=== PATIENT | male | born 1935 | race Caucasian/White ===

== ENCOUNTER 2019-06-25 15:02 | Observation (INO) | payer MEDICARE ==
[~2019-06-25] VITALS: Ht 170.2 cm; Wt 89.5 kg
[2019-06-25 15:47] LABS: BASO % 1 % (0-3); EOS # 0.3 x10^3/uL (0.0-0.7); EOS % 4 % (0-3); HEMATOCRIT 34.3 % (39.0-53.0); HEMOGLOBIN 10.7 g/dL (13.0-17.5); LYMPH # 0.7 x10^3/uL (1.0-4.8); LYMPH % 12 % (24-48); MEAN CORPUSCULAR HEMOGLOBIN 27 pg (25-35); MEAN CORPUSCULAR HGB CONC 31 g/dL (31-37); MEAN CORPUSCULAR VOLUME 88 fL (79-100); MONO # 0.8 x10^3/uL (0.0-1.1); MONO % 13 % (0-9); NEUT # 4.4 x10^3uL (1.8-7.7); NEUT % 71 % (31-73); PLATELET COUNT 143 x10^3/uL (140-400); RED CELL DISTRIBUTION WIDTH 25.3 % (11.5-14.5); WHITE BLOOD COUNT 6.2 x10^3/uL (4.0-11.0)
[2019-06-25 15:55] LABS: CREATININE 1.2 mg/dL (0.7-1.3); GFR 57.7; POTASSIUM 3.8 mmol/L (3.5-5.1)
[2019-06-25 16:00] LABS: ALBUMIN 2.9 g/dL (3.4-5.0); ALBUMIN/GLOBULIN RATIO 0.7 (1.0-1.7); MAGNESIUM 2.3 mg/dL (1.8-2.4); TOTAL BILIRUBIN 1.1 mg/dL (0.2-1.0); TOTAL PROTEIN 7.1 g/dL (6.4-8.2)
[2019-06-25 16:14] LABS: BILIRUBIN,URINE NEG (NEG); CLARITY,URINE CLEAR; COLOR,URINE YELLOW; GLUCOSE,URINE NEG (NEG); NITRITE,URINE NEG (NEG); UROBILINOGEN,URINE 1 mg/dL (0.2 mg/dL); WBC,URINE OCC /HPF (0-4)
[2019-06-25 16:15] LABS: BACTERIA,URINE 0 /HPF (0-FEW); HYALINE CASTS, URINE OCC /HPF; SQUAMOUS EPITHELIAL CELL,UR OCC /LPF
--- NOTE | 2019-06-25 16:37 | EKG ---
[address] [address] Test Date: 2019-06-25 Test Time: 15:32:24 Pat Name: ISAAC HENNESSY Department: Room: Gender: M Tobacco Stemmer Machine: : 1935 Requested By: MELISSA CURIEL Order Number: [id number] Reading MD: Roshan Moore Measurements Intervals [place] Rate: 64 P: OR: QRS: 82 QRSD: 98 T: 47 QT: 462 QTc: 481 Interpretive Statements SINUS RHYTHM PROLONGED QT Electronically Signed On 07-30-2019 17:49:55 SALES REPRESENTATIVE METALS by Roshan Moore
[2019-06-25] MEDS ORDERED: ASPIRIN ENTERIC COATED 81 MG TABLET.DR. PO ONE (17:15)
--- NOTE | 2019-06-25 17:18 | EKG ---
[address] [address] Test Date: 2019-06-25 Test Time: 16:59:16 Pat Name: ISAAC HENNESSY Department: Room: Gender: M Soft Boarder: : 1935 Requested By: MELISSA CURIEL Order Number: [id number] Reading MD: Roshan Moore Measurements Intervals [place] Rate: 64 P: 36 OK: 296 QRS: 62 QRSD: 100 T: 14 QT: 448 QTc: 467 Interpretive Statements SINUS RHYTHM PROLONGED OK INTERVAL Electronically Signed On 07-30-2019 17:50:22 DISTRIBUTION DRIVER by Roshan Moore
--- NOTE | 2019-06-25 17:26 | PHYS DOC ---
Past History Past Medical History: Anemia, CHF, COPD, Hypertension Past Surgical History: No Surgical History Alcohol Use: None Drug Use: None Adult General Chief Complaint Chief Complaint: PSYCH EVALUATION HPI HPI Patient is a 83-year-old male has known patient with history of dementia and heart failure who presents for medical clearance for psychiatric admission. Patient reportedly agitated and combative with staff charge of his care. Staff ports patient is wondering at night and found in a female resident room with inappropriate behavior. No illnesses or injuries. Denies headache, chest pain shortness of breath, no pain, nausea vomiting, urinary frequency urgency and dysuria. No other acute symptoms or complaints. Review of Systems Review of Systems Review symptoms as per history of present illness. Limited due to patient's dementia. All other systems were reviewed and found to be within normal limits, except as documented in this note. Current Medications Current Medications Current Medications Medications (Trade) Dose Ordered Sig/Radha Start Time Stop Time Status Last Admin Dose Admin Aspirin (Aspirin Enteric Coated) 324 mg 1X ONCE 06/25/19 17:15 06/25/19 17:16 DC Allergies Allergies Allergies Coded Allergies Type Severity Reaction Last Updated Verified keratin Allergy Unknown 06/25/19 Yes niacin Allergy Unknown 06/25/19 Yes Physical Exam Physical Exam Constitutional: Well developed, well nourished, no acute distress, non-toxic appearance. [] HENT: Normocephalic, atraumatic, bilateral external ears normal, oropharynx moist, no oral exudates, nose normal. [] Eyes: PERRLA, EOMI, conjunctiva normal, no discharge. [] Neck: Normal range of motion, no tenderness, supple, no stridor. [] Cardiovascular:Heart rate regular rhythm, no murmur [] Lungs & Thorax: Bilateral breath sounds clear to auscultation [] Abdomen: Bowel sounds normal, soft, no tenderness. [] Skin: Warm, dry, no erythema, no rash. [] Back: No tenderness, no CVA tenderness. [] Extremities: No tenderness, no edema. [] Neurologic: Alert and oriented X 1, normal motor function, normal sensory function, no focal deficits noted. [] Psychologic: Affect normal, judgement normal, mood normal. [] Current Patient Data Vital Signs Vital Signs Date Time Temp Pulse Resp B/P (MAP) Pulse Ox O2 Delivery O2 Flow Rate FiO2 06/25/19 16:05 80 18 117/53 (74) 94 Room Air 06/25/19 15:16 98.4 Lab Results Laboratory Tests Test 06/25/19 15:25 White Blood Count 6.2 x10^3/uL (4.0-11.0) Red Blood Count 3.90 x10^6/uL (4.30-5.70) L Hemoglobin 10.7 g/dL (13.0-17.5) L Hematocrit 34.3 % (39.0-53.0) L Mean Corpuscular Volume 88 fL (79-100) Mean Corpuscular Hemoglobin 27 pg (25-35) Mean Corpuscular Hemoglobin Concent 31 g/dL (31-37) Red Cell Distribution Width 25.3 % (11.5-14.5) H Platelet Count 143 x10^3/uL (140-400) Neutrophils (%) (Auto) 71 % (31-73) Lymphocytes (%) (Auto) 12 % (24-48) L Monocytes (%) (Auto) 13 % (0-9) H Eosinophils (%) (Auto) 4 % (0-3) H Basophils (%) (Auto) 1 % (0-3) Neutrophils # (Auto) 4.4 x10^3uL (1.8-7.7) Lymphocytes # (Auto) 0.7 x10^3/uL (1.0-4.8) L Monocytes # (Auto) 0.8 x10^3/uL (0.0-1.1) Eosinophils # (Auto) 0.3 x10^3/uL (0.0-0.7) Basophils # (Auto) 0.0 x10^3/uL (0.0-0.2) Platelet Estimate Pending Urine Collection Type Unknown Urine Color Yellow Urine Clarity Clear Urine pH 7.0 Urine Specific [place] 1.015 Urine Protein Neg (NEG-TRACE) Urine Glucose (UA) Neg mg/dL (NEG) Urine Ketones (Stick) Neg mg/dL (NEG) Urine Blood Trace (NEG) Urine Nitrite Neg (NEG) Urine Bilirubin Neg (NEG) Urine Urobilinogen Dipstick 1 mg/dL (0.2 mg/dL) Urine Leukocyte Esterase Neg (NEG) Urine RBC 1-2 /HPF (0-2) Urine WBC Occ /HPF (0-4) Urine Squamous Epithelial Cells Occ /LPF Urine Bacteria 0 /HPF (0-FEW) Urine Hyaline Casts Occ /HPF Sodium Level 138 mmol/L (136-145) Potassium Level 3.8 mmol/L (3.5-5.1) Chloride Level 102 mmol/L (98-107) Carbon Dioxide Level 31 mmol/L (21-32) Anion Gap 5 (6-14) L Blood Urea Nitrogen 21 mg/dL (8-26) Creatinine 1.2 mg/dL (0.7-1.3) Estimated GFR (Cockcroft-Gault) 57.7 BUN/Creatinine Ratio 18 (6-20) Glucose Level 108 mg/dL (70-99) H Calcium Level 9.0 mg/dL (8.5-10.1) Magnesium Level 2.3 mg/dL (1.8-2.4) Total Bilirubin 1.1 mg/dL (0.2-1.0) H Aspartate Amino Transferase (AST) 30 U/L (15-37) Alanine Aminotransferase (ALT) 29 U/L (16-63) Alkaline Phosphatase 106 U/L (46-116) Troponin I Quantitative 0.065 ng/mL (0-0.055) H Total Protein 7.1 g/dL (6.4-8.2) Albumin 2.9 g/dL (3.4-5.0) L Albumin/Globulin Ratio 0.7 (1.0-1.7) L EKG EKG [EKG: Sinus rhythm with biphasic T waves] Radiology/Procedures Radiology/Procedures [] Course & Med Decision Making Course & Med Decision Making Pertinent Labs and Imaging studies reviewed. (See chart for details) [Patient with biphasic T waves on EKG, denies chest pain shortness of breath reports reproducible neck pain upon further questioning. Initial troponin elevated at 0.065. Unable to obtain comparison EKG. Dr. Bell to admit to medical floor for further evaluation and treatment.] Dragon Disclaimer Dragon Disclaimer This electronic medical record was generated, in whole or in part, using a voice recognition dictation system. Departure Departure: Impression: Primary Impression: General medical examination Additional Impressions: Elevated troponin Dementia Disposition: ADMITTED INPATIENT Condition: STABLE Referrals: PCP,NO (PCP) Problem Qualifiers MELISSA CURIEL DO Jun 25, 2019 17:26
[2019-06-25] MEDS ORDERED: ONDANSETRON PF 4 MG/2 ML VIAL. IV PRN (17:30)
[2019-06-25 17:50] VITALS: BP 107/67
[2019-06-25] MEDS ORDERED: MULT-121 PO (18:37)
[2019-06-25] MEDS ORDERED: POLY17PO5 PO (18:37)
[2019-06-25] MEDS ORDERED: MAGN24003 PO (18:37)
[2019-06-25] MEDS ORDERED: FURO40TA4 PO (18:37)
[2019-06-25] MEDS ORDERED: ASPI-630 PO (18:37)
[2019-06-25] MEDS ORDERED: TRIA0.2567 PO (18:37)
[2019-06-25] MEDS ORDERED: FERR325T14 PO (18:37)
[2019-06-25] MEDS ORDERED: FAMO40TA4 PO (18:37)
[2019-06-25] MEDS ORDERED: PRAV20TA2 PO (18:37)
[2019-06-25] MEDS ORDERED: DOCU-109 PO (18:37)
[2019-06-25] MEDS ORDERED: DOXA8TAB59 PO (18:37)
[2019-06-25] MEDS ORDERED: METO25TA4 PO (18:37)
[2019-06-25 19:35] LABS: ANISOCYTOSIS MOD; OVALOCYTES OCC; PLT ESTIMATE ADEQUATE (ADEQUATE); POLYCHROMASIA SLIGHT; TEAR DROP CELLS OCC
[2019-06-25] MEDS ORDERED: ATORVASTATIN CALCIUM 10 MG TABLET. PO ONE (20:00)
[2019-06-25] MEDS ORDERED: ENOXAPARIN ** NOTE DOSE ** SYRINGE SQ ONE (20:00)
[2019-06-25 23:11] VITALS: BP 100/49
--- NOTE | 2019-06-26 01:03 | RAD ---
Exam: VENOUS LOWER EXT BILATERAL Indication: Lower extremity swelling Technique: Color-flow and pulsed wave duplex ultrasound with compression of venous structures of the bilateral lower extremities. Comparison: None Available. Findings: Duplex ultrasound with compression of the deep venous structures of the bilateral lower extremities from the common femoral vein through the popliteal vein is negative for DVT. The posterior tibial and peroneal veins are segmentally visualized and patent where seen. Normal venous waveforms and augmentation are noted throughout. Incidental mildly prominent right groin lymph node measuring 2.7 cm with normal morphology. Impression: No evidence for DVT in the bilateral lower extremities. Electronically signed by: Abbe Allan MD (06/26/2019 12:59 AM) [facility]
[2019-06-26 07:29] LABS: BASO % 1 % (0-3); EOS # 0.2 x10^3/uL (0.0-0.7); EOS % 4 % (0-3); HEMATOCRIT 30.8 % (39.0-53.0); HEMOGLOBIN 9.6 g/dL (13.0-17.5); LYMPH # 0.8 x10^3/uL (1.0-4.8); LYMPH % 14 % (24-48); MEAN CORPUSCULAR HEMOGLOBIN 27 pg (25-35); MEAN CORPUSCULAR HGB CONC 31 g/dL (31-37); MEAN CORPUSCULAR VOLUME 88 fL (79-100); MONO # 0.8 x10^3/uL (0.0-1.1); MONO % 13 % (0-9); NEUT # 4.2 x10^3uL (1.8-7.7); NEUT % 69 % (31-73); PLATELET COUNT 129 x10^3/uL (140-400); RED CELL DISTRIBUTION WIDTH 25.5 % (11.5-14.5); WHITE BLOOD COUNT 6.1 x10^3/uL (4.0-11.0)
--- NOTE | 2019-06-26 07:46 | PDOC2 ---
CARDIAC CONSULT DATE OF CONSULT Date Of Consult DATE: 06/26/19 TIME: 07:43 REASON FOR CONSULT Reason for Consult Chest pain, elevated troponin REFERRING PHYSICIAN Referring Physician Dr. Bell SOURCE Source: Caregiver, Chart review, Patient HPI History of Present Illness This is an 83 yo male who presented from care facility for medical clearance prior to admission to the psychiatric unit. Has apparently been more agitated and combative and has been wandering more at night. Troponin checked for unknown reasons and was noted to be mildly elevated, which prompted this consult. Patient denies any chest pain, palpitations, dizziness, diaphoresis, SOA, or nausea/vomiting. Patient had complaints of chest pain to nursing staff upon arrival to the floor. Lovenox was administered and troponin was trended. No further pain overnight. Discussed with daughter, Tim. Patient has a history of CAD with PCI/stent in 2000 and PCI/stents x2 in 2002. Experienced an episode of chest pain back in February and was hospitalized at [facility] in [place]. Trop was reportedly mildly elevated and he underwent further ischemic evaluation with an echo and a stress test which were reportedly normal. Patient follows with Dr. Ramirez at [facility]. PAST MEDICAL HISTORY Cardiovascular: CAD, CHF, HTN, hyperipidemia, Other (carotid artery disease) Pulmonary: COPD CENTRAL NERVOUS SYSTEM: Dementia GI: Diverticulosis, GERD Musculoskeletal: Osteoarthritis Endocrine: Hypothyroidism PAST SURGICAL HISTORY Past Surgical History carotid endarterectomy, carpal tunnel surgery, shoulder surgery, PCI/stent FAMILY HISTORY Family History: Other (noncontributory ) SOCIAL HISTORY Smoke: Quit ALCOHOL: none Drugs: None Lives: Senior Living CURRENT MEDICATIONS Current Medications Current Medications Aspirin (Aspirin Enteric Coated) 324 mg 1X ONCE PO Last administered on 06/25/19at 17:15; Start 06/25/19 at 17:15; Stop 06/25/19 at 17:16; Status DC Ondansetron HCl (Zofran) 4 mg PRN Q4HRS PRN IV NAUSEA/VOMITING; Start 06/25/19 at 17:30; Stop 06/26/19 at 17:29 Enoxaparin Sodium (Lovenox 80mg Syringe) 80 mg 1X ONCE SQ Last administered on 06/25/19at 22:19; Start 06/25/19 at 20:00; Stop 06/25/19 at 20:01; Status DC Atorvastatin Calcium (Lipitor) 40 mg 1X ONCE PO Last administered on 06/25/19at 22:19; Start 06/25/19 at 20:00; Stop 06/25/19 at 20:01; Status DC Active Scripts Active Reported Triazolam 0.25 Mg Tablet 1 Tab PO PRN QHS PRN MDD 1 Tablet(s) 30 Days Multiple Vitamins (Multivitamin) 1 Each Tablet 1 Tab PO DAILY 30 Days Ferrous Sulfate 325 Mg Tablet 1 Tab PO DAILY Furosemide 40 Mg Tablet 40 Mg PO BID Milk Of Magnesia (Magnesium Hydroxide) 2,400 Mg/10 Ml Oral.susp 2,400 Mg PO PRN PRN Pravastatin Sodium 20 Mg Tablet 1 Tab PO DAILY Miralax (Polyethylene Glycol 3350) 17 Gm Powd.pack 1 Packet PO DAILY 2 Days dissolve in water Metoprolol Tartrate 25 Mg Tablet 1 Tab PO DAILY Famotidine 40 Mg Tablet 1 Tab PO DAILY Doxazosin Mesylate 8 Mg Tablet 1 Tab PO DAILY Colace (Docusate Sodium) 100 Mg Capsule 1 Cap PO DAILY08 30 Days Aspirin 81 Mg Tab.chew 81 Mg PO DAILY ALLERGIES Allergies: Coded Allergies: keratin (Verified Allergy, Unknown, 06/25/19) niacin (Verified Allergy, Unknown, 06/25/19) sucralfate (Verified Allergy, Unknown, 06/26/19) ROS Review of Systems 14 point ROS conducted with pertinent positives noted above in HPI although limited due to dementia. PHYSICAL EXAM General: Alert, Cooperative, No acute distress, Other (oriented to person) HEENT: Atraumatic, Mucous membr. moist/pink Lungs: Clear to auscultation, Normal air movement Heart: Regular rate (off tele ), Normal S1, Normal S2 Abdomen: Soft, No tenderness Extremities: No edema, Normal pulses Skin: No breakdown Neuro: Normal speech, Sensation intact Psych/Mental Status: Mood NL MUSCULOSKELETAL: Osteoarthritic changes both hands VITALS Vital Signs Vital Signs Date Time Temp Pulse Resp B/P (MAP) Pulse Ox O2 Delivery O2 Flow Rate FiO2 06/25/19 23:11 97.3 68 20 100/49 (66) 91 Room Air LABS LABS Laboratory Tests Test 06/25/19 15:25 06/25/19 18:40 06/25/19 23:14 06/26/19 07:15 White Blood Count 6.2 x10^3/uL (4.0-11.0) 6.1 x10^3/uL (4.0-11.0) Red Blood Count 3.90 x10^6/uL (4.30-5.70) 3.50 x10^6/uL (4.30-5.70) Hemoglobin 10.7 g/dL (13.0-17.5) 9.6 g/dL (13.0-17.5) Hematocrit 34.3 % (39.0-53.0) 30.8 % (39.0-53.0) Mean Corpuscular Volume 88 fL (79-100) 88 fL (79-100) Mean Corpuscular Hemoglobin 27 pg (25-35) 27 pg (25-35) Mean Corpuscular Hemoglobin Concent 31 g/dL (31-37) 31 g/dL (31-37) Red Cell Distribution Width 25.3 % (11.5-14.5) 25.5 % (11.5-14.5) Platelet Count 143 x10^3/uL (140-400) 129 x10^3/uL (140-400) Neutrophils (%) (Auto) 71 % (31-73) 69 % (31-73) Lymphocytes (%) (Auto) 12 % (24-48) 14 % (24-48) Monocytes (%) (Auto) 13 % (0-9) 13 % (0-9) Eosinophils (%) (Auto) 4 % (0-3) 4 % (0-3) Basophils (%) (Auto) 1 % (0-3) 1 % (0-3) Neutrophils # (Auto) 4.4 x10^3uL (1.8-7.7) 4.2 x10^3uL (1.8-7.7) Lymphocytes # (Auto) 0.7 x10^3/uL (1.0-4.8) 0.8 x10^3/uL (1.0-4.8) Monocytes # (Auto) 0.8 x10^3/uL (0.0-1.1) 0.8 x10^3/uL (0.0-1.1) Eosinophils # (Auto) 0.3 x10^3/uL (0.0-0.7) 0.2 x10^3/uL (0.0-0.7) Basophils # (Auto) 0.0 x10^3/uL (0.0-0.2) 0.0 x10^3/uL (0.0-0.2) Platelet Estimate Adequate (ADEQUATE) Polychromasia Slight Anisocytosis Mod Tear Drop Cells Occ Ovalocytes Occ Urine Collection Type Unknown Urine Color Yellow Urine Clarity Clear Urine pH 7.0 Urine Specific [place] 1.015 Urine Protein Neg (NEG-TRACE) Urine Glucose (UA) Neg mg/dL (NEG) Urine Ketones (Stick) Neg mg/dL (NEG) Urine Blood Trace (NEG) Urine Nitrite Neg (NEG) Urine Bilirubin Neg (NEG) Urine Urobilinogen Dipstick 1 mg/dL (0.2 mg/dL) Urine Leukocyte Esterase Neg (NEG) Urine RBC 1-2 /HPF (0-2) Urine WBC Occ /HPF (0-4) Urine Squamous Epithelial Cells Occ /LPF Urine Bacteria 0 /HPF (0-FEW) Urine Hyaline Casts Occ /HPF Sodium Level 138 mmol/L (136-145) Potassium Level 3.8 mmol/L (3.5-5.1) Chloride Level 102 mmol/L (98-107) Carbon Dioxide Level 31 mmol/L (21-32) Anion Gap 5 (6-14) Blood Urea Nitrogen 21 mg/dL (8-26) Creatinine 1.2 mg/dL (0.7-1.3) Estimated GFR (Cockcroft-Gault) 57.7 BUN/Creatinine Ratio 18 (6-20) Glucose Level 108 mg/dL (70-99) Calcium Level 9.0 mg/dL (8.5-10.1) Magnesium Level 2.3 mg/dL (1.8-2.4) Total Bilirubin 1.1 mg/dL (0.2-1.0) Aspartate Amino Transf (AST/SGOT) 30 U/L (15-37) Alanine Aminotransferase (ALT/SGPT) 29 U/L (16-63) Alkaline Phosphatase 106 U/L (46-116) Troponin I Quantitative 0.065 ng/mL (0-0.055) 0.061 ng/mL (0-0.055) 0.068 ng/mL (0-0.055) Total Protein 7.1 g/dL (6.4-8.2) Albumin 2.9 g/dL (3.4-5.0) Albumin/Globulin Ratio 0.7 (1.0-1.7) ASSESSMENT/PLAN Assessment/Plan 1. Dementia, increased agitation/combativeness 2. Mild troponin elevation; Most probably type II, demand ischemia. CP free. 3. CAD; s/p PCI/stent in 1999 and again in 2002. Follows with cardiology at [facility] in [place]. Echo and stress test 02/2019 were reportedly normal. 4. Chronic diastolic CHF; clinically compensated 5. Hypertension; low end. 6. Hyperlipidemia; statin 7. Hypothyroidism 8. COPD; stable Recommendations Resume ASA, BB, statin Consider Imdur if blood pressure will tolerate Lasix therapy Recommend conservative measures given significant dementia, comorbidities Okay to transfer to behavioral unit. Follow up with primary deputy administrator. ALTA WILLIAMSON APRN Jun 26, 2019 07:46
[2019-06-26 07:48] LABS: ALBUMIN 2.4 g/dL (3.4-5.0); ALBUMIN/GLOBULIN RATIO 0.7 (1.0-1.7); CALCIUM 8.2 mg/dL (8.5-10.1); CREATININE 1.2 mg/dL (0.7-1.3); GFR 57.7; POTASSIUM 3.5 mmol/L (3.5-5.1); TOTAL BILIRUBIN 1.1 mg/dL (0.2-1.0); TOTAL PROTEIN 5.9 g/dL (6.4-8.2)
[2019-06-26] MEDS ORDERED: METOPROLOL TART IMMED RELEASE 25 MG TABLET PO SCH (09:00)
[2019-06-26] MEDS ORDERED: FAMOTIDINE 20 MG TABLET PO SCH (09:00)
[2019-06-26] MEDS ORDERED: FUROSEMIDE 40 MG TABLET PO SCH (09:00)
[2019-06-26] MEDS ORDERED: DOXAZOSIN MESYLATE 4 MG TABLET PO SCH (09:00)
[2019-06-26] MEDS ORDERED: FERROUS SULFATE 325 MG TABLET. PO SCH (09:00)
[2019-06-26] MEDS ORDERED: POLYETHYLENE GLYCOL 3350 17 GM PACKET. PO SCH (09:00)
[2019-06-26] MEDS ORDERED: ZOLPIDEM 5 MG TABLET. PO PRN (09:00)
[2019-06-26] MEDS ORDERED: DOCUSATE SODIUM 100 MG CAPSULE PO SCH (09:00)
[2019-06-26] MEDS ORDERED: ASPIRIN 81 MG TAB.CHEW PO SCH (09:00)
[2019-06-26] MEDS ORDERED: ATORVASTATIN CALCIUM 10 MG TABLET. PO SCH (09:00)
[2019-06-26] MEDS ORDERED: MULTIVITAMIN with MINERAL TABLET. PO SCH (09:00)
[2019-06-26 09:09] VITALS: BP 108/62
[2019-06-26 10:58] VITALS: BP 101/46
--- NOTE | 2019-06-26 17:21 | SSS ---
ADMIT DATE: 06/26/2019 HISTORY OF PRESENT ILLNESS: The patient is an 83-year-old male who presented from Memory Care from [facility] in [place], [place]. He was seen in the Emergency Room for medical clearance prior to admission to the psych unit, has apparently been more agitated, combative and has been wandering more at night. While in the Emergency Room, his troponin was noted to be mildly elevated and therefore he was admitted to [address] [place] [address] to do 2 more sets of cardiac enzyme and to consult the Cardiology team. The patient himself denied any chest pain, palpitation, shortness of breath, dizziness, lightheadedness, diaphoresis or nausea or vomiting; however, he apparently did complain of chest pain to the nursing staff upon arrival to the floor. Lovenox administered and troponin was trended. Apparently, his daughter was contacted and the patient has a history of coronary artery disease with PCI and stent deployment in 2000 and again PCI and stents x 2 in 2002. He was also hospitalized in February 2019 at [facility] in [place]. Troponin was reportedly mildly elevated and he underwent further ischemic evaluation with an echo and stress test, which were reportedly normal. He normally follows with the Cardiology team at [facility]. He apparently has had 2 more sets of cardiac enzymes, showed troponin slightly elevated at 0.65, 0.61 and 0.68. His lipid panel was well within normal range and the Cardiology team did not recommend any further ischemic workup and recommended only conservative measures given significant dementia and other comorbidities. PAST MEDICAL HISTORY: Significant for coronary artery disease, congestive heart failure, hypertension, hyperlipidemia. He also is known to have carotid artery disease, chronic obstructive pulmonary disease, gastroesophageal reflux disease, hypothyroidism, osteoarthritis and dementia. PAST SURGICAL HISTORY: Significant for carotid endarterectomy, carpal tunnel surgery, shoulder surgery, PCI and stent deployment. FAMILY HISTORY: Noncontributory. SOCIAL HISTORY: He currently lives in memory unit. He quit smoking, does not drink alcohol or use any recreational drugs. ALLERGIES: He is allergic to CAROTENE, NIACIN and SUCRALFATE. MEDICATIONS: He is currently on following medications: He is on ferrous sulfate 325 mg daily, pravastatin sodium 20 mg once a day, doxazosin mesylate 8 mg once a day, metoprolol tartrate 25 mg daily, aspirin 81 mg once a day, triazolam 0.25 mg at bedtime, furosemide 40 mg twice a day, docusate sodium 100 mg daily, magnesium hydroxide for milk of magnesia 30 mL p.o. daily p.r.n. for constipation, polyethylene glycol 17 grams daily, famotidine 40 mg once a day, multivitamin 1 tablet once a day. PHYSICAL EXAMINATION: GENERAL: On arrival, he looked well and was clearly in no apparent respiratory distress. No pallor, jaundice, cyanosis or thyromegaly. No jugular venous distention. No lower limb edema. VITAL SIGNS: His heart rate was 68, blood pressure was 117/53, temperature was 98.4, respiratory rate was 18 and oxygen saturation was 94% on room air. HEAD, EYES, EARS, NOSE AND THROAT: Showed normocephalic, atraumatic. NECK: Supple. HEART: Showed normal first and second heart sounds with no gallop or murmur. CHEST: Clear to auscultation. No crepitation or rhonchi. ABDOMEN: Distended, soft, nontender. NEUROLOGIC: He was awake, alert, though demented. All his cranial nerves are intact. EXTREMITIES: He moves extremities without difficulty. LABORATORY DATA: On admission showed his serum sodium 138, potassium 3.8, chloride 102, bicarbonate 31, anion gap of 5, BUN 21, creatinine 1.2, estimated GFR was 57 mL per minute. His glucose 108, calcium was 9, magnesium 2.3. Total bilirubin, AST, ALT, alkaline phosphatase were normal. His initial troponin was 0.065. Total protein was 7.1, albumin 2.9. Urinalysis showed the urine was yellow, clear with pH of 7, specific gravity 1.015. The urine was negative for protein, glucose, trace of blood, negative for nitrite and bilirubin. There were occasional 1-2 rbc's, occasional wbc's and no bacteria. His white cell count was 6200, hemoglobin 11, hematocrit 34, MCV 88 and platelet count of 143,000. ASSESSMENT AND PLAN: The patient was admitted to [address] [place] [address], has had 2 more sets of cardiac enzymes and has had fasting lipid profile, which was within therapeutic range. The troponin was slightly elevated, but the Cardiology team did not recommend any further ischemic workup and felt that the slight elevation is probably demand ischemia. As they did not recommend any ischemic workup and recommended conservative measures given significant dementia and comorbidities, the patient was transferred to Behavioral Unit for inpatient psychiatric stabilization. FINAL DISCHARGE DIAGNOSES: Dementia with increased agitation and combativeness, coronary artery disease, chronic diastolic congestive heart failure, hypertension, hyperlipidemia, hypothyroidism, chronic obstructive pulmonary disease. KRISTYN WALLS MD DR: MELLISA/ashkan JOB#: [id number] / [id number]
[2019-07-17] MEDS ORDERED: ROPI1TAB4 PO (11:38)
== END 2019-06-26 11:04 ==
LOC: ER 15:02 → 1 SOUTH 17:00 → INTOOBSV 17:00
PROVIDERS: ADMIT Internal Medicine; ATTEND Internal Medicine
DX: F02.80 Dementia in other diseases classified elsewhere, unspecified severity, without behavioral disturbance, psychotic disturbance, mood disturbance, and anxiety (principal); R74.8 Abnormal levels of other serum enzymes; I11.0 Hypertensive heart disease with heart failure; I50.9 Heart failure, unspecified; J44.9 Chronic obstructive pulmonary disease, unspecified; D64.9 Anemia, unspecified; I25.10 Atherosclerotic heart disease of native coronary artery without angina pectoris; E78.5 Hyperlipidemia, unspecified; K21.9 Gastro-esophageal reflux disease without esophagitis; E03.9 Hypothyroidism, unspecified; M19.90 Unspecified osteoarthritis, unspecified site; Z87.891 Personal history of nicotine dependence
CPT/HCPCS: 36415; 80053; 80061; 85025; 93970; 96372; 99284; G0378; J1650; 81001; 83735; 84443; 84484; 93005; G0379

== ENCOUNTER 2019-06-26 11:45 | Inpatient (IN) | payer MEDICARE ==
[~2019-06-26] VITALS: Ht 170.2 cm; Wt 90.3 kg
[~2019-06-26 11:45] MED LIST: ASPI-630 PO; DOCU-109 PO; DOXA8TAB59 PO; FAMO40TA4 PO; FERR325T14 PO; FURO40TA4 PO; MAGN2400 PO; METO25TA4 PO; MULT-121 PO; POLY17PO5 PO; PRAV20TA2 PO; TRIA0.2567 PO
--- NOTE | 2019-06-26 11:59 | NUR ---
Admission Note with Justification for Admission to [facility] Patient admitted to [facility] for protective oversight for emergency stabilization of acute psychiatric crisis. Pt admitted from: [address] [place] [address] where he was for elevated troponin since 06/25. Patient resides at [facility] in [place], [place] Mode of arrival: wheelchair Accompanied By: [facility] Staff-SETH Poe Precipitating behaviors that initiated intake and admission: Patient has been delusional this morning on [facility] believing that it is his house and trying to kick people out of it. His facility reported that he has been combative with staff and peers, not sleeping, removing his clothes and wandering into female peers room and then sitting on her leg. He has been refusing to keep his PRN oxygen on. Description of failure of out patient attempts at stabilization in previous setting list behavior and medication trials: Patient has had medication changes, zyprexa injections and a "medication holiday" at his facility. Behaviors and assessment findings upon admission: Patient had originally been scheduled to come to [facility] 06/25 and in the ER screening he was found to have elevated troponin. He was inpatient on [address] [place] [address] one night and had been cleared by cardiology and Dr. Bell to come to [facility]. Vital signs obtained and belongings inventoried. Patient pleasant on arrival, oriented to self only, stating he is "64 years old" and his birthday is "in [birth year]". Brief head to toe assessment performed. Patient has many scabs on his arms in various states Deepika ANN, stated that he has been picking at his arms. Patient is calm and eating his lunch in the dining room. It was reported that patient was delusional immediately before leaving [address] [place] [address] to come to [facility] and stated "This is my house and I want you all to leave". Prior to that he had been calm and sitting in a recliner. Plan: Admit for protective oversight for adjustment and stabilization of medications, behaviors and mood. Intense treatment regimen including groups, medication adjustments, therapy, consistent regimen for ADL's, self care, and sleep hygiene. Daily monitoring by Inpatient staff, Psychiatry, and Medical Physician.
[2019-06-26 12:30] VITALS: BP 117/62
[2019-06-26] MEDS ORDERED: ACETAMINOPHEN 325 MG TABLET PO PRN (13:45)
[2019-06-26] MEDS ORDERED: MAG HYDROX/AL HYDROX/SIMETH 30 ML ORAL.SUSP PO PRN (13:45)
--- NOTE | 2019-06-26 14:00 | NUR ---
During afternoon group, therapist noticed Pt. asking the same questions roughly every five minutes. Therapist wrote out a reminder for pt., stating "Saad- You are at [facility] in [facility]. Your sister knows you are here.' Therapist asked pt. to read the note out loud and he was able to. Therapist taped the note on PtTana berger in hopes of helping him remember the current situation.
[2019-06-26] MEDS ORDERED: MAGNESIUM HYDROXIDE 2,400 MG/30 ML ORAL.SUSP. PO PRN (15:15)
[2019-06-26 16:22] VITALS: BP 121/55
[2019-06-26] MEDS: FUROSEMIDE 40 MG TABLET PO SCH (17:34)
--- NOTE | 2019-06-26 20:48 | PDOC ---
Exam Note: Dontrell Note: Please also refer to the separate dictated note~for this date of service dictated separately. Discussed the patient with Nursing staff reviewed the chart.~Reviewed interim history and current functioning. Reviewed vital signs,~Labs/ Radiology~and current medications noted below. Continue current treatment with the changes noted in the dictated addendum note Assessment: Vital Signs/I&O: Vital Signs Date Time Temp Pulse Resp B/P (MAP) Pulse Ox O2 Delivery O2 Flow Rate FiO2 06/26/19 16:22 97.1 88 16 121/55 (77) 93 06/26/19 12:30 Room Air Labs: Laboratory Tests Test 06/26/19 07:15 Magnesium Level 2.2 mg/dL (1.8-2.4) Thyroid Stimulating Hormone (TSH) 1.711 uIU/mL (0.358-3.740) Current Medications: I have reviewed the current psychotropics carefully including drug interactions. Risk benefit ratio favors no change other than as noted in my dictated progress note. 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
[2019-06-26] MEDS: ZOLPIDEM 5 MG TABLET. PO PRN (23:46)
[2019-06-27 00:06] LABS: HEMOGLOBIN A1C 5.6 % (4.8-5.6)
[2019-06-27 02:06] LABS: THYROXINE 4.6 ug/dL (4.5-12.0)
--- NOTE | 2019-06-27 05:39 | NUR ---
Nsg Note: Patient was in day room at time of medication administration and assessments. Patient was pleasantly confused at the time and very restless. Patient could not sit still. Patient kept walking the entire unit with walker the entire night. Patient did not sleep. PRN Ambien given, ineffective. Patient did have some periods of agitation towards staff. Tried to throw walker at buffing wheel former automatic at one point. No other notable behaviors at this time.
[2019-06-27 06:04] VITALS: BP 115/60
[2019-06-27] MEDS: MULTIVITAMIN with MINERAL TABLET. PO SCH (10:46)
[2019-06-27] MEDS: FERROUS SULFATE 325 MG TABLET. PO SCH (10:47)
[2019-06-27] MEDS: METOPROLOL TART IMMED RELEASE 25 MG TABLET PO SCH (10:47)
[2019-06-27] MEDS: DOCUSATE SODIUM 100 MG CAPSULE PO SCH (10:47)
[2019-06-27] MEDS: FAMOTIDINE 20 MG TABLET PO SCH (10:47)
[2019-06-27] MEDS: FUROSEMIDE 40 MG TABLET PO SCH ×2 (10:48→17:19)
[2019-06-27] MEDS: ATORVASTATIN CALCIUM 10 MG TABLET. PO SCH (10:48)
[2019-06-27] MEDS: ASPIRIN 81 MG TAB.CHEW PO SCH (10:48)
[2019-06-27] MEDS: POLYETHYLENE GLYCOL 3350 17 GM PACKET. PO SCH (10:52)
--- NOTE | 2019-06-27 15:12 | NUR ---
PSYCHOSOCIAL ASSESSMENT ADMISSION DATE: 06/26/19 CONTACT INFORMATION: DPOA/Guardian Contact Name: Tim Barajas-daughter Contact Phone #: [phone] ETHNIC ORIGIN: REASONS FOR ADMISSION: Aggressive Agitated Confusion/Disoriented Delusions Poor impulse control Sig. Change Sleep ADDITIONAL ADMISSION COMMENTS: Per intake record, Saad was combative with staff at times of care, having insomnia, wandering, disrobing, and wandering into peer's rooms naked, and was agitated. REASON FOR ADMISSION IN PATIENT/FAMILY'S OWN WORDS: Per Saad, "[place] and my liked the doctor better." Per Tim, POA/daughter, Saad's mood and behavior are unpredictable with periods of yelling, cursing, wandering, combativeness towards staff, not sleeping, and disrobing. PATIENT/FAMILY EXPECTATIONS FOR ADMISSION: Per Tim, she would like for Saad's mood to be more stable, more calm, and less agitated. LIVING SITUATION: Patient lives with: Memory Care Facility Other living arrangements: [facility] care Contact Name: Richie Contact Address: [address] [place] [id number] Contact Phone #: [phone] Contact Fax #: [phone] FAMILY RELATIONS: Marital Status: # of Marriages: 1 # of Children: 3 [facility] Family Support: Concerned Cooperative Additional Comments r/t Family: Saad is to Candis. They have been for 65 years. They have three children named Saad ( at 57 years of age from cancer), Colby (resides in the [facility] and has been estranged for the past five years after having a falling out with Saad), and Tim ([place], [place]). Saad recalls his marriage as good. Saad has a supportive relationship with his daughter. SIGNIFICANT PSYCHIATRIC/MEDICAL HISTORY: Psychiatric/Treatment History: None reported. Saad stated he saw a psychiatrist once in his life when he was drinking too much. Saad said the psychiatrist helped him and he has not drank alcohol for the past 35 years. Pertinent Family History: Saad denied any mental illness in his family of origin. He stated that his father would drink excessively at times but not regularly. Saad also stated that his son Colby had been an alcoholic but is sober now. HISTORICAL DATA: Childhood Environment: [place] Supportive Childhood Environment Additional Comments: Saad was born in [facility] to Parminder and Christine Varma. He was the youngest of ten children. Saad had four brothers and five sisters. He has only one sister, Yvette Sweeney, that remains alive in [facility]. Saad recalled his childhood fondly and reported they never had any problems. Psychological Abuse: None reported Additional Comments: Drug Abuse History last 12 months: No Comment: Saad quit drinking and smoking 35 years ago. He does not use drugs. 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 service: N Sabianist background: Saad is of the [employer] ede. He reports that his ede is of high importance to him. Sexual orientation: Heterosexual Educational Level: Saad graduated from high school. Past/Present Interests/Hobbies: Saad has enjoyed fishing, carpentry, swimming, yard work, gardening, boating, and raising rabbits as a child. Financial support/resources: Social Security Monthly income: Unknown Person handling finances: Candis Varma-spouse Do you have a history of legal problems: No Cultural considerations: None reported. SOCIAL RELATIONSHIPS-CURRENT/PAST: Psychiatrist: None currently PCP: Dr. Moncada [phone] Counselor/Therapist: None Veterans[employer] Administration: N/A Support Group: None Assembler Corncob Pipes/Dish Cloth Inspector: None Other relationships: Relationships with [place] staff STRENGTHS & WEAKNESSES: Patient's strengths: Good verbal skills Ambulatory Engaged Patient's weaknesses: Impulsive Physically Aggressive Verbally Aggressive PRELIMINARY PLAN OF TREATMENT: Preliminary plan: Promote Coping Skill Medication Stabilization Monitor Med Effects Control abnormal behavior Prevent Deterioration Dec. Aggression Other preliminary treatment comments: Saad will be encouraged to attend SW and recreational therapy groups while on the unit. DISCHARGE PLANNING: Discharge planning/disposition: Memory Care Additional discharge needs identified: Follow up with PCP and out patient psychiatry. ADDITIONAL INFORMATION: Other Pertinent Data: Met with Saad on 06/27/19 to socialize and support related to recent admit to [facility]. Saad was alert and oriented to himself. He was confused to place and time recalling the year as "1998" and believing he was at a "gas station in [facility]." Saad was able to recall many events from his remote past and this information was verified with his daughter. He was delusional about his Candis reporting that she had found a "young slicker" and is going to be him. Per Saad's family, this is not accurate. Saad was slightly agitated at the beginning of visit as he believed he was at a gas station and no one knew what they were doing. Saad was distracted and mood was easily altered with conversation. Tim, daughter/POA, will be involved via phone in team meeting on 06/28/19.
[2019-06-27 16:12] VITALS: BP 111/63
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
--- NOTE | 2019-06-27 18:30 | NUR ---
patient has been calm, compliant, pleasantly confused, and delusional throughout this shift. He was wandering most of the afternoon, stating that he needed to fill up so that he can get back to either [place] or [place]. At dinner he was repeatedly intrusive with another patient, but redirectable; after dinner he was less redirectable and was removed from the day room for being intrusive with other patients. Will continue to monitor and report to oncoming shift.
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
[2019-06-27] MEDS: ZOLPIDEM 5 MG TABLET. PO PRN (20:08)
--- NOTE | 2019-06-27 20:40 | PDOC ---
Exam Note: Dontrell Note: Please also refer to the separate dictated note~for this date of service dictated separately.~Patient seen individually. Discussed the patient with Nursing staff reviewed the chart.~Reviewed interim history and current functioning. Reviewed vital signs,~Labs/ Radiology~and current medications noted below. Continue current treatment with the changes noted in the dictated addendum note Assessment: Vital Signs/I&O: Vital Signs Date Time Temp Pulse Resp B/P (MAP) Pulse Ox O2 Delivery O2 Flow Rate FiO2 06/27/19 16:12 98.1 91 19 111/63 (79) 92 06/26/19 12:30 Room Air I & O 06/26/19 06/26/19 06/27/19 15:00 23:00 07:00 Intake Total 240 ml 240 ml 240 ml Balance 240 ml 240 ml 240 ml Current Medications: Meds: Current Medications Medications (Trade) Dose Ordered Sig/Radha Route PRN Reason Start Time Stop Time Status Last Admin Dose Admin Aspirin (Children'S Aspirin) 81 mg DAILY PO 06/27/19 09:00 06/27/19 10:48 Docusate Sodium (Colace) 100 mg DAILY08 PO 06/27/19 08:00 06/27/19 10:47 Ferrous Sulfate (Feosol) 325 mg DAILY PO 06/27/19 09:00 06/27/19 10:47 Metoprolol Tartrate (Lopressor) 25 mg DAILY PO 06/27/19 09:00 06/27/19 10:47 Polyethylene Glycol (miraLAX) 17 gm DAILY PO 06/27/19 09:00 06/27/19 10:52 Famotidine (Pepcid) 40 mg DAILY PO 06/27/19 09:00 06/27/19 10:47 Multivitamins/ Calcium (Thera-M Plus) 1 tab DAILY PO 06/27/19 09:00 06/27/19 10:46 Atorvastatin Calcium (Lipitor) 5 mg DAILY PO 06/27/19 09:00 06/27/19 10:48 Mirtazapine (Remeron) 7.5 mg QHS PO 06/27/19 21:00 06/27/19 20:08 I have reviewed the current psychotropics carefully including drug interactions. Risk benefit ratio favors no change other than as noted in my dictated progress note. Diagnosis: Problems: (1) Anxiety disorder (2) Dementia, vascular, with depression (3) Dementia, vascular, with delusions (4) Major neurocognitive disorder (5) Dementia in Alzheimer's disease with depression (6) Dementia in Alzheimer's disease with delusions (7) Impulse control disorder MAIRA SAAVEDRA MD Jun 27, 2019 20:40
[2019-06-27] MEDS ORDERED: MIRTAZAPINE 7.5 MG TABLET. PO SCH (21:00)
--- NOTE | 2019-06-27 22:29 | NUR ---
Nursing note: Assumed care of pt in the day room. He was calm and interactive, compliant and pleasant. Pt denies pain, no behaviors.
[2019-06-28 04:54] VITALS: BP 117/71
[2019-06-28] MEDS: FAMOTIDINE 20 MG TABLET PO SCH (07:48)
[2019-06-28] MEDS: ASPIRIN 81 MG TAB.CHEW PO SCH (07:48)
[2019-06-28] MEDS: METOPROLOL TART IMMED RELEASE 25 MG TABLET PO SCH (07:48)
[2019-06-28] MEDS: DOCUSATE SODIUM 100 MG CAPSULE PO SCH (07:48)
[2019-06-28] MEDS: FUROSEMIDE 40 MG TABLET PO SCH ×2 (07:49→16:45)
[2019-06-28] MEDS: SERTRALINE 25 MG TABLET. PO SCH (07:49)
[2019-06-28] MEDS: MULTIVITAMIN with MINERAL TABLET. PO SCH (07:49)
[2019-06-28] MEDS: ATORVASTATIN CALCIUM 10 MG TABLET. PO SCH (07:50)
[2019-06-28] MEDS: POLYETHYLENE GLYCOL 3350 17 GM PACKET. PO SCH (07:50)
[2019-06-28] MEDS: FERROUS SULFATE 325 MG TABLET. PO SCH (07:50)
--- NOTE | 2019-06-28 09:55 | NUR ---
Activity Therapy Assessment Completed based on observation and notes; Pt. unable to answer most assessment questions. Pt. is tall and thin, wears glasses and uses a red rolling walker to ambulate though he frequently forgets to use it. Pt. has been confused, restless, difficult to redirect, and irritable since admission. Pt. rarely sleeps, often wandering the unit all night. Pt. believes another patient is his , follows her around, and is continuously looking for his truck to leave. Therapist ESTELA has used written reminders taped to Pt. walker that seem to help at times. Pt. is to a woman named Candis who is still living. Pt. has three children- Saad, Colby, and Tim; Tim is DPOA. Pt. is also close to his sister, Yvette, who lives near him in [place]. 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 Pt. short term memory is very limited but his usp seems mostly in tact. Pt. wanders in and out of group and is difficult to engage and maintain attention. Initial goal aimed to increase relaxation and engagement: Pt. will participate in three Activity Therapy groups or individual sessions before discharge.
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
--- NOTE | 2019-06-28 14:54 | RAD ---
EXAM: Head CT without contrast. HISTORY: Mental status changes. TECHNIQUE: Computed tomographic images of the head were obtained without contrast. *One or more of the following individualized dose reduction techniques were utilized for this examination: 1. Automated exposure control. 2. Adjustment of the mA and/or kV according to patient size. 3. Use of iterative reconstruction technique. COMPARISON: None. FINDINGS: There is no acute or subacute extra-axial or intraparenchymal hemorrhage. There is no mass effect or midline shift. There is no hydrocephalus. There are areas of decreased attenuation within the cerebral white matter, nonspecific and likely related to chronic small vessel disease. There is cerebral volume loss. There is evidence of lens surgery. There is a right ryne bullosa. The mastoid air cells are clear. There is no suspicious calvarial lesion. IMPRESSION: 1. No acute intracranial finding. Note is made that MRI is more sensitive for acute infarction. 2. Decreased attenuation within the cerebral white matter, likely due to chronic small vessel disease. Electronically signed by: Lisy Landin MD (06/28/2019 2:50 PM) [id number]
[2019-06-28 16:04] VITALS: BP 121/69
[2019-06-28] MEDS: MELATONIN 3 MG TABLET PO SCH (19:42)
[2019-06-28] MEDS: MIRTAZAPINE 15 MG TABLET PO SCH (19:43)
--- NOTE | 2019-06-28 21:27 | PDOC ---
Exam Note: Dontrell Note: Please also refer to the separate dictated note~for this date of service dictated separately.~Patient seen individually. Discussed the patient with Nursing staff reviewed the chart.~Reviewed interim history and current functioning. Reviewed vital signs,~Labs/ Radiology~and current medications noted below. Continue current treatment with the changes noted in the dictated addendum note Assessment: Vital Signs/I&O: Vital Signs Date Time Temp Pulse Resp B/P (MAP) Pulse Ox O2 Delivery O2 Flow Rate FiO2 06/28/19 16:04 98.1 86 18 121/69 (86) 96 Room Air I & O 06/27/19 06/27/19 06/28/19 15:00 23:00 07:00 Intake Total 580 ml 240 ml Balance 580 ml 240 ml Current Medications: Meds: Current Medications Medications (Trade) Dose Ordered Sig/Radha Route PRN Reason Start Time Stop Time Status Last Admin Dose Admin Sertraline HCl (Zoloft) 25 mg DAILY PO 06/28/19 09:00 06/28/19 07:49 Mirtazapine (Remeron) 15 mg QHS PO 06/28/19 21:00 06/28/19 19:43 Melatonin (Melatonin) 3 mg HS PO 06/28/19 21:00 06/28/19 19:42 I have reviewed the current psychotropics carefully including drug interactions. Risk benefit ratio favors no change other than as noted in my dictated progress note. Diagnosis: Problems: (1) Anxiety disorder (2) Dementia, vascular, with depression (3) Dementia, vascular, with delusions (4) Major neurocognitive disorder (5) Dementia in Alzheimer's disease with depression (6) Dementia in Alzheimer's disease with delusions (7) Impulse control disorder MAIRA SAAVEDRA MD Jun 28, 2019 21:27
--- NOTE | 2019-06-28 22:33 | PN ---
DATE: 06/27/2019 PSYCHIATRIC PROGRESS NOTE This late entry 06/27/2019 covers elements not covered in my initial note. SUBJECTIVE: I met with the patient in the evening. Per SETH Isaac, the patient slept 0 hours previous night. He has been restless, agitated up and down all day, anxious. He remains confused. REVIEW OF SYSTEMS: No CV, , pulmonary, eye system symptoms on review. Reliability poor. MENTAL STATUS EXAMINATION: Oriented to himself. Insight, judgment, recent and remote memory, attention, concentration, fund of knowledge poor, consistent with his diagnosis mentioned in my initial note. IMPRESSION: Major neurocognitive disorder, Alzheimer, vascular with delusion, depression, behavioral disturbance; anxiety disorder, unspecified; impulse control disorder, unspecified. PLAN: Start Zyprexa 2.5 mg q. 2 hours p.r.n. psychosis, agitation, max 10 mg in 24 hours, start Remeron 7.5 mg at bedtime to help with the insomnia and anxiety. Start Zoloft 25 mg a day for his mood, anxiety symptoms, irritability and mood lability. Adjust further as clinically indicated. MAN Srikanth SAAVEDRA MD DR: LAUREN/ashkan JOB#: [id number] / [id number]
--- NOTE | 2019-06-28 23:06 | NUR ---
Nursing note: Assumed care of pt in the day room where he was eating a snack and was calm. He was compliant with meds and assessment. Pt became restless, confused, exit seeking, eventually calming himself in the quiet hallway. He in still not sleeping.
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
[2019-06-29] MEDS: POLYETHYLENE GLYCOL 3350 17 GM PACKET. PO SCH (09:00)
[2019-06-29] MEDS: SERTRALINE 25 MG TABLET. PO SCH (09:47)
[2019-06-29] MEDS: FAMOTIDINE 20 MG TABLET PO SCH (09:48)
[2019-06-29] MEDS: FUROSEMIDE 40 MG TABLET PO SCH ×2 (09:49→16:00)
[2019-06-29] MEDS: ATORVASTATIN CALCIUM 10 MG TABLET. PO SCH (09:49)
[2019-06-29] MEDS: METOPROLOL TART IMMED RELEASE 25 MG TABLET PO SCH (09:49)
[2019-06-29] MEDS: FERROUS SULFATE 325 MG TABLET. PO SCH (09:50)
[2019-06-29] MEDS: DOCUSATE SODIUM 100 MG CAPSULE PO SCH (09:50)
[2019-06-29] MEDS: MULTIVITAMIN with MINERAL TABLET. PO SCH (09:50)
[2019-06-29] MEDS: ASPIRIN 81 MG TAB.CHEW PO SCH (09:50)
--- NOTE | 2019-06-29 12:55 | NUR ---
Had been sleeping in dayroom in chair at morning assessment. Awoke to take meds and comply with assessment. Confused, and not oriented but cooperative. Shortly fell back to sleep afterward. While ambulating to and from lunch, was confused and agitated, disoriented. While eating lunch, calm and ambulating well alone, after lunch, became agitated and combative with aide when she attempted to change his wet brief. Took PO zyprexa without hesitation, thought I was a railcar mechanic. Immediately calmed when coworker left the room and fell to sleep within minutes. Brief was not changed at this time.
[2019-06-29 16:07] VITALS: BP 92/48
--- NOTE | 2019-06-29 17:41 | NUR ---
Slept in bed in afternoon, up for supper, very hungry, acts like he is famished. Attempted to retake his B/P due to low reading. Unable to obtain because of movement. Will recheck after supper for Lasix parameter. Cooperative and polite at supper. He had let the aide toilet him when he awoke from bed, with no behaviors.
[2019-06-29] MEDS: MIRTAZAPINE 15 MG TABLET PO SCH (19:42)
[2019-06-29] MEDS: MELATONIN 3 MG TABLET PO SCH (19:42)
--- NOTE | 2019-06-29 21:27 | PDOC ---
Exam Note: Dontrell Note: Please also refer to the separate dictated note~for this date of service dictated separately.~Patient seen individually. Discussed the patient with Nursing staff reviewed the chart.~Reviewed interim history and current functioning. Reviewed vital signs,~Labs/ Radiology~and current medications noted below. Continue current treatment with the changes noted in the dictated addendum note Assessment: Vital Signs/I&O: Vital Signs Date Time Temp Pulse Resp B/P (MAP) Pulse Ox O2 Delivery O2 Flow Rate FiO2 06/29/19 16:07 99.1 60 16 92/48 (63) 90 06/28/19 16:04 Room Air I & O 06/28/19 06/28/19 06/29/19 15:00 23:00 07:00 Intake Total 630 ml 320 ml Balance 630 ml 320 ml Current Medications: I have reviewed the current psychotropics carefully including drug interactions. Risk benefit ratio favors no change other than as noted in my dictated progress note. Diagnosis: Problems: (1) Anxiety disorder (2) Dementia, vascular, with depression (3) Dementia, vascular, with delusions (4) Major neurocognitive disorder (5) Dementia in Alzheimer's disease with depression (6) Dementia in Alzheimer's disease with delusions (7) Impulse control disorder MAIRA SAAVEDRA MD Jun 29, 2019 21:27
--- NOTE | 2019-06-29 21:29 | NUR ---
Nursing note: Assumed care of pt in the day room. He was calm but paranoid. He didn't remember I was his nurse for the past 2 nights and asked to see my credentials. He looked at my badge but said he wouldn't take his meds because I was not the right person to administer them. He was given the meds in a drink. Dr Crabtree ordered Depakote 125mg daily X3 days then labs. Pt denies pain. No negative behaviors at this time.
[2019-06-30 05:30] VITALS: BP 104/56
[2019-06-30] MEDS: DOCUSATE SODIUM 100 MG CAPSULE PO SCH (08:00)
[2019-06-30] MEDS: SERTRALINE 25 MG TABLET. PO SCH (08:28)
[2019-06-30] MEDS: METOPROLOL TART IMMED RELEASE 25 MG TABLET PO SCH (08:28)
[2019-06-30] MEDS: FAMOTIDINE 20 MG TABLET PO SCH (08:29)
[2019-06-30] MEDS: DIVALPROEX 125 MG CAP.SPRINK PO SCH ×2 (08:29→16:07)
[2019-06-30] MEDS: MULTIVITAMIN with MINERAL TABLET. PO SCH (08:30)
[2019-06-30] MEDS: ASPIRIN 81 MG TAB.CHEW PO SCH (08:30)
[2019-06-30] MEDS: ATORVASTATIN CALCIUM 10 MG TABLET. PO SCH (08:30)
[2019-06-30] MEDS: FUROSEMIDE 40 MG TABLET PO SCH ×2 (08:30→16:07)
[2019-06-30] MEDS: POLYETHYLENE GLYCOL 3350 17 GM PACKET. PO SCH (08:30)
[2019-06-30] MEDS: FERROUS SULFATE 325 MG TABLET. PO SCH (08:40)
--- NOTE | 2019-06-30 12:36 | NUR ---
Was up in hallway by dining room before breakfast, worried look, asking "why ami I up this early". Able to redirect and he was cooperative with assessment and a.m. meds at breakfast. [facility] been [facility], no adverse behaviors reported. Feeds self well and ambulates well with his walker independently. S/T memory loss and not oriented to anything other than self.
[2019-06-30 15:34] VITALS: BP 18/66
[2019-06-30] MEDS: MELATONIN 3 MG TABLET PO SCH (19:54)
[2019-06-30] MEDS: MIRTAZAPINE 15 MG TABLET PO SCH (19:54)
--- NOTE | 2019-06-30 21:03 | PDOC ---
Exam Note: Dontrell Note: Please also refer to the separate dictated note~for this date of service dictated separately.~Patient seen individually. Discussed the patient with Nursing staff reviewed the chart.~Reviewed interim history and current functioning. Reviewed vital signs,~Labs/ Radiology~and current medications noted below. Continue current treatment with the changes noted in the dictated addendum note Assessment: Vital Signs/I&O: Vital Signs Date Time Temp Pulse Resp B/P (MAP) Pulse Ox O2 Delivery O2 Flow Rate FiO2 06/30/19 15:34 96.9 72 16 18/66 (50) 98 06/28/19 16:04 Room Air I & O 06/29/19 06/29/19 06/30/19 14:59 22:59 06:59 Intake Total 840 ml 600 ml Balance 840 ml 600 ml Current Medications: Meds: Current Medications Medications (Trade) Dose Ordered Sig/Radha Route PRN Reason Start Time Stop Time Status Last Admin Dose Admin Divalproex Sodium (Depakote Sprinkles) 125 mg 0900,1700 PO 06/30/19 09:00 06/30/19 16:07 I have reviewed the current psychotropics carefully including drug interactions. Risk benefit ratio favors no change other than as noted in my dictated progress note. Diagnosis: Problems: (1) Anxiety disorder (2) Dementia, vascular, with depression (3) Dementia, vascular, with delusions (4) Major neurocognitive disorder (5) Dementia in Alzheimer's disease with depression (6) Dementia in Alzheimer's disease with delusions (7) Impulse control disorder MAIRA SAAVEDRA MD Jun 30, 2019 21:03
--- NOTE | 2019-07-01 01:26 | NUR ---
Last evening pt was in day room watching TV he was social pleasant and cooperative. Meds were taken whole without difficulty. He said we were in a bar he is not familiar with watching a football game and he is going home when it is over. Since going quietly to bed he has been up to the BR a few times otherwise has been sleeping well.
[2019-07-01 05:09] VITALS: BP 93/58
[2019-07-01] MEDS: POLYETHYLENE GLYCOL 3350 17 GM PACKET. PO SCH (08:07)
[2019-07-01] MEDS: FAMOTIDINE 20 MG TABLET PO SCH (08:07)
[2019-07-01] MEDS: DOCUSATE SODIUM 100 MG CAPSULE PO SCH (08:07)
[2019-07-01] MEDS: SERTRALINE 25 MG TABLET. PO SCH (08:07)
[2019-07-01] MEDS: ATORVASTATIN CALCIUM 10 MG TABLET. PO SCH (08:08)
[2019-07-01] MEDS: MULTIVITAMIN with MINERAL TABLET. PO SCH (08:09)
[2019-07-01] MEDS: DIVALPROEX 125 MG CAP.SPRINK PO SCH ×2 (08:09→17:17)
[2019-07-01] MEDS: FUROSEMIDE 40 MG TABLET PO SCH ×2 (08:09→17:18)
[2019-07-01] MEDS: FERROUS SULFATE 325 MG TABLET. PO SCH (08:09)
[2019-07-01] MEDS: ASPIRIN 81 MG TAB.CHEW PO SCH (08:10)
[2019-07-01] MEDS: METOPROLOL TART IMMED RELEASE 25 MG TABLET PO SCH (08:10)
[2019-07-01 08:15] VITALS: BP 115/59
--- NOTE | 2019-07-01 08:15 | PN ---
DATE: 06/28/2019 This late entry 06/28 covers elements not covered in my initial note. SUBJECTIVE: I met with the patient in the evening, staffed at treatment team meeting with the entire team earlier in the day and the patient's daughter, Tim, attended the conference. The patient remains confused. Appetite 75%, sleeping somewhat poorly. We will add melatonin 3 mg at bedtime. We will check a CT head noncontrast if one has not been done recently and also increase Remeron to 15 mg at bedtime. He has been somewhat intrusive, confused. REVIEW OF SYSTEMS: No CV, , pulmonary, eye, ENT system symptoms on review. Reliability poor. MENTAL STATUS EXAMINATION: Oriented to himself. Insight, judgment, recent and remote memory, attention, concentration, fund of knowledge poor consistent with his diagnosis. The daughter shared how he was living at home with his over the summer, got more confused, was cutting up the clothes belonging to his , having marked insomnia, unmanageable resulting in the nursing facility placement. LABORATORY DATA: Reviewed. IMPRESSION: Major neurocognitive disorder; Alzheimer, vascular with delusion; depression; behavioral disturbance; anxiety disorder, unspecified; impulse control disorder, unspecified. Rest unchanged. PLAN: As noted above. Rest unchanged for now. Increase Remeron to 15 mg at bedtime, melatonin will be added 3 mg at bedtime. Check CT head. Rest unchanged. MAN Srikanth SAAVEDRA MD DR: LAUREN/ashkan JOB#: [id number] / [id number]
--- NOTE | 2019-07-01 08:20 | PN ---
DATE: 06/29/2019 This late entry 06/29 covers elements not covered in my initial note. SUBJECTIVE: I met with the patient in the evening. The patient slept 4-1/2 hours previous night. He remains confused, takes his meds per persisting intervention by the nursing staff, somewhat paranoid, easily agitated. Nursing staff reported he can "fly off the handle easily." REVIEW OF SYSTEMS: No CV, , pulmonary, eye, ENT system symptoms on review. Reliability poor. MENTAL STATUS EXAMINATION: Oriented to himself. Insight, judgment, recent and remote memory, attention, concentration, fund of knowledge poor consistent with his diagnosis mentioned in my initial note. IMPRESSION: Major neurocognitive disorder; Alzheimer; vascular with delusion; depression; behavioral disturbance; anxiety disorder, unspecified; impulse control disorder, unspecified. PLAN: Continue Zoloft 25 mg a day, Remeron 15 mg at bedtime, melatonin 3 mg at bedtime. Start Depakote Sprinkles 125 mg 9 a.m., 5:00 p.m. Check CBC, CMP, valproic acid level in 3 days. Adjust further as clinically indicated but the Depakote should help with his impulse control. We may need to adjust it to a therapeutic level monitoring for side effects. MAIRA SAAVEDRA MD DR: LAUREN/ashkan JOB#: [id number] / [id number]
--- NOTE | 2019-07-01 08:29 | PN ---
DATE: 06/30/2019 PSYCHIATRIC PROGRESS NOTE This late entry 06/30/2019 covers elements not covered in my initial note. SUBJECTIVE: I met with the patient evening of 06/30/2019. The patient slept 7-3/4 hours previous night. He has done better, yelling at times, redirects, confused. REVIEW OF SYSTEMS: No CV, , pulmonary, eye system symptoms on review. Reliability poor. MENTAL STATUS EXAM: Oriented to himself. Insight, judgment, recent and remote memory, attention, concentration, fund of knowledge poor, consistent with his diagnosis mentioned in my initial note. PLAN: No change from initial note. Adjust Depakote to reach therapeutic level. Rest unchanged for now. MAN Srikanth SAAVEDRA MD DR: LAUREN/ashkan JOB#: [id number] / [id number]
--- NOTE | 2019-07-01 14:54 | NUR ---
Faxed current notes, labs, and medication list to BURTON Lloyd at [place], for review. Tentative d/c date around 07/09/19.
--- NOTE | 2019-07-01 15:16 | NUR ---
Nursing note: Pt was in dining room this morning for meds and assessment. He was compliant with his meds whole and was cooperative with his assessment. He had increased delusions this morning, PRN was given with morning meds and pt has been pleasant since. He has been in the day room for most of the day. Will continue to monitor.
[2019-07-01 15:50] VITALS: BP 114/56
--- NOTE | 2019-07-01 19:40 | NUR ---
Nursing note: Assumed care of ptsitting up in the day room watching TV. He was calm and interactive, compliant and pleasant. Pt denies pain, no behaviors.
[2019-07-01] MEDS: MIRTAZAPINE 15 MG TABLET PO SCH (19:43)
[2019-07-01] MEDS: MELATONIN 3 MG TABLET PO SCH (19:43)
--- NOTE | 2019-07-01 21:25 | PDOC ---
Exam Note: Dontrell Note: Please also refer to the separate dictated note~for this date of service dictated separately.~Patient seen individually. Discussed the patient with Nursing staff reviewed the chart.~Reviewed interim history and current functioning. Reviewed vital signs,~Labs/ Radiology~and current medications noted below. Continue current treatment with the changes noted in the dictated addendum note Assessment: Vital Signs/I&O: Vital Signs Date Time Temp Pulse Resp B/P (MAP) Pulse Ox O2 Delivery O2 Flow Rate FiO2 07/01/19 15:50 97.6 70 18 114/56 (75) 94 06/28/19 16:04 Room Air I & O 06/30/19 06/30/19 07/01/19 15:00 23:00 07:00 Intake Total 600 ml 360 ml Balance 600 ml 360 ml Current Medications: I have reviewed the current psychotropics carefully including drug interactions. Risk benefit ratio favors no change other than as noted in my dictated progress note. Diagnosis: Problems: (1) Anxiety disorder (2) Dementia, vascular, with depression (3) Dementia, vascular, with delusions (4) Major neurocognitive disorder (5) Dementia in Alzheimer's disease with depression (6) Dementia in Alzheimer's disease with delusions (7) Impulse control disorder MAIRA SAAVEDRA MD Jul 01, 2019 21:25
--- NOTE | 2019-07-01 21:53 | NUR ---
Nursing Note: Pt getting increasingly more restless. Pt is short with staff, when reminded to use his walker. Pt assisted to the day room, remains restless and agitated towards staff members. PRN Zyprexa given as ordered.
--- NOTE | 2019-07-02 01:29 | NUR ---
Nursing Note: Pt still restless/agitated. Pt was laid down in the quiet room, but continually scoots himself out of bed onto the floor. Pt then starts shouting that he is on the ground. Pt yells that our pay will be deducted because of this. Pt frequently yelling out that he needs a screw hog driver, attempted to explain to pt that we do not have those tools up here. PRN Zyprexa given as ordered.
[2019-07-02 05:22] VITALS: BP 121/65
[2019-07-02] MEDS: POLYETHYLENE GLYCOL 3350 17 GM PACKET. PO SCH (08:47)
[2019-07-02] MEDS: MULTIVITAMIN with MINERAL TABLET. PO SCH (08:47)
[2019-07-02] MEDS: ATORVASTATIN CALCIUM 10 MG TABLET. PO SCH (08:48)
[2019-07-02] MEDS: FUROSEMIDE 40 MG TABLET PO SCH ×2 (08:48→17:11)
[2019-07-02] MEDS: FERROUS SULFATE 325 MG TABLET. PO SCH (08:48)
[2019-07-02] MEDS: METOPROLOL TART IMMED RELEASE 25 MG TABLET PO SCH (08:48)
[2019-07-02] MEDS: SERTRALINE 25 MG TABLET. PO SCH (08:48)
[2019-07-02] MEDS: FAMOTIDINE 20 MG TABLET PO SCH (08:48)
[2019-07-02] MEDS: ASPIRIN 81 MG TAB.CHEW PO SCH (08:51)
[2019-07-02] MEDS: DOCUSATE SODIUM 100 MG CAPSULE PO SCH (08:51)
[2019-07-02] MEDS: DIVALPROEX 125 MG CAP.SPRINK PO SCH ×2 (08:51→17:11)
--- NOTE | 2019-07-02 15:10 | NUR ---
Nursing note: Pt was in dining room for morning meds and assessment. He was compliant with his meds whole and cooperative with his assessment. He has been pleasantly confused today and has spent most of the day in the day room socializing with his peers. He has needed a few reminders about using his walker, but has willingly complied this shift. He is currently in the day room. Will continue to monitor.
[2019-07-02 16:06] VITALS: BP 120/70
[2019-07-02] MEDS: MELATONIN 3 MG TABLET PO SCH (20:22)
[2019-07-02] MEDS: MIRTAZAPINE 15 MG TABLET PO SCH (20:22)
[2019-07-02] MEDS ORDERED: traZODone 50 MG TABLET. PO PRN (20:30)
[2019-07-02] MEDS ORDERED: traZODone 50 MG TABLET. PO SCH (21:00)
--- NOTE | 2019-07-02 21:24 | PDOC ---
Exam Note: Dontrell Note: Please also refer to the separate dictated note~for this date of service dictated separately.~Patient seen individually. Discussed the patient with Nursing staff reviewed the chart.~Reviewed interim history and current functioning. Reviewed vital signs,~Labs/ Radiology~and current medications noted below. Continue current treatment with the changes noted in the dictated addendum note Assessment: Vital Signs/I&O: Vital Signs Date Time Temp Pulse Resp B/P (MAP) Pulse Ox O2 Delivery O2 Flow Rate FiO2 07/02/19 16:06 98.6 85 18 120/70 (87) 95 07/02/19 05:22 Room Air I & O 07/01/19 07/01/19 07/02/19 15:00 23:00 07:00 Intake Total 480 ml 360 ml Balance 480 ml 360 ml Current Medications: Meds: Current Medications Medications (Trade) Dose Ordered Sig/Radha Route PRN Reason Start Time Stop Time Status Last Admin Dose Admin Trazodone HCl (Desyrel) 50 mg QHS PO 07/02/19 21:00 07/02/19 20:45 I have reviewed the current psychotropics carefully including drug interactions. Risk benefit ratio favors no change other than as noted in my dictated progress note. Diagnosis: Problems: (1) Anxiety disorder (2) Dementia, vascular, with depression (3) Dementia, vascular, with delusions (4) Major neurocognitive disorder (5) Dementia in Alzheimer's disease with depression (6) Dementia in Alzheimer's disease with delusions (7) Impulse control disorder MAIRA SAAVEDRA MD Jul 02, 2019 21:24
--- NOTE | 2019-07-02 22:51 | EKG ---
[address] [address] Test Date: 2019-07-02 Test Time: 23:43:11 Pat Name: ISAAC HENNESSY Department: Room: [facility] Gender: M [employer]: : 1935 Requested By: KRISTYN WALLS Order Number: [id number] Reading MD: Measurements Intervals Raymond Rate: 75 P: IN: QRS: 87 QRSD: 96 T: 97 QT: 446 QTc: 501 Interpretive Statements IRREGULAR RHYTHM, NO P-WAVE FOUND ST & T ABNORMALITY, CONSIDER HIGH LATERAL ISCHEMIA OR LEFT VENTRICULAR STRAIN ABNORMAL ECG RI6.02 No previous ECG available for comparison
[2019-07-02] MEDS ORDERED: NITROGLYCERIN SUBLINGUAL 0.4 MG BOTTLE OF 25. SL PRN (23:00)
[2019-07-02] MEDS ORDERED: ASPIRIN 81 MG TAB.CHEW PO ONE (23:00)
[2019-07-02 23:04] VITALS: BP 129/90
[2019-07-02 23:07] LABS: BASO % 1 % (0-3); EOS # 0.3 x10^3/uL (0.0-0.7); EOS % 3 % (0-3); HEMATOCRIT 33.4 % (39.0-53.0); HEMOGLOBIN 10.5 g/dL (13.0-17.5); LYMPH # 1.2 x10^3/uL (1.0-4.8); LYMPH % 14 % (24-48); MEAN CORPUSCULAR HEMOGLOBIN 28 pg (25-35); MEAN CORPUSCULAR HGB CONC 31 g/dL (31-37); MEAN CORPUSCULAR VOLUME 90 fL (79-100); MONO # 1.3 x10^3/uL (0.0-1.1); MONO % 16 % (0-9); NEUT # 5.7 x10^3uL (1.8-7.7); NEUT % 67 % (31-73); PLATELET COUNT 179 x10^3/uL (140-400); RED BLOOD COUNT 3.74 x10^6/uL (4.30-5.70); WHITE BLOOD COUNT 8.6 x10^3/uL (4.0-11.0)
[2019-07-02 23:19] LABS: PLT ESTIMATE ADEQUATE (ADEQUATE)
[2019-07-02 23:21] LABS: ANISOCYTOSIS MOD; HYPOCHROMIA SLIGHT; OVALOCYTES OCC; TARGET CELLS OCC
[2019-07-02 23:22] LABS: ALBUMIN 2.8 g/dL (3.4-5.0); ALBUMIN/GLOBULIN RATIO 0.8 (1.0-1.7); CALCIUM 8.4 mg/dL (8.5-10.1); CREATININE 1.3 mg/dL (0.7-1.3); GFR 52.6; POTASSIUM 4.1 mmol/L (3.5-5.1); TOTAL BILIRUBIN 0.9 mg/dL (0.2-1.0); TOTAL PROTEIN 6.5 g/dL (6.4-8.2)
[2019-07-02] MEDS ORDERED: ATOR10TA PO (23:42)
[2019-07-02] MEDS ORDERED: NITR0.4T24 SL (23:42)
[2019-07-02] MEDS ORDERED: ACET325T21 PO (23:44)
[2019-07-02] MEDS ORDERED: DIVA125C2 PO (23:45)
[2019-07-02] MEDS ORDERED: MIRT15TA3 PO (23:46)
[2019-07-02] MEDS ORDERED: SERT25TA PO (23:47)
[2019-07-02] MEDS ORDERED: TRAZ-120 PO ×2 (23:47→23:48)
[2019-07-02] MEDS ORDERED: OLAN5TAB9 PO (23:48)
[2019-07-02] MEDS ORDERED: MAG30ORA2 PO (23:50)
[2019-07-02] MEDS ORDERED: MELA1TAB9 PO (23:51)
--- NOTE | 2019-07-03 00:07 | NUR ---
Nursing Note The patient was calm and compliant with his medication and assessment. The patient took his medication crushed in chocolate pudding. The patient was pleasant during interactions with this nurse and peers. the patient was appropriate and cooperative during HS cares. the patient complained of chest pain @ 2220 and vital signs were taken BP 129/90, Pulse 91, 02 92 and Temp of 97.4. Dr. paniagua was called and orders for nitro 0.4 sl q5min max of 3tabs and aspirin 81mg chew x1now and Cardiac enzymes now and in 3 hours. Laboratory called @ 2331 with critical Troponin level of 0.106. Dr. paniagua was called and orders to transfer the patient to medical telemetry were given.
--- NOTE | 2019-07-03 18:17 | PN ---
DATE: 07/01/2019 PSYCHIATRIC PROGRESS NOTE This late entry 07/01/2019 covers elements not covered in my initial note. SUBJECTIVE: I met with the patient evening of 07/01/2019. Per SETH Motley, the patient slept 4-1/2 hours previous night. The patient has been confused, compliant with medications, delusional in the morning, anxious, restless, paranoid, received Zyprexa p.r.n. and was better after that. He forgets to use his walker. Labs are due on the . REVIEW OF SYSTEMS: Ambulation impaired with walker. No CV, , pulmonary, eye system symptoms on review. Reliability poor. MENTAL STATUS EXAM: Oriented to himself. Insight, judgment, recent and remote memory, attention, concentration, fund of knowledge poor, consistent with his diagnosis mentioned in my initial note. PLAN: No change from initial note. MAN Srikanth SAAVEDRA MD DR: LAUREN/ashkan JOB#: [id number] / [id number]
--- NOTE | 2019-07-03 18:19 | PN ---
DATE: 07/02/2019 PSYCHIATRIC PROGRESS NOTE This late entry 07/02/2019 covers elements not covered in my initial note. SUBJECTIVE: I met with the patient in the evening. The patient did not sleep very much at all previous night. He has been anxious, restless, confused. We will add trazodone 50 mg at bedtime, may repeat x 1 for insomnia. No CV, , pulmonary, eye system symptoms on review. Reliability poor. Ambulation impaired with walker. MENTAL STATUS EXAM: Oriented to himself. Insight, judgment, recent and remote memory, attention, concentration, fund of knowledge poor, consistent with his diagnosis mentioned in my initial note. PLAN: No change from initial note. MAN Srikanth SAAVEDRA MD DR: LAUREN/ashkan JOB#: [id number] / [id number]
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
== END 2019-07-03 | disposition short-term general hospital (02) | DRG 886 ==
LOC: GEROPSY 11:45
PROVIDERS: ADMIT Psychiatry & Neurology Psychiatry; ATTEND Psychiatry & Neurology Psychiatry
DX: F63.9 Impulse disorder, unspecified (principal); F01.51 Vascular dementia, unspecified severity, with behavioral disturbance; F02.81 Dementia in other diseases classified elsewhere, unspecified severity, with behavioral disturbance; F41.9 Anxiety disorder, unspecified; E03.9 Hypothyroidism, unspecified; E78.5 Hyperlipidemia, unspecified; F32.9 Major depressive disorder, single episode, unspecified; G30.9 Alzheimer's disease, unspecified; G89.29 Other chronic pain; I50.9 Heart failure, unspecified; I11.0 Hypertensive heart disease with heart failure; I25.10 Atherosclerotic heart disease of native coronary artery without angina pectoris; I73.9 Peripheral vascular disease, unspecified; J44.9 Chronic obstructive pulmonary disease, unspecified; K21.9 Gastro-esophageal reflux disease without esophagitis; M19.90 Unspecified osteoarthritis, unspecified site; R29.6 Repeated falls; M54.9 Dorsalgia, unspecified; Z66 Do not resuscitate; Z79.899 Other long term (current) drug therapy; Z85.46 Personal history of malignant neoplasm of prostate; Z87.891 Personal history of nicotine dependence; Z95.5 Presence of coronary angioplasty implant and graft; I25.2 Old myocardial infarction
CPT/HCPCS: 36415; 70450; 80053; 81001; 82306; 82550; 82607; 83036; 83540; 83550; 83735; 84436; 84443; 84480; 84484; 85025; 86592; 93005

== ENCOUNTER 2019-07-03 00:01 | Inpatient (IN) | payer MEDICARE ==
[~2019-07-03] VITALS: Ht 172.7 cm; Wt 88.9 kg
[~2019-07-03 00:01] MED LIST changes: +ACET325T21 PO; +ATOR10TA PO; +DIVA125C2 PO; +MAG30ORA2 PO; +MELA1TAB9 PO; +MIRT15TA3 PO; +NITR0.4T24 SL; +OLAN5TAB9 PO; +SERT25TA PO; +TRAZ-120 PO
[2019-07-03 01:25] VITALS: BP 122/71
--- NOTE | 2019-07-03 01:51 | NUR ---
The patient, ISAAC HENNESSY, 83 y/o, M admitted by KRISTYN WALLS MD, was given written information regarding hospital policies, unit procedures and contact persons. Valuables were checked and noted. PT with CP, elevated troponin. PT currently with no chest pain, current abdominal pain. PT restless.
[2019-07-03] MEDS ORDERED: MAG HYDROX/AL HYDROX/SIMETH 30 ML ORAL.SUSP PO PRN (06:00)
[2019-07-03] MEDS ORDERED: OLANZapine 5 MG TABLET PO PRN (06:00)
[2019-07-03] MEDS ORDERED: traZODone 50 MG TABLET. PO PRN (06:00)
[2019-07-03] MEDS ORDERED: NITROGLYCERIN SUBLINGUAL 0.4 MG BOTTLE OF 25. SL PRN (06:00)
[2019-07-03] MEDS ORDERED: MAGNESIUM HYDROXIDE 2,400 MG/30 ML ORAL.SUSP. PO PRN (06:00)
[2019-07-03] MEDS ORDERED: ACETAMINOPHEN 325 MG TABLET PO PRN (06:00)
--- NOTE | 2019-07-03 06:00 | EKG ---
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
[2019-07-03 06:03] VITALS: BP 96/58
--- NOTE | 2019-07-03 06:29 | NUR ---
PT has been sleeping intermittently. PT is impulsive, trying to get out of bed. Mostly redirectable. PT will forget to use walker. PT has been pleasantly confused.
[2019-07-03 07:49] VITALS: BP 96/58
[2019-07-03] MEDS ORDERED: DOCUSATE SODIUM 100 MG CAPSULE PO SCH (08:00)
[2019-07-03] MEDS ORDERED: ASPIRIN 81 MG TAB.CHEW PO SCH (08:00)
[2019-07-03] MEDS ORDERED: FERROUS SULFATE 325 MG TABLET. PO SCH (09:00)
[2019-07-03] MEDS ORDERED: DIVALPROEX 125 MG CAP.SPRINK PO SCH (09:00)
[2019-07-03] MEDS ORDERED: FUROSEMIDE 40 MG TABLET PO SCH (09:00)
[2019-07-03] MEDS ORDERED: METOPROLOL TART IMMED RELEASE 25 MG TABLET PO SCH (09:00)
[2019-07-03] MEDS ORDERED: POLYETHYLENE GLYCOL 3350 17 GM PACKET. PO SCH (09:00)
[2019-07-03] MEDS ORDERED: SERTRALINE 25 MG TABLET. PO SCH (09:00)
[2019-07-03] MEDS ORDERED: MULTIVITAMIN with MINERAL TABLET. PO SCH (09:00)
[2019-07-03] MEDS ORDERED: FAMOTIDINE 20 MG TABLET PO SCH (09:00)
--- NOTE | 2019-07-03 11:48 | SSS ---
ADMIT DATE: 07/03/2019 HISTORY OF PRESENT ILLNESS: The patient is an 83-year-old male patient who apparently has been complaining of chest pain at around 11:00 last night and his vital signs were stable. He was given 3 sublingual nitroglycerin and aspirin to chew and his cardiac enzyme was done. His troponin was slightly elevated at 0.106 and therefore, the patient was transferred to telemetry bed in [address] [place] [address] to rule out myocardial infarction. He had another troponin, which was 0.098 and we did consult the bench machine operator and it transpired that actually patient came with the same complaint on 06/25/2019 and at that time, it transpired that he is known to have coronary artery disease and has had stent deployment in 1999 and again in 2002 and he follows with a bench machine operator at [facility] in [place], has had an echo and stress test done in 02/2019 and was reportedly normal and therefore, a decision was made to transfer him back to [facility] to continue for inpatient psychiatric stabilization. PAST MEDICAL HISTORY: Significant for coronary artery disease, congestive heart failure, hypertension, hyperlipidemia. He is also known to have carotid artery disease, chronic obstructive pulmonary disease, gastroesophageal reflux disease, hypothyroidism, osteoarthritis and dementia. PAST SURGICAL HISTORY: Significant for carotid endarterectomy, carpal tunnel syndrome, shoulder surgery, PCI and stent deployment. FAMILY HISTORY: Noncontributory. SOCIAL HISTORY: He currently lives in memory unit. He quit smoking, does not drink alcohol or use any recreational drugs. ALLERGIES: He is allergic to CAROTENE, NIACIN and SUCRALFATE. MEDICATIONS: He is currently on following medications: He is on ferrous sulfate 325 mg once a day, atorvastatin calcium ____ mg at bedtime, nitroglycerin 0.4 mg sublingually every 5 minutes as needed, metoprolol tartrate 25 mg once a day, aspirin 81 mg once a day, acetaminophen 650 mg every 6 hours, divalproex sprinkle 125 mg daily, mirtazapine 50 mg at bedtime, sertraline 25 mg daily, trazodone 50 mg at bedtime, trazodone 50 mg at bedtime as needed, olanzapine 2.5 mg every 2 hours, furosemide 40 mg twice a day, Mylanta 15 mL after meals and as needed, Colace 100 mg daily, milk of magnesia 30 mL p.o. daily p.r.n. for constipation, polyethylene glycol 17 grams daily, famotidine 40 mg once a day, multivitamin 1 tablet once a day and melatonin 3 mg at bedtime. PHYSICAL EXAMINATION: GENERAL: On arrival to the [address] [place] [address], he looked well and was clearly in no apparent respiratory distress, pale, but no jaundice, cyanosis or thyromegaly. No jugular venous distention. No limb edema. VITAL SIGNS: His heart rate was 75, blood pressure was 122/71, temperature was 97.6, respiratory rate was 20, and oxygen saturation was 94%. HEAD, EYES, EARS, NOSE AND THROAT: Showed normocephalic, atraumatic. NECK: Supple. HEART: Showed normal first and second heart sounds. No gallop or murmur. CHEST: Clear to auscultation. No crepitation or rhonchi. ABDOMEN: Scaphoid, soft, nontender. NEUROLOGIC: He is demented without any obvious lateralizing sign. LABORATORY DATA: His lab work showed that his white cell count was 8600, hemoglobin 10.5, hematocrit 33, MCV 90, and platelet count of 179,000. His chemistry showed a serum sodium 143, potassium 4.1, chloride 103, bicarbonate 32, anion gap of 8, BUN 30, creatinine 1.3, estimated GFR was 52 mL per minute. His glucose was 98, calcium was 8.4. Total bilirubin, AST, ALT, alkaline phosphatase were normal. Total protein was 6.5, albumin 2.8. ASSESSMENT: Atypical chest pain, acute myocardial infarction is ruled out. Other medical problems include hypertension, hyperlipidemia, hypothyroidism, chronic obstructive pulmonary disease, congestive heart failure likely due to chronic diastolic dysfunction and coronary artery disease. KRISTNY WALLS MD DR: MELLISA/ashkan JOB#: [id number] / [id number]
--- NOTE | 2019-07-03 11:57 | NUR ---
NURSING NOTES: PATIENT DISCHARGED TO [facility]. ALL PATIENT BELONGINGS AND DISCHARGE INSTRUCTIONS GIVEN TO [facility]. PATIENT DAUGHTER, VIRIDIANA, NOTIFIED OF TRANSFER TO [facility] AND VOICED UNDERSTANDING. NO CONCERNS AT THIS TIME.
[2019-07-03] MEDS ORDERED: ATORVASTATIN CALCIUM 10 MG TABLET. PO SCH (21:00)
[2019-07-03] MEDS ORDERED: traZODone 50 MG TABLET. PO SCH (21:00)
[2019-07-03] MEDS ORDERED: MIRTAZAPINE 15 MG TABLET PO SCH (21:00)
[2019-07-03] MEDS ORDERED: MELATONIN 3 MG TABLET PO SCH (21:00)
== END 2019-07-03 13:03 | DRG 313 ==
LOC: 1 SOUTH 00:01
PROVIDERS: ADMIT Internal Medicine; ATTEND Internal Medicine
DX: R07.89 Other chest pain (principal); I24.8 Other forms of acute ischemic heart disease; I50.32 Chronic diastolic (congestive) heart failure; E03.9 Hypothyroidism, unspecified; E78.5 Hyperlipidemia, unspecified; F03.90 Unspecified dementia, unspecified severity, without behavioral disturbance, psychotic disturbance, mood disturbance, and anxiety; I11.0 Hypertensive heart disease with heart failure; I25.10 Atherosclerotic heart disease of native coronary artery without angina pectoris; J44.9 Chronic obstructive pulmonary disease, unspecified; Z87.891 Personal history of nicotine dependence; Z95.5 Presence of coronary angioplasty implant and graft; K21.9 Gastro-esophageal reflux disease without esophagitis; M19.90 Unspecified osteoarthritis, unspecified site; Z79.899 Other long term (current) drug therapy; Z88.8 Allergy status to other drugs, medicaments and biological substances
CPT/HCPCS: 36415; 84484; 93005

== ENCOUNTER 2019-07-03 12:16 | Inpatient (IN) | payer MEDICARE ==
[~2019-07-03] VITALS: Ht 172.7 cm; Wt 90.0 kg
[2019-07-03] MEDS ORDERED: METHYL SALICYLATE/MENTHOL TOPICAL OINTMENT 57GM TUBE. TP PRN (13:30)
[2019-07-03] MEDS ORDERED: ACETAMINOPHEN 325 MG TABLET PO PRN (13:30)
[2019-07-03] MEDS ORDERED: NON FORMULARY ITEM (Magnesium Hydroxide (Milk Of Magnesia) 2,400 MG) PO PRN (13:30)
[2019-07-03] MEDS ORDERED: NITROGLYCERIN SUBLINGUAL 0.4 MG BOTTLE OF 25. SL PRN (13:30)
[2019-07-03] MEDS ORDERED: MAGNESIUM HYDROXIDE 2,400 MG/30 ML ORAL.SUSP. PO PRN (13:30)
[2019-07-03] MEDS ORDERED: MAG HYDROX/AL HYDROX/SIMETH 30 ML ORAL.SUSP PO PRN (13:30)
[2019-07-03 13:38] VITALS: BP 119/66
[2019-07-03 15:45] VITALS: BP 117/56
[2019-07-03] MEDS: DIVALPROEX 125 MG CAP.SPRINK PO SCH (17:40)
[2019-07-03] MEDS: FUROSEMIDE 40 MG TABLET PO SCH (17:40)
[2019-07-03] MEDS: MELATONIN 3 MG TABLET PO SCH (21:04)
[2019-07-03] MEDS: MIRTAZAPINE 15 MG TABLET PO SCH (21:04)
[2019-07-03] MEDS: traZODone 50 MG TABLET. PO SCH (21:04)
--- NOTE | 2019-07-03 21:42 | PDOC ---
Exam Note: Dontrell Note: Please also refer to the separate dictated note~for this date of service dictated separately. Discussed the patient with Nursing staff reviewed the chart.~Reviewed interim history and current functioning. Reviewed vital signs,~Labs/ Radiology~and current medications noted below. Continue current treatment with the changes noted in the dictated addendum note Assessment: Vital Signs/I&O: Vital Signs Date Time Temp Pulse Resp B/P (MAP) Pulse Ox O2 Delivery O2 Flow Rate FiO2 07/03/19 15:45 97.9 65 16 117/56 (76) 96 07/03/19 13:38 Room Air Current Medications: Meds: Current Medications Medications (Trade) Dose Ordered Sig/Radha Route PRN Reason Start Time Stop Time Status Last Admin Dose Admin Divalproex Sodium (Depakote Sprinkles) 125 mg DAILY@0900,1700 PO 07/03/19 17:00 07/03/19 17:40 Furosemide (Lasix) 40 mg BID94 PO 07/03/19 16:00 07/03/19 17:40 Mirtazapine (Remeron) 15 mg QHS PO 07/03/19 21:00 07/03/19 21:04 Olanzapine (ZyPREXA ZYDIS) 2.5 mg PRN Q2HR PRN PO PSYCHOSIS 07/03/19 13:30 07/03/19 21:04 Trazodone HCl (Desyrel) 50 mg QHS PO 07/03/19 21:00 07/03/19 21:04 Melatonin (Melatonin) 3 mg HS PO 07/03/19 21:00 07/03/19 21:04 I have reviewed the current psychotropics carefully including drug interactions. Risk benefit ratio favors no change other than as noted in my dictated progress note. Diagnosis: Problems: (1) Anxiety disorder (2) Dementia, vascular, with depression (3) Dementia, vascular, with delusions (4) Major neurocognitive disorder (5) Dementia in Alzheimer's disease with depression (6) Dementia in Alzheimer's disease with delusions (7) Impulse control disorder MAIRA SAAVEDRA MD Jul 03, 2019 21:42
[2019-07-04 07:41] LABS: BASO % 1 % (0-3); EOS # 0.3 x10^3/uL (0.0-0.7); EOS % 5 % (0-3); HEMATOCRIT 32.1 % (39.0-53.0); LYMPH % 14 % (24-48); MEAN CORPUSCULAR HEMOGLOBIN 28 pg (25-35); MEAN CORPUSCULAR HGB CONC 31 g/dL (31-37); MEAN CORPUSCULAR VOLUME 90 fL (79-100); MONO # 0.9 x10^3/uL (0.0-1.1); MONO % 13 % (0-9); NEUT % 68 % (31-73); PLATELET COUNT 171 x10^3/uL (140-400); RED BLOOD COUNT 3.55 x10^6/uL (4.30-5.70); RED CELL DISTRIBUTION WIDTH 25.2 % (11.5-14.5); WHITE BLOOD COUNT 7.4 x10^3/uL (4.0-11.0)
[2019-07-04 07:47] LABS: ALBUMIN 2.3 g/dL (3.4-5.0); ALBUMIN/GLOBULIN RATIO 0.6 (1.0-1.7); ALK PHOS 94 U/L (46-116); ALT (SGPT) 27 U/L (16-63); ANION GAP 5 (6-14); AST (SGOT) 32 U/L (15-37); BLOOD UREA NITROGEN 27 mg/dL (8-26); BUN/CREATININE RATIO 23 (6-20); CALCIUM 8.2 mg/dL (8.5-10.1); CARBON DIOXIDE 32 mmol/L (21-32); CHLORIDE 107 mmol/L (98-107); CREATININE 1.2 mg/dL (0.7-1.3); GFR 57.7; GLUCOSE 99 mg/dL (70-99); POTASSIUM 3.9 mmol/L (3.5-5.1); SODIUM 144 mmol/L (136-145); TOTAL BILIRUBIN 0.8 mg/dL (0.2-1.0)
[2019-07-04 07:48] LABS: VAL ACID 15 mcg/mL (50-100)
[2019-07-04 08:04] LABS: ANISOCYTOSIS PRESENT; OVALOCYTES FEW; PLT ESTIMATE ADEQUATE (ADEQUATE)
[2019-07-04 08:05] LABS: MICROCYTOSIS SLIGHT
[2019-07-04 08:06] LABS: HYPOCHROMIA SLIGHT
[2019-07-04 08:07] LABS: POLYCHROMASIA PRESENT
[2019-07-04] MEDS: FUROSEMIDE 40 MG TABLET PO SCH ×2 (10:01→16:19)
[2019-07-04] MEDS: FAMOTIDINE 20 MG TABLET PO SCH (10:01)
[2019-07-04] MEDS: SERTRALINE 25 MG TABLET. PO SCH (10:01)
[2019-07-04] MEDS: FERROUS SULFATE 325 MG TABLET. PO SCH (10:02)
[2019-07-04] MEDS: MULTIVITAMIN with MINERAL TABLET. PO SCH (10:02)
[2019-07-04] MEDS: DOCUSATE SODIUM 100 MG CAPSULE PO SCH (10:02)
[2019-07-04] MEDS: POLYETHYLENE GLYCOL 3350 17 GM PACKET. PO SCH (10:02)
[2019-07-04] MEDS: METOPROLOL TART IMMED RELEASE 25 MG TABLET PO SCH (10:02)
[2019-07-04] MEDS: ASPIRIN 81 MG TAB.CHEW PO SCH (10:02)
[2019-07-04] MEDS: DIVALPROEX 125 MG CAP.SPRINK PO SCH ×2 (10:02→16:19)
[2019-07-04 15:40] VITALS: BP 108/61
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
[2019-07-04] MEDS: ATORVASTATIN CALCIUM 10 MG TABLET. PO SCH (20:50)
[2019-07-04] MEDS: MELATONIN 3 MG TABLET PO SCH (20:50)
[2019-07-04] MEDS: traZODone 50 MG TABLET. PO SCH (20:50)
[2019-07-04] MEDS: MIRTAZAPINE 15 MG TABLET PO SCH (20:50)
--- NOTE | 2019-07-04 20:56 | PDOC ---
Exam Note: Dontrell Note: Please also refer to the separate dictated note~for this date of service dictated separately.~Patient seen individually. Discussed the patient with Nursing staff reviewed the chart.~Reviewed interim history and current functioning. Reviewed vital signs,~Labs/ Radiology~and current medications noted below. Continue current treatment with the changes noted in the dictated addendum note Assessment: Vital Signs/I&O: Vital Signs Date Time Temp Pulse Resp B/P (MAP) Pulse Ox O2 Delivery O2 Flow Rate FiO2 07/04/19 15:40 98.5 69 18 108/61 (77) 91 07/03/19 13:38 Room Air Labs: Laboratory Tests Test 07/04/19 07:15 White Blood Count 7.4 x10^3/uL (4.0-11.0) Red Blood Count 3.55 x10^6/uL (4.30-5.70) L Hemoglobin 10.0 g/dL (13.0-17.5) L Hematocrit 32.1 % (39.0-53.0) L Mean Corpuscular Volume 90 fL (79-100) Mean Corpuscular Hemoglobin 28 pg (25-35) Mean Corpuscular Hemoglobin Concent 31 g/dL (31-37) Red Cell Distribution Width 25.2 % (11.5-14.5) H Platelet Count 171 x10^3/uL (140-400) Neutrophils (%) (Auto) 68 % (31-73) Lymphocytes (%) (Auto) 14 % (24-48) L Monocytes (%) (Auto) 13 % (0-9) H Eosinophils (%) (Auto) 5 % (0-3) H Basophils (%) (Auto) 1 % (0-3) Neutrophils # (Auto) 5.0 x10^3uL (1.8-7.7) Lymphocytes # (Auto) 1.0 x10^3/uL (1.0-4.8) Monocytes # (Auto) 0.9 x10^3/uL (0.0-1.1) Eosinophils # (Auto) 0.3 x10^3/uL (0.0-0.7) Basophils # (Auto) 0.0 x10^3/uL (0.0-0.2) Platelet Estimate Adequate (ADEQUATE) Polychromasia Present Hypochromasia Slight Anisocytosis Present Microcytosis Slight Ovalocytes Few Sodium Level 144 mmol/L (136-145) Potassium Level 3.9 mmol/L (3.5-5.1) Chloride Level 107 mmol/L (98-107) Carbon Dioxide Level 32 mmol/L (21-32) Anion Gap 5 (6-14) L Blood Urea Nitrogen 27 mg/dL (8-26) H Creatinine 1.2 mg/dL (0.7-1.3) Estimated GFR (Cockcroft-Gault) 57.7 BUN/Creatinine Ratio 23 (6-20) H Glucose Level 99 mg/dL (70-99) Calcium Level 8.2 mg/dL (8.5-10.1) L Total Bilirubin 0.8 mg/dL (0.2-1.0) Aspartate Amino Transferase (AST) 32 U/L (15-37) Alanine Aminotransferase (ALT) 27 U/L (16-63) Alkaline Phosphatase 94 U/L (46-116) Total Protein 6.0 g/dL (6.4-8.2) L Albumin 2.3 g/dL (3.4-5.0) L Albumin/Globulin Ratio 0.6 (1.0-1.7) L Valproic Acid Level 15 mcg/mL (50-100) L Valproic Acid Last Dose Date 07/03/19 Valproic Acid Last Dose Time 2100 Current Medications: Meds: Current Medications Medications (Trade) Dose Ordered Sig/Radha Route PRN Reason Start Time Stop Time Status Last Admin Dose Admin Aspirin (Children'S Aspirin) 81 mg DAILY PO 07/04/19 09:00 07/04/19 10:02 Docusate Sodium (Colace) 100 mg DAILY08 PO 07/04/19 08:00 07/04/19 10:02 Ferrous Sulfate (Feosol) 325 mg DAILY PO 07/04/19 09:00 07/04/19 10:02 Metoprolol Tartrate (Lopressor) 25 mg DAILY PO 07/04/19 09:00 07/04/19 10:02 Mirtazapine (Remeron) 15 mg QHS PO 07/03/19 21:00 07/04/19 20:50 Polyethylene Glycol (miraLAX) 17 gm DAILY PO 07/04/19 09:00 07/04/19 10:02 Sertraline HCl (Zoloft) 25 mg DAILY PO 07/04/19 09:00 07/04/19 10:01 Trazodone HCl (Desyrel) 50 mg QHS PO 07/03/19 21:00 07/04/19 20:50 Famotidine (Pepcid) 40 mg DAILY PO 07/04/19 09:00 07/04/19 10:01 Melatonin (Melatonin) 3 mg HS PO 07/03/19 21:00 07/04/19 20:50 Multivitamins/ Calcium (Thera-M Plus) 1 tab DAILY PO 07/04/19 09:00 07/04/19 10:02 Atorvastatin Calcium (Lipitor) 5 mg HS PO 07/04/19 21:00 07/04/19 20:50 I have reviewed the current psychotropics carefully including drug interactions. Risk benefit ratio favors no change other than as noted in my dictated progress note. Diagnosis: Problems: (1) Anxiety disorder (2) Dementia, vascular, with depression (3) Dementia, vascular, with delusions (4) Major neurocognitive disorder (5) Dementia in Alzheimer's disease with depression (6) Dementia in Alzheimer's disease with delusions (7) Impulse control disorder MAIRA SAAVEDRA MD Jul 04, 2019 20:56
[2019-07-05] MEDS: traZODone 50 MG TABLET. PO PRN ×2 (00:08→23:04)
--- NOTE | 2019-07-05 00:43 | PN ---
DATE: 07/04/2019 PSYCHIATRIC PROGRESS NOTE This note covers elements not covered in my initial note 07/04/2019. SUBJECTIVE: I met with the patient in the evening. Per nursing staff, the patient slept 8-1/4 hours. He has been confused, pacing, talking about wanting to get his car, so he can go home. REVIEW OF SYSTEMS: No CV, , pulmonary, eye, ENT system symptoms on review. Reliability poor. MENTAL STATUS EXAM: Oriented to himself. Insight, judgment, recent and remote memory, attention, concentration, fund of knowledge poor, consistent with his diagnosis mentioned in my initial note. PLAN: No change from initial note. MAN Srikanth SAAVEDRA MD DR: LAUREN/ashkan JOB#: [id number] / [id number]
[2019-07-05] MEDS: ACETAMINOPHEN 325 MG TABLET PO PRN (02:29)
--- NOTE | 2019-07-05 04:42 | CONS ---
DATE OF CONSULTATION: HISTORY OF PRESENT ILLNESS: The patient is an 83-year-old male patient who was transferred to [address] [place] [address] because he complained of chest pain and elevated troponin. Before coming to [facility], he was admitted to [address] [place] [address] and he was extensively investigated and it transpired that he has had an echocardiogram and stress test done in February 2019 and was reportedly normal; and therefore, we did speak with ____, the hoeing row boss on-call, who recommended that the patient can be transferred safely back to [facility] to continue his inpatient psychiatric stabilization. PAST MEDICAL HISTORY: Significant for coronary artery disease, congestive heart failure, hypertension and hyperlipidemia. He is also known to have carotid artery disease, chronic obstructive pulmonary disease, gastroesophageal reflux disease, hypothyroidism, osteoarthritis and dementia. PAST SURGICAL HISTORY: Significant for carotid endarterectomy, carpal tunnel syndrome, shoulder surgery, PCI and stent deployment. FAMILY HISTORY: Noncontributory. SOCIAL HISTORY: He currently lives in a memory unit. He quit smoking, does not drink alcohol and any recreational drugs. ALLERGIES: He is allergic to CAROTENE, NIACIN and SUCRALFATE. PHYSICAL EXAMINATION: GENERAL: On examining him, he looked well and was clearly in no apparent respiratory distress. VITAL SIGNS: His heart rate was 69, blood pressure was 108/61, temperature was 98.5, respiratory rate was 18 and oxygen saturation was 91% on room air. The rest of clinical exam is stable. LABORATORY DATA: His lab work showed a white cell count 7400, hemoglobin 10, hematocrit 32, MCV 90 and platelet count of 171,000. His chemistry showed a serum sodium 144, potassium 3.9, chloride 107, bicarbonate 32, anion gap of 5, BUN 27, creatinine 1.2, estimated GFR was 57 mL per minute. Glucose was 99, calcium was 8.2. Total bilirubin, AST, ALT, alkaline phosphatase were normal. Total protein 6, albumin 2.3. ASSESSMENT: Chest pain, acute myocardial infarction ruled out. The patient has had percutaneous coronary artery intervention with stent deployment in 1999 and 2002 and follows the hoeing row boss at [facility] in [place]. Has had an echo and stress test done in February 2019 and was reportedly normal; and therefore, the patient was admitted back to [facility] and should follow after discharge with her hoeing row boss in [place]. Thank you, Dr. Crabtree, for allowing me to participate in the care of this patient. KRISTYN WALLS MD DR: MELLISA/ashkan JOB#: [id number] / [id number]
[2019-07-05 05:02] VITALS: BP 150/73
[2019-07-05] MEDS: FERROUS SULFATE 325 MG TABLET. PO SCH (08:14)
[2019-07-05] MEDS: FUROSEMIDE 40 MG TABLET PO SCH ×2 (08:14→16:39)
[2019-07-05] MEDS: DOCUSATE SODIUM 100 MG CAPSULE PO SCH (08:14)
[2019-07-05] MEDS: ASPIRIN 81 MG TAB.CHEW PO SCH (08:14)
[2019-07-05] MEDS: FAMOTIDINE 20 MG TABLET PO SCH (08:14)
[2019-07-05] MEDS: MULTIVITAMIN with MINERAL TABLET. PO SCH (08:14)
[2019-07-05] MEDS: DIVALPROEX 125 MG CAP.SPRINK PO SCH ×2 (08:15→16:39)
[2019-07-05] MEDS: POLYETHYLENE GLYCOL 3350 17 GM PACKET. PO SCH (08:15)
[2019-07-05] MEDS: SERTRALINE 25 MG TABLET. PO SCH (08:15)
[2019-07-05] MEDS: METOPROLOL TART IMMED RELEASE 25 MG TABLET PO SCH (08:15)
--- NOTE | 2019-07-05 09:00 | TX PLAN ---
Interdisciplinary Tx Plan Admission Information Jul 03, 2019 at 13:03 Legal Status (on Admission): Voluntary DPOA/Guardian Name: Tim Morrison Contact Other Contact Name: Richie Other Contact Verified Code Status: DNR Allergies: Coded Allergies: keratin (Verified Allergy, Unknown, 06/25/19) niacin (Verified Allergy, Unknown, 06/25/19) sucralfate (Verified Allergy, Unknown, 06/26/19) Diagnoses Primary Diagnosis: Major neurocognitive d/o vascular alzheimer's with delusion, depression, BD; anxiety d/o unspecified; impulse control d/o Reasons for Admission: Aggressive, Agitated, Sig. Change Sleep, Angry, Combative, Confusion/Disoriented, Poor impulse control Problem in Patient's Words: "[place] and my liked the Dr. granados", per patient. Problems Active Problems: Periods of agitation, cursing, needs encouragement to take meds, wandering and looking for his truck to leave Inactive Problems: Meal intakes are adequate Recent chest pain and transfer to medical floor Pt Strengths/Limitations Ability for Wilkes: Poor Cognitive Functioning/Ability: Poor Communication Skills/Ability: Fair Financial Resources: Fair Insight/Judgement: Poor Intellectual Ability: Fair Physical Health: Fair Social Skills: Fair Stability in Family: Good Verbal Skills: Fair Discharge Criteria Discharge Criteria: Adequate arrangements @DC, Improved behavior, Improved mood/thought Preliminary Discharge Plan Preliminary DC Plan: Memory Care Other Arrangements: [facility] Care Special Precautions Fall Risk: High Initial D/C Plan To return to [facility] Identified Discharge Needs: Follow up with PCP and out patient psychiatry. Currently Utilized Resources Currently Utilized Resources/P: Dr. Moncada follows as PCP at [facility] Staff at [facility] provide 24 hour supervision, medication administration, and support with adl's. Referrals Community Resources: Out patient psychaitry for medication management Identified Problems/Hx/Goals Objectives/Short-Term Goals Short Term Goals: Control abnormal behavior, Dec. Aggression, Medication Stabilization, Monitor Med Effects Short Term Goals in Patient's: Per family/POA, to stabilize mood, decrease agitation, and calm him. Interventions/Frequency Staff Interventions/Frequency&: Psychiatrist to follow three times week. SW to see twice weekly. Nursing to provde checks, medications, supervision, and support with adl's. SW and recreational therapy groups as Saad will allow. 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 Education: Saad graduated from high school. Community Follow-up F/U with PCP and out patient psychiatry. Treatment Plan Explained Patient/Grant Officer had this treatment plan explained to him/her as indicated by the signature below and has been given the opportunity to ask questions and make suggestions: Date: Patient/Grant Officer Signature: JERICA HARDY Jul 05, 2019 09:00
--- NOTE | 2019-07-05 12:23 | PN ---
DATE: 07/03/2019 PSYCHIATRIC PROGRESS NOTE This late entry 07/03/2019 covers elements not covered in my initial note. SUBJECTIVE: I met with the patient in the evening DICTATION ENDS HERE MAN Srikanth SAAVEDRA MD DR: Kimberly JOB#: [id number] / [id number]
[2019-07-05 15:40] VITALS: BP 116/63
[2019-07-05] MEDS: ATORVASTATIN CALCIUM 10 MG TABLET. PO SCH (20:14)
[2019-07-05] MEDS: MELATONIN 3 MG TABLET PO SCH (20:14)
[2019-07-05] MEDS: traZODone 50 MG TABLET. PO SCH (20:14)
[2019-07-05] MEDS: AMITRIPTYLINE HCL 25 MG TABLET PO SCH (20:17)
--- NOTE | 2019-07-05 21:16 | PDOC ---
Exam Note: Dontrell Note: Please also refer to the separate dictated note~for this date of service dictated separately.~Patient seen individually. Discussed the patient with Nursing staff reviewed the chart.~Reviewed interim history and current functioning. Reviewed vital signs,~Labs/ Radiology~and current medications noted below. Continue current treatment with the changes noted in the dictated addendum note Assessment: Vital Signs/I&O: Vital Signs Date Time Temp Pulse Resp B/P (MAP) Pulse Ox O2 Delivery O2 Flow Rate FiO2 07/05/19 15:40 98.7 90 18 116/63 (80) 92 07/05/19 05:02 Room Air I & O 07/04/19 07/04/19 07/05/19 15:00 23:00 07:00 Intake Total 240 ml 600 ml Balance 240 ml 600 ml Current Medications: Meds: Current Medications Medications (Trade) Dose Ordered Sig/Radha Route PRN Reason Start Time Stop Time Status Last Admin Dose Admin Melatonin (Melatonin) 6 mg HS PO 07/05/19 21:00 07/05/19 20:14 Amitriptyline HCl (Elavil) 25 mg QHS PO 07/05/19 21:00 07/05/19 20:17 I have reviewed the current psychotropics carefully including drug interactions. Risk benefit ratio favors no change other than as noted in my dictated progress note. Diagnosis: Problems: (1) Anxiety disorder (2) Dementia, vascular, with depression (3) Dementia, vascular, with delusions (4) Major neurocognitive disorder (5) Dementia in Alzheimer's disease with depression (6) Dementia in Alzheimer's disease with delusions (7) Impulse control disorder MAIRA SAAVEDRA MD Jul 05, 2019 21:16
[2019-07-06 05:44] VITALS: BP 140/57
[2019-07-06] MEDS: FERROUS SULFATE 325 MG TABLET. PO SCH (11:09)
[2019-07-06] MEDS: DOCUSATE SODIUM 100 MG CAPSULE PO SCH (11:09)
[2019-07-06] MEDS: ASPIRIN 81 MG TAB.CHEW PO SCH (11:09)
[2019-07-06] MEDS: DIVALPROEX 125 MG CAP.SPRINK PO SCH ×2 (11:09→20:39)
[2019-07-06] MEDS: MULTIVITAMIN with MINERAL TABLET. PO SCH (11:09)
[2019-07-06] MEDS: FUROSEMIDE 40 MG TABLET PO SCH ×2 (11:09→16:00)
[2019-07-06] MEDS: POLYETHYLENE GLYCOL 3350 17 GM PACKET. PO SCH (11:10)
[2019-07-06] MEDS: SERTRALINE 25 MG TABLET. PO SCH (11:10)
[2019-07-06] MEDS: METOPROLOL TART IMMED RELEASE 25 MG TABLET PO SCH (11:10)
[2019-07-06] MEDS: FAMOTIDINE 20 MG TABLET PO SCH (11:11)
--- NOTE | 2019-07-06 12:28 | PN ---
DATE: 07/06/2019 SUBJECTIVE: The patient was seen today, met with the staff, chart reviewed, and also covering for Dr. Crabtree. Staff reports no behavior problems except feeling restless, not getting enough sleep. OBSERVATION: VITAL SIGNS: Temperature 97.3, blood pressure 140/57, pulse 93, respirations 20, O2 sat 93%. Slept less than an hour last night. The patient admits to feeling tired and weak, admits to having racing thoughts. Staff denies any other problems, has been mostly cooperative, apparently tend to wander a lot because of increased psychomotor agitation. LABORATORY DATA: The patient's lab reviewed. Hemoglobin 10. The patient's BUN was 27. CURRENT MEDICATIONS: Include Zyprexa Zydis 2.5 mg q. 2 hours p.r.n., Zoloft 25 mg daily, amitriptyline 25 mg at night, melatonin 6 mg at night, Depakote 125 mg b.i.d. p.o., trazodone 50 mg at night and trazodone 50 mg at bedtime p.o. p.r.n. Staff is concerned because of the patient's inability to sleep and also is not sleeping during the daytime. ASSESSMENT: Dementia, vascular with depression and delusions and generalized anxiety disorder. SHAWANDA BLACKWELL MD DR: SARA/ashkan JOB#: [id number] / [id number]
[2019-07-06 15:30] VITALS: BP 132/78
[2019-07-06] MEDS: AMITRIPTYLINE HCL 25 MG TABLET PO SCH (20:39)
[2019-07-06] MEDS: ATORVASTATIN CALCIUM 10 MG TABLET. PO SCH (20:39)
[2019-07-06] MEDS: MELATONIN 3 MG TABLET PO SCH (20:39)
[2019-07-06] MEDS ORDERED: MIRTAZAPINE 15 MG TABLET PO SCH (21:00)
[2019-07-07 06:12] VITALS: BP 118/57
[2019-07-07] MEDS: POLYETHYLENE GLYCOL 3350 17 GM PACKET. PO SCH (10:15)
[2019-07-07] MEDS: FAMOTIDINE 20 MG TABLET PO SCH (10:15)
[2019-07-07] MEDS: SERTRALINE 25 MG TABLET. PO SCH (10:16)
[2019-07-07] MEDS: ASPIRIN 81 MG TAB.CHEW PO SCH (10:16)
[2019-07-07] MEDS: DOCUSATE SODIUM 100 MG CAPSULE PO SCH (10:16)
[2019-07-07] MEDS: METOPROLOL TART IMMED RELEASE 25 MG TABLET PO SCH (10:16)
[2019-07-07] MEDS: MULTIVITAMIN with MINERAL TABLET. PO SCH (10:16)
[2019-07-07] MEDS: FUROSEMIDE 40 MG TABLET PO SCH ×2 (10:17→17:35)
[2019-07-07] MEDS: FERROUS SULFATE 325 MG TABLET. PO SCH (10:17)
[2019-07-07 16:06] VITALS: BP 137/86
[2019-07-07] MEDS: AMITRIPTYLINE HCL 25 MG TABLET PO SCH (20:15)
[2019-07-07] MEDS: MIRTAZAPINE 30 MG TABLET PO SCH (20:15)
[2019-07-07] MEDS: ATORVASTATIN CALCIUM 10 MG TABLET. PO SCH (20:16)
[2019-07-07] MEDS: DIVALPROEX 125 MG CAP.SPRINK PO SCH (20:16)
[2019-07-07] MEDS: MELATONIN 3 MG TABLET PO SCH (20:16)
--- NOTE | 2019-07-08 04:37 | PN ---
DATE: 07/07/2019 SUBJECTIVE: The patient was seen today, met with the staff, chart was reviewed. The staff reports the patient fell once. The patient continues to be agitated, involuntary movements, increased confusion, and also not sleeping well at night. OBSERVATION: VITAL SIGNS: Temperature 97.1, blood pressure 118/57, pulse is 75, and respiration 18. The patient apparently did not get any sleep at all last night. The patient's appetite is fair. LABORATORY DATA: Reviewed. CURRENT MEDICATIONS: Include Zyprexa Zydis 2.5 mg q. 2 hours p.r.n., Zoloft 25 mg daily, amitriptyline 25 mg at night, melatonin 6 mg daily, and Depakote 250 mg at night. The patient is also on Remeron 15 mg at night. The patient is not having any major side effects. ASSESSMENT: 1. Dementia, most likely vascular with the depression, delusions, and behavior problems. 2. Generalized anxiety disorder. 3. Insomnia. PLAN: To continue with the current treatment plan, except to increase the Remeron to 30 mg at night. LENGTH OF STAY: 7-10 days. SHAWANDA BLACKWELL MD DR: SARA/ashkan JOB#: [id number] / [id number]
[2019-07-08 06:19] VITALS: BP 137/71
[2019-07-08] MEDS: POLYETHYLENE GLYCOL 3350 17 GM PACKET. PO SCH (09:40)
[2019-07-08] MEDS: DOCUSATE SODIUM 100 MG CAPSULE PO SCH (09:41)
[2019-07-08] MEDS: MULTIVITAMIN with MINERAL TABLET. PO SCH (09:41)
[2019-07-08] MEDS: FUROSEMIDE 40 MG TABLET PO SCH ×2 (09:41→16:00)
[2019-07-08] MEDS: METOPROLOL TART IMMED RELEASE 25 MG TABLET PO SCH (09:41)
[2019-07-08] MEDS: FAMOTIDINE 20 MG TABLET PO SCH (09:42)
[2019-07-08] MEDS: SERTRALINE 25 MG TABLET. PO SCH (09:42)
[2019-07-08] MEDS: FERROUS SULFATE 325 MG TABLET. PO SCH (09:42)
[2019-07-08] MEDS: ASPIRIN 81 MG TAB.CHEW PO SCH (09:42)
[2019-07-08 15:49] VITALS: BP 99/54
[2019-07-08] MEDS: AMITRIPTYLINE HCL 25 MG TABLET PO SCH (20:03)
[2019-07-08] MEDS: MIRTAZAPINE 30 MG TABLET PO SCH (20:03)
[2019-07-08] MEDS: ATORVASTATIN CALCIUM 10 MG TABLET. PO SCH (20:04)
[2019-07-08] MEDS: MELATONIN 3 MG TABLET PO SCH (20:04)
[2019-07-08] MEDS: DIVALPROEX 125 MG CAP.SPRINK PO SCH (20:04)
--- NOTE | 2019-07-08 20:53 | PN ---
DATE: 07/05/2019 PSYCHIATRIC PROGRESS NOTE This late entry 07/05/2019 covers elements not covered in my initial note. SUBJECTIVE: I met with the patient evening of 07/05/2019 and was staffed at a treatment team meeting earlier in the day on 07/05/2019 and the patient's daughter, Tim, attended the treatment team meeting. Sleeping average 3-1/2 hours. Appetite 70%, did not sleep at all the previous night, wandering, exit seeking, confused, door checking, quite restless in the morning. He has failed Remeron, melatonin and trazodone for the insomnia. REVIEW OF SYSTEMS: No CV, , pulmonary, eye, ENT system symptoms on review. Reliability poor. MENTAL STATUS EXAM: Oriented to himself. Insight, judgment, recent and remote memory, attention, concentration, fund of knowledge poor, consistent with his diagnosis. IMPRESSION: Major neurocognitive disorder, Alzheimer, vascular with delusion, depression, behavioral disturbance; anxiety disorder, unspecified; impulse control disorder, unspecified. Rest unchanged. PLAN: Change the Remeron to amitriptyline 25 mg p.o. at bedtime. Continue rest of the psychotropics unchanged. I had a lengthy review of his psychotropics, drug interactions and agreed this was prudent to be forward for now. His insomnia has been markedly recalcitrant to all interventions so far. MAIRA SAAVEDRA MD DR: LAUREN/ashkan JOB#: [id number] / [id number]
--- NOTE | 2019-07-08 21:06 | PDOC ---
Exam Note: Dontrell Note: Please also refer to the separate dictated note~for this date of service dictated separately.~Patient seen individually. Discussed the patient with Nursing staff reviewed the chart.~Reviewed interim history and current functioning. Reviewed vital signs,~Labs/ Radiology~and current medications noted below. Continue current treatment with the changes noted in the dictated addendum note Assessment: Vital Signs/I&O: Vital Signs Date Time Temp Pulse Resp B/P (MAP) Pulse Ox O2 Delivery O2 Flow Rate FiO2 07/08/19 15:49 97.3 59 20 99/54 (69) 96 07/07/19 06:12 Room Air I & O 07/07/19 07/07/19 07/08/19 15:00 23:00 07:00 Intake Total 600 ml 240 ml 120 ml Balance 600 ml 240 ml 120 ml Current Medications: Meds: Current Medications Medications (Trade) Dose Ordered Sig/Radha Route PRN Reason Start Time Stop Time Status Last Admin Dose Admin Olanzapine (ZyPREXA ZYDIS) 7.5 mg 1X ONCE PO 07/07/19 23:45 07/07/19 23:46 DC 07/07/19 23:43 Amitriptyline HCl (Elavil) 37.5 mg QHS PO 07/08/19 21:00 07/08/19 20:03 I have reviewed the current psychotropics carefully including drug interactions. Risk benefit ratio favors no change other than as noted in my dictated progress note. Diagnosis: Problems: (1) Anxiety disorder (2) Dementia, vascular, with depression (3) Dementia, vascular, with delusions (4) Major neurocognitive disorder (5) Dementia in Alzheimer's disease with depression (6) Dementia in Alzheimer's disease with delusions (7) Impulse control disorder MAIRA SAAVEDRA MD Jul 08, 2019 21:06
[2019-07-09] MEDS: traZODone 50 MG TABLET. PO PRN ×4 (00:06→23:43)
[2019-07-09 05:49] VITALS: BP 151/76
[2019-07-09] MEDS: FAMOTIDINE 20 MG TABLET PO SCH (08:39)
[2019-07-09] MEDS: ASPIRIN 81 MG TAB.CHEW PO SCH (08:39)
[2019-07-09] MEDS: MULTIVITAMIN with MINERAL TABLET. PO SCH (08:39)
[2019-07-09] MEDS: SERTRALINE 25 MG TABLET. PO SCH (08:39)
[2019-07-09] MEDS: FERROUS SULFATE 325 MG TABLET. PO SCH (08:39)
[2019-07-09] MEDS: METOPROLOL TART IMMED RELEASE 25 MG TABLET PO SCH (08:40)
[2019-07-09] MEDS: FUROSEMIDE 40 MG TABLET PO SCH ×2 (08:40→16:19)
[2019-07-09] MEDS: DOCUSATE SODIUM 100 MG CAPSULE PO SCH (08:40)
[2019-07-09] MEDS: POLYETHYLENE GLYCOL 3350 17 GM PACKET. PO SCH (08:40)
[2019-07-09] MEDS: MAG HYDROX/AL HYDROX/SIMETH 30 ML ORAL.SUSP PO PRN ×2 (12:08→22:33)
[2019-07-09 15:11] LABS: BASO % 1 % (0-3); EOS # 0.2 x10^3/uL (0.0-0.7); EOS % 3 % (0-3); HEMATOCRIT 36.4 % (39.0-53.0); HEMOGLOBIN 11.5 g/dL (13.0-17.5); LYMPH % 14 % (24-48); MEAN CORPUSCULAR HEMOGLOBIN 28 pg (25-35); MEAN CORPUSCULAR HGB CONC 32 g/dL (31-37); MEAN CORPUSCULAR VOLUME 89 fL (79-100); MONO # 1.1 x10^3/uL (0.0-1.1); MONO % 15 % (0-9); NEUT # 4.9 x10^3uL (1.8-7.7); NEUT % 68 % (31-73); PLATELET COUNT 220 x10^3/uL (140-400); RED BLOOD COUNT 4.07 x10^6/uL (4.30-5.70); WHITE BLOOD COUNT 7.2 x10^3/uL (4.0-11.0)
[2019-07-09 15:47] LABS: ALBUMIN 2.7 g/dL (3.4-5.0); ALBUMIN/GLOBULIN RATIO 0.6 (1.0-1.7); CALCIUM 8.8 mg/dL (8.5-10.1); CREATININE 1.3 mg/dL (0.7-1.3); GFR 52.6; TOTAL BILIRUBIN 1.1 mg/dL (0.2-1.0)
[2019-07-09 16:09] VITALS: BP 130/69
[2019-07-09 16:51] LABS: OVALOCYTES OCC; PLT ESTIMATE ADEQUATE (ADEQUATE); POLYCHROMASIA SLIGHT
[2019-07-09 16:52] LABS: ANISOCYTOSIS SLIGHT
[2019-07-09] MEDS: DIVALPROEX 125 MG CAP.SPRINK PO SCH (19:47)
[2019-07-09] MEDS: MELATONIN 3 MG TABLET PO SCH (19:47)
[2019-07-09] MEDS: ATORVASTATIN CALCIUM 10 MG TABLET. PO SCH (19:47)
[2019-07-09] MEDS: MIRTAZAPINE 30 MG TABLET PO SCH (19:48)
[2019-07-09] MEDS: AMITRIPTYLINE HCL 25 MG TABLET PO SCH (19:48)
--- NOTE | 2019-07-09 21:24 | PDOC ---
Exam Note: Dontrell Note: Please also refer to the separate dictated note~for this date of service dictated separately.~Patient seen individually. Discussed the patient with Nursing staff reviewed the chart.~Reviewed interim history and current functioning. Reviewed vital signs,~Labs/ Radiology~and current medications noted below. Continue current treatment with the changes noted in the dictated addendum note Assessment: Vital Signs/I&O: Vital Signs Date Time Temp Pulse Resp B/P (MAP) Pulse Ox O2 Delivery O2 Flow Rate FiO2 07/09/19 16:09 97.4 68 20 130/69 (89) 96 07/07/19 06:12 Room Air I & O 07/08/19 07/08/19 07/09/19 15:00 23:00 07:00 Intake Total 840 ml 360 ml Balance 840 ml 360 ml Labs: Laboratory Tests Test 07/09/19 14:40 White Blood Count 7.2 x10^3/uL (4.0-11.0) Red Blood Count 4.07 x10^6/uL (4.30-5.70) L Hemoglobin 11.5 g/dL (13.0-17.5) L Hematocrit 36.4 % (39.0-53.0) L Mean Corpuscular Volume 89 fL (79-100) Mean Corpuscular Hemoglobin 28 pg (25-35) Mean Corpuscular Hemoglobin Concent 32 g/dL (31-37) Red Cell Distribution Width 25.0 % (11.5-14.5) H Platelet Count 220 x10^3/uL (140-400) Neutrophils (%) (Auto) 68 % (31-73) Lymphocytes (%) (Auto) 14 % (24-48) L Monocytes (%) (Auto) 15 % (0-9) H Eosinophils (%) (Auto) 3 % (0-3) Basophils (%) (Auto) 1 % (0-3) Neutrophils # (Auto) 4.9 x10^3uL (1.8-7.7) Lymphocytes # (Auto) 1.0 x10^3/uL (1.0-4.8) Monocytes # (Auto) 1.1 x10^3/uL (0.0-1.1) Eosinophils # (Auto) 0.2 x10^3/uL (0.0-0.7) Basophils # (Auto) 0.0 x10^3/uL (0.0-0.2) Platelet Estimate Adequate (ADEQUATE) Polychromasia Slight Anisocytosis Slight Ovalocytes Occ Sodium Level 147 mmol/L (136-145) H Potassium Level 4.0 mmol/L (3.5-5.1) Chloride Level 107 mmol/L (98-107) Carbon Dioxide Level 31 mmol/L (21-32) Anion Gap 9 (6-14) Blood Urea Nitrogen 30 mg/dL (8-26) H Creatinine 1.3 mg/dL (0.7-1.3) Estimated GFR (Cockcroft-Gault) 52.6 BUN/Creatinine Ratio 23 (6-20) H Glucose Level 101 mg/dL (70-99) H Calcium Level 8.8 mg/dL (8.5-10.1) Total Bilirubin 1.1 mg/dL (0.2-1.0) H Aspartate Amino Transferase (AST) 40 U/L (15-37) H Alanine Aminotransferase (ALT) 33 U/L (16-63) Alkaline Phosphatase 125 U/L (46-116) H Total Protein 7.0 g/dL (6.4-8.2) Albumin 2.7 g/dL (3.4-5.0) L Albumin/Globulin Ratio 0.6 (1.0-1.7) L Current Medications: Meds: Current Medications Medications (Trade) Dose Ordered Sig/Radha Route PRN Reason Start Time Stop Time Status Last Admin Dose Admin Trazodone HCl (Desyrel) 50 mg PRN QHS PRN PO INSOMNIA, NOVEMBER REPEAT X1 07/08/19 23:45 07/09/19 01:46 I have reviewed the current psychotropics carefully including drug interactions. Risk benefit ratio favors no change other than as noted in my dictated progress note. Diagnosis: Problems: (1) Anxiety disorder (2) Dementia, vascular, with depression (3) Dementia, vascular, with delusions (4) Major neurocognitive disorder (5) Dementia in Alzheimer's disease with depression (6) Dementia in Alzheimer's disease with delusions (7) Impulse control disorder MAIRA SAAVEDRA MD Jul 09, 2019 21:24
[2019-07-10 05:04] VITALS: BP 128/69
[2019-07-10] MEDS: SERTRALINE 25 MG TABLET. PO SCH (08:50)
[2019-07-10] MEDS: DOCUSATE SODIUM 100 MG CAPSULE PO SCH (08:50)
[2019-07-10] MEDS: FAMOTIDINE 20 MG TABLET PO SCH (08:51)
[2019-07-10] MEDS: ASPIRIN 81 MG TAB.CHEW PO SCH (08:51)
[2019-07-10] MEDS: MULTIVITAMIN with MINERAL TABLET. PO SCH (08:51)
[2019-07-10] MEDS: FERROUS SULFATE 325 MG TABLET. PO SCH (08:51)
[2019-07-10] MEDS: FUROSEMIDE 40 MG TABLET PO SCH ×2 (08:51→16:30)
[2019-07-10] MEDS: METOPROLOL TART IMMED RELEASE 25 MG TABLET PO SCH (08:51)
[2019-07-10] MEDS: POLYETHYLENE GLYCOL 3350 17 GM PACKET. PO SCH (08:52)
[2019-07-10 15:37] VITALS: BP 121/66
[2019-07-10] MEDS: MELATONIN 3 MG TABLET PO SCH (19:46)
[2019-07-10] MEDS: traZODone 50 MG TABLET. PO PRN ×3 (19:46→22:50)
[2019-07-10] MEDS: MIRTAZAPINE 30 MG TABLET PO SCH (19:46)
[2019-07-10] MEDS: ATORVASTATIN CALCIUM 10 MG TABLET. PO SCH (19:46)
[2019-07-10] MEDS: AMITRIPTYLINE HCL 25 MG TABLET PO SCH (19:47)
[2019-07-10] MEDS: DIVALPROEX 125 MG CAP.SPRINK PO SCH (19:47)
--- NOTE | 2019-07-10 20:47 | PDOC ---
Exam Note: Dontrell Note: Please also refer to the separate dictated note~for this date of service dictated separately.~Patient seen individually. Discussed the patient with Nursing staff reviewed the chart.~Reviewed interim history and current functioning. Reviewed vital signs,~Labs/ Radiology~and current medications noted below. Continue current treatment with the changes noted in the dictated addendum note Assessment: Vital Signs/I&O: Vital Signs Date Time Temp Pulse Resp B/P (MAP) Pulse Ox O2 Delivery O2 Flow Rate FiO2 07/10/19 15:37 98.7 60 16 121/66 (84) 94 07/10/19 05:04 Room Air I & O 07/09/19 07/09/19 07/10/19 15:00 23:00 07:00 Intake Total 720 ml 480 ml Balance 720 ml 480 ml Current Medications: I have reviewed the current psychotropics carefully including drug interactions. Risk benefit ratio favors no change other than as noted in my dictated progress note. Diagnosis: Problems: (1) Anxiety disorder (2) Dementia, vascular, with depression (3) Dementia, vascular, with delusions (4) Major neurocognitive disorder (5) Dementia in Alzheimer's disease with depression (6) Dementia in Alzheimer's disease with delusions (7) Impulse control disorder MAIRA SAAVEDRA MD Jul 10, 2019 20:47
[2019-07-10] MEDS ORDERED: QUEtiapine 25 MG TABLET. PO SCH (21:00)
[2019-07-10] MEDS: rOPINIRole 0.5 MG TABLET. PO SCH (21:25)
[2019-07-11 05:32] VITALS: BP 129/67
[2019-07-11] MEDS: POLYETHYLENE GLYCOL 3350 17 GM PACKET. PO SCH (08:57)
[2019-07-11] MEDS: ASPIRIN 81 MG TAB.CHEW PO SCH (08:57)
[2019-07-11] MEDS: FUROSEMIDE 40 MG TABLET PO SCH ×2 (08:57→16:40)
[2019-07-11] MEDS: MULTIVITAMIN with MINERAL TABLET. PO SCH (08:57)
[2019-07-11] MEDS: SERTRALINE 25 MG TABLET. PO SCH (08:57)
[2019-07-11] MEDS: FAMOTIDINE 20 MG TABLET PO SCH (08:57)
[2019-07-11] MEDS: DOCUSATE SODIUM 100 MG CAPSULE PO SCH (08:58)
[2019-07-11] MEDS: FERROUS SULFATE 325 MG TABLET. PO SCH (08:58)
[2019-07-11] MEDS: METOPROLOL TART IMMED RELEASE 25 MG TABLET PO SCH (08:58)
[2019-07-11] MEDS: ACETAMINOPHEN 325 MG TABLET PO PRN (12:43)
[2019-07-11 16:10] VITALS: BP 117/69
[2019-07-11] MEDS: traZODone 100 MG TABLET. PO SCH (20:00)
[2019-07-11] MEDS: DIVALPROEX 125 MG CAP.SPRINK PO SCH (20:00)
[2019-07-11] MEDS: rOPINIRole 0.5 MG TABLET. PO SCH (20:00)
[2019-07-11] MEDS: MELATONIN 3 MG TABLET PO SCH (20:00)
[2019-07-11] MEDS: QUEtiapine 50 MG TABLET. PO SCH (20:00)
[2019-07-11] MEDS: ATORVASTATIN CALCIUM 10 MG TABLET. PO SCH (20:00)
[2019-07-11] MEDS: MIRTAZAPINE 30 MG TABLET PO SCH (20:01)
--- NOTE | 2019-07-11 21:07 | PDOC ---
Exam Note: Dontrell Note: Please also refer to the separate dictated note~for this date of service dictated separately.~Patient seen individually. Discussed the patient with Nursing staff reviewed the chart.~Reviewed interim history and current functioning. Reviewed vital signs,~Labs/ Radiology~and current medications noted below. Continue current treatment with the changes noted in the dictated addendum note Assessment: Vital Signs/I&O: Vital Signs Date Time Temp Pulse Resp B/P (MAP) Pulse Ox O2 Delivery O2 Flow Rate FiO2 07/11/19 16:10 97.8 65 18 117/69 (85) 94 Room Air I & O 07/10/19 07/10/19 07/11/19 15:00 23:00 07:00 Intake Total 480 ml 240 ml 360 ml Balance 480 ml 240 ml 360 ml Current Medications: Meds: Current Medications Medications (Trade) Dose Ordered Sig/Radha Route PRN Reason Start Time Stop Time Status Last Admin Dose Admin Quetiapine Fumarate (SEROquel) 50 mg QHS PO 07/11/19 21:00 07/11/19 20:00 Trazodone HCl (Desyrel) 100 mg QHS PO 07/11/19 21:00 07/11/19 20:00 I have reviewed the current psychotropics carefully including drug interactions. Risk benefit ratio favors no change other than as noted in my dictated progress note. Diagnosis: Problems: (1) Anxiety disorder (2) Dementia, vascular, with depression (3) Dementia, vascular, with delusions (4) Major neurocognitive disorder (5) Dementia in Alzheimer's disease with depression (6) Dementia in Alzheimer's disease with delusions MAIRA SAAVEDRA MD Jul 11, 2019 21:07
[2019-07-11] MEDS: traZODone 50 MG TABLET. PO PRN (23:07)
[2019-07-12] MEDS: traZODone 50 MG TABLET. PO PRN ×2 (00:21→21:59)
--- NOTE | 2019-07-12 00:56 | PN ---
DATE: 07/08/2019 PSYCHIATRIC PROGRESS NOTE This late entry 07/08/2019 covers elements not covered in my initial note. SUBJECTIVE: I met with the patient evening of 07/08/2019. Per SETH Buck, the patient slept 2-1/2 hours previous night, was up all night. REVIEW OF SYSTEMS: No CV, , pulmonary, eye system symptoms on review. Ambulation impaired with walker. MENTAL STATUS EXAM: Oriented to himself. Insight, judgment, recent and remote memory, attention, concentration, fund of knowledge poor, consistent with his diagnosis mentioned in my initial note. PLAN: Increase amitriptyline from 25 mg at bedtime to 37.5 mg at bedtime. Continue Zoloft, trazodone, Depakote, melatonin, unchanged for now. MAN Srikanth SAAVEDRA MD DR: LAUREN/ashkan JOB#: [id number] / [id number]
--- NOTE | 2019-07-12 01:09 | PN ---
DATE: 07/09/2019 PSYCHIATRIC PROGRESS NOTE This late entry, 07/09/2019, covers elements not covered in my initial note. Per SETH Ferreira, the patient slept 2 hours previous night. SUBJECTIVE: He has recalcitrant insomnia, but he did take a nap during the day for 2 hours, compliant with medications, spending time in the day room. REVIEW OF SYSTEMS: No CV, , pulmonary, eye, ENT system symptoms on review. Reliability poor. MENTAL STATUS EXAM: Oriented to himself. Insight, judgment, recent and remote memory, attention, concentration, fund of knowledge poor, consistent with his diagnosis mentioned in my initial note. PLAN: No change from initial note, but increase amitriptyline from 25 at bedtime to 37.5 mg at bedtime. Rest unchanged. MAN Srikanth SAAVEDRA MD DR: LAUREN/ashkan JOB#: [id number] / [id number]
[2019-07-12 04:46] VITALS: BP 136/66
[2019-07-12] MEDS: MULTIVITAMIN with MINERAL TABLET. PO SCH (07:55)
[2019-07-12] MEDS: FAMOTIDINE 20 MG TABLET PO SCH (07:55)
[2019-07-12] MEDS: POLYETHYLENE GLYCOL 3350 17 GM PACKET. PO SCH (07:55)
[2019-07-12] MEDS: DOCUSATE SODIUM 100 MG CAPSULE PO SCH (07:55)
[2019-07-12] MEDS: SERTRALINE 25 MG TABLET. PO SCH (07:56)
[2019-07-12] MEDS: FUROSEMIDE 40 MG TABLET PO SCH ×2 (07:56→16:18)
[2019-07-12] MEDS: FERROUS SULFATE 325 MG TABLET. PO SCH (07:56)
[2019-07-12] MEDS: METOPROLOL TART IMMED RELEASE 25 MG TABLET PO SCH (07:56)
[2019-07-12] MEDS: ASPIRIN 81 MG TAB.CHEW PO SCH (07:56)
--- NOTE | 2019-07-12 09:06 | PN ---
DATE: 07/10/2019 PSYCHIATRIC PROGRESS NOTE This late entry 07/10/2019 covers elements not covered in my initial note. SUBJECTIVE: I met with the patient evening of 07/10/2019. According to SETH Shabazz, the patient slept just one hour previous night despite repeat trazodone that he received. There is some indication that he might have restless leg syndrome and we will defer to Dr. Bell for possibly Requip or Mirapex. During the day, he walks with his eyes closed because he is tired, does take some naps off and on. We had increased the amitriptyline to 37.5 mg at bedtime to help with insomnia, but apparently ineffective. REVIEW OF SYSTEMS: No CV, , pulmonary, eye, ENT system symptoms on review. Reliability poor. MENTAL STATUS EXAM: Oriented to himself. Insight, judgment, recent and remote memory, attention, concentration, fund of knowledge poor, consistent with his diagnosis. IMPRESSION: Major neurocognitive disorder, Alzheimer, vascular with delusion, depression, behavioral disturbance; anxiety disorder, unspecified; impulse control disorder, unspecified; recalcitrant insomnia. PLAN: Stop the amitriptyline, start Seroquel 50 mg at bedtime. Defer to Dr. Bell for treatment of restless legs. Consider trazodone, Remeron, Depakote, melatonin for now together with Zoloft and Zyprexa p.r.n. Adjust further as clinically indicated. MAN Srikanth SAAVEDRA MD DR: LAUREN/ashkan JOB#: [id number] / [id number]
--- NOTE | 2019-07-12 09:10 | PN ---
DATE: 07/11/2019 PSYCHIATRIC PROGRESS NOTE This late entry 07/11/2019 covers elements not covered in my initial note. SUBJECTIVE: I met with the patient evening of 07/11/2019. The patient slept 2-3/4 hours previous night, even though this is less than normal, better than the one hour he slept the night before. According to SETH Isaac, the patient slept later in the morning until about 8:00 a.m. that is an extra 3 hours sleep, which is an improvement. He has been compliant with medications, looking for his and then feeling one of the other demented patients on the unit is his , but does redirect. REVIEW OF SYSTEMS: No CV, , pulmonary, eye, ENT system symptoms on review. Reliability poor. MENTAL STATUS EXAM: Oriented to himself. Insight, judgment, recent and remote memory, attention, concentration, fund of knowledge poor, consistent with his diagnosis mentioned in my initial note. PLAN: No change from initial note, but we will increase trazodone 200 mg at bedtime scheduled, may repeat x one at 50 mg. Continue Requip, Seroquel. Rest psychotropics unchanged including Remeron 30 mg at bedtime, Zoloft 25 mg at bedtime, melatonin 6 mg at bedtime. MAN Srikanth SAAVEDRA MD DR: LAUREN/ashkan JOB#: [id number] / [id number]
--- NOTE | 2019-07-12 09:11 | TX PLAN ---
Interdisciplinary Tx Plan Admission Information Jul 03, 2019 at 13:03 Legal Status (on Admission): Voluntary DPOA/Guardian Name: Tim Morrison Contact Other Contact Name: Richie Other Contact Verified Code Status: DNR Allergies: Coded Allergies: keratin (Verified Allergy, Unknown, 06/25/19) niacin (Verified Allergy, Unknown, 06/25/19) sucralfate (Verified Allergy, Unknown, 06/26/19) Diagnoses Primary Diagnosis: Major neurocognitive d/o vascular alzheimer's with delusion, depression, BD; anxiety d/o unspecified; impulse control d/o Reasons for Admission: Aggressive, Agitated, Sig. Change Sleep, Angry, Combative, Confusion/Disoriented, Poor impulse control Problem in Patient's Words: "[place] and my liked the Dr. granados", per patient. Problems Active Problems: Periods of agitation, cursing, needs encouragement to take meds, wandering and looking for his truck to leave Inactive Problems: Meal intakes are adequate Recent chest pain and transfer to medical floor Pt Strengths/Limitations Ability for [place]: Poor Cognitive Functioning/Ability: Poor Communication Skills/Ability: Fair Financial Resources: Fair Insight/Judgement: Poor Intellectual Ability: Fair Physical Health: Fair Social Skills: Fair Stability in Family: Good Verbal Skills: Fair Discharge Criteria Discharge Criteria: Adequate arrangements @DC, Improved behavior, Improved mood/thought Preliminary Discharge Plan Preliminary DC Plan: Memory Care Other Arrangements: [facility] Special Precautions Fall Risk: High Initial D/C Plan To return to [facility] Identified Discharge Needs: Follow up with PCP and out patient psychiatry. Currently Utilized Resources Currently Utilized Resources/P: Dr. Moncada follows as PCP at [facility] Staff at [facility] provide 24 hour supervision, medication administration, and support with adl's. Referrals Community Resources: Out patient psychaitry for medication management Identified Problems/Hx/Goals Objectives/Short-Term Goals Short Term Goals: Control abnormal behavior, Dec. Aggression, Medication Stabilization, Monitor Med Effects Short Term Goals in Patient's: Per family/POA, to stabilize mood, decrease agitation, and calm him. Interventions/Frequency Staff Interventions/Frequency&: Psychiatrist to follow three times week. SW to see twice weekly. Nursing to provde checks, medications, supervision, and support with adl's. SW and recreational therapy groups as Saad will allow. 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 Education: Saad graduated from high school. Community Follow-up F/U with PCP and out patient psychiatry. Treatment Plan Explained Patient/Senior Environmental Practice Leader had this treatment plan explained to him/her as indicated by the signature below and has been given the opportunity to ask questions and make suggestions: Date: Patient/Senior Environmental Practice Leader Signature: Status Update Update WEEKLY NOTE/UPDATE: Saad is averaging 80% of meal intake. Sleep has continued to be an issue and amitriptyline has been increased. Saad has periods of restlessness and will wander about the unit at times believing he needs to find his truck in order to leave. He is alert and oriented to himself and family. Saad did have a period of agitation that resulted in him needing to go to the [facility] for de-escalation this week. Plan is for Saad to return to [facility] once stable. D/C has been delayed due to ongoing insomnia and periods of agitation. ariel Dumont/VIVI, will be involved in team meeting via phone on 07/12/19. JERICA HARDY Jul 12, 2019 09:11
[2019-07-12 15:40] VITALS: BP 107/72
[2019-07-12] MEDS: rOPINIRole 0.5 MG TABLET. PO SCH (19:55)
[2019-07-12] MEDS: QUEtiapine 50 MG TABLET. PO SCH (19:55)
[2019-07-12] MEDS: GABAPENTIN 300 MG CAPSULE. PO SCH (19:55)
[2019-07-12] MEDS: MIRTAZAPINE 30 MG TABLET PO SCH (19:55)
[2019-07-12] MEDS: ATORVASTATIN CALCIUM 10 MG TABLET. PO SCH (19:56)
[2019-07-12] MEDS: MELATONIN 3 MG TABLET PO SCH (19:56)
[2019-07-12] MEDS: DIVALPROEX 125 MG CAP.SPRINK PO SCH (19:56)
[2019-07-12] MEDS: traZODone 100 MG TABLET. PO SCH (19:56)
--- NOTE | 2019-07-12 20:55 | PDOC ---
Exam Note: Dontrell Note: Please also refer to the separate dictated note~for this date of service dictated separately.~Patient seen individually. Discussed the patient with Nursing staff reviewed the chart.~Reviewed interim history and current functioning. Reviewed vital signs,~Labs/ Radiology~and current medications noted below. Continue current treatment with the changes noted in the dictated addendum note Assessment: Vital Signs/I&O: Vital Signs Date Time Temp Pulse Resp B/P (MAP) Pulse Ox O2 Delivery O2 Flow Rate FiO2 07/12/19 15:40 97.7 65 18 107/72 (84) 97 07/12/19 04:46 Room Air I & O 07/11/19 07/11/19 07/12/19 15:00 23:00 07:00 Intake Total 960 ml 480 ml Balance 960 ml 480 ml Current Medications: Meds: Current Medications Medications (Trade) Dose Ordered Sig/Radha Route PRN Reason Start Time Stop Time Status Last Admin Dose Admin Quetiapine Fumarate (SEROquel) 50 mg QHS PO 07/11/19 21:00 07/12/19 19:55 Trazodone HCl (Desyrel) 100 mg QHS PO 07/11/19 21:00 07/12/19 19:56 Gabapentin (Neurontin) 300 mg QHS PO 07/12/19 21:00 07/12/19 19:55 I have reviewed the current psychotropics carefully including drug interactions. Risk benefit ratio favors no change other than as noted in my dictated progress note. Diagnosis: Problems: (1) Anxiety disorder (2) Dementia, vascular, with depression (3) Dementia, vascular, with delusions (4) Major neurocognitive disorder (5) Dementia in Alzheimer's disease with depression (6) Dementia in Alzheimer's disease with delusions (7) Impulse control disorder MAIRA SAAVEDRA MD Jul 12, 2019 20:55
[2019-07-13 04:51] VITALS: BP 116/74
[2019-07-13 08:42] LABS: ALBUMIN 2.4 g/dL (3.4-5.0); ALBUMIN/GLOBULIN RATIO 0.6 (1.0-1.7); CALCIUM 8.6 mg/dL (8.5-10.1); CREATININE 1.3 mg/dL (0.7-1.3); GFR 52.6; POTASSIUM 4.5 mmol/L (3.5-5.1); TOTAL BILIRUBIN 0.7 mg/dL (0.2-1.0); TOTAL PROTEIN 6.3 g/dL (6.4-8.2)
[2019-07-13 09:30] LABS: BASO % 1 % (0-3); EOS # 0.3 x10^3/uL (0.0-0.7); EOS % 4 % (0-3); HEMATOCRIT 33.2 % (39.0-53.0); HEMOGLOBIN 10.5 g/dL (13.0-17.5); LYMPH # 1.4 x10^3/uL (1.0-4.8); LYMPH % 20 % (24-48); MEAN CORPUSCULAR HEMOGLOBIN 29 pg (25-35); MEAN CORPUSCULAR HGB CONC 32 g/dL (31-37); MEAN CORPUSCULAR VOLUME 91 fL (79-100); MONO % 15 % (0-9); NEUT # 4.3 x10^3uL (1.8-7.7); NEUT % 61 % (31-73); PLATELET COUNT 195 x10^3/uL (140-400); RED BLOOD COUNT 3.65 x10^6/uL (4.30-5.70); RED CELL DISTRIBUTION WIDTH 24.9 % (11.5-14.5)
[2019-07-13] MEDS: FERROUS SULFATE 325 MG TABLET. PO SCH (12:32)
[2019-07-13] MEDS: FUROSEMIDE 40 MG TABLET PO SCH ×2 (12:32→16:00)
[2019-07-13] MEDS: ASPIRIN 81 MG TAB.CHEW PO SCH (12:32)
[2019-07-13] MEDS: DOCUSATE SODIUM 100 MG CAPSULE PO SCH (12:32)
[2019-07-13] MEDS: METOPROLOL TART IMMED RELEASE 25 MG TABLET PO SCH (12:33)
[2019-07-13] MEDS: FAMOTIDINE 20 MG TABLET PO SCH (12:33)
[2019-07-13] MEDS: SERTRALINE 50 MG TABLET. PO SCH (12:35)
[2019-07-13] MEDS: POLYETHYLENE GLYCOL 3350 17 GM PACKET. PO SCH (12:35)
[2019-07-13] MEDS: MULTIVITAMIN with MINERAL TABLET. PO SCH (12:35)
[2019-07-13 14:13] LABS: PLT ESTIMATE ADEQUATE (ADEQUATE)
[2019-07-13 14:15] LABS: OVALOCYTES FEW; TARGET CELLS FEW
[2019-07-13 14:18] LABS: ANISOCYTOSIS PRESENT
[2019-07-13 14:21] LABS: ACANTHOCYTES PRESENT; BURR CELLS PRESENT
[2019-07-13 16:32] VITALS: BP 131/73
[2019-07-13] MEDS: QUEtiapine 50 MG TABLET. PO SCH (21:00)
[2019-07-13] MEDS: DIVALPROEX 125 MG CAP.SPRINK PO SCH (21:00)
[2019-07-13] MEDS: MIRTAZAPINE 30 MG TABLET PO SCH (21:00)
[2019-07-13] MEDS: ATORVASTATIN CALCIUM 10 MG TABLET. PO SCH (21:00)
[2019-07-13] MEDS: rOPINIRole 0.5 MG TABLET. PO SCH (21:00)
[2019-07-13] MEDS: traZODone 100 MG TABLET. PO SCH (21:00)
[2019-07-13] MEDS: MELATONIN 3 MG TABLET PO SCH (21:00)
[2019-07-13] MEDS: GABAPENTIN 300 MG CAPSULE. PO SCH (21:00)
--- NOTE | 2019-07-13 21:18 | PDOC ---
Exam Note: Dontrell Note: Please also refer to the separate dictated note~for this date of service dictated separately.~Patient seen individually. Discussed the patient with Nursing staff reviewed the chart.~Reviewed interim history and current functioning. Reviewed vital signs,~Labs/ Radiology~and current medications noted below. Continue current treatment with the changes noted in the dictated addendum note Assessment: Vital Signs/I&O: Vital Signs Date Time Temp Pulse Resp B/P (MAP) Pulse Ox O2 Delivery O2 Flow Rate FiO2 07/13/19 16:32 98.0 59 20 131/73 (92) 96 07/12/19 04:46 Room Air I & O 07/12/19 07/12/19 07/13/19 15:00 23:00 07:00 Intake Total 720 ml 600 ml Balance 720 ml 600 ml Labs: Laboratory Tests Test 07/13/19 07:42 White Blood Count 7.0 x10^3/uL (4.0-11.0) Red Blood Count 3.65 x10^6/uL (4.30-5.70) L Hemoglobin 10.5 g/dL (13.0-17.5) L Hematocrit 33.2 % (39.0-53.0) L Mean Corpuscular Volume 91 fL (79-100) Mean Corpuscular Hemoglobin 29 pg (25-35) Mean Corpuscular Hemoglobin Concent 32 g/dL (31-37) Red Cell Distribution Width 24.9 % (11.5-14.5) H Platelet Count 195 x10^3/uL (140-400) Neutrophils (%) (Auto) 61 % (31-73) Lymphocytes (%) (Auto) 20 % (24-48) L Monocytes (%) (Auto) 15 % (0-9) H Eosinophils (%) (Auto) 4 % (0-3) H Basophils (%) (Auto) 1 % (0-3) Neutrophils # (Auto) 4.3 x10^3uL (1.8-7.7) Lymphocytes # (Auto) 1.4 x10^3/uL (1.0-4.8) Monocytes # (Auto) 1.0 x10^3/uL (0.0-1.1) Eosinophils # (Auto) 0.3 x10^3/uL (0.0-0.7) Basophils # (Auto) 0.0 x10^3/uL (0.0-0.2) Platelet Estimate Adequate (ADEQUATE) Anisocytosis Present Target Cells Few Ovalocytes Few Matt Cells Present Acanthocytes (Spur Cells) Present Sodium Level 143 mmol/L (136-145) Potassium Level 4.5 mmol/L (3.5-5.1) Chloride Level 105 mmol/L (98-107) Carbon Dioxide Level 31 mmol/L (21-32) Anion Gap 7 (6-14) Blood Urea Nitrogen 25 mg/dL (8-26) Creatinine 1.3 mg/dL (0.7-1.3) Estimated GFR (Cockcroft-Gault) 52.6 BUN/Creatinine Ratio 19 (6-20) Glucose Level 87 mg/dL (70-99) Calcium Level 8.6 mg/dL (8.5-10.1) Total Bilirubin 0.7 mg/dL (0.2-1.0) Aspartate Amino Transferase (AST) 32 U/L (15-37) Alanine Aminotransferase (ALT) 29 U/L (16-63) Alkaline Phosphatase 117 U/L (46-116) H Total Protein 6.3 g/dL (6.4-8.2) L Albumin 2.4 g/dL (3.4-5.0) L Albumin/Globulin Ratio 0.6 (1.0-1.7) L Current Medications: Meds: Current Medications Medications (Trade) Dose Ordered Sig/Radha Route PRN Reason Start Time Stop Time Status Last Admin Dose Admin Sertraline HCl (Zoloft) 50 mg DAILY PO 07/13/19 09:00 07/13/19 12:35 I have reviewed the current psychotropics carefully including drug interactions. Risk benefit ratio favors no change other than as noted in my dictated progress note. Diagnosis: Problems: (1) Anxiety disorder (2) Dementia, vascular, with depression (3) Dementia, vascular, with delusions (4) Major neurocognitive disorder (5) Dementia in Alzheimer's disease with depression (6) Dementia in Alzheimer's disease with delusions (7) Impulse control disorder MAIRA SAAVEDRA MD Jul 13, 2019 21:18
[2019-07-13] MEDS: traZODone 50 MG TABLET. PO PRN ×2 (22:06→23:08)
[2019-07-14] MEDS: ACETAMINOPHEN 325 MG TABLET PO PRN (00:15)
[2019-07-14 04:54] VITALS: BP 92/55
[2019-07-14] MEDS: FERROUS SULFATE 325 MG TABLET. PO SCH (08:18)
[2019-07-14] MEDS: DOCUSATE SODIUM 100 MG CAPSULE PO SCH (08:18)
[2019-07-14] MEDS: FUROSEMIDE 40 MG TABLET PO SCH ×2 (08:18→17:06)
[2019-07-14] MEDS: ASPIRIN 81 MG TAB.CHEW PO SCH (08:18)
[2019-07-14] MEDS: SERTRALINE 50 MG TABLET. PO SCH (08:19)
[2019-07-14] MEDS: MULTIVITAMIN with MINERAL TABLET. PO SCH (08:19)
[2019-07-14] MEDS: POLYETHYLENE GLYCOL 3350 17 GM PACKET. PO SCH (08:19)
[2019-07-14] MEDS: FAMOTIDINE 20 MG TABLET PO SCH (08:19)
[2019-07-14] MEDS: METOPROLOL TART IMMED RELEASE 25 MG TABLET PO SCH (08:20)
[2019-07-14 15:45] VITALS: BP 120/76
--- NOTE | 2019-07-14 20:39 | PDOC ---
Exam Note: Dontrell Note: Please also refer to the separate dictated note~for this date of service dictated separately.~Patient seen individually. Discussed the patient with Nursing staff reviewed the chart.~Reviewed interim history and current functioning. Reviewed vital signs,~Labs/ Radiology~and current medications noted below. Continue current treatment with the changes noted in the dictated addendum note Assessment: Vital Signs/I&O: Vital Signs Date Time Temp Pulse Resp B/P (MAP) Pulse Ox O2 Delivery O2 Flow Rate FiO2 07/14/19 15:45 97.8 68 16 120/76 (91) 94 07/12/19 04:46 Room Air I & O 07/13/19 07/13/19 07/14/19 15:00 23:00 07:00 Intake Total 240 ml 480 ml Balance 240 ml 480 ml Current Medications: I have reviewed the current psychotropics carefully including drug interactions. Risk benefit ratio favors no change other than as noted in my dictated progress note. Diagnosis: Problems: (1) Anxiety disorder (2) Dementia, vascular, with depression (3) Dementia, vascular, with delusions (4) Major neurocognitive disorder (5) Dementia in Alzheimer's disease with depression (6) Dementia in Alzheimer's disease with delusions (7) Impulse control disorder MAIRA SAAVEDRA MD Jul 14, 2019 20:39
[2019-07-14] MEDS: rOPINIRole 0.5 MG TABLET. PO SCH (20:49)
[2019-07-14] MEDS: MELATONIN 3 MG TABLET PO SCH (20:49)
[2019-07-14] MEDS: traZODone 100 MG TABLET. PO SCH (20:49)
[2019-07-14] MEDS: QUEtiapine 50 MG TABLET. PO SCH (20:50)
[2019-07-14] MEDS: DIVALPROEX 125 MG CAP.SPRINK PO SCH (20:50)
[2019-07-14] MEDS: MIRTAZAPINE 30 MG TABLET PO SCH (20:50)
[2019-07-14] MEDS: GABAPENTIN 300 MG CAPSULE. PO SCH (20:50)
[2019-07-14] MEDS: ATORVASTATIN CALCIUM 10 MG TABLET. PO SCH (20:50)
[2019-07-14] MEDS: traZODone 50 MG TABLET. PO PRN ×2 (20:50→22:08)
--- NOTE | 2019-07-14 23:45 | PN ---
DATE: 07/12/2019 PSYCHIATRIC PROGRESS NOTE This late entry 07/12/2019 covers elements not covered in my initial note. SUBJECTIVE: I met with the patient evening of 07/12/2019 and staffed at a treatment team meeting with the entire team earlier in the day. The patient's daughter, Tim, attended the treatment team meeting. The patient is sleeping average 4 hours, slept 2-1/2 hours previous night. Appetite 80%. Previously, the average sleep was one hour. He remains somewhat anxious, restless. Daughter indicated he did well on Neurontin 300 mg at bedtime for his restless leg syndrome and we will add to his regimen. REVIEW OF SYSTEMS: No CV, , pulmonary, eye, ENT system symptoms on review. Reliability poor. MENTAL STATUS EXAM: Oriented to himself. Insight, judgment, recent and remote memory, attention, concentration, fund of knowledge poor, consistent with his diagnosis mentioned in my initial note. PLAN: Increase Zoloft from 25 mg a day to 50 mg a day. Add the Neurontin. Continue Depakote, melatonin, Zyprexa p.r.n., Remeron, Seroquel, and Requip. MAIRA SAAVEDRA MD DR: LAUREN/ashkan JOB#: [id number] / [id number]
--- NOTE | 2019-07-14 23:45 | PN ---
DATE: 07/13/2019 PSYCHIATRIC PROGRESS NOTE This late entry 07/13/2019 covers elements not covered in my initial note. SUBJECTIVE: I met with the patient evening of 07/13/2019. The patient slept for 3/4 hours previous night, sleeping a little better with the Requip. Takes medications whole remains confused. REVIEW OF SYSTEMS: No CV, , pulmonary, eye, ENT system symptoms on review. Reliability poor. MENTAL STATUS EXAM: Oriented to himself. Insight, judgment, recent and remote memory, attention, concentration, fund of knowledge poor, consistent with his diagnosis mentioned in my initial note. PLAN: No change from initial note. MAN Srikanth SAAVEDRA MD DR: LAUREN/ashkan JOB#: [id number] / [id number]
[2019-07-15 05:51] VITALS: BP 115/71
--- NOTE | 2019-07-15 09:04 | PN ---
DATE: 07/14/2019 PSYCHIATRIC PROGRESS NOTE This late entry 07/14/2019 covers the elements not covered in my initial note. SUBJECTIVE: I met with the patient in the evening of 07/14/2019. The patient slept better previous night 5-1/2 hours, has had a better day. Ambulates with a walker. Takes medications whole. REVIEW OF SYSTEMS: No CV, , pulmonary, eye, ENT system symptoms on review. Reliability poor. MENTAL STATUS EXAM: Oriented to himself. Insight, judgment, recent, and remote memory, attention, concentration, fund of knowledge poor, consistent with his diagnosis. PLAN: Continue current psychotropics. He may use trazodone up to a maximum of 200 mg at bedtime. Maintain melatonin 6 mg at bedtime, Zoloft 50 mg a day, Remeron 30 mg at bedtime, Depakote 250 mg at bedtime, Seroquel 50 mg at bedtime. He is also on Requip 0.5 mg at bedtime and gabapentin 300 mg at bedtime for restless leg syndrome. Valproic acid level subtherapeutic at 15, but clinically adequate for now. MAN Srikanth SAAVEDRA MD DR: LAUREN/ashkan JOB#: [id number] / [id number]
[2019-07-15] MEDS: DOCUSATE SODIUM 100 MG CAPSULE PO SCH (11:37)
[2019-07-15] MEDS: FERROUS SULFATE 325 MG TABLET. PO SCH (11:37)
[2019-07-15] MEDS: ASPIRIN 81 MG TAB.CHEW PO SCH (11:37)
[2019-07-15] MEDS: METOPROLOL TART IMMED RELEASE 25 MG TABLET PO SCH (11:38)
[2019-07-15] MEDS: FUROSEMIDE 40 MG TABLET PO SCH ×2 (11:38→16:24)
[2019-07-15] MEDS: POLYETHYLENE GLYCOL 3350 17 GM PACKET. PO SCH (11:38)
[2019-07-15] MEDS: FAMOTIDINE 20 MG TABLET PO SCH (11:38)
[2019-07-15] MEDS: MULTIVITAMIN with MINERAL TABLET. PO SCH (11:39)
[2019-07-15] MEDS: SERTRALINE 50 MG TABLET. PO SCH (11:39)
[2019-07-15 15:48] VITALS: BP 124/72
[2019-07-15] MEDS: GABAPENTIN 300 MG CAPSULE. PO SCH (19:20)
[2019-07-15] MEDS: ATORVASTATIN CALCIUM 10 MG TABLET. PO SCH (19:20)
[2019-07-15] MEDS: MELATONIN 3 MG TABLET PO SCH (19:20)
[2019-07-15] MEDS: DIVALPROEX 125 MG CAP.SPRINK PO SCH (19:20)
[2019-07-15] MEDS: MIRTAZAPINE 30 MG TABLET PO SCH (19:20)
[2019-07-15] MEDS: traZODone 50 MG TABLET. PO PRN ×2 (19:21→22:52)
[2019-07-15] MEDS: rOPINIRole 0.5 MG TABLET. PO SCH (19:21)
[2019-07-15] MEDS: traZODone 100 MG TABLET. PO SCH (19:21)
[2019-07-15] MEDS: QUEtiapine 50 MG TABLET. PO SCH (19:21)
--- NOTE | 2019-07-15 20:43 | PDOC ---
Exam Note: Dontrell Note: Please also refer to the separate dictated note~for this date of service dictated separately.~Patient seen individually. Discussed the patient with Nursing staff reviewed the chart.~Reviewed interim history and current functioning. Reviewed vital signs,~Labs/ Radiology~and current medications noted below. Continue current treatment with the changes noted in the dictated addendum note Assessment: Vital Signs/I&O: Vital Signs Date Time Temp Pulse Resp B/P (MAP) Pulse Ox O2 Delivery O2 Flow Rate FiO2 07/15/19 15:48 97.1 61 16 124/72 (89) 96 07/12/19 04:46 Room Air I & O 07/14/19 07/14/19 07/15/19 15:00 23:00 07:00 Intake Total 720 ml 840 ml Balance 720 ml 840 ml Current Medications: I have reviewed the current psychotropics carefully including drug interactions. Risk benefit ratio favors no change other than as noted in my dictated progress note. Diagnosis: Problems: (1) Anxiety disorder (2) Dementia, vascular, with depression (3) Dementia, vascular, with delusions (4) Major neurocognitive disorder (5) Dementia in Alzheimer's disease with depression (6) Dementia in Alzheimer's disease with delusions (7) Impulse control disorder MAIRA SAAVEDRA MD Jul 15, 2019 20:43
[2019-07-16 05:41] VITALS: BP 119/51
[2019-07-16] MEDS: POLYETHYLENE GLYCOL 3350 17 GM PACKET. PO SCH (08:46)
[2019-07-16] MEDS: FUROSEMIDE 40 MG TABLET PO SCH ×2 (08:48→17:49)
[2019-07-16] MEDS: FAMOTIDINE 20 MG TABLET PO SCH (08:48)
[2019-07-16] MEDS: FERROUS SULFATE 325 MG TABLET. PO SCH (08:48)
[2019-07-16] MEDS: ASPIRIN 81 MG TAB.CHEW PO SCH (08:48)
[2019-07-16] MEDS: MULTIVITAMIN with MINERAL TABLET. PO SCH (08:48)
[2019-07-16] MEDS: DOCUSATE SODIUM 100 MG CAPSULE PO SCH (08:48)
[2019-07-16] MEDS: METOPROLOL TART IMMED RELEASE 25 MG TABLET PO SCH (08:48)
[2019-07-16] MEDS: SERTRALINE 50 MG TABLET. PO SCH (08:48)
[2019-07-16 15:33] VITALS: BP 15/73
[2019-07-16] MEDS: QUEtiapine 50 MG TABLET. PO SCH (19:51)
[2019-07-16] MEDS: DIVALPROEX 125 MG CAP.SPRINK PO SCH (19:51)
[2019-07-16] MEDS: MIRTAZAPINE 30 MG TABLET PO SCH (19:51)
[2019-07-16] MEDS: traZODone 100 MG TABLET. PO SCH (19:52)
[2019-07-16] MEDS: GABAPENTIN 300 MG CAPSULE. PO SCH (19:52)
[2019-07-16] MEDS: ATORVASTATIN CALCIUM 10 MG TABLET. PO SCH (19:52)
[2019-07-16] MEDS: MELATONIN 3 MG TABLET PO SCH (19:52)
[2019-07-16] MEDS: rOPINIRole 1 MG TABLET. PO SCH (19:57)
--- NOTE | 2019-07-16 20:59 | PDOC ---
Exam Note: Dontrell Note: Please also refer to the separate dictated note~for this date of service dictated separately.~Patient seen individually. Discussed the patient with Nursing staff reviewed the chart.~Reviewed interim history and current functioning. Reviewed vital signs,~Labs/ Radiology~and current medications noted below. Continue current treatment with the changes noted in the dictated addendum note Assessment: Vital Signs/I&O: Vital Signs Date Time Temp Pulse Resp B/P (MAP) Pulse Ox O2 Delivery O2 Flow Rate FiO2 07/16/19 15:33 97.5 71 16 15/73 (54) 98 07/12/19 04:46 Room Air I & O 07/15/19 07/15/19 07/16/19 15:00 23:00 07:00 Intake Total 240 ml 480 ml Balance 240 ml 480 ml Current Medications: Meds: Current Medications Medications (Trade) Dose Ordered Sig/Radha Route PRN Reason Start Time Stop Time Status Last Admin Dose Admin Ropinirole HCl (Requip) 1 mg QHS PO 07/16/19 21:00 07/16/19 19:57 I have reviewed the current psychotropics carefully including drug interactions. Risk benefit ratio favors no change other than as noted in my dictated progress note. Diagnosis: Problems: (1) Anxiety disorder (2) Dementia, vascular, with depression (3) Dementia, vascular, with delusions (4) Major neurocognitive disorder (5) Dementia in Alzheimer's disease with depression (6) Dementia in Alzheimer's disease with delusions (7) Impulse control disorder MAIRA SAAVEDRA MD Jul 16, 2019 20:59
[2019-07-16] MEDS: traZODone 50 MG TABLET. PO PRN (21:33)
--- NOTE | 2019-07-16 23:07 | PN ---
DATE: 07/15/2019 PSYCHIATRIC PROGRESS NOTE This late entry 07/15/2019 covers elements not covered in my initial note. SUBJECTIVE: I met with the patient evening of 07/15/2019. The patient slept 5 hours previous night. Per SETH Motley, the patient slept some more after breakfast and he is catching up on his sleep, which is quite an improvement. He is compliant with his medications. REVIEW OF SYSTEMS: No CV, , PULMONARY, EYE, ENT system symptoms on review. Reliability poor. MENTAL STATUS EXAM: Oriented to himself. Insight, judgment, recent and remote memory, attention, concentration, fund of knowledge poor, consistent with his diagnosis mentioned in my initial note. PLAN: No change from initial note. MAN Srikanth SAAVEDRA MD DR: LAUREN/ashkan JOB#: [id number] / [id number]
[2019-07-17 05:58] VITALS: BP 116/60
[2019-07-17] MEDS: FUROSEMIDE 40 MG TABLET PO SCH ×2 (08:35→16:45)
[2019-07-17] MEDS: MULTIVITAMIN with MINERAL TABLET. PO SCH (08:35)
[2019-07-17] MEDS: POLYETHYLENE GLYCOL 3350 17 GM PACKET. PO SCH (08:35)
[2019-07-17] MEDS: SERTRALINE 50 MG TABLET. PO SCH (08:36)
[2019-07-17] MEDS: FERROUS SULFATE 325 MG TABLET. PO SCH (08:36)
[2019-07-17] MEDS: FAMOTIDINE 20 MG TABLET PO SCH (08:36)
[2019-07-17] MEDS: METOPROLOL TART IMMED RELEASE 25 MG TABLET PO SCH (08:36)
[2019-07-17] MEDS: QUEtiapine 25 MG TABLET. PO SCH ×2 (08:36→12:24)
[2019-07-17] MEDS: DOCUSATE SODIUM 100 MG CAPSULE PO SCH (08:37)
[2019-07-17] MEDS: ASPIRIN 81 MG TAB.CHEW PO SCH (08:37)
[2019-07-17 09:22] LABS: VAL ACID 17 mcg/mL (50-100)
[2019-07-17] MEDS ORDERED: GABA-586 PO (11:34)
[2019-07-17] MEDS ORDERED: METH28OI2 TP (11:35)
[2019-07-17] MEDS ORDERED: MULT-503 PO (11:36)
[2019-07-17] MEDS ORDERED: QUET50TA5 PO (11:37)
[2019-07-17] MEDS ORDERED: QUET25TA PO (11:38)
[2019-07-17] MEDS ORDERED: ROPI1TAB2 PO (11:38)
--- NOTE | 2019-07-17 14:24 | TX PLAN ---
Interdisciplinary Tx Plan Admission Information Jul 03, 2019 at 13:03 Legal Status (on Admission): Voluntary DPOA/Guardian Name: Tim Morrison Contact Other Contact Name: Richie Other Contact Verified Code Status: DNR Allergies: Coded Allergies: keratin (Verified Allergy, Unknown, 06/25/19) niacin (Verified Allergy, Unknown, 06/25/19) sucralfate (Verified Allergy, Unknown, 06/26/19) Diagnoses Primary Diagnosis: Major neurocognitive d/o vascular alzheimer's with delusion, depression, BD; anxiety d/o unspecified; impulse control d/o Reasons for Admission: Aggressive, Agitated, Sig. Change Sleep, Angry, Combative, Confusion/Disoriented, Poor impulse control Problem in Patient's Words: "[place] and my liked the Dr. granados", per patient. Problems Active Problems: Periods of agitation, cursing, needs encouragement to take meds, wandering and looking for his truck to leave Inactive Problems: Meal intakes are adequate Recent chest pain and transfer to medical floor Pt Strengths/Limitations Ability for [place]: Poor Cognitive Functioning/Ability: Poor Communication Skills/Ability: Fair Financial Resources: Fair Insight/Judgement: Poor Intellectual Ability: Fair Physical Health: Fair Social Skills: Fair Stability in Family: Good Verbal Skills: Fair Discharge Criteria Discharge Criteria: Adequate arrangements @DC, Improved behavior, Improved mood/thought Preliminary Discharge Plan Preliminary DC Plan: Memory Care Other Arrangements: [facility] Care Special Precautions Fall Risk: High Initial D/C Plan To return to [facility] Identified Discharge Needs: Follow up with PCP and out patient psychiatry. Currently Utilized Resources Currently Utilized Resources/P: Dr. Moncada follows as PCP at [facility] Staff at [facility] provide 24 hour supervision, medication administration, and support with adl's. Referrals Community Resources: Out patient psychaitry for medication management Identified Problems/Hx/Goals Objectives/Short-Term Goals Short Term Goals: Control abnormal behavior, Dec. Aggression, Medication Stabilization, Monitor Med Effects Short Term Goals in Patient's: Per family/POA, to stabilize mood, decrease agitation, and calm him. Interventions/Frequency Staff Interventions/Frequency&: Psychiatrist to follow three times week. SW to see twice weekly. Nursing to provde checks, medications, supervision, and support with adl's. SW and recreational therapy groups as Saad will allow. 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 Education: Saad graduated from high school. Community Follow-up F/U with PCP and out patient psychiatry. Treatment Plan Explained Patient/Vendor Analyst had this treatment plan explained to him/her as indicated by the signature below and has been given the opportunity to ask questions and make suggestions: Date: Patient/Vendor Analyst Signature: Status Update Update WEEKLY NOTE/UPDATE: Saad is sleeping an average of five hours a night and consuming an average of 80% of meals. He is alert with confusion and short term memory deficits. Saad has been medication complaint. He needs cues and reminders for safety. Saad spends time in the day room but has periods of wandering about the unit as well. He is scheduled to discharge to [facility] on 07/19/[address] Moncada will follow. Tim, daughter/POA, will be involved in team meeting on 07/18/2019 via phone. JERIAC HARDY Jul 17, 2019 14:24
[2019-07-17 15:42] VITALS: BP 112/66
[2019-07-17] MEDS: MIRTAZAPINE 30 MG TABLET PO SCH (19:53)
[2019-07-17] MEDS: DIVALPROEX 125 MG CAP.SPRINK PO SCH (19:53)
[2019-07-17] MEDS: MELATONIN 3 MG TABLET PO SCH (19:53)
[2019-07-17] MEDS: traZODone 100 MG TABLET. PO SCH (19:53)
[2019-07-17] MEDS: rOPINIRole 1 MG TABLET. PO SCH (19:53)
[2019-07-17] MEDS: QUEtiapine 50 MG TABLET. PO SCH (19:53)
[2019-07-17] MEDS: GABAPENTIN 300 MG CAPSULE. PO SCH (19:53)
[2019-07-17] MEDS: ATORVASTATIN CALCIUM 10 MG TABLET. PO SCH (19:53)
--- NOTE | 2019-07-17 20:52 | PDOC ---
Exam Note: Dontrell Note: Please also refer to the separate dictated note~for this date of service dictated separately.~Patient seen individually. Discussed the patient with Nursing staff reviewed the chart.~Reviewed interim history and current functioning. Reviewed vital signs,~Labs/ Radiology~and current medications noted below. Continue current treatment with the changes noted in the dictated addendum note Assessment: Vital Signs/I&O: Vital Signs Date Time Temp Pulse Resp B/P (MAP) Pulse Ox O2 Delivery O2 Flow Rate FiO2 07/17/19 15:42 97.8 62 16 112/66 (81) 94 Room Air I & O 07/16/19 07/16/19 07/17/19 15:00 23:00 07:00 Intake Total 1080 ml 480 ml Balance 1080 ml 480 ml Labs: Laboratory Tests Test 07/17/19 09:00 Valproic Acid Level 17 mcg/mL (50-100) L Valproic Acid Last Dose Date 07/16/2019 Valproic Acid Last Dose Time 2100 Current Medications: Meds: Current Medications Medications (Trade) Dose Ordered Sig/Radha Route PRN Reason Start Time Stop Time Status Last Admin Dose Admin Quetiapine Fumarate (SEROquel) 12.5 mg 0900,1300 PO 07/17/19 09:00 07/17/19 12:24 Ropinirole HCl (Requip) 1 mg QHS PO 07/16/19 21:00 07/17/19 19:53 I have reviewed the current psychotropics carefully including drug interactions. Risk benefit ratio favors no change other than as noted in my dictated progress note. Diagnosis: Problems: (1) Anxiety disorder (2) Dementia, vascular, with depression (3) Dementia, vascular, with delusions (4) Major neurocognitive disorder (5) Dementia in Alzheimer's disease with depression (6) Dementia in Alzheimer's disease with delusions (7) Impulse control disorder MAIRA SAAVEDRA MD Jul 17, 2019 20:52
[2019-07-17] MEDS: traZODone 50 MG TABLET. PO PRN (22:46)
--- NOTE | 2019-07-18 03:00 | PN ---
DATE: 07/16/2019 PSYCHIATRIC PROGRESS NOTE This late entry 07/16/2019 covers elements not covered in my initial note. SUBJECTIVE: I met with the patient evening of 07/16/2019. Asim Lechuga RN, the patient slept 2-1/2 hours previous night. He remains confused, seems to have some symptoms of restless legs and we will see if Dr. Bell wants to increase the Requip. He has been agitated in the evening, received Zyprexa p.r.n. 4:15 p.m. Threatened staff and threatened to throw things on staff members. Somewhat paranoid, confused. REVIEW OF SYSTEMS: No CV, , pulmonary, eye, ENT system symptoms on review. Reliability poor. MENTAL STATUS EXAM: Oriented to himself. Insight, judgment, recent and remote memory, attention, concentration, fund of knowledge poor, consistent with his diagnosis. IMPRESSION: Major neurocognitive disorder, Alzheimer, vascular with delusion, depression, behavioral disturbance; anxiety disorder unspecified, impulse control disorder unspecified. PLAN: Start Seroquel 12.5 mg 9 a.m., 1:00 p.m. Maintain Seroquel 50 mg at bedtime, Requip 0.5 mg at bedtime, may need to be increased. Continue gabapentin 300 mg at bedtime, trazodone 100 mg at bedtime, Remeron 30 mg at bedtime, melatonin 6 mg at bedtime, Depakote 250 mg at bedtime, Zyprexa p.r.n., Zoloft 50 mg a day. Adjust further as clinically indicated. MAIRA SAAVEDRA MD DR: LAUREN/ashkan JOB#: [id number] / [id number]
[2019-07-18 05:44] VITALS: BP 103/65
[2019-07-18] MEDS: METOPROLOL TART IMMED RELEASE 25 MG TABLET PO SCH (10:30)
[2019-07-18] MEDS: FAMOTIDINE 20 MG TABLET PO SCH (10:30)
[2019-07-18] MEDS: DOCUSATE SODIUM 100 MG CAPSULE PO SCH (10:31)
[2019-07-18] MEDS: QUEtiapine 25 MG TABLET. PO SCH ×2 (10:31→13:27)
[2019-07-18] MEDS: FUROSEMIDE 40 MG TABLET PO SCH ×2 (10:31→16:56)
[2019-07-18] MEDS: SERTRALINE 50 MG TABLET. PO SCH (10:31)
[2019-07-18] MEDS: ASPIRIN 81 MG TAB.CHEW PO SCH (10:31)
[2019-07-18] MEDS: FERROUS SULFATE 325 MG TABLET. PO SCH (10:31)
[2019-07-18] MEDS: MULTIVITAMIN with MINERAL TABLET. PO SCH (10:31)
[2019-07-18] MEDS: POLYETHYLENE GLYCOL 3350 17 GM PACKET. PO SCH (10:32)
[2019-07-18 15:21] VITALS: BP 103/56
[2019-07-18] MEDS: GABAPENTIN 300 MG CAPSULE. PO SCH (19:58)
[2019-07-18] MEDS: traZODone 100 MG TABLET. PO SCH (19:58)
[2019-07-18] MEDS: DIVALPROEX 125 MG CAP.SPRINK PO SCH (19:58)
[2019-07-18] MEDS: rOPINIRole 1 MG TABLET. PO SCH (19:58)
[2019-07-18] MEDS: MELATONIN 3 MG TABLET PO SCH (19:59)
[2019-07-18] MEDS: MIRTAZAPINE 30 MG TABLET PO SCH (19:59)
[2019-07-18] MEDS: QUEtiapine 50 MG TABLET. PO SCH (19:59)
[2019-07-18] MEDS: ATORVASTATIN CALCIUM 10 MG TABLET. PO SCH (20:00)
--- NOTE | 2019-07-18 20:59 | PDOC ---
Exam Note: Dontrell Note: Please also refer to the separate dictated note~for this date of service dictated separately.~Patient seen individually. Discussed the patient with Nursing staff reviewed the chart.~Reviewed interim history and current functioning. Reviewed vital signs,~Labs/ Radiology~and current medications noted below. Continue current treatment with the changes noted in the dictated addendum note Assessment: Vital Signs/I&O: Vital Signs Date Time Temp Pulse Resp B/P (MAP) Pulse Ox O2 Delivery O2 Flow Rate FiO2 07/18/19 15:21 97.6 61 16 103/56 (72) 97 Room Air I & O 07/17/19 07/17/19 07/18/19 15:00 23:00 07:00 Intake Total 600 ml 480 ml Balance 600 ml 480 ml Current Medications: I have reviewed the current psychotropics carefully including drug interactions. Risk benefit ratio favors no change other than as noted in my dictated progress note. Diagnosis: Problems: (1) Anxiety disorder (2) Dementia, vascular, with depression (3) Dementia, vascular, with delusions (4) Major neurocognitive disorder (5) Dementia in Alzheimer's disease with depression (6) Dementia in Alzheimer's disease with delusions (7) Impulse control disorder MAIRA SAAVEDRA MD Jul 18, 2019 20:59
[2019-07-18] MEDS: traZODone 50 MG TABLET. PO PRN (22:55)
[2019-07-18] MEDS: ACETAMINOPHEN 325 MG TABLET PO PRN (22:56)
[2019-07-19 05:42] VITALS: BP 111/64
[2019-07-19] MEDS: MULTIVITAMIN with MINERAL TABLET. PO SCH (08:39)
[2019-07-19] MEDS: FAMOTIDINE 20 MG TABLET PO SCH (08:39)
[2019-07-19] MEDS: DOCUSATE SODIUM 100 MG CAPSULE PO SCH (08:39)
[2019-07-19] MEDS: POLYETHYLENE GLYCOL 3350 17 GM PACKET. PO SCH (08:39)
[2019-07-19] MEDS: ASPIRIN 81 MG TAB.CHEW PO SCH (08:40)
[2019-07-19] MEDS: FERROUS SULFATE 325 MG TABLET. PO SCH (08:40)
[2019-07-19] MEDS: QUEtiapine 25 MG TABLET. PO SCH ×2 (08:40→14:48)
[2019-07-19] MEDS: METOPROLOL TART IMMED RELEASE 25 MG TABLET PO SCH (08:40)
[2019-07-19] MEDS: SERTRALINE 50 MG TABLET. PO SCH (08:40)
[2019-07-19] MEDS: FUROSEMIDE 40 MG TABLET PO SCH ×2 (08:40→17:20)
[2019-07-19 15:41] VITALS: BP 130/70
[2019-07-19] MEDS: QUEtiapine 50 MG TABLET. PO SCH (20:04)
[2019-07-19] MEDS: DIVALPROEX 125 MG CAP.SPRINK PO SCH (20:04)
[2019-07-19] MEDS: rOPINIRole 1 MG TABLET. PO SCH (20:04)
[2019-07-19] MEDS: traZODone 100 MG TABLET. PO SCH (20:04)
[2019-07-19] MEDS: MELATONIN 3 MG TABLET PO SCH (20:05)
[2019-07-19] MEDS: ATORVASTATIN CALCIUM 10 MG TABLET. PO SCH (20:05)
[2019-07-19] MEDS: GABAPENTIN 300 MG CAPSULE. PO SCH (20:05)
[2019-07-19] MEDS: MIRTAZAPINE 30 MG TABLET PO SCH (20:05)
--- NOTE | 2019-07-19 20:38 | PN ---
DATE: 07/17/2019 PSYCHIATRIC PROGRESS NOTE This late entry 07/17/2019 covers the elements not covered in my initial note. SUBJECTIVE: I met with the patient in the evening of 07/17/2019. Per SETH Motley, the patient slept 3-1/2 hours previous night. He dozes off and on during the day. Valproic acid level is 17. He has not been aggressive at times, a little exit seeking. REVIEW OF SYSTEMS: No CV, , pulmonary, eye, ENT system symptoms on review. Reliability is poor. MENTAL STATUS EXAM: Oriented to himself. Insight, judgment, recent and remote memory, attention, concentration, fund of knowledge poor, consistent with his diagnosis mentioned in my initial note. PLAN: No change from initial note. We will leave valproic acid dosage unchanged for now. MAN Srikanth SAAVEDRA MD DR: LAUREN/ashkan JOB#: [id number] / [id number]
--- NOTE | 2019-07-19 21:01 | PDOC ---
Exam Note: Dontrell Note: Please also refer to the separate dictated note~for this date of service dictated separately.~Patient seen individually. Discussed the patient with Nursing staff reviewed the chart.~Reviewed interim history and current functioning. Reviewed vital signs,~Labs/ Radiology~and current medications noted below. Continue current treatment with the changes noted in the dictated addendum note Assessment: Vital Signs/I&O: Vital Signs Date Time Temp Pulse Resp B/P (MAP) Pulse Ox O2 Delivery O2 Flow Rate FiO2 07/19/19 15:41 97.8 69 16 130/70 (90) 97 07/18/19 15:21 Room Air I & O 07/18/19 07/18/19 07/19/19 15:00 23:00 07:00 Intake Total 720 ml 360 ml Balance 720 ml 360 ml Current Medications: I have reviewed the current psychotropics carefully including drug interactions. Risk benefit ratio favors no change other than as noted in my dictated progress note. Diagnosis: Problems: (1) Anxiety disorder (2) Dementia, vascular, with depression (3) Dementia, vascular, with delusions (4) Major neurocognitive disorder (5) Dementia in Alzheimer's disease with depression (6) Dementia in Alzheimer's disease with delusions (7) Impulse control disorder MAIRA SAAVEDRA MD Jul 19, 2019 21:01
--- NOTE | 2019-07-19 22:51 | PN ---
DATE: 07/18/2019 PSYCHIATRIC PROGRESS NOTE This late entry 07/18/2019 covers the elements not covered in my initial note. SUBJECTIVE: I met with the patient in the evening of 07/28/2019 and staffed at a treatment team meeting with the entire team in the morning and the patient's daughter, Magaly, attended the conference. Sleeping about 4 hours average. Appetite is 100%, compliant with medications, somewhat delusional regarding the nurse being his . REVIEW OF SYSTEMS: No CV, , pulmonary, eye system symptoms on review. Reliability is poor. MENTAL STATUS EXAM: Oriented to himself. Insight, judgment, recent and remote memory, attention, concentration, fund of knowledge poor, consistent with his diagnosis mentioned in my initial note. PLAN: No change from initial note. MAN Srikanth SAAVERDA MD DR: LAUREN/ashkan JOB#: [id number] / [id number]
[2019-07-20 06:29] VITALS: BP 110/58
[2019-07-20] MEDS: SERTRALINE 50 MG TABLET. PO SCH (09:49)
[2019-07-20] MEDS: DOCUSATE SODIUM 100 MG CAPSULE PO SCH (09:49)
[2019-07-20] MEDS: MULTIVITAMIN with MINERAL TABLET. PO SCH (09:50)
[2019-07-20] MEDS: ASPIRIN 81 MG TAB.CHEW PO SCH (09:50)
[2019-07-20] MEDS: FAMOTIDINE 20 MG TABLET PO SCH (09:50)
[2019-07-20] MEDS: FERROUS SULFATE 325 MG TABLET. PO SCH (09:50)
[2019-07-20] MEDS: FUROSEMIDE 40 MG TABLET PO SCH ×2 (09:50→17:36)
[2019-07-20 09:51] LABS: BASO % 1 % (0-3); EOS # 0.3 x10^3/uL (0.0-0.7); EOS % 4 % (0-3); HEMATOCRIT 32.9 % (39.0-53.0); HEMOGLOBIN 10.6 g/dL (13.0-17.5); LYMPH # 0.9 x10^3/uL (1.0-4.8); LYMPH % 13 % (24-48); MEAN CORPUSCULAR HEMOGLOBIN 29 pg (25-35); MEAN CORPUSCULAR HGB CONC 32 g/dL (31-37); MEAN CORPUSCULAR VOLUME 91 fL (79-100); MONO # 1.3 x10^3/uL (0.0-1.1); MONO % 18 % (0-9); NEUT # 4.7 x10^3uL (1.8-7.7); NEUT % 65 % (31-73); PLATELET COUNT 186 x10^3/uL (140-400); RED BLOOD COUNT 3.63 x10^6/uL (4.30-5.70); RED CELL DISTRIBUTION WIDTH 23.7 % (11.5-14.5); WHITE BLOOD COUNT 7.3 x10^3/uL (4.0-11.0)
[2019-07-20] MEDS: QUEtiapine 25 MG TABLET. PO SCH ×2 (09:51→14:09)
[2019-07-20] MEDS: METOPROLOL TART IMMED RELEASE 25 MG TABLET PO SCH (09:51)
[2019-07-20] MEDS: POLYETHYLENE GLYCOL 3350 17 GM PACKET. PO SCH (09:51)
[2019-07-20 10:12] LABS: ALBUMIN 2.4 g/dL (3.4-5.0); ALBUMIN/GLOBULIN RATIO 0.6 (1.0-1.7); CALCIUM 8.7 mg/dL (8.5-10.1); CREATININE 1.2 mg/dL (0.7-1.3); GFR 57.7; TOTAL BILIRUBIN 0.9 mg/dL (0.2-1.0); TOTAL PROTEIN 6.5 g/dL (6.4-8.2)
[2019-07-20 16:00] VITALS: BP 120/62
[2019-07-20] MEDS: rOPINIRole 1 MG TABLET. PO SCH (19:54)
[2019-07-20] MEDS: QUEtiapine 50 MG TABLET. PO SCH (19:55)
[2019-07-20] MEDS: MELATONIN 3 MG TABLET PO SCH (19:55)
[2019-07-20] MEDS: MIRTAZAPINE 30 MG TABLET PO SCH (19:55)
[2019-07-20] MEDS: traZODone 100 MG TABLET. PO SCH (19:55)
[2019-07-20] MEDS: DIVALPROEX 125 MG CAP.SPRINK PO SCH (19:55)
[2019-07-20] MEDS: ATORVASTATIN CALCIUM 10 MG TABLET. PO SCH (19:55)
[2019-07-20] MEDS: GABAPENTIN 300 MG CAPSULE. PO SCH (19:55)
--- NOTE | 2019-07-20 21:37 | PDOC ---
Exam Note: Dontrell Note: Please also refer to the separate dictated note~for this date of service dictated separately.~Patient seen individually. Discussed the patient with Nursing staff reviewed the chart.~Reviewed interim history and current functioning. Reviewed vital signs,~Labs/ Radiology~and current medications noted below. Continue current treatment with the changes noted in the dictated addendum note Assessment: Vital Signs/I&O: Vital Signs Date Time Temp Pulse Resp B/P (MAP) Pulse Ox O2 Delivery O2 Flow Rate FiO2 07/20/19 16:00 97.8 65 16 120/62 (81) 96 07/18/19 15:21 Room Air I & O 07/19/19 07/19/19 07/20/19 15:00 23:00 07:00 Intake Total 480 ml 600 ml Balance 480 ml 600 ml Labs: Laboratory Tests Test 07/20/19 09:35 White Blood Count 7.3 x10^3/uL (4.0-11.0) Red Blood Count 3.63 x10^6/uL (4.30-5.70) L Hemoglobin 10.6 g/dL (13.0-17.5) L Hematocrit 32.9 % (39.0-53.0) L Mean Corpuscular Volume 91 fL (79-100) Mean Corpuscular Hemoglobin 29 pg (25-35) Mean Corpuscular Hemoglobin Concent 32 g/dL (31-37) Red Cell Distribution Width 23.7 % (11.5-14.5) H Platelet Count 186 x10^3/uL (140-400) Neutrophils (%) (Auto) 65 % (31-73) Lymphocytes (%) (Auto) 13 % (24-48) L Monocytes (%) (Auto) 18 % (0-9) H Eosinophils (%) (Auto) 4 % (0-3) H Basophils (%) (Auto) 1 % (0-3) Neutrophils # (Auto) 4.7 x10^3uL (1.8-7.7) Lymphocytes # (Auto) 0.9 x10^3/uL (1.0-4.8) L Monocytes # (Auto) 1.3 x10^3/uL (0.0-1.1) H Eosinophils # (Auto) 0.3 x10^3/uL (0.0-0.7) Basophils # (Auto) 0.0 x10^3/uL (0.0-0.2) Sodium Level 143 mmol/L (136-145) Potassium Level 4.0 mmol/L (3.5-5.1) Chloride Level 104 mmol/L (98-107) Carbon Dioxide Level 32 mmol/L (21-32) Anion Gap 7 (6-14) Blood Urea Nitrogen 25 mg/dL (8-26) Creatinine 1.2 mg/dL (0.7-1.3) Estimated GFR (Cockcroft-Gault) 57.7 BUN/Creatinine Ratio 21 (6-20) H Glucose Level 94 mg/dL (70-99) Calcium Level 8.7 mg/dL (8.5-10.1) Total Bilirubin 0.9 mg/dL (0.2-1.0) Aspartate Amino Transferase (AST) 33 U/L (15-37) Alanine Aminotransferase (ALT) 27 U/L (16-63) Alkaline Phosphatase 123 U/L (46-116) H Total Protein 6.5 g/dL (6.4-8.2) Albumin 2.4 g/dL (3.4-5.0) L Albumin/Globulin Ratio 0.6 (1.0-1.7) L Current Medications: I have reviewed the current psychotropics carefully including drug interactions. Risk benefit ratio favors no change other than as noted in my dictated progress note. Diagnosis: Problems: (1) Anxiety disorder (2) Dementia, vascular, with depression (3) Dementia, vascular, with delusions (4) Major neurocognitive disorder (5) Dementia in Alzheimer's disease with depression (6) Dementia in Alzheimer's disease with delusions (7) Impulse control disorder MAIRA SAAVEDRA MD Jul 20, 2019 21:37
[2019-07-21] MEDS: traZODone 50 MG TABLET. PO PRN (00:59)
[2019-07-21] MEDS: ACETAMINOPHEN 325 MG TABLET PO PRN (00:59)
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
[2019-07-21 06:41] VITALS: BP 121/69
[2019-07-21] MEDS: FUROSEMIDE 40 MG TABLET PO SCH ×2 (09:30→16:22)
[2019-07-21] MEDS: POLYETHYLENE GLYCOL 3350 17 GM PACKET. PO SCH (09:30)
[2019-07-21] MEDS: QUEtiapine 25 MG TABLET. PO SCH ×2 (09:30→14:16)
[2019-07-21] MEDS: DOCUSATE SODIUM 100 MG CAPSULE PO SCH (09:30)
[2019-07-21] MEDS: FAMOTIDINE 20 MG TABLET PO SCH (09:30)
[2019-07-21] MEDS: FERROUS SULFATE 325 MG TABLET. PO SCH (09:30)
[2019-07-21] MEDS: METOPROLOL TART IMMED RELEASE 25 MG TABLET PO SCH (09:31)
[2019-07-21] MEDS: SERTRALINE 50 MG TABLET. PO SCH (09:31)
[2019-07-21] MEDS: MULTIVITAMIN with MINERAL TABLET. PO SCH (09:31)
[2019-07-21] MEDS: ASPIRIN 81 MG TAB.CHEW PO SCH (09:31)
[2019-07-21 15:44] VITALS: BP 115/60
--- NOTE | 2019-07-21 16:42 | PN ---
DATE: 07/20/2019 This late entry 07/20/2019 covers elements not covered in my initial note. SUBJECTIVE: I met with the patient in the evening of 07/20/2019. Per SETH Phillips, the patient slept 5-1/2 hours previous night. He remains confused, compliant with medications. REVIEW OF SYSTEMS: Ambulation impaired with walker. No CV, , pulmonary, eye system symptoms on review. Reliability poor. He is pleasant, smiling, verbal. As I met with him, often verbal, responses monosyllabic. MENTAL STATUS EXAM: Oriented to himself. Insight, judgment, recent and remote memory, attention, concentration, fund of knowledge poor, consistent with his diagnosis mentioned in my initial note. PLAN: No change from initial note. MAN Srikanth SAAVEDRA MD DR: LAUREN/ashkan JOB#: [id number] / [id number]
[2019-07-21] MEDS: QUEtiapine 50 MG TABLET. PO SCH (20:09)
[2019-07-21] MEDS: MIRTAZAPINE 30 MG TABLET PO SCH (20:09)
[2019-07-21] MEDS: traZODone 100 MG TABLET. PO SCH (20:09)
[2019-07-21] MEDS: DIVALPROEX 125 MG CAP.SPRINK PO SCH (20:09)
[2019-07-21] MEDS: ATORVASTATIN CALCIUM 10 MG TABLET. PO SCH (20:09)
[2019-07-21] MEDS: rOPINIRole 1 MG TABLET. PO SCH (20:09)
[2019-07-21] MEDS: MELATONIN 3 MG TABLET PO SCH (20:09)
[2019-07-21] MEDS: GABAPENTIN 300 MG CAPSULE. PO SCH (20:09)
--- NOTE | 2019-07-21 20:46 | PDOC ---
Exam Note: Dontrell Note: Please also refer to the separate dictated note~for this date of service dictated separately.~Patient seen individually. Discussed the patient with Nursing staff reviewed the chart.~Reviewed interim history and current functioning. Reviewed vital signs,~Labs/ Radiology~and current medications noted below. Continue current treatment with the changes noted in the dictated addendum note Assessment: Vital Signs/I&O: Vital Signs Date Time Temp Pulse Resp B/P (MAP) Pulse Ox O2 Delivery O2 Flow Rate FiO2 07/21/19 15:44 98.0 62 18 115/60 (78) 97 07/18/19 15:21 Room Air I & O 07/20/19 07/20/19 07/21/19 15:00 23:00 07:00 Intake Total 480 ml 480 ml 240 ml Balance 480 ml 480 ml 240 ml Current Medications: I have reviewed the current psychotropics carefully including drug interactions. Risk benefit ratio favors no change other than as noted in my dictated progress note. Diagnosis: Problems: (1) Anxiety disorder (2) Dementia, vascular, with depression (3) Dementia, vascular, with delusions (4) Major neurocognitive disorder (5) Dementia in Alzheimer's disease with depression (6) Dementia in Alzheimer's disease with delusions (7) Impulse control disorder MAIRA SAAVEDRA MD Jul 21, 2019 20:46
[2019-07-22 03:18] VITALS: BP 126/65
[2019-07-22] MEDS: MULTIVITAMIN with MINERAL TABLET. PO SCH (08:53)
[2019-07-22] MEDS: ASPIRIN 81 MG TAB.CHEW PO SCH (08:53)
[2019-07-22] MEDS: POLYETHYLENE GLYCOL 3350 17 GM PACKET. PO SCH (08:53)
[2019-07-22] MEDS: FUROSEMIDE 40 MG TABLET PO SCH (08:54)
[2019-07-22] MEDS: FAMOTIDINE 20 MG TABLET PO SCH (08:54)
[2019-07-22] MEDS: DOCUSATE SODIUM 100 MG CAPSULE PO SCH (08:54)
[2019-07-22] MEDS: QUEtiapine 25 MG TABLET. PO SCH ×2 (08:54→13:00)
[2019-07-22] MEDS: FERROUS SULFATE 325 MG TABLET. PO SCH (08:54)
[2019-07-22] MEDS: SERTRALINE 50 MG TABLET. PO SCH (08:54)
[2019-07-22 08:55] VITALS: BP 126/65
[2019-07-22] MEDS: METOPROLOL TART IMMED RELEASE 25 MG TABLET PO SCH (08:55)
--- NOTE | 2019-07-22 21:05 | PDOC ---
Exam Note: Dontrell Note: Please also refer to the separate dictated note~for this date of service dictated separately.~Patient seen individually. Discussed the patient with Nursing staff reviewed the chart.~Reviewed interim history and current functioning. Reviewed vital signs,~Labs/ Radiology~and current medications noted below. Continue current treatment with the changes noted in the dictated addendum note Assessment: Vital Signs/I&O: Vital Signs Date Time Temp Pulse Resp B/P (MAP) Pulse Ox O2 Delivery O2 Flow Rate FiO2 07/22/19 08:55 79 126/65 07/22/19 03:18 97.2 20 95 Room Air I & O 07/21/19 07/21/19 07/22/19 15:00 23:00 07:00 Intake Total 0 ml 200 ml Balance 0 ml 200 ml Current Medications: I have reviewed the current psychotropics carefully including drug interactions. Risk benefit ratio favors no change other than as noted in my dictated progress note. Diagnosis: Problems: (1) Anxiety disorder (2) Dementia, vascular, with depression (3) Dementia, vascular, with delusions (4) Major neurocognitive disorder (5) Dementia in Alzheimer's disease with depression (6) Dementia in Alzheimer's disease with delusions (7) Impulse control disorder MAIRA SAAVEDRA MD Jul 22, 2019 21:05
--- NOTE | 2019-07-22 22:38 | PN ---
DATE: 07/21/2019 PSYCHIATRIC PROGRESS NOTE This late entry 07/21/2019 covers elements not covered in my initial note. SUBJECTIVE: I met with the patient evening of 07/21/2019. Per SETH Rodriguez, patient slept 5-1/2 hours previous night. He has been pleasant, takes short naps during the day. Ambulation impaired with walker, not aggressive. REVIEW OF SYSTEMS: No CV, , pulmonary, eye, ENT system symptoms on review. Reliability poor. He is pleasant, smiling, holding my hand as I met with him. MENTAL STATUS EXAM: Oriented to himself. Insight, judgment, recent and remote memory, attention, concentration, fund of knowledge poor, consistent with his diagnosis mentioned in my initial note. PLAN: No change from initial note. Transition to residential 07/22/2019. MAN Srikanth SAAVEDRA MD DR: LAUREN/ashkan JOB#: [id number] / [id number]
--- NOTE | 2019-07-23 14:33 | DS ---
DATE OF DISCHARGE: 07/22/2019 PSYCHIATRIC PROGRESS NOTE This late entry 07/22/2019 covers elements not covered in my initial note. I met with the patient evening of 07/22/2019. REASON FOR ADMISSION: Please refer to the admission history for details. Briefly, the patient is an 83-year-old male, referred to us back from [address] [place] [address] Medical/Surgical floor after he was medically stabilized. [facility] on account of increasing agitation, being combative and confused. He was transferred to [address] [place] [address] Bell for medical stabilization. Behaviors persisted and he returns back to us. The reader is referred to my admission history for further information. SIGNIFICANT FINDINGS AND CLINICAL COURSE: Following admission, the patient was seen daily individually by myself from a psychiatric standpoint, medical followup per Dr. Bell. The patient was extremely confused, anxious, agitated, depressed with marked insomnia despite multiple changes in his psychotropics. Finally, he appeared to respond positively to a combination of Zoloft 50 mg a day, melatonin 6 mg at bedtime. Depakote 250 mg at bedtime, level subtherapeutic at 17, but clinically adequate despite a low level. Remeron 30 mg at bedtime; trazodone 100 mg at bedtime, may repeat 50 mg at bedtime x 2 for insomnia. Seroquel 12.5 mg 0900, 1300 and 50 mg at bedtime. Gabapentin 300 mg at bedtime for his restless leg symptoms along with Requip 1 mg at bedtime. REVIEW OF SYSTEMS: Prior to discharge on 07/22/2019, ambulation impaired with walker. No CV, , pulmonary, eye, ENT system symptoms on review. Reliability poor. MENTAL STATUS EXAM: Oriented to himself. Insight, judgment, recent and remote memory, attention, concentration, fund of knowledge poor, consistent with his diagnosis. FINAL DIAGNOSES: Major neurocognitive disorder, Alzheimer, vascular with delusion, depression, behavioral disturbance; anxiety disorder, unspecified; impulse control disorder, unspecified; recalcitrant insomnia, responding to treatment. Rest unchanged from admission. DISCHARGE MEDICATIONS: Please refer to the [facility]. DISCHARGE INSTRUCTIONS: [facility]. MAIRA SAAVEDRA MD DR: LAUREN/ashkan JOB#: [id number] / [id number]
== END 2019-07-22 14:00 | DRG 56 ==
LOC: GEROPSY 13:03
PROVIDERS: ADMIT Internal Medicine; ATTEND Psychiatry & Neurology Psychiatry
DX: G30.9 Alzheimer's disease, unspecified (principal); E43 Unspecified severe protein-calorie malnutrition; F01.51 Vascular dementia, unspecified severity, with behavioral disturbance; F02.81 Dementia in other diseases classified elsewhere, unspecified severity, with behavioral disturbance; Z66 Do not resuscitate; J44.9 Chronic obstructive pulmonary disease, unspecified; I11.0 Hypertensive heart disease with heart failure; I50.9 Heart failure, unspecified; K21.9 Gastro-esophageal reflux disease without esophagitis; M19.90 Unspecified osteoarthritis, unspecified site; G89.29 Other chronic pain; I25.2 Old myocardial infarction; I25.10 Atherosclerotic heart disease of native coronary artery without angina pectoris; E78.5 Hyperlipidemia, unspecified; F32.9 Major depressive disorder, single episode, unspecified; F63.9 Impulse disorder, unspecified; G47.00 Insomnia, unspecified; F41.1 Generalized anxiety disorder; E03.9 Hypothyroidism, unspecified; I73.9 Peripheral vascular disease, unspecified; G25.81 Restless legs syndrome; Z68.30 Body mass index [BMI] 30.0-30.9, adult; Z79.899 Other long term (current) drug therapy; Z87.891 Personal history of nicotine dependence; Z95.5 Presence of coronary angioplasty implant and graft; Z85.46 Personal history of malignant neoplasm of prostate
CPT/HCPCS: 36415; 80053; 80164; 85025; 97116

== ENCOUNTER 2020-02-19 14:32 | Inpatient (IN) | payer MEDICARE, OTHER ==
[~2020-02-19] VITALS: Ht 172.7 cm; Wt 76.8 kg
[~2020-02-19 14:32] MED LIST changes: +GABA-586 PO; -MAGN2400 PO; +MAGN24003 PO; +METH28OI2 TP; +MULT-503 PO; +QUET25TA PO; +QUET50TA5 PO; +ROPI1TAB4 PO
[2020-02-19 15:19] VITALS: BP 129/67
[2020-02-19] MEDS ORDERED: METHYL SALICYLATE/MENTHOL TOPICAL OINTMENT 57GM TUBE. TP PRN (16:00)
[2020-02-19] MEDS ORDERED: ACETAMINOPHEN 325 MG TABLET PO PRN ×2 (16:00→19:15)
[2020-02-19] MEDS ORDERED: MAG HYDROX/AL HYDROX/SIMETH 30 ML ORAL.SUSP PO PRN (16:00)
[2020-02-19] MEDS ORDERED: MAGNESIUM HYDROXIDE 2,400 MG/30 ML ORAL.SUSP. PO PRN (16:00)
[2020-02-19] MEDS ORDERED: OMEP20TA63 PO (16:19)
[2020-02-19] MEDS ORDERED: RIVA1PAT5 TD (16:19)
[2020-02-19] MEDS ORDERED: IPRA3AMP29 NEB (16:19)
[2020-02-19] MEDS ORDERED: PROP10TA PO (16:19)
[2020-02-19] MEDS ORDERED: DIVA500T4 PO (16:19)
[2020-02-19] MEDS ORDERED: MENT118G TP (16:19)
[2020-02-19] MEDS ORDERED: MEMA10TA PO (16:19)
[2020-02-19] MEDS: hydrOXYzine HCL 25 MG TABLET PO PRN (18:07)
[2020-02-19] MEDS ORDERED: NON FORMULARY ITEM (Menthol (Biofreeze) 1 APP) TP PRN (19:15)
[2020-02-19] MEDS: rOPINIRole 1 MG TABLET. PO SCH (19:45)
[2020-02-19] MEDS: MEMANTINE 5 MG TABLET. PO SCH (19:45)
[2020-02-19] MEDS: ATORVASTATIN CALCIUM 10 MG TABLET. PO SCH (19:45)
[2020-02-19] MEDS: DIVALPROEX ER 500 MG TAB.ER.24H PO SCH (19:45)
[2020-02-19] MEDS: OLANZapine 10 MG TABLET PO SCH (19:45)
[2020-02-19] MEDS: METOPROLOL TART IMMED RELEASE 25 MG TABLET PO SCH (19:47)
[2020-02-19] MEDS: PROPRANOLOL 10 MG TABLET. PO SCH (19:47)
[2020-02-19] MEDS ORDERED: IPRATRPIUM/ALBUTEROL 0.5/2.5MG 3 ML NEBU. NEB SCH (21:00)
--- NOTE | 2020-02-19 22:08 | PDOC ---
Exam Note: Dontrell Note: Please also refer to the separate dictated note~for this date of service dictated separately.~Patient seen individually. Discussed the patient with Nursing staff reviewed the chart.~Reviewed interim history and current functioning. Reviewed vital signs,~Labs/ Radiology~and current medications noted below. Continue current treatment with the changes noted in the dictated addendum note Assessment: Vital Signs/I&O: Vital Signs Date Time Temp Pulse Resp B/P (MAP) Pulse Ox O2 Delivery O2 Flow Rate FiO2 02/19/20 19:47 50 129/67 02/19/20 15:19 97.9 18 98 Current Medications: Meds: Current Medications Medications (Trade) Dose Ordered Sig/Radha Route PRN Reason Start Time Stop Time Status Last Admin Dose Admin Atorvastatin Calcium (Lipitor) 5 mg HS PO 02/19/20 21:00 02/19/20 19:45 Hydroxyzine HCl (Atarax) 25 mg PRN Q4HRS PRN PO Agitation 02/19/20 17:30 02/19/20 18:07 Divalproex Sodium (Depakote Er) 500 mg BID PO 02/19/20 21:00 02/19/20 19:45 Memantine (Namenda) 5 mg BID PO 02/19/20 21:00 02/19/20 19:45 Olanzapine (ZyPREXA) 10 mg BID PO 02/19/20 21:00 02/19/20 19:45 Ropinirole HCl (Requip) 1 mg QHS PO 02/19/20 21:00 02/19/20 19:45 I have reviewed the current psychotropics carefully including drug interactions. Risk benefit ratio favors no change other than as noted in my dictated progress note. Diagnosis: Problems: (1) Anxiety disorder (2) Dementia, vascular, with depression (3) Dementia, vascular, with delusions (4) Major neurocognitive disorder (5) Dementia in Alzheimer's disease with depression (6) Dementia in Alzheimer's disease with delusions (7) Impulse control disorder (8) Chest pain (9) Elevated troponin MAIRA SAAVEDRA MD Feb 19, 2020 22:08
[2020-02-20] MEDS: hydrOXYzine HCL 25 MG TABLET PO PRN (00:58)
[2020-02-20 05:50] VITALS: BP 129/61
[2020-02-20 07:06] LABS: BASO # 0.1 x10^3/uL (0.0-0.2); BASO % 1 % (0-3); EOS # 0.4 x10^3/uL (0.0-0.7); EOS % 7 % (0-3); HEMATOCRIT 37.6 % (39.0-53.0); HEMOGLOBIN 12.6 g/dL (13.0-17.5); LYMPH # 1.8 x10^3/uL (1.0-4.8); LYMPH % 31 % (24-48); MEAN CORPUSCULAR HEMOGLOBIN 32 pg (25-35); MEAN CORPUSCULAR HGB CONC 33 g/dL (31-37); MEAN CORPUSCULAR VOLUME 97 fL (79-100); MONO # 0.8 x10^3/uL (0.0-1.1); MONO % 15 % (0-9); NEUT # 2.6 x10^3uL (1.8-7.7); NEUT % 46 % (31-73); PLATELET COUNT 120 x10^3/uL (140-400); WHITE BLOOD COUNT 5.7 x10^3/uL (4.0-11.0)
[2020-02-20 07:12] LABS: ALBUMIN 2.5 g/dL (3.4-5.0); ALBUMIN/GLOBULIN RATIO 0.6 (1.0-1.7); ALK PHOS 85 U/L (46-116); ALT (SGPT) 22 U/L (16-63); ANION GAP 6 (6-14); AST (SGOT) 33 U/L (15-37); BLOOD UREA NITROGEN 23 mg/dL (8-26); BUN/CREATININE RATIO 19 (6-20); CALCIUM 8.7 mg/dL (8.5-10.1); CARBON DIOXIDE 30 mmol/L (21-32); CHLORIDE 104 mmol/L (98-107); CREATININE 1.2 mg/dL (0.7-1.3); GFR 57.5; GLUCOSE 89 mg/dL (70-99); MAGNESIUM 1.9 mg/dL (1.8-2.4); SODIUM 140 mmol/L (136-145); TOTAL BILIRUBIN 0.4 mg/dL (0.2-1.0); TOTAL PROTEIN 6.4 g/dL (6.4-8.2)
[2020-02-20 07:14] LABS: VAL ACID 43 mcg/mL (50-100)
[2020-02-20] MEDS: POLYETHYLENE GLYCOL 3350 17 GM PACKET. PO SCH (08:18)
[2020-02-20] MEDS: DOCUSATE SODIUM 100 MG CAPSULE PO SCH (08:18)
[2020-02-20] MEDS: SERTRALINE 50 MG TABLET. PO SCH (08:18)
[2020-02-20] MEDS: RIVASTIGMINE 13.3MG PATCH. TD SCH (08:18)
[2020-02-20] MEDS: FUROSEMIDE 40 MG TABLET PO SCH (08:18)
[2020-02-20] MEDS: OLANZapine 10 MG TABLET PO SCH (08:19)
[2020-02-20] MEDS: DIVALPROEX ER 500 MG TAB.ER.24H PO SCH ×2 (08:19→18:15)
[2020-02-20] MEDS: ASPIRIN CHEWABLE 81 MG TABLET. PO SCH (08:19)
[2020-02-20] MEDS: METOPROLOL TART IMMED RELEASE 25 MG TABLET PO SCH (08:19)
[2020-02-20] MEDS: MULTIVITAMIN with MINERAL TABLET. PO SCH (08:20)
[2020-02-20] MEDS: PANTOPRAZOLE 40 MG TABLET. PO SCH (08:20)
[2020-02-20] MEDS: PROPRANOLOL 10 MG TABLET. PO SCH ×2 (08:20→21:00)
[2020-02-20] MEDS: MEMANTINE 5 MG TABLET. PO SCH ×2 (08:20→21:00)
[2020-02-20] MEDS ORDERED: IPRATROPIUM/ALBUTEROL 20/100mcg/INH INHALER. INH PRN (09:00)
[2020-02-20] MEDS ORDERED: IPRATROPIUM/ALBUTEROL 20/100mcg/INH INHALER. INH SCH (12:00)
[2020-02-20 14:26] LABS: THYROID STIM HORMONE (TSH) 2.421 uIU/mL (0.358-3.740)
[2020-02-20 14:45] VITALS: BP 115/60
[2020-02-20 19:13] VITALS: BP 135/72
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
[2020-02-20] MEDS: ATORVASTATIN CALCIUM 10 MG TABLET. PO SCH (21:00)
[2020-02-20] MEDS: rOPINIRole 1 MG TABLET. PO SCH (21:00)
--- NOTE | 2020-02-20 22:03 | PDOC ---
Exam Note: Dontrell Note: Please also refer to the separate dictated note~for this date of service dictated separately.~Patient seen individually. Discussed the patient with Nursing staff reviewed the chart.~Reviewed interim history and current functioning. Reviewed vital signs,~Labs/ Radiology~and current medications noted below. Continue current treatment with the changes noted in the dictated addendum note Assessment: Vital Signs/I&O: Vital Signs Date Time Temp Pulse Resp B/P (MAP) Pulse Ox O2 Delivery O2 Flow Rate FiO2 02/20/20 21:00 50 135/72 02/20/20 20:04 97.9 97 02/20/20 14:45 14 I & O 02/19/20 02/19/20 02/20/20 15:00 23:00 07:00 Intake Total 360 ml Balance 360 ml Labs: Laboratory Tests Test 02/20/20 06:48 White Blood Count 5.7 x10^3/uL (4.0-11.0) Red Blood Count 3.90 x10^6/uL (4.30-5.70) L Hemoglobin 12.6 g/dL (13.0-17.5) L Hematocrit 37.6 % (39.0-53.0) L Mean Corpuscular Volume 97 fL (79-100) Mean Corpuscular Hemoglobin 32 pg (25-35) Mean Corpuscular Hemoglobin Concent 33 g/dL (31-37) Red Cell Distribution Width 14.0 % (11.5-14.5) Platelet Count 120 x10^3/uL (140-400) L Neutrophils (%) (Auto) 46 % (31-73) Lymphocytes (%) (Auto) 31 % (24-48) Monocytes (%) (Auto) 15 % (0-9) H Eosinophils (%) (Auto) 7 % (0-3) H Basophils (%) (Auto) 1 % (0-3) Neutrophils # (Auto) 2.6 x10^3uL (1.8-7.7) Lymphocytes # (Auto) 1.8 x10^3/uL (1.0-4.8) Monocytes # (Auto) 0.8 x10^3/uL (0.0-1.1) Eosinophils # (Auto) 0.4 x10^3/uL (0.0-0.7) Basophils # (Auto) 0.1 x10^3/uL (0.0-0.2) Sodium Level 140 mmol/L (136-145) Potassium Level 4.0 mmol/L (3.5-5.1) Chloride Level 104 mmol/L (98-107) Carbon Dioxide Level 30 mmol/L (21-32) Anion Gap 6 (6-14) Blood Urea Nitrogen 23 mg/dL (8-26) Creatinine 1.2 mg/dL (0.7-1.3) Estimated GFR (Cockcroft-Gault) 57.5 BUN/Creatinine Ratio 19 (6-20) Glucose Level 89 mg/dL (70-99) Calcium Level 8.7 mg/dL (8.5-10.1) Magnesium Level 1.9 mg/dL (1.8-2.4) Iron Level 85 ug/dL (65-175) Total Iron Binding Capacity 224 ug/dL (250-450) L Iron Saturation 38 % (15-34) H Total Bilirubin 0.4 mg/dL (0.2-1.0) Aspartate Amino Transferase (AST) 33 U/L (15-37) Alanine Aminotransferase (ALT) 22 U/L (16-63) Alkaline Phosphatase 85 U/L (46-116) Total Protein 6.4 g/dL (6.4-8.2) Albumin 2.5 g/dL (3.4-5.0) L Albumin/Globulin Ratio 0.6 (1.0-1.7) L Triglycerides Level 61 mg/dL (0-150) Cholesterol Level 129 mg/dL (0-200) LDL Cholesterol, Calculated 72 mg/dL (0-100) VLDL Cholesterol, Calculated 12 mg/dL (0-40) Non-HDL Cholesterol Calculated 84 mg/dL (0-129) HDL Cholesterol 45 mg/dL (40-60) Cholesterol/HDL Ratio 2.0 Vitamin B12 Level 565 pg/mL (247-911) 25-Hydroxy Vitamin D Total 37.0 ng/mL (30-100) Thyroid Stimulating Hormone (TSH) 2.421 uIU/mL (0.358-3.740) Valproic Acid Level 43 mcg/mL (50-100) L Valproic Acid Last Dose Date 02/19/20 Valproic Acid Last Dose Time 2100 Treponema pallidum Antibody Nonreactive (Nonreactive) Current Medications: Meds: Current Medications Medications (Trade) Dose Ordered Sig/Radha Route PRN Reason Start Time Stop Time Status Last Admin Dose Admin Aspirin (Aspirin Chewable) 81 mg DAILY PO 02/20/20 09:00 02/20/20 08:19 Polyethylene Glycol (miraLAX) 17 gm DAILY PO 02/20/20 09:00 02/20/20 08:18 Sertraline HCl (Zoloft) 50 mg DAILY PO 02/20/20 09:00 02/20/20 08:18 Multivitamins/ Calcium (Thera-M Plus) 1 tab DAILY PO 02/20/20 09:00 02/20/20 08:20 Docusate Sodium (Colace) 100 mg DAILY PO 02/20/20 09:00 02/20/20 08:18 Furosemide (Lasix) 20 mg DAILY PO 02/20/20 09:00 02/20/20 08:18 Rivastigmine (Exelon 13.3mg) 1 patch DAILY TD 02/20/20 09:00 02/20/20 08:18 Pantoprazole Sodium (Protonix) 40 mg DAILYAC PO 02/20/20 07:30 02/20/20 08:20 I have reviewed the current psychotropics carefully including drug interactions. Risk benefit ratio favors no change other than as noted in my dictated progress note. Diagnosis: Problems: (1) Anxiety disorder (2) Dementia, vascular, with depression (3) Dementia, vascular, with delusions (4) Major neurocognitive disorder (5) Dementia in Alzheimer's disease with depression (6) Dementia in Alzheimer's disease with delusions (7) Impulse control disorder (8) Elevated troponin MAIRA SAAVEDRA MD Feb 20, 2020 22:03
--- NOTE | 2020-02-20 22:10 | PN ---
DATE: 02/20/2020 PSYCHIATRIC PROGRESS NOTE This note covers elements not covered in my initial note 02/20/2020. SUBJECTIVE: The patient was staffed at a treatment team meeting with the entire team in the morning with SETH Isaac and Peg, social service staff. The patient remains somewhat obsessive, frequently returning to the bathroom, refusing to wear his socks. 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 due to marked agitation, slept 4-1/4 hours previous night. He is more oriented during the day, much more confused late in the evening. REVIEW OF SYSTEMS: No CV, , pulmonary, eye, ENT system symptoms on review. Reliability poor. MENTAL STATUS EXAM: Oriented to himself. Insight, judgment, recent and remote memory, attention, concentration, fund of knowledge poor, consistent with his diagnosis. IMPRESSION: Major neurocognitive disorder, Alzheimer, vascular with delusion, depression, behavioral disturbance; anxiety disorder, unspecified; impulse control disorder, unspecified. PLAN: The patient's valproic acid level is 43, subtherapeutic, but for now, we will continue this unchanged. On telehealth rounds in the evening, the patient was extremely sedated, unable to wake him up. We will go ahead and stop the Zyprexa 10 mg b.i.d. Continue rest of psychotropics for now and then consider reducing the Depakote if sedation persists. We discussed non-psychopharmacological interventions to help his agitation if this resurfaces once the Zyprexa stopped. MAIRA SAAVEDRA MD DR: LAUREN/ashkan JOB#: [id number] / [id number]
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
[2020-02-21 00:07] LABS: HEMOGLOBIN A1C 5.9 % (4.8-5.6); THYROXINE 4.2 ug/dL (4.5-12.0)
[2020-02-21 06:14] VITALS: BP 124/63
[2020-02-21] MEDS: DOCUSATE SODIUM 100 MG CAPSULE PO SCH (07:24)
[2020-02-21] MEDS: POLYETHYLENE GLYCOL 3350 17 GM PACKET. PO SCH (07:24)
[2020-02-21] MEDS: SERTRALINE 50 MG TABLET. PO SCH (07:24)
[2020-02-21] MEDS: RIVASTIGMINE 13.3MG PATCH. TD SCH (07:24)
[2020-02-21] MEDS: PANTOPRAZOLE 40 MG TABLET. PO SCH (07:24)
[2020-02-21] MEDS: MEMANTINE 5 MG TABLET. PO SCH ×2 (07:24→20:08)
[2020-02-21] MEDS: MULTIVITAMIN with MINERAL TABLET. PO SCH (07:24)
[2020-02-21] MEDS: ASPIRIN CHEWABLE 81 MG TABLET. PO SCH (07:24)
[2020-02-21] MEDS: DIVALPROEX ER 500 MG TAB.ER.24H PO SCH ×2 (07:25→20:08)
[2020-02-21] MEDS: PROPRANOLOL 10 MG TABLET. PO SCH ×2 (07:25→20:07)
[2020-02-21] MEDS: FUROSEMIDE 40 MG TABLET PO SCH (07:25)
[2020-02-21 14:52] VITALS: BP 110/60
[2020-02-21] MEDS: ATORVASTATIN CALCIUM 10 MG TABLET. PO SCH (20:07)
[2020-02-21] MEDS: rOPINIRole 1 MG TABLET. PO SCH (20:08)
--- NOTE | 2020-02-21 22:12 | PDOC ---
Exam Note: Dontrell Note: Please also refer to the separate dictated note~for this date of service dictated separately.~Patient seen individually. Discussed the patient with Nursing staff reviewed the chart.~Reviewed interim history and current functioning. Reviewed vital signs,~Labs/ Radiology~and current medications noted below. Continue current treatment with the changes noted in the dictated addendum note Assessment: Vital Signs/I&O: Vital Signs Date Time Temp Pulse Resp B/P (MAP) Pulse Ox O2 Delivery O2 Flow Rate FiO2 02/21/20 20:07 64 110/60 02/21/20 20:06 97.6 94 02/21/20 14:52 16 02/21/20 06:14 Room Air I & O 02/20/20 02/20/20 02/21/20 14:59 22:59 06:59 Intake Total 480 ml 0 ml Balance 480 ml 0 ml Current Medications: I have reviewed the current psychotropics carefully including drug interactions. Risk benefit ratio favors no change other than as noted in my dictated progress note. Diagnosis: Problems: (1) Dementia of the Alzheimer's type with early onset with behavioral disturbance (2) Anxiety disorder (3) Dementia, vascular, with depression (4) Dementia, vascular, with delusions (5) Major neurocognitive disorder (6) Dementia in Alzheimer's disease with depression (7) Dementia in Alzheimer's disease with delusions (8) Impulse control disorder MAIRA SAAVEDRA MD Feb 21, 2020 22:12
[2020-02-22 05:51] VITALS: BP 125/55
[2020-02-22] MEDS: SERTRALINE 50 MG TABLET. PO SCH (08:01)
[2020-02-22] MEDS: DOCUSATE SODIUM 100 MG CAPSULE PO SCH (08:01)
[2020-02-22] MEDS: POLYETHYLENE GLYCOL 3350 17 GM PACKET. PO SCH (08:01)
[2020-02-22] MEDS: MULTIVITAMIN with MINERAL TABLET. PO SCH (08:01)
[2020-02-22] MEDS: ASPIRIN CHEWABLE 81 MG TABLET. PO SCH (08:01)
[2020-02-22] MEDS: PROPRANOLOL 10 MG TABLET. PO SCH ×3 (08:02→20:18)
[2020-02-22] MEDS: MEMANTINE 5 MG TABLET. PO SCH ×2 (08:02→20:18)
[2020-02-22] MEDS: PANTOPRAZOLE 40 MG TABLET. PO SCH (08:02)
[2020-02-22] MEDS: FUROSEMIDE 40 MG TABLET PO SCH (08:03)
[2020-02-22] MEDS: RIVASTIGMINE 13.3MG PATCH. TD SCH (08:03)
[2020-02-22] MEDS: DIVALPROEX ER 500 MG TAB.ER.24H PO SCH (08:03)
[2020-02-22] MEDS: FLUTICASONE 50MCG/NASAL SPRAY 16GM BOTTLE. NS SCH (08:05)
[2020-02-22 15:39] VITALS: BP 138/65
[2020-02-22] MEDS ORDERED: DIVALPROEX ER 500 MG TAB.ER.24H PO ONE (18:00)
--- NOTE | 2020-02-22 19:05 | PN ---
DATE: 02/21/2020 PSYCHIATRIC PROGRESS NOTE This late entry of 02/21/2020 covers elements not covered in my initial note. SUBJECTIVE: I met with the patient in the evening of 02/21/2020 and discussed with SETH Lyons. The patient remains confused, restless, paranoid at times, but not aggressive. REVIEW OF SYSTEMS: No CV, , pulmonary, eye, ENT system symptoms on review. Reliability poor. MENTAL STATUS EXAM: Oriented to himself. Insight, judgment, recent and remote memory, attention, concentration, fund of knowledge poor, consistent with his diagnosis mentioned in my initial note. PLAN: No change from initial note. Maintain Zoloft, Exelon patch, Depakote, Namenda, and hydroxyzine. He was quite sedated and I did not adjust his Depakote, even though the level is subtherapeutic. We did stop the Zyprexa. We will monitor another day and then decide on adjusting Depakote. MAN Srikanth SAAVEDRA MD DR: LAUREN/ashkan JOB#: [id number] / [id number]
--- NOTE | 2020-02-22 19:07 | PN ---
DATE: 02/22/2020 PSYCHIATRIC PROGRESS NOTE This late entry 02/22/2020 covers the elements not covered in my initial note. SUBJECTIVE: I met with the patient in the evening of 02/22/2020 on telehealth rounds with SETH Lyons. The patient slept 4-1/2 hours previous night. He is up at 3:00 a.m. yelling for Tamanna his and Tim his daughter, quite confused, restless, and anxious. REVIEW OF SYSTEMS: No CV, , pulmonary, eye, ENT system symptoms on review. Reliability poor. MENTAL STATUS EXAM: Oriented to himself. Insight, judgment, recent and remote memory, attention, concentration, fund of knowledge poor, consistent with his diagnosis mentioned in my initial note. IMPRESSION: Major neurocognitive disorder, Alzheimer, vascular with delusion, depression, behavioral disturbance; anxiety disorder, unspecified; impulse control disorder, unspecified; bipolar disorder, unspecified. PLAN: Change Depakote ER 500 b.i.d. to Depakote ER 1250 mg at bedtime. Check CBC, CMP, valproic acid level in 3 days. Adjust to reach therapeutic level. Maintain Zoloft, Exelon patch and Namenda at current dosage along with hydroxyzine p.r.n. MAIRA SAAVEDRA MD DR: LAUREN/ashkan JOB#: [id number] / [id number]
[2020-02-22] MEDS: ATORVASTATIN CALCIUM 10 MG TABLET. PO SCH (20:18)
[2020-02-22] MEDS: rOPINIRole 1 MG TABLET. PO SCH (20:19)
--- NOTE | 2020-02-22 22:24 | PDOC ---
Exam Note: Dontrell Note: Please also refer to the separate dictated note~for this date of service dictated separately.~Patient seen individually. Discussed the patient with Nursing staff reviewed the chart.~Reviewed interim history and current functioning. Reviewed vital signs,~Labs/ Radiology~and current medications noted below. Continue current treatment with the changes noted in the dictated addendum note Assessment: Vital Signs/I&O: Vital Signs Date Time Temp Pulse Resp B/P (MAP) Pulse Ox O2 Delivery O2 Flow Rate FiO2 02/22/20 20:18 68 138/65 02/22/20 19:58 97.4 100 02/22/20 15:39 18 Room Air I & O 02/21/20 02/21/20 02/22/20 15:00 23:00 07:00 Intake Total 480 ml 840 ml Balance 480 ml 840 ml Current Medications: Meds: Current Medications Medications (Trade) Dose Ordered Sig/Radha Route PRN Reason Start Time Stop Time Status Last Admin Dose Admin Fluticasone Propionate (Flonase) 2 spray DAILY NS 02/22/20 09:00 02/22/20 08:05 Divalproex Sodium (Depakote Er) 750 mg 1X ONCE PO 02/22/20 18:00 02/22/20 18:14 DC 02/22/20 20:17 I have reviewed the current psychotropics carefully including drug interactions. Risk benefit ratio favors no change other than as noted in my dictated progress note. Diagnosis: Problems: (1) Dementia of the Alzheimer's type with early onset with behavioral disturbance (2) Anxiety disorder (3) Dementia, vascular, with depression (4) Dementia, vascular, with delusions (5) Major neurocognitive disorder (6) Dementia in Alzheimer's disease with depression (7) Dementia in Alzheimer's disease with delusions (8) Impulse control disorder MAIRA SAAVEDRA MD Feb 22, 2020 22:24
[2020-02-22] MEDS: hydrOXYzine HCL 25 MG TABLET PO PRN (23:15)
[2020-02-23 05:28] VITALS: BP 106/57
[2020-02-23] MEDS: RIVASTIGMINE 13.3MG PATCH. TD SCH (07:35)
[2020-02-23] MEDS: MEMANTINE 5 MG TABLET. PO SCH ×2 (07:35→20:29)
[2020-02-23] MEDS: POLYETHYLENE GLYCOL 3350 17 GM PACKET. PO SCH (07:35)
[2020-02-23] MEDS: FUROSEMIDE 40 MG TABLET PO SCH (07:36)
[2020-02-23] MEDS: MULTIVITAMIN with MINERAL TABLET. PO SCH (07:36)
[2020-02-23] MEDS: PANTOPRAZOLE 40 MG TABLET. PO SCH (07:36)
[2020-02-23] MEDS: SERTRALINE 50 MG TABLET. PO SCH (07:36)
[2020-02-23] MEDS: PROPRANOLOL 10 MG TABLET. PO SCH ×2 (07:36→20:30)
[2020-02-23] MEDS: FLUTICASONE 50MCG/NASAL SPRAY 16GM BOTTLE. NS SCH (07:37)
[2020-02-23] MEDS: DOCUSATE SODIUM 100 MG CAPSULE PO SCH (07:37)
[2020-02-23] MEDS: ASPIRIN CHEWABLE 81 MG TABLET. PO SCH (07:37)
[2020-02-23] MEDS: hydrOXYzine HCL 25 MG TABLET PO PRN (08:20)
[2020-02-23 15:47] VITALS: BP 122/56
[2020-02-23] MEDS: ATORVASTATIN CALCIUM 10 MG TABLET. PO SCH (20:29)
[2020-02-23] MEDS: rOPINIRole 1 MG TABLET. PO SCH (20:31)
[2020-02-23] MEDS: DIVALPROEX ER 250 MG TAB.ER.24H. PO SCH (20:33)
[2020-02-23] MEDS: MIRTAZAPINE 7.5 MG TABLET. PO SCH (20:33)
[2020-02-23] MEDS: DIVALPROEX ER 500 MG TAB.ER.24H PO SCH (20:33)
--- NOTE | 2020-02-23 21:56 | PDOC ---
Exam Note: Dontrell Note: Please also refer to the separate dictated note~for this date of service dictated separately.~Patient seen individually. Discussed the patient with Nursing staff reviewed the chart.~Reviewed interim history and current functioning. Reviewed vital signs,~Labs/ Radiology~and current medications noted below. Continue current treatment with the changes noted in the dictated addendum note Assessment: Vital Signs/I&O: Vital Signs Date Time Temp Pulse Resp B/P (MAP) Pulse Ox O2 Delivery O2 Flow Rate FiO2 02/23/20 20:30 58 122/56 02/23/20 15:47 97.5 18 97 Room Air I & O 02/22/20 02/22/20 02/23/20 15:00 23:00 07:00 Intake Total 780 ml 360 ml Balance 780 ml 360 ml Current Medications: Meds: Current Medications Medications (Trade) Dose Ordered Sig/Radha Route PRN Reason Start Time Stop Time Status Last Admin Dose Admin Divalproex Sodium (Depakote Er) 1,000 mg HS PO 02/23/20 21:00 02/23/20 20:33 Divalproex Sodium (Depakote Er) 250 mg QHS PO 02/23/20 21:00 02/23/20 20:33 Mirtazapine (Remeron) 7.5 mg QHS PO 02/23/20 21:00 02/23/20 20:33 I have reviewed the current psychotropics carefully including drug interactions. Risk benefit ratio favors no change other than as noted in my dictated progress note. Diagnosis: Problems: (1) Dementia of the Alzheimer's type with early onset with behavioral disturbance (2) Anxiety disorder (3) Dementia, vascular, with depression (4) Dementia, vascular, with delusions (5) Major neurocognitive disorder (6) Dementia in Alzheimer's disease with depression (7) Dementia in Alzheimer's disease with delusions (8) Impulse control disorder MAIRA SAAVEDRA MD Feb 23, 2020 21:56
[2020-02-24 06:37] VITALS: BP 116/66
[2020-02-24] MEDS: POLYETHYLENE GLYCOL 3350 17 GM PACKET. PO SCH (08:36)
[2020-02-24] MEDS: FLUTICASONE 50MCG/NASAL SPRAY 16GM BOTTLE. NS SCH (08:36)
[2020-02-24] MEDS: PANTOPRAZOLE 40 MG TABLET. PO SCH (08:38)
[2020-02-24] MEDS: ASPIRIN CHEWABLE 81 MG TABLET. PO SCH (08:39)
[2020-02-24] MEDS: MULTIVITAMIN with MINERAL TABLET. PO SCH (08:40)
[2020-02-24] MEDS: MEMANTINE 5 MG TABLET. PO SCH (08:40)
[2020-02-24] MEDS: FUROSEMIDE 40 MG TABLET PO SCH (08:40)
[2020-02-24] MEDS: RIVASTIGMINE 13.3MG PATCH. TD SCH (08:41)
[2020-02-24] MEDS: SERTRALINE 50 MG TABLET. PO SCH (08:41)
[2020-02-24] MEDS: PROPRANOLOL 10 MG TABLET. PO SCH ×2 (09:00→20:56)
[2020-02-24] MEDS: DOCUSATE SODIUM 100 MG CAPSULE PO SCH (09:00)
[2020-02-24 15:42] VITALS: BP 144/70
--- NOTE | 2020-02-24 19:13 | PN ---
DATE: 02/23/2020 This late entry 02/23/2020 covers elements not covered in my initial note. SUBJECTIVE: The patient was seen on telehealth rounds in the evening with SETH Lyons. He slept 1-3/4 hours previous night, comes out of the room to remove his mask, oblivious even if he is reminded. He does redirect back to his room. He does have a hematoma, defer to Dr. Bell. REVIEW OF SYSTEMS: No CV, , pulmonary, eye, ENT system symptoms on review. Reliability poor. MENTAL STATUS EXAM: Oriented to himself. Insight, judgment, recent and remote memory, attention, concentration, fund of knowledge poor, consistent with his diagnosis. IMPRESSION: Major neurocognitive disorder, Alzheimer, vascular with delusion, depression, behavioral disturbance; anxiety disorder, unspecified; impulse control disorder, unspecified; bipolar disorder, unspecified. 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 Memory is quite impaired. We will go ahead and add Remeron 7.5 mg at bedtime to help with the insomnia. Maintain Zoloft, Exelon patch, Depakote, hydroxyzine p.r.n. Consider increasing Namenda in due course to 10 mg b.i.d. Depakote ER was increased to 1250 at bedtime. Repeat labs and valproic acid level on the . MAN Srikanth SAAVEDRA MD DR: LAUREN/ashkan JOB#: [id number] / [id number]
[2020-02-24] MEDS: MIRTAZAPINE 7.5 MG TABLET. PO SCH (20:55)
[2020-02-24] MEDS: rOPINIRole 1 MG TABLET. PO SCH (20:55)
[2020-02-24] MEDS: DIVALPROEX ER 250 MG TAB.ER.24H. PO SCH (20:55)
[2020-02-24] MEDS: DIVALPROEX ER 500 MG TAB.ER.24H PO SCH (20:56)
[2020-02-24] MEDS: ATORVASTATIN CALCIUM 10 MG TABLET. PO SCH (20:56)
[2020-02-24] MEDS: MEMANTINE 10 MG TABLET. PO SCH (20:59)
--- NOTE | 2020-02-24 22:07 | PDOC ---
Exam Note: Dontrell Note: Please also refer to the separate dictated note~for this date of service dictated separately.~Patient seen individually. Discussed the patient with Nursing staff reviewed the chart.~Reviewed interim history and current functioning. Reviewed vital signs,~Labs/ Radiology~and current medications noted below. Continue current treatment with the changes noted in the dictated addendum note Assessment: Vital Signs/I&O: Vital Signs Date Time Temp Pulse Resp B/P (MAP) Pulse Ox O2 Delivery O2 Flow Rate FiO2 02/24/20 20:56 61 144/70 02/24/20 20:07 97.4 96 02/24/20 15:42 18 02/23/20 15:47 Room Air I & O 02/23/20 02/23/20 02/24/20 15:00 23:00 07:00 Intake Total 360 ml 360 ml Balance 360 ml 360 ml Current Medications: Meds: Current Medications Medications (Trade) Dose Ordered Sig/Radha Route PRN Reason Start Time Stop Time Status Last Admin Dose Admin Memantine (Namenda) 10 mg BID PO 02/24/20 21:00 02/24/20 20:59 I have reviewed the current psychotropics carefully including drug interactions. Risk benefit ratio favors no change other than as noted in my dictated progress note. Diagnosis: Problems: (1) Bipolar disorder, unspecified (2) Dementia of the Alzheimer's type with early onset with behavioral disturbance (3) Anxiety disorder (4) Dementia, vascular, with depression (5) Dementia, vascular, with delusions (6) Major neurocognitive disorder (7) Dementia in Alzheimer's disease with depression (8) Dementia in Alzheimer's disease with delusions (9) Impulse control disorder MAIRA SAAVEDRA MD Feb 24, 2020 22:07
[2020-02-25 05:55] LABS: BASO % 0 % (0-3); EOS # 0.5 x10^3/uL (0.0-0.7); EOS % 7 % (0-3); HEMATOCRIT 36.7 % (39.0-53.0); HEMOGLOBIN 12.1 g/dL (13.0-17.5); LYMPH # 1.4 x10^3/uL (1.0-4.8); LYMPH % 21 % (24-48); MEAN CORPUSCULAR HEMOGLOBIN 32 pg (25-35); MEAN CORPUSCULAR HGB CONC 33 g/dL (31-37); MEAN CORPUSCULAR VOLUME 97 fL (79-100); MONO # 0.9 x10^3/uL (0.0-1.1); MONO % 14 % (0-9); NEUT % 58 % (31-73); PLATELET COUNT 109 x10^3/uL (140-400); RED BLOOD COUNT 3.78 x10^6/uL (4.30-5.70); WHITE BLOOD COUNT 6.8 x10^3/uL (4.0-11.0)
[2020-02-25 06:06] LABS: ALBUMIN 2.4 g/dL (3.4-5.0); ALBUMIN/GLOBULIN RATIO 0.6 (1.0-1.7); CALCIUM 8.4 mg/dL (8.5-10.1); CREATININE 1.2 mg/dL (0.7-1.3); GFR 57.5; POTASSIUM 4.4 mmol/L (3.5-5.1); TOTAL BILIRUBIN 0.3 mg/dL (0.2-1.0); TOTAL PROTEIN 6.2 g/dL (6.4-8.2)
[2020-02-25 06:07] LABS: VAL ACID 58 mcg/mL (50-100)
[2020-02-25 06:21] VITALS: BP 126/58
[2020-02-25] MEDS: POLYETHYLENE GLYCOL 3350 17 GM PACKET. PO SCH (08:22)
[2020-02-25] MEDS: MEMANTINE 10 MG TABLET. PO SCH ×2 (08:23→19:57)
[2020-02-25] MEDS: PANTOPRAZOLE 40 MG TABLET. PO SCH (08:23)
[2020-02-25] MEDS: DOCUSATE SODIUM 100 MG CAPSULE PO SCH (08:23)
[2020-02-25] MEDS: ASPIRIN CHEWABLE 81 MG TABLET. PO SCH (08:23)
[2020-02-25] MEDS: FUROSEMIDE 40 MG TABLET PO SCH (08:23)
[2020-02-25] MEDS: FLUTICASONE 50MCG/NASAL SPRAY 16GM BOTTLE. NS SCH (08:23)
[2020-02-25] MEDS: MULTIVITAMIN with MINERAL TABLET. PO SCH (08:24)
[2020-02-25] MEDS: SERTRALINE 50 MG TABLET. PO SCH (08:24)
[2020-02-25] MEDS: PROPRANOLOL 10 MG TABLET. PO SCH ×2 (08:25→19:57)
[2020-02-25] MEDS: RIVASTIGMINE 13.3MG PATCH. TD SCH (08:26)
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
[2020-02-25 15:12] VITALS: BP 136/65
[2020-02-25] MEDS: DIVALPROEX ER 250 MG TAB.ER.24H. PO SCH (19:55)
[2020-02-25] MEDS: DIVALPROEX ER 500 MG TAB.ER.24H PO SCH (19:56)
[2020-02-25] MEDS: rOPINIRole 1 MG TABLET. PO SCH (19:57)
[2020-02-25] MEDS: MIRTAZAPINE 7.5 MG TABLET. PO SCH (19:57)
[2020-02-25] MEDS: ATORVASTATIN CALCIUM 10 MG TABLET. PO SCH (19:57)
--- NOTE | 2020-02-25 21:52 | PDOC ---
Exam Note: Dontrell Note: Please also refer to the separate dictated note~for this date of service dictated separately.~Patient seen individually. Discussed the patient with Nursing staff reviewed the chart.~Reviewed interim history and current functioning. Reviewed vital signs,~Labs/ Radiology~and current medications noted below. Continue current treatment with the changes noted in the dictated addendum note Assessment: Vital Signs/I&O: Vital Signs Date Time Temp Pulse Resp B/P (MAP) Pulse Ox O2 Delivery O2 Flow Rate FiO2 02/25/20 19:57 65 136/65 02/25/20 15:12 97.4 16 93 02/23/20 15:47 Room Air I & O 02/24/20 02/24/20 02/25/20 15:00 23:00 07:00 Intake Total 240 ml 480 ml Balance 240 ml 480 ml Labs: Laboratory Tests Test 02/25/20 05:33 White Blood Count 6.8 x10^3/uL (4.0-11.0) Red Blood Count 3.78 x10^6/uL (4.30-5.70) L Hemoglobin 12.1 g/dL (13.0-17.5) L Hematocrit 36.7 % (39.0-53.0) L Mean Corpuscular Volume 97 fL (79-100) Mean Corpuscular Hemoglobin 32 pg (25-35) Mean Corpuscular Hemoglobin Concent 33 g/dL (31-37) Red Cell Distribution Width 14.0 % (11.5-14.5) Platelet Count 109 x10^3/uL (140-400) L Neutrophils (%) (Auto) 58 % (31-73) Lymphocytes (%) (Auto) 21 % (24-48) L Monocytes (%) (Auto) 14 % (0-9) H Eosinophils (%) (Auto) 7 % (0-3) H Basophils (%) (Auto) 0 % (0-3) Neutrophils # (Auto) 4.0 x10^3uL (1.8-7.7) Lymphocytes # (Auto) 1.4 x10^3/uL (1.0-4.8) Monocytes # (Auto) 0.9 x10^3/uL (0.0-1.1) Eosinophils # (Auto) 0.5 x10^3/uL (0.0-0.7) Basophils # (Auto) 0.0 x10^3/uL (0.0-0.2) Sodium Level 141 mmol/L (136-145) Potassium Level 4.4 mmol/L (3.5-5.1) Chloride Level 104 mmol/L (98-107) Carbon Dioxide Level 35 mmol/L (21-32) H Anion Gap 2 (6-14) L Blood Urea Nitrogen 27 mg/dL (8-26) H Creatinine 1.2 mg/dL (0.7-1.3) Estimated GFR (Cockcroft-Gault) 57.5 BUN/Creatinine Ratio 23 (6-20) H Glucose Level 100 mg/dL (70-99) H Calcium Level 8.4 mg/dL (8.5-10.1) L Total Bilirubin 0.3 mg/dL (0.2-1.0) Aspartate Amino Transferase (AST) 31 U/L (15-37) Alanine Aminotransferase (ALT) 23 U/L (16-63) Alkaline Phosphatase 79 U/L (46-116) Total Protein 6.2 g/dL (6.4-8.2) L Albumin 2.4 g/dL (3.4-5.0) L Albumin/Globulin Ratio 0.6 (1.0-1.7) L Valproic Acid Level 58 mcg/mL (50-100) Valproic Acid Last Dose Date 02/24/2020 Valproic Acid Last Dose Time 2100 Current Medications: I have reviewed the current psychotropics carefully including drug interactions. Risk benefit ratio favors no change other than as noted in my dictated progress note. Diagnosis: Problems: (1) Dementia of the Alzheimer's type with early onset with behavioral disturbance (2) Bipolar disorder, unspecified (3) Anxiety disorder (4) Dementia, vascular, with depression (5) Dementia, vascular, with delusions (6) Major neurocognitive disorder (7) Dementia in Alzheimer's disease with depression (8) Dementia in Alzheimer's disease with delusions (9) Impulse control disorder MAIRA SAAVEDRA MD Feb 25, 2020 21:52
[2020-02-26 06:27] VITALS: BP 139/57
[2020-02-26] MEDS: FLUTICASONE 50MCG/NASAL SPRAY 16GM BOTTLE. NS SCH (08:13)
[2020-02-26] MEDS: POLYETHYLENE GLYCOL 3350 17 GM PACKET. PO SCH (08:13)
[2020-02-26] MEDS: FUROSEMIDE 40 MG TABLET PO SCH (08:14)
[2020-02-26] MEDS: RIVASTIGMINE 13.3MG PATCH. TD SCH (08:14)
[2020-02-26] MEDS: SERTRALINE 50 MG TABLET. PO SCH (08:14)
[2020-02-26] MEDS: MULTIVITAMIN with MINERAL TABLET. PO SCH (08:14)
[2020-02-26] MEDS: PANTOPRAZOLE 40 MG TABLET. PO SCH (08:14)
[2020-02-26] MEDS: MEMANTINE 10 MG TABLET. PO SCH ×2 (08:14→19:46)
[2020-02-26] MEDS: DOCUSATE SODIUM 100 MG CAPSULE PO SCH (08:15)
[2020-02-26] MEDS: ASPIRIN CHEWABLE 81 MG TABLET. PO SCH (08:15)
[2020-02-26] MEDS: PROPRANOLOL 10 MG TABLET. PO SCH ×2 (08:16→19:49)
--- NOTE | 2020-02-26 12:50 | PN ---
DATE: 02/25/2020 PSYCHIATRIC PROGRESS NOTE This late entry 02/24 covers elements not covered in my initial note. SUBJECTIVE: The patient was seen on telehealth rounds evening of 02/24. Discussed with SETH Calabrese. The patient slept 7-1/4 hours previous night. He is confused, but has had a good day, compliant, calm. He forgets to use his walker. Valproic acid level therapeutic at 58. As I met with him in the evening, he was having dinner, but unable to recognize the items he was eating as I questioned him. REVIEW OF SYSTEMS: No CV, , pulmonary, eye, ENT system symptoms on review. Gait unsteady with walker. Reliability poor. MENTAL STATUS EXAM: Oriented to himself. Insight, judgment, recent and remote memory, attention, concentration, fund of knowledge poor, consistent with his diagnosis. IMPRESSION: Major neurocognitive disorder, Alzheimer, vascular with delusion, depression, behavioral disturbance. Rest unchanged. PLAN: Continue psychotropics from initial note. Adjust further as clinically indicated. MAN Srikanth SAAVEDRA MD DR: LAUREN/ashkan JOB#: [id number] / [id number]
--- NOTE | 2020-02-26 12:53 | PN ---
DATE: 02/24/2020 PSYCHIATRIC PROGRESS NOTE This late entry 02/24/2020 covers elements not covered in my initial note. SUBJECTIVE: We met with the patient evening of 02/24/2020 on rounds and earlier in the day. The patient was discussed at treatment team meeting with the entire team including SETH Prakash and Steffi Yusuf, aids social worker. The patient's appetite is 100%. He has been withdrawn, less agitated; at times, still resistive with cares, but less so than before. REVIEW OF SYSTEMS: No CV, , pulmonary, eye, ENT system symptoms on review. Reliability poor. MENTAL STATUS EXAM: Oriented to himself. Insight, judgment, recent and remote memory, attention, concentration, fund of knowledge poor, consistent with his diagnosis mentioned in my initial note. PLAN: No change from initial note. We will go ahead and increase the Namenda from 5 mg b.i.d. to 10 mg b.i.d. Maintain Depakote, Exelon patch, Zoloft along with hydroxyzine p.r.n. MAIRA SAAVEDRA MD DR: LAUREN/ashkan JOB#: [id number] / [id number]
[2020-02-26 15:19] VITALS: BP 129/72
[2020-02-26] MEDS: ATORVASTATIN CALCIUM 10 MG TABLET. PO SCH (19:47)
[2020-02-26] MEDS: DIVALPROEX ER 250 MG TAB.ER.24H. PO SCH (19:47)
[2020-02-26] MEDS: MIRTAZAPINE 7.5 MG TABLET. PO SCH (19:47)
[2020-02-26] MEDS: DIVALPROEX ER 500 MG TAB.ER.24H PO SCH (19:47)
[2020-02-26] MEDS: rOPINIRole 1 MG TABLET. PO SCH (19:48)
[2020-02-26 20:54] VITALS: BP 153/67
--- NOTE | 2020-02-26 21:57 | PDOC ---
Exam Note: Dontrell Note: Please also refer to the separate dictated note~for this date of service dictated separately.~Patient seen individually. Discussed the patient with Nursing staff reviewed the chart.~Reviewed interim history and current functioning. Reviewed vital signs,~Labs/ Radiology~and current medications noted below. Continue current treatment with the changes noted in the dictated addendum note Assessment: Vital Signs/I&O: Vital Signs Date Time Temp Pulse Resp B/P (MAP) Pulse Ox O2 Delivery O2 Flow Rate FiO2 02/26/20 20:54 97.6 67 153/67 (95) 96 02/26/20 15:19 18 02/23/20 15:47 Room Air I & O 02/25/20 02/25/20 02/26/20 15:00 23:00 07:00 Intake Total 820 ml 600 ml Balance 820 ml 600 ml Current Medications: I have reviewed the current psychotropics carefully including drug interactions. Risk benefit ratio favors no change other than as noted in my dictated progress note. Diagnosis: Problems: (1) Dementia of the Alzheimer's type with early onset with behavioral disturbance (2) Bipolar disorder, unspecified (3) Anxiety disorder (4) Dementia, vascular, with depression (5) Dementia, vascular, with delusions (6) Major neurocognitive disorder (7) Dementia in Alzheimer's disease with depression (8) Dementia in Alzheimer's disease with delusions (9) Impulse control disorder MAIRA SAAVEDRA MD Feb 26, 2020 21:57
[2020-02-27] MEDS: hydrOXYzine HCL 25 MG TABLET PO PRN (00:53)
[2020-02-27 05:39] VITALS: BP 138/59
[2020-02-27] MEDS: POLYETHYLENE GLYCOL 3350 17 GM PACKET. PO SCH (08:19)
[2020-02-27] MEDS: MEMANTINE 10 MG TABLET. PO SCH ×2 (08:20→21:00)
[2020-02-27] MEDS: PANTOPRAZOLE 40 MG TABLET. PO SCH (08:20)
[2020-02-27] MEDS: RIVASTIGMINE 13.3MG PATCH. TD SCH (08:20)
[2020-02-27] MEDS: DOCUSATE SODIUM 100 MG CAPSULE PO SCH (08:20)
[2020-02-27] MEDS: SERTRALINE 50 MG TABLET. PO SCH (08:20)
[2020-02-27] MEDS: MULTIVITAMIN with MINERAL TABLET. PO SCH (08:20)
[2020-02-27] MEDS: FUROSEMIDE 40 MG TABLET PO SCH (08:21)
[2020-02-27] MEDS: ASPIRIN CHEWABLE 81 MG TABLET. PO SCH (08:21)
[2020-02-27] MEDS: FLUTICASONE 50MCG/NASAL SPRAY 16GM BOTTLE. NS SCH (08:22)
[2020-02-27] MEDS: PROPRANOLOL 10 MG TABLET. PO SCH ×2 (08:22→21:00)
[2020-02-27 15:32] VITALS: BP 142/76
[2020-02-27 20:33] VITALS: BP 127/74
[2020-02-27] MEDS: rOPINIRole 1 MG TABLET. PO SCH (21:00)
[2020-02-27] MEDS: MIRTAZAPINE 7.5 MG TABLET. PO SCH (21:00)
[2020-02-27] MEDS: ATORVASTATIN CALCIUM 10 MG TABLET. PO SCH (21:00)
[2020-02-27] MEDS: DIVALPROEX ER 250 MG TAB.ER.24H. PO SCH (21:00)
[2020-02-27] MEDS: DIVALPROEX ER 500 MG TAB.ER.24H PO SCH (21:00)
--- NOTE | 2020-02-27 22:01 | PDOC ---
Exam Note: Dontrell Note: Please also refer to the separate dictated note~for this date of service dictated separately.~Patient seen individually. Discussed the patient with Nursing staff reviewed the chart.~Reviewed interim history and current functioning. Reviewed vital signs,~Labs/ Radiology~and current medications noted below. Continue current treatment with the changes noted in the dictated addendum note Assessment: Vital Signs/I&O: Vital Signs Date Time Temp Pulse Resp B/P (MAP) Pulse Ox O2 Delivery O2 Flow Rate FiO2 02/27/20 20:33 97.5 50 16 127/74 (91) 94 Room Air I & O 02/26/20 02/26/20 02/27/20 15:00 23:00 07:00 Intake Total 480 ml 480 ml Balance 480 ml 480 ml Current Medications: I have reviewed the current psychotropics carefully including drug interactions. Risk benefit ratio favors no change other than as noted in my dictated progress note. 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
[2020-02-28 07:00] VITALS: BP 149/70
[2020-02-28] MEDS: RIVASTIGMINE 13.3MG PATCH. TD SCH (10:20)
[2020-02-28] MEDS: SERTRALINE 50 MG TABLET. PO SCH (10:20)
[2020-02-28] MEDS: PANTOPRAZOLE 40 MG TABLET. PO SCH (10:20)
[2020-02-28] MEDS: FLUTICASONE 50MCG/NASAL SPRAY 16GM BOTTLE. NS SCH (10:20)
[2020-02-28] MEDS: MULTIVITAMIN with MINERAL TABLET. PO SCH (10:20)
[2020-02-28] MEDS: POLYETHYLENE GLYCOL 3350 17 GM PACKET. PO SCH (10:20)
[2020-02-28] MEDS: PROPRANOLOL 10 MG TABLET. PO SCH ×2 (10:21→20:48)
[2020-02-28] MEDS: DOCUSATE SODIUM 100 MG CAPSULE PO SCH (10:21)
[2020-02-28] MEDS: FUROSEMIDE 40 MG TABLET PO SCH (10:21)
[2020-02-28] MEDS: MEMANTINE 10 MG TABLET. PO SCH ×2 (10:21→20:47)
[2020-02-28] MEDS: ASPIRIN CHEWABLE 81 MG TABLET. PO SCH (10:21)
[2020-02-28 16:13] VITALS: BP 108/66
[2020-02-28 20:37] VITALS: BP 143/65
[2020-02-28] MEDS: ATORVASTATIN CALCIUM 10 MG TABLET. PO SCH (20:47)
[2020-02-28] MEDS: rOPINIRole 1 MG TABLET. PO SCH (20:47)
[2020-02-28] MEDS: MIRTAZAPINE 7.5 MG TABLET. PO SCH (20:47)
[2020-02-28] MEDS: DIVALPROEX ER 500 MG TAB.ER.24H PO SCH (20:48)
[2020-02-28] MEDS: DIVALPROEX ER 250 MG TAB.ER.24H. PO SCH (20:48)
--- NOTE | 2020-02-28 22:02 | PN ---
DATE: 02/26/2020 PSYCHIATRIC PROGRESS NOTE This late entry 02/26/2020 covers elements not covered in my initial note. SUBJECTIVE: I met with the patient in the evening individually. Overall, the patient remains confused, but has been in the common areas quite appropriate, not aggressive, disruptive. REVIEW OF SYSTEMS: Ambulation impaired with walker. No CV, , pulmonary, eye, ENT system symptoms on review. Reliability poor. MENTAL STATUS EXAM: Oriented to himself. Insight, judgment, recent and remote memory, attention, concentration, fund of knowledge poor, consistent with his diagnosis mentioned in my initial note. PLAN: No change from initial note. MAN Srikanth SAAVEDRA MD DR: LAUREN/ashkan JOB#: [id number] / [id number]
--- NOTE | 2020-02-28 22:09 | PN ---
DATE: 02/27/2020 This late entry 02/27/2020 covers elements not covered in my initial note. SUBJECTIVE: I met with the patient evening of 02/26 on telehealth rounds. Per SETH Calabrese, the patient slept 4-1/4 hours previous night. He is tired at times and remains confused, but behaviorally he appears stable. REVIEW OF SYSTEMS: No CV, , pulmonary, eye, ENT system symptoms on review. Reliability poor. Gait unsteady with walker. MENTAL STATUS EXAM: Oriented to himself. Insight, judgment, recent and remote memory, attention, concentration, fund of knowledge poor, consistent with his diagnosis mentioned in my initial note. PLAN: No change from initial note. MAN Srikanth SAAVEDRA MD DR: LAUREN/ashkan JOB#: [id number] / [id number]
--- NOTE | 2020-02-28 22:13 | PDOC ---
Exam Note: Dontrell Note: Please also refer to the separate dictated note~for this date of service dictated separately.~Patient seen individually. Discussed the patient with Nursing staff reviewed the chart.~Reviewed interim history and current functioning. Reviewed vital signs,~Labs/ Radiology~and current medications noted below. Continue current treatment with the changes noted in the dictated addendum note Assessment: Vital Signs/I&O: Vital Signs Date Time Temp Pulse Resp B/P (MAP) Pulse Ox O2 Delivery O2 Flow Rate FiO2 02/28/20 20:48 60 143/65 02/28/20 20:37 97.6 97 02/28/20 16:13 20 02/27/20 20:33 Room Air I & O 02/27/20 02/27/20 02/28/20 15:00 23:00 07:00 Intake Total 720 ml 240 ml Balance 720 ml 240 ml Current Medications: I have reviewed the current psychotropics carefully including drug interactions. Risk benefit ratio favors no change other than as noted in my dictated progress note. Diagnosis: Problems: (1) Anxiety disorder (2) Dementia, vascular, with depression (3) Dementia, vascular, with delusions (4) Major neurocognitive disorder (5) Dementia in Alzheimer's disease with depression (6) Dementia in Alzheimer's disease with delusions (7) Impulse control disorder (8) Dementia of the Alzheimer's type with early onset with behavioral disturbance MAIRA SAAVEDRA MD Feb 28, 2020 22:13
--- NOTE | 2020-02-28 22:53 | PN ---
DATE: 02/28/2020 PSYCHIATRIC PROGRESS NOTE This note covers elements not covered in my initial note of 02/28/2020. The patient slept 9-3/4 hours previous night, was drowsy around noon time yesterday, slept in until 9:30 a.m. this morning, but has been awake and alert during the day, confused. REVIEW OF SYSTEMS: No CV, , pulmonary, eye, ENT system symptoms on review. Reliability poor. MENTAL STATUS EXAM: Oriented to himself. Insight, judgment, recent and remote memory, attention, concentration, fund of knowledge poor, consistent with his diagnosis. IMPRESSION: Major neurocognitive disorder, Alzheimer, vascular with delusion, depression, behavioral disturbance; anxiety disorder, unspecified; impulse control disorder, unspecified. Rest unchanged. PLAN: No change from initial note. MAN Srikanth SAAVEDRA MD DR: LAUREN/ashkan JOB#: [id number] / [id number]
[2020-02-29] MEDS: hydrOXYzine HCL 25 MG TABLET PO PRN ×2 (04:43→20:25)
[2020-02-29 05:53] VITALS: BP 136/65
[2020-02-29] MEDS: FUROSEMIDE 40 MG TABLET PO SCH (09:36)
[2020-02-29] MEDS: ASPIRIN CHEWABLE 81 MG TABLET. PO SCH (09:36)
[2020-02-29] MEDS: PROPRANOLOL 10 MG TABLET. PO SCH ×2 (09:36→20:25)
[2020-02-29] MEDS: DOCUSATE SODIUM 100 MG CAPSULE PO SCH (09:37)
[2020-02-29] MEDS: MEMANTINE 10 MG TABLET. PO SCH ×2 (09:37→20:24)
[2020-02-29] MEDS: PANTOPRAZOLE 40 MG TABLET. PO SCH (09:37)
[2020-02-29] MEDS: POLYETHYLENE GLYCOL 3350 17 GM PACKET. PO SCH (09:37)
[2020-02-29] MEDS: SERTRALINE 50 MG TABLET. PO SCH (09:37)
[2020-02-29] MEDS: MULTIVITAMIN with MINERAL TABLET. PO SCH (09:37)
[2020-02-29] MEDS: FLUTICASONE 50MCG/NASAL SPRAY 16GM BOTTLE. NS SCH (09:37)
[2020-02-29] MEDS: RIVASTIGMINE 13.3MG PATCH. TD SCH (09:37)
[2020-02-29 16:14] VITALS: BP_SYST 104; BP_SYST 109; BP_DIAS 62; BP_DIAS 64
[2020-02-29] MEDS: ATORVASTATIN CALCIUM 10 MG TABLET. PO SCH (20:24)
[2020-02-29] MEDS: rOPINIRole 1 MG TABLET. PO SCH (20:24)
[2020-02-29] MEDS: DIVALPROEX ER 250 MG TAB.ER.24H. PO SCH (20:24)
[2020-02-29] MEDS: DIVALPROEX ER 500 MG TAB.ER.24H PO SCH (20:25)
[2020-02-29] MEDS: MIRTAZAPINE 15 MG TABLET PO SCH (20:27)
--- NOTE | 2020-02-29 21:59 | PDOC ---
Exam Note: Donterll Note: Please also refer to the separate dictated note~for this date of service dictated separately.~Patient seen individually. Discussed the patient with Nursing staff reviewed the chart.~Reviewed interim history and current functioning. Reviewed vital signs,~Labs/ Radiology~and current medications noted below. Continue current treatment with the changes noted in the dictated addendum note Assessment: Vital Signs/I&O: Vital Signs Date Time Temp Pulse Resp B/P (MAP) Pulse Ox O2 Delivery O2 Flow Rate FiO2 02/29/20 20:25 57 104/64 02/29/20 16:14 97.3 18 95 Room Air I & O 02/28/20 02/28/20 02/29/20 15:00 23:00 07:00 Intake Total 360 ml 720 ml Balance 360 ml 720 ml Current Medications: Meds: Current Medications Medications (Trade) Dose Ordered Sig/Radha Route PRN Reason Start Time Stop Time Status Last Admin Dose Admin Mirtazapine (Remeron) 15 mg QHS PO 02/29/20 21:00 02/29/20 20:27 I have reviewed the current psychotropics carefully including drug interactions. Risk benefit ratio favors no change other than as noted in my dictated progress note. 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
[2020-03-01 05:08] VITALS: BP 121/54
[2020-03-01 06:59] LABS: BASO % 1 % (0-3); EOS # 0.4 x10^3/uL (0.0-0.7); EOS % 5 % (0-3); HEMATOCRIT 36.7 % (39.0-53.0); HEMOGLOBIN 12.3 g/dL (13.0-17.5); LYMPH # 1.7 x10^3/uL (1.0-4.8); LYMPH % 25 % (24-48); MEAN CORPUSCULAR HEMOGLOBIN 32 pg (25-35); MEAN CORPUSCULAR HGB CONC 33 g/dL (31-37); MEAN CORPUSCULAR VOLUME 96 fL (79-100); MONO # 0.9 x10^3/uL (0.0-1.1); MONO % 13 % (0-9); NEUT # 3.9 x10^3uL (1.8-7.7); NEUT % 56 % (31-73); PLATELET COUNT 128 x10^3/uL (140-400); RED BLOOD COUNT 3.83 x10^6/uL (4.30-5.70); RED CELL DISTRIBUTION WIDTH 14.5 % (11.5-14.5)
[2020-03-01 07:01] LABS: ALBUMIN 2.6 g/dL (3.4-5.0); ALBUMIN/GLOBULIN RATIO 0.7 (1.0-1.7); CALCIUM 8.9 mg/dL (8.5-10.1); CREATININE 1.1 mg/dL (0.7-1.3); GFR 63.6; POTASSIUM 4.3 mmol/L (3.5-5.1); TOTAL BILIRUBIN 0.4 mg/dL (0.2-1.0); TOTAL PROTEIN 6.5 g/dL (6.4-8.2)
[2020-03-01] MEDS: PANTOPRAZOLE 40 MG TABLET. PO SCH (08:54)
[2020-03-01] MEDS: ASPIRIN CHEWABLE 81 MG TABLET. PO SCH (08:54)
[2020-03-01] MEDS: PROPRANOLOL 10 MG TABLET. PO SCH ×2 (08:54→20:44)
[2020-03-01] MEDS: FUROSEMIDE 40 MG TABLET PO SCH (08:54)
[2020-03-01] MEDS: SERTRALINE 50 MG TABLET. PO SCH (08:54)
[2020-03-01] MEDS: MULTIVITAMIN with MINERAL TABLET. PO SCH (08:55)
[2020-03-01] MEDS: POLYETHYLENE GLYCOL 3350 17 GM PACKET. PO SCH (08:55)
[2020-03-01] MEDS: FLUTICASONE 50MCG/NASAL SPRAY 16GM BOTTLE. NS SCH (08:55)
[2020-03-01] MEDS: MEMANTINE 10 MG TABLET. PO SCH ×2 (08:55→20:44)
[2020-03-01] MEDS: DOCUSATE SODIUM 100 MG CAPSULE PO SCH (08:55)
[2020-03-01] MEDS: RIVASTIGMINE 13.3MG PATCH. TD SCH (08:55)
[2020-03-01 16:11] VITALS: BP 123/61
[2020-03-01] MEDS: MIRTAZAPINE 15 MG TABLET PO SCH (20:44)
[2020-03-01] MEDS: rOPINIRole 1 MG TABLET. PO SCH (20:44)
[2020-03-01] MEDS: hydrOXYzine HCL 25 MG TABLET PO PRN (20:44)
[2020-03-01] MEDS: DIVALPROEX ER 500 MG TAB.ER.24H PO SCH (20:44)
[2020-03-01] MEDS: ATORVASTATIN CALCIUM 10 MG TABLET. PO SCH (20:44)
[2020-03-01] MEDS: DIVALPROEX ER 250 MG TAB.ER.24H. PO SCH (20:44)
--- NOTE | 2020-03-01 22:00 | PDOC ---
Exam Note: Dontrell Note: Please also refer to the separate dictated note~for this date of service dictated separately.~Patient seen individually. Discussed the patient with Nursing staff reviewed the chart.~Reviewed interim history and current functioning. Reviewed vital signs,~Labs/ Radiology~and current medications noted below. Continue current treatment with the changes noted in the dictated addendum note Assessment: Vital Signs/I&O: Vital Signs Date Time Temp Pulse Resp B/P (MAP) Pulse Ox O2 Delivery O2 Flow Rate FiO2 03/01/20 20:44 53 123/61 03/01/20 19:48 97.4 98 03/01/20 16:11 16 02/29/20 16:14 Room Air I & O 02/29/20 02/29/20 03/01/20 15:00 23:00 07:00 Intake Total 600 ml 600 ml Balance 600 ml 600 ml Labs: Laboratory Tests Test 03/01/20 06:28 White Blood Count 7.0 x10^3/uL (4.0-11.0) Red Blood Count 3.83 x10^6/uL (4.30-5.70) L Hemoglobin 12.3 g/dL (13.0-17.5) L Hematocrit 36.7 % (39.0-53.0) L Mean Corpuscular Volume 96 fL (79-100) Mean Corpuscular Hemoglobin 32 pg (25-35) Mean Corpuscular Hemoglobin Concent 33 g/dL (31-37) Red Cell Distribution Width 14.5 % (11.5-14.5) Platelet Count 128 x10^3/uL (140-400) L Neutrophils (%) (Auto) 56 % (31-73) Lymphocytes (%) (Auto) 25 % (24-48) Monocytes (%) (Auto) 13 % (0-9) H Eosinophils (%) (Auto) 5 % (0-3) H Basophils (%) (Auto) 1 % (0-3) Neutrophils # (Auto) 3.9 x10^3uL (1.8-7.7) Lymphocytes # (Auto) 1.7 x10^3/uL (1.0-4.8) Monocytes # (Auto) 0.9 x10^3/uL (0.0-1.1) Eosinophils # (Auto) 0.4 x10^3/uL (0.0-0.7) Basophils # (Auto) 0.0 x10^3/uL (0.0-0.2) Sodium Level 138 mmol/L (136-145) Potassium Level 4.3 mmol/L (3.5-5.1) Chloride Level 101 mmol/L (98-107) Carbon Dioxide Level 34 mmol/L (21-32) H Anion Gap 3 (6-14) L Blood Urea Nitrogen 21 mg/dL (8-26) Creatinine 1.1 mg/dL (0.7-1.3) Estimated GFR (Cockcroft-Gault) 63.6 BUN/Creatinine Ratio 19 (6-20) Glucose Level 85 mg/dL (70-99) Calcium Level 8.9 mg/dL (8.5-10.1) Total Bilirubin 0.4 mg/dL (0.2-1.0) Aspartate Amino Transferase (AST) 34 U/L (15-37) Alanine Aminotransferase (ALT) 25 U/L (16-63) Alkaline Phosphatase 84 U/L (46-116) Total Protein 6.5 g/dL (6.4-8.2) Albumin 2.6 g/dL (3.4-5.0) L Albumin/Globulin Ratio 0.7 (1.0-1.7) L Current Medications: I have reviewed the current psychotropics carefully including drug interactions. Risk benefit ratio favors no change other than as noted in my dictated progress note. Diagnosis: Problems: (1) Anxiety disorder (2) Dementia, vascular, with depression (3) Dementia, vascular, with delusions (4) Major neurocognitive disorder (5) Dementia in Alzheimer's disease with depression (6) Dementia in Alzheimer's disease with delusions (7) Impulse control disorder (8) Dementia of the Alzheimer's type with early onset with behavioral disturbance MAIRA SAAVEDRA MD Mar 01, 2020 22:00
[2020-03-02 05:47] VITALS: BP 138/65
[2020-03-02] MEDS: MEMANTINE 10 MG TABLET. PO SCH ×2 (07:57→20:52)
[2020-03-02] MEDS: RIVASTIGMINE 13.3MG PATCH. TD SCH (07:57)
[2020-03-02] MEDS: FLUTICASONE 50MCG/NASAL SPRAY 16GM BOTTLE. NS SCH (07:57)
[2020-03-02] MEDS: ASPIRIN CHEWABLE 81 MG TABLET. PO SCH (07:57)
[2020-03-02] MEDS: POLYETHYLENE GLYCOL 3350 17 GM PACKET. PO SCH (07:57)
[2020-03-02] MEDS: PROPRANOLOL 10 MG TABLET. PO SCH ×2 (07:58→20:52)
[2020-03-02] MEDS: PANTOPRAZOLE 40 MG TABLET. PO SCH (07:58)
[2020-03-02] MEDS: MULTIVITAMIN with MINERAL TABLET. PO SCH (07:58)
[2020-03-02] MEDS: DOCUSATE SODIUM 100 MG CAPSULE PO SCH (07:58)
[2020-03-02] MEDS: FUROSEMIDE 40 MG TABLET PO SCH (07:58)
[2020-03-02] MEDS: SERTRALINE 50 MG TABLET. PO SCH (07:58)
[2020-03-02 16:16] VITALS: BP 117/62
--- NOTE | 2020-03-02 17:34 | TX PLAN ---
Interdisciplinary Tx Plan Admission Information Feb 19, 2020 at 14:32 Legal Status (on Admission): Voluntary DPOA/Guardian Name: Tim Olvera Contact Other Contact Name: Lynn Rosas Other Contact Verified Code Status: DNR Allergies: Coded Allergies: keratin (Verified Allergy, Unknown, 06/25/19) niacin (Verified Allergy, Unknown, 06/25/19) sucralfate (Verified Allergy, Unknown, 06/26/19) Diagnoses Primary Diagnosis: Major neurocognitive D/O; Alzheimer's Vascular with delusion, depression and behavioral disturbance; Anxiety D/O unspecified; Impulsive Control D/O Reasons for Admission: Aggressive, Agitated, Angry, Poor impulse control Problem in Patient's Words: Believes he is having a decrease in cognition and needs evaluated. However, pt tends to have periods of unpredictable behaviors. Additional Admission Comments: According to the intake, pt is physically and verbally aggressive, having angry outburst, explosive, non- compliant behvior, agitated, threatening to strike the nurse. Problems Active Problems: Verbally non-compliant Agitated Resistive at times Withdrawn to room Inactive Problems: N/A Pt Strengths/Limitations Ability for [place]: Poor Cognitive Functioning/Ability: Poor Communication Skills/Ability: Poor Financial Resources: Poor Insight/Judgement: Poor Intellectual Ability: Poor Physical Health: Poor Social Skills: Poor Stability in Family: Good Stability in School/Work: Poor Verbal Skills: Fair Discharge Criteria Discharge Criteria: No need for close observ., Adequate arrangements @DC, Improved behavior, Improved mood/thought Preliminary Discharge Plan Preliminary DC Plan: Current Living Arrange. Special Precautions Fall Risk: Low Initial D/C Plan Pt to return to [facility] once stable. Identified Discharge Needs: Follow up with PCP and out patient psychiatry. Currently Utilized Resources Currently Utilized Resources/P: Primary Care Physician Psychiatrist Referrals Community Resources: None Identified Problems/Hx/Goals Objectives/Short-Term Goals Short Term Goals: Dec. Aggression, Dec. 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 Education: Pt graduated from high school (12th grade) Treatment Plan Explained Patient/Manager Of Compliance had this treatment plan explained to him/her as indicated by the signature below and has been given the opportunity to ask questions and make suggestions: Date: Patient/Manager Of Compliance Signature: Status Update Update Pt is eating 75% of meals and sleeping on average 5 hours a night. Pt is withdrawn to his room, however able to state his name the year and knows he's in the hospital. Pt is calm and cooperative; mostly pleasantly confused. Pt does have skin tears which are noted to be from the "fall" he reports having last week but no one saw or heard him. Pt is taking Zoloft 50mg daily, Depakote ER 1250mg q HS, Remeron 15mg q HS, Exelon 13/3 mg daily and Namenda 10mg BID. Pt will plan to return to placement later this week; ROBINSON for . SOCORRO MARIE Mar 02, 2020 17:34
[2020-03-02] MEDS: ATORVASTATIN CALCIUM 10 MG TABLET. PO SCH (20:51)
[2020-03-02] MEDS: MIRTAZAPINE 15 MG TABLET PO SCH (20:51)
[2020-03-02] MEDS: rOPINIRole 1 MG TABLET. PO SCH (20:52)
[2020-03-02] MEDS: DIVALPROEX ER 500 MG TAB.ER.24H PO SCH (20:52)
[2020-03-02] MEDS: hydrOXYzine HCL 25 MG TABLET PO PRN (20:52)
[2020-03-02] MEDS: DIVALPROEX ER 250 MG TAB.ER.24H. PO SCH (20:52)
--- NOTE | 2020-03-02 21:57 | PDOC ---
Exam Note: Dontrell Note: Please also refer to the separate dictated note~for this date of service dictated separately.~Patient seen individually. Discussed the patient with Nursing staff reviewed the chart.~Reviewed interim history and current functioning. Reviewed vital signs,~Labs/ Radiology~and current medications noted below. Continue current treatment with the changes noted in the dictated addendum note Assessment: Vital Signs/I&O: Vital Signs Date Time Temp Pulse Resp B/P (MAP) Pulse Ox O2 Delivery O2 Flow Rate FiO2 03/02/20 20:52 55 117/62 03/02/20 16:16 97.9 16 98 02/29/20 16:14 Room Air I & O 03/01/20 03/01/20 03/02/20 15:00 23:00 07:00 Intake Total 600 ml 440 ml Balance 600 ml 440 ml Current Medications: I have reviewed the current psychotropics carefully including drug interactions. Risk benefit ratio favors no change other than as noted in my dictated progress note. 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
[2020-03-03 05:54] VITALS: BP 126/50
--- NOTE | 2020-03-03 07:05 | PDOC ---
Exam Note: Dontrell Note: This note is a late entry for 02/29/2020 covers elements not covered in my initial note. Subjective: The patient was evaluated face to face in the evening of 02/29/2020 with Bobby ANN. The patient slept 2-3/4 hours previous night. He was calm, cooperative. He was agitated in the morning. Later did okay. He has sustained skin tear left forearm. He was flailing his arms when nursing aids were assisting him with ADLs and they held onto him and had the skin tears. Review of Systems: No CV, , pulmonary, eye, ENT system symptoms on review. Mental Status Exam: Oriented to himself. Speech is coherent, has some latency. Abstraction is fair. Computation is impaired. Language function is intact. Attention span is short. No suicidal or homicidal ideation. Laboratory Data: Reviewed. Impression: Major neurocognitive disorder Alzheimer vascular with delusion, depression, behavioral disturbance. Anxiety disorder unspecified. Impulse control disorder unspecified. Plan: Continue current psychotropics. Increase Remeron from 7.5 mg h.s. to 15 mg h.s. Rest unchanged for now. Assessment: Vital Signs/I&O: Vital Signs Date Time Temp Pulse Resp B/P (MAP) Pulse Ox O2 Delivery O2 Flow Rate FiO2 03/03/20 05:54 97.9 55 18 126/50 (75) 92 02/29/20 16:14 Room Air I & O 03/02/20 03/02/20 03/03/20 15:00 23:00 07:00 Intake Total 360 ml 360 ml 240 ml Balance 360 ml 360 ml 240 ml Current Medications: I have reviewed the current psychotropics carefully including drug interactions. Risk benefit ratio favors no change other than as noted in my dictated progress note. Diagnosis: Problems: (1) Dementia of the Alzheimer's type with early onset with behavioral disturbance (2) Anxiety disorder (3) Dementia, vascular, with depression (4) Dementia, vascular, with delusions (5) Major neurocognitive disorder (6) Dementia in Alzheimer's disease with depression (7) Dementia in Alzheimer's disease with delusions (8) Impulse control disorder MAIRA SAAVEDRA MD Mar 03, 2020 07:05
--- NOTE | 2020-03-03 07:44 | PDOC ---
Exam Note: Dontrell Note: This note is a late entry for 03/01/2020 covers elements not covered in my initial note. Subjective: The patient was evaluated on telehealth rounds in the evening of 03/01/2020 with Remi Wall RN. Nursing report was with Bobby ANN. Overall the patient remains confused, has had a good day, had skin tears that are being addressed by nursing staff. He has not been aggressive with staff for a couple of days, which is an improvement. Review of Systems: No CV, , pulmonary, eye, ENT system symptoms on review. Reliability poor. Gait unsteady. Mental Status Exam: Oriented to himself. Speech is coherent, has some latency. Abstraction is fair. Computation is impaired. Language function is intact. Attention span is short. No suicidal or homicidal ideation. Laboratory Data: Reviewed. Impression: Major neurocognitive disorder Alzheimer vascular with delusion, depression, behavioral disturbance. Anxiety disorder unspecified. Impulse c ontrol disorder unspecified. Plan: No change from initial note. Assessment: Vital Signs/I&O: Vital Signs Date Time Temp Pulse Resp B/P (MAP) Pulse Ox O2 Delivery O2 Flow Rate FiO2 03/03/20 05:54 97.9 55 18 126/50 (75) 92 02/29/20 16:14 Room Air I & O 03/02/20 03/02/20 03/03/20 15:00 23:00 07:00 Intake Total 360 ml 360 ml 240 ml Balance 360 ml 360 ml 240 ml Current Medications: I have reviewed the current psychotropics carefully including drug interactions. Risk benefit ratio favors no change other than as noted in my dictated progress note. Diagnosis: Problems: (1) Dementia of the Alzheimer's type with early onset with behavioral disturbance (2) Anxiety disorder (3) Dementia, vascular, with depression (4) Dementia, vascular, with delusions (5) Major neurocognitive disorder (6) Dementia in Alzheimer's disease with depression (7) Dementia in Alzheimer's disease with delusions (8) Impulse control disorder MAIRA SAAVEDRA MD Mar 03, 2020 07:44
[2020-03-03] MEDS: ASPIRIN CHEWABLE 81 MG TABLET. PO SCH (10:21)
[2020-03-03] MEDS: RIVASTIGMINE 13.3MG PATCH. TD SCH (10:21)
[2020-03-03] MEDS: POLYETHYLENE GLYCOL 3350 17 GM PACKET. PO SCH (10:21)
[2020-03-03] MEDS: SERTRALINE 50 MG TABLET. PO SCH (10:21)
[2020-03-03] MEDS: FLUTICASONE 50MCG/NASAL SPRAY 16GM BOTTLE. NS SCH (10:21)
[2020-03-03] MEDS: MEMANTINE 10 MG TABLET. PO SCH ×2 (10:22→20:45)
[2020-03-03] MEDS: DOCUSATE SODIUM 100 MG CAPSULE PO SCH (10:22)
[2020-03-03] MEDS: MULTIVITAMIN with MINERAL TABLET. PO SCH (10:22)
[2020-03-03] MEDS: PANTOPRAZOLE 40 MG TABLET. PO SCH (10:22)
[2020-03-03] MEDS: PROPRANOLOL 10 MG TABLET. PO SCH ×2 (10:48→20:45)
[2020-03-03 10:50] VITALS: BP 92/52
[2020-03-03] MEDS: FUROSEMIDE 40 MG TABLET PO SCH (10:50)
[2020-03-03 16:15] VITALS: BP 119/54
[2020-03-03 20:07] VITALS: BP 133/56
[2020-03-03] MEDS: DIVALPROEX ER 250 MG TAB.ER.24H. PO SCH (20:44)
[2020-03-03] MEDS: DIVALPROEX ER 500 MG TAB.ER.24H PO SCH (20:44)
[2020-03-03] MEDS: MIRTAZAPINE 15 MG TABLET PO SCH (20:45)
[2020-03-03] MEDS: rOPINIRole 1 MG TABLET. PO SCH (20:45)
[2020-03-03] MEDS: ATORVASTATIN CALCIUM 10 MG TABLET. PO SCH (20:45)
[2020-03-03] MEDS: hydrOXYzine HCL 25 MG TABLET PO PRN (20:45)
--- NOTE | 2020-03-03 22:06 | PDOC ---
Exam Note: Dontrell Note: Please also refer to the separate dictated note~for this date of service dictated separately.~Patient seen individually. Discussed the patient with Nursing staff reviewed the chart.~Reviewed interim history and current functioning. Reviewed vital signs,~Labs/ Radiology~and current medications noted below. Continue current treatment with the changes noted in the dictated addendum note Assessment: Vital Signs/I&O: Vital Signs Date Time Temp Pulse Resp B/P (MAP) Pulse Ox O2 Delivery O2 Flow Rate FiO2 03/03/20 20:45 78 133/56 03/03/20 20:07 97.5 20 92 Room Air I & O 03/02/20 03/02/20 03/03/20 15:00 23:00 07:00 Intake Total 360 ml 360 ml 240 ml Balance 360 ml 360 ml 240 ml Current Medications: I have reviewed the current psychotropics carefully including drug interactions. Risk benefit ratio favors no change other than as noted in my dictated progress note. Diagnosis: Problems: (1) Dementia of the Alzheimer's type with early onset with behavioral disturbance (2) Anxiety disorder (3) Dementia, vascular, with depression (4) Dementia, vascular, with delusions (5) Major neurocognitive disorder (6) Dementia in Alzheimer's disease with depression (7) Dementia in Alzheimer's disease with delusions (8) Impulse control disorder MAIRA SAAVEDRA MD Mar 03, 2020 22:06
[2020-03-04 06:39] VITALS: BP 124/54
--- NOTE | 2020-03-04 07:17 | PDOC ---
Exam Note: Dontrell Note: This note is a late entry for 03/02/2020 covers elements not covered in my initial note. Subjective: The patient was reviewed face to face in the morning of 03/02/2020 with treatment team meeting with Abdi (social service staff), Carla, activity therapy, and Roland ANN. She slept 7 hours previous night. I met with him individually in the evening. He remains confused, pleasant. He got agitated previous night, needed a p.r.n. but during the day on 03/02 he was compliant spending time in his room, knew the year was 2019 and knew he was in the hospital which is an improvement for him. Review of Systems: Ambulation impaired with walker. No CV, , pulmonary, eye, ENT system symptoms on review. Reliability poor. Mental Status Exam: Oriented to himself. Speech has some latency, coherent. Abstraction is fair. Computation is impaired. Language function is intact. Attention span is short. No suicidal or homicidal ideation. Laboratory Data: Reviewed. Impression: Major neurocognitive disorder Alzheimer vascular with delusion, depression, behavioral disturbance. Anxiety disorder unspecified. Impulse control disorder unspecified. Plan: Continue the patient on his current psychotropics. Adjust further as clinically indicated. Assessment: Vital Signs/I&O: Vital Signs Date Time Temp Pulse Resp B/P (MAP) Pulse Ox O2 Delivery O2 Flow Rate FiO2 03/04/20 06:39 97.3 55 16 124/54 (77) 92 03/03/20 20:07 Room Air I & O 03/03/20 03/03/20 03/04/20 15:00 23:00 07:00 Intake Total 600 ml 360 ml Balance 600 ml 360 ml Current Medications: I have reviewed the current psychotropics carefully including drug interactions. Risk benefit ratio favors no change other than as noted in my dictated progress note. Diagnosis: Problems: (1) Dementia of the Alzheimer's type with early onset with behavioral disturbance (2) Anxiety disorder (3) Dementia, vascular, with depression (4) Dementia, vascular, with delusions (5) Major neurocognitive disorder (6) Dementia in Alzheimer's disease with depression (7) Dementia in Alzheimer's disease with delusions (8) Impulse control disorder MAIRA SAAVEDRA MD Mar 04, 2020 07:17
--- NOTE | 2020-03-04 07:30 | PDOC ---
Exam Note: Dontrell Note: This note is a late entry for 03/03/2020 covers elements not covered in my initial note. Subjective: The patient was evaluated on telehealth rounds in the evening of 03/03/2020 because of the COVID-19 pandemic restrictions with [facility] nursing aid. Nursing report was with Claudia ANN. He slept 4-3/4 hours previous night. Received Atarax at night. At times he forgets to wear his mask but he has been doing much better, redirectable for the past 3 days. Blood pressure was low. Inderal has been held per Dr. Aguilar. COVID screen has been redone. Review of Systems: No CV, , pulmonary, eye, ENT system symptoms on review. Ambulation impaired with walker. Mental Status Exam: Oriented to himself. Speech is coherent, has some latency. Abstraction is fair. Computation is impaired. Language function is intact. Attention span is short. No suicidal or homicidal ideation. Laboratory Data: Reviewed. Impression: Major neurocognitive disorder Alzheimer vascular with delusion, depression, behavioral disturbance. Anxiety disorder unspecified. Impulse control disorder unspecified. Plan: No change from initial note. Assessment: Vital Signs/I&O: Vital Signs Date Time Temp Pulse Resp B/P (MAP) Pulse Ox O2 Delivery O2 Flow Rate FiO2 03/04/20 06:39 97.3 55 16 124/54 (77) 92 03/03/20 20:07 Room Air I & O 03/03/20 03/03/20 03/04/20 15:00 23:00 07:00 Intake Total 600 ml 360 ml Balance 600 ml 360 ml Current Medications: I have reviewed the current psychotropics carefully including drug interactions. Risk benefit ratio favors no change other than as noted in my dictated progress note. Diagnosis: Problems: (1) Dementia of the Alzheimer's type with early onset with behavioral disturbance (2) Anxiety disorder (3) Dementia, vascular, with depression (4) Dementia, vascular, with delusions (5) Major neurocognitive disorder (6) Dementia in Alzheimer's disease with depression (7) Dementia in Alzheimer's disease with delusions (8) Impulse control disorder MAIRA SAAVEDRA MD Mar 04, 2020 07:30
[2020-03-04 09:45] VITALS: BP 100/49
[2020-03-04] MEDS: FLUTICASONE 50MCG/NASAL SPRAY 16GM BOTTLE. NS SCH (09:46)
[2020-03-04] MEDS: RIVASTIGMINE 13.3MG PATCH. TD SCH (09:47)
[2020-03-04] MEDS: POLYETHYLENE GLYCOL 3350 17 GM PACKET. PO SCH (09:47)
[2020-03-04] MEDS: MULTIVITAMIN with MINERAL TABLET. PO SCH (09:48)
[2020-03-04] MEDS: SERTRALINE 50 MG TABLET. PO SCH (09:48)
[2020-03-04] MEDS: FUROSEMIDE 40 MG TABLET PO SCH (09:48)
[2020-03-04] MEDS: DOCUSATE SODIUM 100 MG CAPSULE PO SCH (09:49)
[2020-03-04] MEDS: PROPRANOLOL 10 MG TABLET. PO SCH ×2 (09:49→21:05)
[2020-03-04] MEDS: PANTOPRAZOLE 40 MG TABLET. PO SCH (09:49)
[2020-03-04] MEDS: MEMANTINE 10 MG TABLET. PO SCH ×2 (09:49→21:05)
[2020-03-04] MEDS: ASPIRIN CHEWABLE 81 MG TABLET. PO SCH (09:49)
[2020-03-04 16:24] VITALS: BP 129/59
[2020-03-04 19:36] VITALS: BP 124/62
[2020-03-04] MEDS: MIRTAZAPINE 15 MG TABLET PO SCH (21:04)
[2020-03-04] MEDS: DIVALPROEX ER 250 MG TAB.ER.24H. PO SCH (21:04)
[2020-03-04] MEDS: DIVALPROEX ER 500 MG TAB.ER.24H PO SCH (21:05)
[2020-03-04] MEDS: hydrOXYzine HCL 25 MG TABLET PO SCH (21:05)
[2020-03-04] MEDS: rOPINIRole 1 MG TABLET. PO SCH (21:05)
[2020-03-04] MEDS: ATORVASTATIN CALCIUM 10 MG TABLET. PO SCH (21:06)
--- NOTE | 2020-03-04 22:04 | PDOC ---
Exam Note: Dontrell Note: Please also refer to the separate dictated note~for this date of service dictated separately.~Patient seen individually. Discussed the patient with Nursing staff reviewed the chart.~Reviewed interim history and current functioning. Reviewed vital signs,~Labs/ Radiology~and current medications noted below. Continue current treatment with the changes noted in the dictated addendum note Assessment: Vital Signs/I&O: Vital Signs Date Time Temp Pulse Resp B/P (MAP) Pulse Ox O2 Delivery O2 Flow Rate FiO2 03/04/20 21:53 97.9 94 03/04/20 21:05 60 124/62 03/04/20 16:24 16 03/03/20 20:07 Room Air I & O 03/03/20 03/03/20 03/04/20 15:00 23:00 07:00 Intake Total 600 ml 360 ml Balance 600 ml 360 ml Current Medications: Meds: Current Medications Medications (Trade) Dose Ordered Sig/Radha Route PRN Reason Start Time Stop Time Status Last Admin Dose Admin Hydroxyzine HCl (Atarax) 25 mg HS PO 03/04/20 21:00 03/04/20 21:05 I have reviewed the current psychotropics carefully including drug interactions. Risk benefit ratio favors no change other than as noted in my dictated progress note. Diagnosis: Problems: (1) Dementia of the Alzheimer's type with early onset with behavioral disturbance (2) Anxiety disorder (3) Dementia, vascular, with depression (4) Dementia, vascular, with delusions (5) Major neurocognitive disorder (6) Dementia in Alzheimer's disease with depression (7) Dementia in Alzheimer's disease with delusions (8) Impulse control disorder MAIRA SAAVEDRA MD Mar 04, 2020 22:03
[2020-03-05 07:14] VITALS: BP 124/67
[2020-03-05] MEDS: SERTRALINE 50 MG TABLET. PO SCH (08:41)
[2020-03-05] MEDS: FLUTICASONE 50MCG/NASAL SPRAY 16GM BOTTLE. NS SCH (08:41)
[2020-03-05] MEDS: RIVASTIGMINE 13.3MG PATCH. TD SCH (08:41)
[2020-03-05] MEDS: POLYETHYLENE GLYCOL 3350 17 GM PACKET. PO SCH (08:41)
[2020-03-05] MEDS: DOCUSATE SODIUM 100 MG CAPSULE PO SCH (08:42)
[2020-03-05] MEDS: FUROSEMIDE 40 MG TABLET PO SCH (08:42)
[2020-03-05] MEDS: PANTOPRAZOLE 40 MG TABLET. PO SCH (08:42)
[2020-03-05] MEDS: ASPIRIN CHEWABLE 81 MG TABLET. PO SCH (08:42)
[2020-03-05] MEDS: PROPRANOLOL 10 MG TABLET. PO SCH ×2 (08:42→22:09)
[2020-03-05] MEDS: MULTIVITAMIN with MINERAL TABLET. PO SCH (08:43)
[2020-03-05] MEDS: MEMANTINE 10 MG TABLET. PO SCH ×2 (08:43→22:08)
[2020-03-05 16:38] VITALS: BP 124/65
--- NOTE | 2020-03-05 22:04 | PDOC ---
Exam Note: Dontrell Note: Please also refer to the separate dictated note~for this date of service dictated separately.~Patient seen individually. Discussed the patient with Nursing staff reviewed the chart.~Reviewed interim history and current functioning. Reviewed vital signs,~Labs/ Radiology~and current medications noted below. Continue current treatment with the changes noted in the dictated addendum note Assessment: Vital Signs/I&O: Vital Signs Date Time Temp Pulse Resp B/P (MAP) Pulse Ox O2 Delivery O2 Flow Rate FiO2 03/05/20 16:38 97.2 58 16 124/65 (84) 96 03/03/20 20:07 Room Air I & O 03/04/20 03/04/20 03/05/20 15:00 23:00 07:00 Intake Total 360 ml 320 ml Balance 360 ml 320 ml Current Medications: I have reviewed the current psychotropics carefully including drug interactions. Risk benefit ratio favors no change other than as noted in my dictated progress note. Diagnosis: Problems: (1) Dementia of the Alzheimer's type with early onset with behavioral disturbance (2) Anxiety disorder (3) Dementia, vascular, with depression (4) Dementia, vascular, with delusions (5) Major neurocognitive disorder (6) Dementia in Alzheimer's disease with depression (7) Dementia in Alzheimer's disease with delusions (8) Impulse control disorder MAIRA SAAVEDRA MD Mar 05, 2020 22:04
[2020-03-05] MEDS: rOPINIRole 1 MG TABLET. PO SCH (22:08)
[2020-03-05] MEDS: MIRTAZAPINE 15 MG TABLET PO SCH (22:08)
[2020-03-05] MEDS: DIVALPROEX ER 250 MG TAB.ER.24H. PO SCH (22:09)
[2020-03-05] MEDS: ATORVASTATIN CALCIUM 10 MG TABLET. PO SCH (22:09)
[2020-03-05] MEDS: DIVALPROEX ER 500 MG TAB.ER.24H PO SCH (22:09)
[2020-03-05] MEDS: hydrOXYzine HCL 25 MG TABLET PO SCH (22:10)
[2020-03-06 06:30] VITALS: BP 130/66
--- NOTE | 2020-03-06 07:05 | PDOC ---
Exam Note: Dontrell Note: This note is a late entry for 03/04/2020 covers elements not covered in my initial note. Subjective: The patient was evaluated face to face in the evening of 03/04/2020 with Claudia ANN. He slept 6-1/2 hours previous night. He takes medications whole. He remains confused. States he is still working. Review of Systems: No CV, , pulmonary, eye, ENT system symptoms on review. Gait unsteady with walker. Mental Status Exam: Oriented to himself. Insight and judgment, recent and remote memory, attention and concentration, fund of knowledge is poor consistent with his diagnoses. Laboratory Data: Reviewed. Impression: Major neurocognitive disorder Alzheimer vascular with delusion, depression, behavioral disturbance. Anxiety disorder unspecified. Impulse control disorder unspecified. Plan: No change from initial note. Assessment: Vital Signs/I&O: Vital Signs Date Time Temp Pulse Resp B/P (MAP) Pulse Ox O2 Delivery O2 Flow Rate FiO2 03/06/20 06:30 97.9 60 20 130/66 (87) 94 03/03/20 20:07 Room Air I & O 03/05/20 03/05/20 03/06/20 14:59 22:59 06:59 Intake Total 600 ml 360 ml Balance 600 ml 360 ml Current Medications: I have reviewed the current psychotropics carefully including drug interactions. Risk benefit ratio favors no change other than as noted in my dictated progress note. Diagnosis: Problems: (1) Dementia of the Alzheimer's type with early onset with behavioral disturbance (2) Anxiety disorder (3) Dementia, vascular, with depression (4) Dementia, vascular, with delusions (5) Major neurocognitive disorder (6) Dementia in Alzheimer's disease with depression (7) Dementia in Alzheimer's disease with delusions (8) Impulse control disorder MAIRA SAAVEDRA MD Mar 06, 2020 07:05
--- NOTE | 2020-03-06 07:35 | PDOC ---
Exam Note: Dontrell Note: This note is a late entry for 03/05/2020 covers elements not covered in my initial note. Subjective: The patient was evaluated face to face in the evening of 03/05/2020 with Claudia ANN. He slept reasonably previous night. He remains confused but redirectable. I received a call from [facility] social service staff that nursing staff are concerned that the patients behaviors might resurface once he returns and they were wondering if we could make further psychotropic changes to help with this. Review of Systems: No CV, , pulmonary, eye system symptoms on review. Ambulation impaired with walker. Mental Status Exam: Oriented to himself. Insight and judgment, recent and remote memory, attention and concentration, fund of knowledge is poor consistent with his diagnoses. Laboratory Data: Reviewed. Impression: Major neurocognitive disorder Alzheimer vascular with delusion, depression, behavioral disturbance. Anxiety disorder unspecified. Impulse control disorder unspecified. Plan: We will go ahead and add Seroquel 12.5 mg 9 a.m. and 5 p.m. Continue rest psychotropics unchanged. Assessment: Vital Signs/I&O: Vital Signs Date Time Temp Pulse Resp B/P (MAP) Pulse Ox O2 Delivery O2 Flow Rate FiO2 03/06/20 06:30 97.9 60 20 130/66 (87) 94 03/03/20 20:07 Room Air I & O 03/05/20 03/05/20 03/06/20 15:00 23:00 07:00 Intake Total 600 ml 360 ml Balance 600 ml 360 ml Current Medications: I have reviewed the current psychotropics carefully including drug interactions. Risk benefit ratio favors no change other than as noted in my dictated progress note. Diagnosis: Problems: (1) Dementia of the Alzheimer's type with early onset with behavioral dis turbance (2) Anxiety disorder (3) Dementia, vascular, with depression (4) Dementia, vascular, with delusions (5) Major neurocognitive disorder (6) Dementia in Alzheimer's disease with depression (7) Dementia in Alzheimer's disease with delusions (8) Impulse control disorder AMIRA SAAVEDRA MD Mar 06, 2020 07:35
[2020-03-06] MEDS: PANTOPRAZOLE 40 MG TABLET. PO SCH (08:00)
[2020-03-06] MEDS: SERTRALINE 50 MG TABLET. PO SCH (08:00)
[2020-03-06] MEDS: FUROSEMIDE 40 MG TABLET PO SCH (08:01)
[2020-03-06] MEDS: RIVASTIGMINE 13.3MG PATCH. TD SCH (08:01)
[2020-03-06] MEDS: ASPIRIN CHEWABLE 81 MG TABLET. PO SCH (08:01)
[2020-03-06] MEDS: MULTIVITAMIN with MINERAL TABLET. PO SCH (08:01)
[2020-03-06] MEDS: MEMANTINE 10 MG TABLET. PO SCH ×2 (08:01→21:57)
[2020-03-06] MEDS: DOCUSATE SODIUM 100 MG CAPSULE PO SCH (08:01)
[2020-03-06] MEDS: POLYETHYLENE GLYCOL 3350 17 GM PACKET. PO SCH (08:01)
[2020-03-06] MEDS: PROPRANOLOL 10 MG TABLET. PO SCH ×2 (08:02→21:58)
[2020-03-06] MEDS: QUEtiapine 25 MG TABLET. PO SCH ×2 (08:03→16:30)
[2020-03-06] MEDS: FLUTICASONE 50MCG/NASAL SPRAY 16GM BOTTLE. NS SCH (08:04)
[2020-03-06 17:02] VITALS: BP 116/68
[2020-03-06] MEDS: DIVALPROEX ER 500 MG TAB.ER.24H PO SCH (21:57)
[2020-03-06] MEDS: MIRTAZAPINE 15 MG TABLET PO SCH (21:57)
[2020-03-06] MEDS: ATORVASTATIN CALCIUM 10 MG TABLET. PO SCH (21:57)
[2020-03-06] MEDS: hydrOXYzine HCL 25 MG TABLET PO SCH (21:57)
[2020-03-06] MEDS: DIVALPROEX ER 250 MG TAB.ER.24H. PO SCH (21:57)
[2020-03-06] MEDS: rOPINIRole 1 MG TABLET. PO SCH (21:58)
--- NOTE | 2020-03-06 21:59 | PDOC ---
Exam Note: Dontrell Note: Please also refer to the separate dictated note~for this date of service dictated separately.~Patient seen individually. Discussed the patient with Nursing staff reviewed the chart.~Reviewed interim history and current functioning. Reviewed vital signs,~Labs/ Radiology~and current medications noted below. Continue current treatment with the changes noted in the dictated addendum note Assessment: Vital Signs/I&O: Vital Signs Date Time Temp Pulse Resp B/P (MAP) Pulse Ox O2 Delivery O2 Flow Rate FiO2 03/06/20 17:02 98.1 57 18 116/68 (84) 97 03/03/20 20:07 Room Air I & O 03/05/20 03/05/20 03/06/20 15:00 23:00 07:00 Intake Total 600 ml 360 ml Balance 600 ml 360 ml Current Medications: Meds: Current Medications Medications (Trade) Dose Ordered Sig/Radha Route PRN Reason Start Time Stop Time Status Last Admin Dose Admin Quetiapine Fumarate (SEROquel) 12.5 mg BID@0900,1700 PO 03/06/20 09:00 03/06/20 16:30 I have reviewed the current psychotropics carefully including drug interactions. Risk benefit ratio favors no change other than as noted in my dictated progress note. Diagnosis: Problems: (1) Dementia of the Alzheimer's type with early onset with behavioral disturbance (2) Anxiety disorder (3) Dementia, vascular, with depression (4) Dementia, vascular, with delusions (5) Major neurocognitive disorder (6) Dementia in Alzheimer's disease with depression (7) Dementia in Alzheimer's disease with delusions (8) Impulse control disorder MAIRA SAAVEDRA MD Mar 06, 2020 21:59
[2020-03-07 05:55] VITALS: BP 133/62
[2020-03-07 08:47] LABS: BASO % 0 % (0-3); EOS # 0.4 x10^3/uL (0.0-0.7); EOS % 6 % (0-3); HEMATOCRIT 38.7 % (39.0-53.0); HEMOGLOBIN 12.9 g/dL (13.0-17.5); LYMPH # 1.6 x10^3/uL (1.0-4.8); LYMPH % 22 % (24-48); MEAN CORPUSCULAR HEMOGLOBIN 33 pg (25-35); MEAN CORPUSCULAR HGB CONC 33 g/dL (31-37); MEAN CORPUSCULAR VOLUME 97 fL (79-100); MONO # 0.9 x10^3/uL (0.0-1.1); MONO % 13 % (0-9); NEUT # 4.2 x10^3uL (1.8-7.7); NEUT % 59 % (31-73); PLATELET COUNT 141 x10^3/uL (140-400); RED BLOOD COUNT 3.98 x10^6/uL (4.30-5.70); RED CELL DISTRIBUTION WIDTH 14.6 % (11.5-14.5); WHITE BLOOD COUNT 7.2 x10^3/uL (4.0-11.0)
[2020-03-07] MEDS: FLUTICASONE 50MCG/NASAL SPRAY 16GM BOTTLE. NS SCH (09:03)
[2020-03-07] MEDS: POLYETHYLENE GLYCOL 3350 17 GM PACKET. PO SCH (09:03)
[2020-03-07] MEDS: RIVASTIGMINE 13.3MG PATCH. TD SCH (09:03)
[2020-03-07] MEDS: MULTIVITAMIN with MINERAL TABLET. PO SCH (09:04)
[2020-03-07] MEDS: PANTOPRAZOLE 40 MG TABLET. PO SCH (09:04)
[2020-03-07] MEDS: PROPRANOLOL 10 MG TABLET. PO SCH ×2 (09:04→22:11)
[2020-03-07] MEDS: FUROSEMIDE 40 MG TABLET PO SCH (09:04)
[2020-03-07] MEDS: DOCUSATE SODIUM 100 MG CAPSULE PO SCH (09:04)
[2020-03-07] MEDS: QUEtiapine 25 MG TABLET. PO SCH ×2 (09:04→17:13)
[2020-03-07] MEDS: ASPIRIN CHEWABLE 81 MG TABLET. PO SCH (09:04)
[2020-03-07] MEDS: MEMANTINE 10 MG TABLET. PO SCH ×2 (09:04→22:00)
[2020-03-07] MEDS: SERTRALINE 50 MG TABLET. PO SCH (09:04)
[2020-03-07 09:43] LABS: ALBUMIN 2.8 g/dL (3.4-5.0); ALBUMIN/GLOBULIN RATIO 0.7 (1.0-1.7); CREATININE 1.1 mg/dL (0.7-1.3); GFR 63.6; POTASSIUM 4.7 mmol/L (3.5-5.1); TOTAL BILIRUBIN 0.4 mg/dL (0.2-1.0); TOTAL PROTEIN 7.1 g/dL (6.4-8.2)
[2020-03-07 15:50] VITALS: BP 134/70
--- NOTE | 2020-03-07 21:57 | PDOC ---
Exam Note: Dontrell Note: Please also refer to the separate dictated note~for this date of service dictated separately.~Patient seen individually. Discussed the patient with Nursing staff reviewed the chart.~Reviewed interim history and current functioning. Reviewed vital signs,~Labs/ Radiology~and current medications noted below. Continue current treatment with the changes noted in the dictated addendum note Assessment: Vital Signs/I&O: Vital Signs Date Time Temp Pulse Resp B/P (MAP) Pulse Ox O2 Delivery O2 Flow Rate FiO2 03/07/20 15:50 97.6 63 16 134/70 (91) 95 Room Air I & O 03/06/20 03/06/20 03/07/20 15:00 23:00 07:00 Intake Total 600 ml 360 ml Balance 600 ml 360 ml Labs: Laboratory Tests Test 03/07/20 08:00 White Blood Count 7.2 x10^3/uL (4.0-11.0) Red Blood Count 3.98 x10^6/uL (4.30-5.70) L Hemoglobin 12.9 g/dL (13.0-17.5) L Hematocrit 38.7 % (39.0-53.0) L Mean Corpuscular Volume 97 fL (79-100) Mean Corpuscular Hemoglobin 33 pg (25-35) Mean Corpuscular Hemoglobin Concent 33 g/dL (31-37) Red Cell Distribution Width 14.6 % (11.5-14.5) H Platelet Count 141 x10^3/uL (140-400) Neutrophils (%) (Auto) 59 % (31-73) Lymphocytes (%) (Auto) 22 % (24-48) L Monocytes (%) (Auto) 13 % (0-9) H Eosinophils (%) (Auto) 6 % (0-3) H Basophils (%) (Auto) 0 % (0-3) Neutrophils # (Auto) 4.2 x10^3uL (1.8-7.7) Lymphocytes # (Auto) 1.6 x10^3/uL (1.0-4.8) Monocytes # (Auto) 0.9 x10^3/uL (0.0-1.1) Eosinophils # (Auto) 0.4 x10^3/uL (0.0-0.7) Basophils # (Auto) 0.0 x10^3/uL (0.0-0.2) Sodium Level 138 mmol/L (136-145) Potassium Level 4.7 mmol/L (3.5-5.1) Chloride Level 102 mmol/L (98-107) Carbon Dioxide Level 32 mmol/L (21-32) Anion Gap 4 (6-14) L Blood Urea Nitrogen 28 mg/dL (8-26) H Creatinine 1.1 mg/dL (0.7-1.3) Estimated GFR (Cockcroft-Gault) 63.6 BUN/Creatinine Ratio 25 (6-20) H Glucose Level 88 mg/dL (70-99) Calcium Level 9.0 mg/dL (8.5-10.1) Total Bilirubin 0.4 mg/dL (0.2-1.0) Aspartate Amino Transferase (AST) 35 U/L (15-37) Alanine Aminotransferase (ALT) 24 U/L (16-63) Alkaline Phosphatase 95 U/L (46-116) Total Protein 7.1 g/dL (6.4-8.2) Albumin 2.8 g/dL (3.4-5.0) L Albumin/Globulin Ratio 0.7 (1.0-1.7) L Current Medications: I have reviewed the current psychotropics carefully including drug interactions. Risk benefit ratio favors no change other than as noted in my dictated progress note. Diagnosis: Problems: (1) Dementia of the Alzheimer's type with early onset with behavioral disturbance (2) Anxiety disorder (3) Dementia, vascular, with depression (4) Dementia, vascular, with delusions (5) Major neurocognitive disorder (6) Dementia in Alzheimer's disease with depression (7) Dementia in Alzheimer's disease with delusions (8) Impulse control disorder MAIRA SAAVEDRA MD Mar 07, 2020 21:57
[2020-03-07] MEDS: DIVALPROEX ER 500 MG TAB.ER.24H PO SCH (21:59)
[2020-03-07] MEDS: MIRTAZAPINE 15 MG TABLET PO SCH (21:59)
[2020-03-07] MEDS: DIVALPROEX ER 250 MG TAB.ER.24H. PO SCH (21:59)
[2020-03-07] MEDS: hydrOXYzine HCL 25 MG TABLET PO SCH (22:00)
[2020-03-07] MEDS: ATORVASTATIN CALCIUM 10 MG TABLET. PO SCH (22:00)
[2020-03-07] MEDS: rOPINIRole 1 MG TABLET. PO SCH (22:00)
[2020-03-08 05:48] VITALS: BP 132/63
[2020-03-08] MEDS: FLUTICASONE 50MCG/NASAL SPRAY 16GM BOTTLE. NS SCH (08:38)
[2020-03-08] MEDS: POLYETHYLENE GLYCOL 3350 17 GM PACKET. PO SCH (08:38)
[2020-03-08] MEDS: FUROSEMIDE 40 MG TABLET PO SCH (08:39)
[2020-03-08] MEDS: ASPIRIN CHEWABLE 81 MG TABLET. PO SCH (08:39)
[2020-03-08] MEDS: DOCUSATE SODIUM 100 MG CAPSULE PO SCH (08:39)
[2020-03-08] MEDS: SERTRALINE 50 MG TABLET. PO SCH (08:39)
[2020-03-08] MEDS: RIVASTIGMINE 13.3MG PATCH. TD SCH (08:39)
[2020-03-08] MEDS: PANTOPRAZOLE 40 MG TABLET. PO SCH (08:39)
[2020-03-08] MEDS: MEMANTINE 10 MG TABLET. PO SCH ×2 (08:39→21:28)
[2020-03-08] MEDS: QUEtiapine 25 MG TABLET. PO SCH ×2 (08:40→16:52)
[2020-03-08] MEDS: MULTIVITAMIN with MINERAL TABLET. PO SCH (08:40)
[2020-03-08] MEDS: PROPRANOLOL 10 MG TABLET. PO SCH ×2 (08:40→21:27)
[2020-03-08 15:47] VITALS: BP 132/62
[2020-03-08] MEDS: DIVALPROEX ER 500 MG TAB.ER.24H PO SCH (21:26)
[2020-03-08] MEDS: DIVALPROEX ER 250 MG TAB.ER.24H. PO SCH (21:26)
[2020-03-08] MEDS: hydrOXYzine HCL 25 MG TABLET PO SCH (21:27)
[2020-03-08] MEDS: MIRTAZAPINE 15 MG TABLET PO SCH (21:27)
[2020-03-08] MEDS: rOPINIRole 1 MG TABLET. PO SCH (21:27)
[2020-03-08] MEDS: ATORVASTATIN CALCIUM 10 MG TABLET. PO SCH (21:28)
--- NOTE | 2020-03-08 22:02 | PDOC ---
Exam Note: Dontrell Note: Please also refer to the separate dictated note~for this date of service dictated separately.~Patient seen individually. Discussed the patient with Nursing staff reviewed the chart.~Reviewed interim history and current functioning. Reviewed vital signs,~Labs/ Radiology~and current medications noted below. Continue current treatment with the changes noted in the dictated addendum note Assessment: Vital Signs/I&O: Vital Signs Date Time Temp Pulse Resp B/P (MAP) Pulse Ox O2 Delivery O2 Flow Rate FiO2 03/08/20 21:27 77 134/63 03/08/20 21:00 98.4 92 Room Air 03/08/20 15:47 17 I & O 03/07/20 03/07/20 03/08/20 15:00 23:00 07:00 Intake Total 600 ml 0 ml 120 ml Balance 600 ml 0 ml 120 ml Current Medications: I have reviewed the current psychotropics carefully including drug interactions. Risk benefit ratio favors no change other than as noted in my dictated progress note. Diagnosis: Problems: (1) Dementia of the Alzheimer's type with early onset with behavioral disturbance (2) Anxiety disorder (3) Dementia, vascular, with depression (4) Dementia, vascular, with delusions (5) Major neurocognitive disorder (6) Dementia in Alzheimer's disease with depression (7) Dementia in Alzheimer's disease with delusions (8) Impulse control disorder MAIRA SAAVEDRA MD Mar 08, 2020 22:02
[2020-03-09 05:56] VITALS: BP 118/81
--- NOTE | 2020-03-09 07:01 | PDOC ---
Exam Note: Dontrell Note: This note is a late entry for 03/06/2020 covers elements not covered in my initial note. Subjective: The patient was evaluated on telehealth rounds in the evening of 03/06/2020 with [facility] nursing aid as one of the patients on the unit has tested positive for COVID-19 and unit is on a lockdown with no admission and discharges. That is the reason I am doing telehealth rounds to minimize any further spread of the infection. Nursing report with Serena ANN. The patient has done reasonably well. He remains confused. He slept 5 hours previous night. Review of Systems: No CV, , pulmonary, eye system symptoms on review. Reliability poor. Mental Status Exam: Oriented to himself. Insight and judgment, recent and remote memory, attention and concentration, fund of knowledge is poor consistent with his diagnoses. Laboratory Data: Reviewed. Impression: Major neurocognitive disorder Alzheimer vascular with delusion, depression, behavioral disturbance. Anxiety disorder unspecified. Impulse control disorder unspecified. Plan: Continue rest psychotropics unchanged. Assessment: Vital Signs/I&O: Vital Signs Date Time Temp Pulse Resp B/P (MAP) Pulse Ox O2 Delivery O2 Flow Rate FiO2 03/09/20 05:56 97.5 60 16 118/81 (93) 92 Room Air I & O 03/08/20 03/08/20 03/09/20 15:00 23:00 07:00 Intake Total 600 ml 360 ml Balance 600 ml 360 ml Current Medications: I have reviewed the current psychotropics carefully including drug interactions. Risk benefit ratio favors no change other than as noted in my dictated progress note. Diagnosis: Problems: (1) Dementia of the Alzheimer's type with early onset with behavioral disturbance (2) Anxiety disorder (3) Dementia, vascular, with depression (4) Dementia, vascular, with delusions (5) Major neurocognitive disorder (6) Dementia in Alzheimer's disease with depression (7) Dementia in Alzheimer's disease with delusions (8) Impulse control disorder MAIRA SAAVEDRA MD Mar 09, 2020 07:01
--- NOTE | 2020-03-09 07:18 | PDOC ---
Exam Note: Dontrell Note: This note is a late entry for 03/07/2020 covers elements not covered in my initial note. Subjective: The patient was evaluated on telehealth rounds in the evening of 03/07/2020 with [facility] nursing aid as one of the patients on the unit has tested positive for COVID-19 and unit is on a lockdown with no admission and discharges. That is the reason I am doing telehealth rounds to minimize any further spread of the infection. Nursing report with Bobby ANN. He slept 6-1/2 hours previous night. He is fairly calm, took a nap, quite polite. Review of Systems: No CV, , pulmonary, eye system symptoms on review. Reliability poor. Mental Status Exam: Insight and judgment, recent and remote memory, attention and concentration, fund of knowledge is poor consistent with his diagnoses. Laboratory Data: Reviewed. Impression: Major neurocognitive disorder Alzheimer vascular with delusion, depression, behavioral disturbance. Anxiety disorder unspecified. Impulse control disorder unspecified. Plan: No change from initial note. Assessment: Vital Signs/I&O: Vital Signs Date Time Temp Pulse Resp B/P (MAP) Pulse Ox O2 Delivery O2 Flow Rate FiO2 03/09/20 05:56 97.5 60 16 118/81 (93) 92 Room Air I & O 03/08/20 03/08/20 03/09/20 15:00 23:00 07:00 Intake Total 600 ml 360 ml Balance 600 ml 360 ml Current Medications: I have reviewed the current psychotropics carefully including drug interactions. Risk benefit ratio favors no change other than as noted in my dictated progress note. Diagnosis: Problems: (1) Dementia of the Alzheimer's type with early onset with behavioral disturbance (2) Anxiety disorder (3) Dementia, vascular, with depression (4) Dementia, vascular, with delusions (5) Major neurocognitive disorder (6) Dementia in Alzheimer's disease with depression (7) Dementia in Alzheimer's disease with delusions (8) Impulse control disorder MAIRA SAAVEDRA MD Mar 09, 2020 07:18
--- NOTE | 2020-03-09 07:28 | PDOC ---
Exam Note: Dontrell Note: This note is a late entry for 03/08/2020 covers elements not covered in my initial note. Subjective: The patient was evaluated on telehealth rounds in the evening of 03/08/2020 with [facility] nursing aid as one of the patients on the unit has tested positive for COVID-19 and unit is on a lockdown with no admission and discharges. That is the reason I am doing telehealth rounds to minimize any further spread of the infection. Nursing report with Bobby ANN. He slept 7-1/2 hours previous night. He has been calmer. He remains confused. Review of Systems: No CV, , pulmonary, eye system symptoms on review. Mental Status Exam: Oriented to himself. Insight and judgment, recent and remote memory, attention and concentration, fund of knowledge is poor consistent with his diagnoses. Laboratory Data: Reviewed. Impression: Major neurocognitive disorder Alzheimer vascular with delusion, depression, behavioral disturbance. Anxiety disorder unspecified. Impulse control disorder unspecified. Plan: No change from initial note. Assessment: Vital Signs/I&O: Vital Signs Date Time Temp Pulse Resp B/P (MAP) Pulse Ox O2 Delivery O2 Flow Rate FiO2 03/09/20 05:56 97.5 60 16 118/81 (93) 92 Room Air I & O 03/08/20 03/08/20 03/09/20 15:00 23:00 07:00 Intake Total 600 ml 360 ml Balance 600 ml 360 ml Current Medications: I have reviewed the current psychotropics carefully including drug interactions. Risk benefit ratio favors no change other than as noted in my dictated progress note. Diagnosis: Problems: (1) Dementia of the Alzheimer's type with early onset with behavioral disturbance (2) Anxiety disorder (3) Dementia, vascular, with depression (4) Dementia, vascular, with delusions (5) Major neurocognitive disorder (6) Dementia in Alzheimer's disease with depression (7) Dementia in Alzheimer's disease with delusions (8) Impulse control disorder MAIRA SAAVEDRA MD Mar 09, 2020 07:28
[2020-03-09] MEDS: MULTIVITAMIN with MINERAL TABLET. PO SCH (08:24)
[2020-03-09] MEDS: QUEtiapine 25 MG TABLET. PO SCH (08:24)
[2020-03-09] MEDS: DOCUSATE SODIUM 100 MG CAPSULE PO SCH (08:24)
[2020-03-09] MEDS: ASPIRIN CHEWABLE 81 MG TABLET. PO SCH (08:24)
[2020-03-09] MEDS: PROPRANOLOL 10 MG TABLET. PO SCH (08:24)
[2020-03-09] MEDS: FUROSEMIDE 40 MG TABLET PO SCH (08:25)
[2020-03-09] MEDS: MEMANTINE 10 MG TABLET. PO SCH (08:25)
[2020-03-09] MEDS: SERTRALINE 50 MG TABLET. PO SCH (08:25)
[2020-03-09] MEDS: PANTOPRAZOLE 40 MG TABLET. PO SCH (08:25)
[2020-03-09] MEDS: RIVASTIGMINE 13.3MG PATCH. TD SCH (08:26)
[2020-03-09] MEDS: POLYETHYLENE GLYCOL 3350 17 GM PACKET. PO SCH (08:27)
[2020-03-09] MEDS: FLUTICASONE 50MCG/NASAL SPRAY 16GM BOTTLE. NS SCH (08:28)
[2020-03-09] MEDS ORDERED: PANT40TA3 PO (15:24)
[2020-03-09] MEDS ORDERED: DIVA500T4 PO (15:28)
[2020-03-09] MEDS ORDERED: IPRA4AER INH (15:28)
[2020-03-09] MEDS ORDERED: DIVA250T PO (15:29)
[2020-03-09] MEDS ORDERED: FLUT16SP21 NS (15:30)
[2020-03-09] MEDS ORDERED: MAG355OR12 PO (15:31)
[2020-03-09] MEDS ORDERED: MAGN24003 PO (15:32)
[2020-03-09] MEDS ORDERED: METH28OI2 TP (15:32)
[2020-03-09] MEDS ORDERED: QUET25TA5 PO (15:33)
[2020-03-09] MEDS ORDERED: MIRT15TA PO (15:33)
[2020-03-09] MEDS ORDERED: HYDR25TA PO (15:34)
[2020-03-09 16:36] VITALS: BP 147/54
[2020-03-09 16:43] LABS: BASO % 0 % (0-3); EOS # 0.1 x10^3/uL (0.0-0.7); EOS % 1 % (0-3); HEMATOCRIT 36.1 % (39.0-53.0); HEMOGLOBIN 12.1 g/dL (13.0-17.5); LYMPH % 21 % (24-48); MEAN CORPUSCULAR HEMOGLOBIN 33 pg (25-35); MEAN CORPUSCULAR HGB CONC 34 g/dL (31-37); MEAN CORPUSCULAR VOLUME 98 fL (79-100); MONO # 1.3 x10^3/uL (0.0-1.1); MONO % 26 % (0-9); NEUT # 2.6 x10^3uL (1.8-7.7); NEUT % 52 % (31-73); PLATELET COUNT 116 x10^3/uL (140-400); RED BLOOD COUNT 3.71 x10^6/uL (4.30-5.70); RED CELL DISTRIBUTION WIDTH 15.1 % (11.5-14.5)
[2020-03-09 17:02] LABS: ALBUMIN 2.6 g/dL (3.4-5.0); ALBUMIN/GLOBULIN RATIO 0.7 (1.0-1.7); CALCIUM 8.3 mg/dL (8.5-10.1); CREATININE 1.2 mg/dL (0.7-1.3); GFR 57.5; POTASSIUM 4.7 mmol/L (3.5-5.1); TOTAL BILIRUBIN 0.3 mg/dL (0.2-1.0); TOTAL PROTEIN 6.6 g/dL (6.4-8.2)
--- NOTE | 2020-03-09 17:15 | TX PLAN ---
Interdisciplinary Tx Plan Admission Information Feb 19, 2020 at 14:32 Legal Status (on Admission): Voluntary DPOA/Guardian Name: Tim Olvera Contact Other Contact Name: Lynn Rosas Other Contact Verified Code Status: DNR Allergies: Coded Allergies: keratin (Verified Allergy, Unknown, 06/25/19) niacin (Verified Allergy, Unknown, 06/25/19) sucralfate (Verified Allergy, Unknown, 06/26/19) Diagnoses Primary Diagnosis: Major neurocognitive D/O; Alzheimer's Vascular with delusion, depression and behavioral disturbance; Anxiety D/O unspecified; Impulsive Control D/O Reasons for Admission: Aggressive, Agitated, Angry, Poor impulse control Problem in Patient's Words: Believes he is having a decrease in cognition and needs evaluated. However, pt tends to have periods of unpredictable behaviors. Additional Admission Comments: According to the intake, pt is physically and verbally aggressive, having angry outburst, explosive, non- compliant behvior, agitated, threatening to strike the nurse. Problems Active Problems: Verbally non-compliant Agitated Resistive at times Withdrawn to room Inactive Problems: N/A Pt Strengths/Limitations Ability for Cass: Poor Cognitive Functioning/Ability: Poor Communication Skills/Ability: Poor Financial Resources: Poor Insight/Judgement: Poor Intellectual Ability: Poor Physical Health: Poor Social Skills: Poor Stability in Family: Good Stability in School/Work: Poor Verbal Skills: Fair Discharge Criteria Discharge Criteria: No need for close observ., Adequate arrangements @DC, Improved behavior, Improved mood/thought Preliminary Discharge Plan Preliminary DC Plan: Current Living Arrange. Special Precautions Fall Risk: Low Initial D/C Plan Pt to return to [facility] once stable. Identified Discharge Needs: Follow up with PCP and out patient psychiatry. Currently Utilized Resources Currently Utilized Resources/P: Primary Care Physician Psychiatrist Referrals Community Resources: None Identified Problems/Hx/Goals Objectives/Short-Term Goals Short Term Goals: Dec. Aggression, Dec. 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 Education: Pt graduated from high school (12th grade) Treatment Plan Explained Patient/Site Safety Manager had this treatment plan explained to him/her as indicated by the signature below and has been given the opportunity to ask questions and make suggestions: Date: Patient/Site Safety Manager Signature: Status Update Update Pt is eating roughly 100% of meals and sleeping on average 7 hours per night. Pt was swabbed today for Covoid and resulted positive with a few minor congestion symptoms (runny nose, SOB). It is noted that pt is lethargic but it is unclear as to if it is due to pt Depakote or because he does not feel well. All medications will continue at this time; pt will be transferred to the Covoid unit for continued monitoring. SOCORRO MARIE Mar 09, 2020 17:15
--- NOTE | 2020-03-09 17:32 | RAD ---
CHEST AP ONLY 03/09/2020 3:49 PM INDICATION: Shortness of breath, COVID COMPARISON: None available TECHNIQUE: Portable frontal view of the chest is provided. FINDINGS: The cardiomediastinal silhouette is borderline enlarged . Perihilar interstitial changes are noted. There are no significant pleural effusions. There is no pulmonary vascular congestion. No pneumothorax. No suspicious osseous abnormality. IMPRESSION: Perihilar interstitial changes may reflect interstitial pneumonitis. Findings may be associated with underlying viral pneumonitis. Electronically signed by: Lakia Colon MD (03/09/2020 5:29 PM) [id number]
[2020-03-09 17:59] LABS: % BANDS 1 % (0-9); % LYMPHS 22 % (24-48); % MONOS 17 % (0-10); % MYELOS 1 % (0-0); % SEGS 59 % (35-66)
[2020-03-09 18:00] LABS: PLT ESTIMATE DECREASED (ADEQUATE)
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
--- NOTE | 2020-03-10 07:22 | PDOC ---
Exam Note: Dontrell Note: This is a late entry for date of discharge 03/09/2020. Please also refer to the separate dictated note~for this date of service dictated separately.~Patient seen individually. Discussed the patient with Nursing staff reviewed the chart.~Reviewed interim history and current functioning. Reviewed vital signs,~Labs/ Radiology~and current medications noted below. Continue current treatment with the changes noted in the dictated addendum note Assessment: Vital Signs/I&O: Vital Signs Date Time Temp Pulse Resp B/P (MAP) Pulse Ox O2 Delivery O2 Flow Rate FiO2 03/09/20 16:36 97.9 62 20 147/54 (85) 96 03/09/20 05:56 Room Air I & O 03/09/20 03/09/20 03/10/20 15:00 23:00 07:00 Intake Total 480 ml Balance 480 ml Labs: Laboratory Tests Test 03/09/20 11:08 03/09/20 16:20 SARS-CoV-2 Antigen (Rapid) Positive (NEGATIVE) *A White Blood Count 5.0 x10^3/uL (4.0-11.0) Red Blood Count 3.71 x10^6/uL (4.30-5.70) L Hemoglobin 12.1 g/dL (13.0-17.5) L Hematocrit 36.1 % (39.0-53.0) L Mean Corpuscular Volume 98 fL (79-100) Mean Corpuscular Hemoglobin 33 pg (25-35) Mean Corpuscular Hemoglobin Concent 34 g/dL (31-37) Red Cell Distribution Width 15.1 % (11.5-14.5) H Platelet Count 116 x10^3/uL (140-400) L Neutrophils (%) (Auto) 52 % (31-73) Lymphocytes (%) (Auto) 21 % (24-48) L Monocytes (%) (Auto) 26 % (0-9) H Eosinophils (%) (Auto) 1 % (0-3) Basophils (%) (Auto) 0 % (0-3) Neutrophils # (Auto) 2.6 x10^3uL (1.8-7.7) Lymphocytes # (Auto) 1.0 x10^3/uL (1.0-4.8) Monocytes # (Auto) 1.3 x10^3/uL (0.0-1.1) H Eosinophils # (Auto) 0.1 x10^3/uL (0.0-0.7) Basophils # (Auto) 0.0 x10^3/uL (0.0-0.2) Segmented Neutrophils % 59 % (35-66) Band Neutrophils % 1 % (0-9) Lymphocytes % 22 % (24-48) L Monocytes % 17 % (0-10) H Myelocytes % 1 % (0-0) H Platelet Estimate Decreased (ADEQUATE) D-Dimer (Thais) 0.90 mg/L (0.00-0.50) H Sodium Level 137 mmol/L (136-145) Potassium Level 4.7 mmol/L (3.5-5.1) Chloride Level 102 mmol/L (98-107) Carbon Dioxide Level 31 mmol/L (21-32) Anion Gap 4 (6-14) L Blood Urea Nitrogen 28 mg/dL (8-26) H Creatinine 1.2 mg/dL (0.7-1.3) Estimated GFR (Cockcroft-Gault) 57.5 BUN/Creatinine Ratio 23 (6-20) H Glucose Level 112 mg/dL (70-99) H Lactic Acid Level 1.7 mmol/L (0.4-2.0) Calcium Level 8.3 mg/dL (8.5-10.1) L Total Bilirubin 0.3 mg/dL (0.2-1.0) Aspartate Amino Transferase (AST) 45 U/L (15-37) H Alanine Aminotransferase (ALT) 33 U/L (16-63) Alkaline Phosphatase 98 U/L (46-116) C-Reactive Protein 7.2 mg/L (0-3.3) H VA-Vhb-U-Type Natriuretic Peptide 6488 pg/mL (0-449) H Total Protein 6.6 g/dL (6.4-8.2) Albumin 2.6 g/dL (3.4-5.0) L Albumin/Globulin Ratio 0.7 (1.0-1.7) L Current Medications: I have reviewed the current psychotropics carefully including drug interactions. Risk benefit ratio favors no change other than as noted in my dictated progress note. Diagnosis: Problems: (1) Dementia of the Alzheimer's type with early onset with behavioral disturbance (2) Anxiety disorder (3) Dementia, vascular, with depression (4) Dementia, vascular, with delusions (5) Major neurocognitive disorder (6) Dementia in Alzheimer's disease with depression (7) Dementia in Alzheimer's disease with delusions (8) Impulse control disorder MAIRA SAAVEDRA MD Mar 10, 2020 07:22
== END 2020-03-09 18:15 | disposition short-term general hospital (02) | DRG 56 ==
LOC: GEROPSY 14:32
PROVIDERS: ADMIT Psychiatry & Neurology Psychiatry; ATTEND Psychiatry & Neurology Psychiatry
DX: G30.9 Alzheimer's disease, unspecified (principal); U07.1 COVID-19; E43 Unspecified severe protein-calorie malnutrition; F01.51 Vascular dementia, unspecified severity, with behavioral disturbance; F02.81 Dementia in other diseases classified elsewhere, unspecified severity, with behavioral disturbance; E78.5 Hyperlipidemia, unspecified; I10 Essential (primary) hypertension; D64.9 Anemia, unspecified; F31.9 Bipolar disorder, unspecified; F41.9 Anxiety disorder, unspecified; F63.9 Impulse disorder, unspecified; I25.10 Atherosclerotic heart disease of native coronary artery without angina pectoris; I25.2 Old myocardial infarction; I73.9 Peripheral vascular disease, unspecified; J44.9 Chronic obstructive pulmonary disease, unspecified; S51.812A Laceration without foreign body of left forearm, initial encounter; Z66 Do not resuscitate; Z79.899 Other long term (current) drug therapy; Z85.46 Personal history of malignant neoplasm of prostate; Z91.19 Patient's noncompliance with other medical treatment and regimen; Z68.25 Body mass index [BMI] 25.0-25.9, adult
CPT/HCPCS: 36415; 71045; 80053; 80061; 80164; 82306; 82607; 83036; 83540; 83550; 83605; 83735; 83880; 84436; 84443; 84480; 85007; 85025; 85379; 86140; 86592; 87426; U0003-CS

== ENCOUNTER 2020-03-09 18:15 | Inpatient (IN) | payer MEDICARE, OTHER ==
[~2020-03-09] VITALS: Ht 172.7 cm; Wt 84.5 kg
[~2020-03-09 18:15] MED LIST changes: +DIVA250T PO; +DIVA500T4 PO; +FLUT16SP21 NS; +HYDR25TA PO; +IPRA3AMP29 NEB; +IPRA4AER INH; +MAG355OR12 PO; +MEMA10TA PO; +MENT118G TP; +MIRT15TA PO; +OMEP20TA63 PO; +PANT40TA3 PO; +PROP10TA PO; +QUET25TA5 PO; +RIVA1PAT5 TD
[2020-03-09 21:11] VITALS: BP 137/68
--- NOTE | 2020-03-09 21:32 | NUR ---
Pt. arrived on unit before shift change. During assessment pt was laying down in bed. Pt was easy to arouse but seemed very tired and slightly short of air. VS were taken and pt was at 96% on room air. Pt was educated on school bus monitor and why it was important to wear it. Pt refused to keep monitor on. Despite refusing school bus monitor pt was calm and cooperative during assessment. Pt was assisted to bathroom and changed into a clean brief before laying down to sleep. Call light in reach. Will continue to monitor.
[2020-03-09 22:54] VITALS: BP 134/60
[2020-03-10 05:20] VITALS: BP 110/58
[2020-03-10] MEDS ORDERED: METHYL SALICYLATE/MENTHOL TOPICAL OINTMENT 57GM TUBE. TP PRN (09:30)
[2020-03-10] MEDS ORDERED: MAGNESIUM HYDROXIDE 2,400 MG/30 ML ORAL.SUSP. PO PRN (09:30)
[2020-03-10] MEDS: SERTRALINE 50 MG TABLET. PO SCH (09:46)
[2020-03-10] MEDS: MEMANTINE 10 MG TABLET. PO SCH ×2 (09:46→20:37)
[2020-03-10] MEDS: FLUTICASONE 50MCG/NASAL SPRAY 16GM BOTTLE. NS SCH (09:46)
[2020-03-10] MEDS: MULTIVITAMIN with MINERAL TABLET. PO SCH (09:46)
[2020-03-10] MEDS: ASPIRIN CHEWABLE 81 MG TABLET. PO SCH (09:46)
[2020-03-10] MEDS: DOCUSATE SODIUM 100 MG CAPSULE PO SCH (09:47)
[2020-03-10] MEDS: FUROSEMIDE 20 MG TABLET PO SCH (09:47)
[2020-03-10] MEDS: POLYETHYLENE GLYCOL 3350 17 GM PACKET. PO SCH (09:47)
[2020-03-10 10:45] VITALS: BP 130/80
[2020-03-10] MEDS: IPRATROPIUM/ALBUTEROL 20/100mcg/INH INHALER. INH SCH ×3 (11:56→20:36)
[2020-03-10] MEDS: PROPRANOLOL 10 MG TABLET. PO SCH ×2 (11:56→20:37)
--- NOTE | 2020-03-10 12:30 | NUR ---
IP: patient COVID-19 +, requires contact and airborne precautions.
[2020-03-10 14:30] VITALS: BP 124/57
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
--- NOTE | 2020-03-10 16:11 | PN ---
DATE: 03/10/2020 SUBJECTIVE: The patient was transferred yesterday from [facility] on account of being positive for COVID-19; however, he continued to be completely asymptomatic. He is afebrile, normotensive. Maintaining his oxygen saturation at 95%. He denied any shortness of breath, cough, phlegm or hemoptysis. Denied any chills, rigors or fever. PHYSICAL EXAMINATION: GENERAL: When I examined him this afternoon, he looked well and was clearly in no apparent respiratory distress. No pallor, jaundice, cyanosis, or thyromegaly. No jugular venous distension. No limb edema. VITAL SIGNS: His heart rate was 62, blood pressure was 130/80, temperature was 98, respiratory rate was 18 and oxygen saturation was 95%. HEENT: Showed normocephalic, atraumatic. NECK: Supple. HEART: Showed normal first and second heart sounds. No gallop or murmur. CHEST: Clear to auscultation. No crepitation or rhonchi. ABDOMEN: Distended, soft, nontender. NEUROLOGIC: He was profoundly demented, but without any obvious lateralizing sign. Apparently, the patient is able to ambulate without assistance or assistive devices. His intake and output were incompletely recorded. No lab works done this morning. ASSESSMENT: This is an 84-year-old who was transferred from [facility] on account of being positive for COVID-19. He continued to be completely asymptomatic, afebrile, hemodynamically stable, maintaining his oxygen saturation at 95% on room air. Denied any shortness of breath, cough, phlegm or hemoptysis. He has multiple other medical problems including hypertension, hyperlipidemia, chronic anemia, peripheral vascular disease, chronic obstructive pulmonary disease. KRISTYN WALLS MD DR: MELLISA/ashkan JOB#: [id number] / [id number]
[2020-03-10 19:32] VITALS: BP 114/64
[2020-03-10] MEDS: ACETAMINOPHEN 325 MG TABLET PO PRN (20:36)
[2020-03-10] MEDS: MIRTAZAPINE 15 MG TABLET PO SCH (20:36)
[2020-03-10] MEDS: ATORVASTATIN CALCIUM 10 MG TABLET. PO SCH (20:36)
[2020-03-10] MEDS: hydrOXYzine HCL 25 MG TABLET PO SCH (20:37)
[2020-03-10] MEDS: rOPINIRole 1 MG TABLET. PO SCH (20:41)
[2020-03-11 00:40] VITALS: BP 113/66
[2020-03-11] MEDS: ACETAMINOPHEN 325 MG TABLET PO PRN (02:02)
[2020-03-11 06:36] VITALS: BP 127/59
[2020-03-11] MEDS: POLYETHYLENE GLYCOL 3350 17 GM PACKET. PO SCH (08:02)
[2020-03-11] MEDS: MEMANTINE 10 MG TABLET. PO SCH ×2 (08:03→20:43)
[2020-03-11] MEDS: PANTOPRAZOLE 40 MG TABLET. PO SCH (08:03)
[2020-03-11] MEDS: ASPIRIN CHEWABLE 81 MG TABLET. PO SCH (08:03)
[2020-03-11] MEDS: FUROSEMIDE 20 MG TABLET PO SCH (08:03)
[2020-03-11] MEDS: MULTIVITAMIN with MINERAL TABLET. PO SCH (08:03)
[2020-03-11] MEDS: SERTRALINE 50 MG TABLET. PO SCH (08:03)
[2020-03-11] MEDS: DOCUSATE SODIUM 100 MG CAPSULE PO SCH (08:03)
[2020-03-11] MEDS: FLUTICASONE 50MCG/NASAL SPRAY 16GM BOTTLE. NS SCH (08:21)
[2020-03-11] MEDS: IPRATROPIUM/ALBUTEROL 20/100mcg/INH INHALER. INH SCH ×4 (08:21→20:43)
[2020-03-11] MEDS: PROPRANOLOL 10 MG TABLET. PO SCH ×2 (09:33→20:42)
[2020-03-11 10:42] VITALS: BP 119/54
--- NOTE | 2020-03-11 12:07 | NUR ---
Call placed to Tim, daughter/POA, to inform that Saad has three days of full hospital Medicare covered days left and will then be going into co-pay days in which Medicare and [place] supplement will be billed. Tim expressed appreciation for the information.
--- NOTE | 2020-03-11 12:34 | PN ---
DATE: 03/11/2020 ATTENDING PHYSICIAN: Dr. Bell. SUBJECTIVE: No new complaints. He is pleasantly confused. He is asymptomatic. OBJECTIVE FINDINGS: VITAL SIGNS: Blood pressure today is 127/59, pulse is 56 and regular, temperature 96.8 degrees Fahrenheit, oxygen saturation 95% on room air. HEENT: Head is without trauma. Pupils are reactive. Sclerae nonicteric. Oropharynx clear. NECK: Supple, no bruits. LUNGS: Clear. CARDIOVASCULAR: Showed regular heart tones. No gallops. ABDOMEN: Soft. NEUROLOGIC: Profoundly demented without any lateralizing signs. He is able to ambulate. He is calm. SKIN: Warm and dry. ASSESSMENT: 1. An 84-year-old gentleman with COVID-19 positive coronavirus swab on the [facility]. He remains asymptomatic. 2. Vascular dementia, chronic. 3. Chronic obstructive pulmonary disease, stable. 4. Anemia of chronic disease. 5. Essential hypertension, currently normotensive. 6. Hyperlipidemia. PLAN: 1. Meds reviewed. 2. Continue quarantine. 3. Await appropriate recheck swabs where he can then be placed. He is from [place], [place]. JANELL HERCULES MD DR: TIERA/ashkan JOB#: [id number] / [id number]
[2020-03-11 15:21] VITALS: BP 123/54
--- NOTE | 2020-03-11 15:27 | NUR ---
NSG NOTE; DR FISH TELEPHONE CONSULT DR FISH CALLED AND WAS UPDATED ON THE PT'S BEHAVIORS, SLEEPING, AND EATING NEW MEDICATION ORDERS RECEIVED
[2020-03-11 20:12] VITALS: BP 143/74
[2020-03-11] MEDS: ATORVASTATIN CALCIUM 10 MG TABLET. PO SCH (20:41)
[2020-03-11] MEDS: hydrOXYzine HCL 25 MG TABLET PO SCH (20:41)
[2020-03-11] MEDS: MIRTAZAPINE 15 MG TABLET PO SCH (20:41)
[2020-03-11] MEDS: rOPINIRole 1 MG TABLET. PO SCH (20:41)
[2020-03-11] MEDS: DIVALPROEX SODIUM 250 MG TABLET.DR. PO SCH (20:42)
--- NOTE | 2020-03-11 22:55 | NUR ---
Pt was trying to wander outside room before being approached for assessment. Pt appeared to agitated and anxious. 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 Pt was then led back to his room where he was reorientated. Pt was able to tell me year, name, and date of . Pt was unable to tell me where and why he is in the hospital. The pt then discussed his family and life growing up. This seemed to calm the pt and he was able to lay back down in bed. Pt took HS Meds whole w/o difficulty. Pt denied any pain. Pt was given snack and water before attempting to sleep. Pt appears to be quit restless and unable to sleep. Although he is restless he is cooperative. Pt redirects back into room after attempting to come out in the rashid multiple times this evening. Pt is now resting in bed comfortably w/ call light in reach. Will continue to monitor.
[2020-03-12 05:33] VITALS: BP 158/75
[2020-03-12] MEDS: IPRATROPIUM/ALBUTEROL 20/100mcg/INH INHALER. INH SCH ×4 (08:00→20:23)
[2020-03-12] MEDS: ASPIRIN CHEWABLE 81 MG TABLET. PO SCH (08:26)
[2020-03-12] MEDS: ACETAMINOPHEN 325 MG TABLET PO PRN ×2 (08:26→20:21)
[2020-03-12] MEDS: POLYETHYLENE GLYCOL 3350 17 GM PACKET. PO SCH (08:26)
[2020-03-12] MEDS: MULTIVITAMIN with MINERAL TABLET. PO SCH (08:27)
[2020-03-12] MEDS: MEMANTINE 10 MG TABLET. PO SCH ×2 (08:27→20:21)
[2020-03-12] MEDS: PANTOPRAZOLE 40 MG TABLET. PO SCH (08:27)
[2020-03-12] MEDS: DOCUSATE SODIUM 100 MG CAPSULE PO SCH (08:27)
[2020-03-12] MEDS: FUROSEMIDE 20 MG TABLET PO SCH (08:27)
[2020-03-12] MEDS: PROPRANOLOL 10 MG TABLET. PO SCH ×2 (08:28→20:22)
[2020-03-12] MEDS: FLUTICASONE 50MCG/NASAL SPRAY 16GM BOTTLE. NS SCH (08:42)
[2020-03-12] MEDS: SERTRALINE 25 MG TABLET. PO SCH (08:42)
[2020-03-12 09:35] VITALS: BP 112/57
--- NOTE | 2020-03-12 11:16 | PN ---
DATE: 03/12/2020 ATTENDING PHYSICIAN: Dr. Bell. SUBJECTIVE: Pleasantly confused. No complaints. He is asymptomatic. OBJECTIVE FINDINGS: VITAL SIGNS: Blood pressure today is 112/57 mmHg, pulse 61 and regular, temperature 97.3 degrees Fahrenheit, oxygen saturation 93% on room air. HEENT: Head is without trauma. Pupils are reactive. Sclerae nonicteric. Oropharynx clear. NECK: Supple, no bruits identified. LUNGS: Otherwise clear. CARDIOVASCULAR: Showed regular heart tones. No gallops. Peripheral pulses are palpable and full. ABDOMEN: Soft, nontender, no guarding. EXTREMITIES: Without edema. NEUROLOGIC: Pleasantly confused. No deficits. Speech is fluent. SKIN: Warm and dry. ASSESSMENT: 1. An 84-year-old gentleman from the [facility] with COVID positive coronavirus swab. He remains asymptomatic. 2. Chronic vascular dementia. 3. Chronic obstructive pulmonary disease, stable. 4. Anemia of chronic disease. 5. Hyperlipidemia. 6. Essential hypertension. PLAN: 1. Meds reviewed. 2. P.r.n. Ativan for agitation. 3. Await rechecked swabs. He originally is from [place], [place]. JANELL HERCULES MD DR: TIERA/ashkan JOB#: [id number] / [id number]
[2020-03-12] MEDS: LORazepam 1 MG TABLET PO PRN (11:28)
--- NOTE | 2020-03-12 11:43 | NUR ---
BEHAVIOR NURSING NOTE. PATIENT KEEP TRYING TO WALK OUT OF HIS ROOM NUMEROUS TIMES, GETTING REDIRECTED BY THIS RN AND CONTROL ROOM TECHNICIAN OSMAR TO GET BACK TO HIS ROOM AND STAY THERE , REMINDED THAT HE IS ON ISOLATION, PATIENT GETTING AGITATED WITH REDIRECTIONS, ARGUING WITH THIS RN AND CONTROL ROOM TECHNICIAN, SAYING " QUIT TALKING", CALLING NAMES AND SHOWING INAPPROPRIATE GESTURES SUCH MIDDLE FINGER. DR. HERCULES NOTIFIED, ATIVAN PRN GIVEN ORDERED, WILL CONTINUE TO MONITOR.
[2020-03-12 19:15] VITALS: BP 107/50
[2020-03-12] MEDS: DIVALPROEX SODIUM 250 MG TABLET.DR. PO SCH (20:20)
[2020-03-12] MEDS: ATORVASTATIN CALCIUM 10 MG TABLET. PO SCH (20:20)
[2020-03-12] MEDS: rOPINIRole 1 MG TABLET. PO SCH (20:21)
[2020-03-12] MEDS: MIRTAZAPINE 15 MG TABLET PO SCH (20:21)
[2020-03-12] MEDS: hydrOXYzine HCL 25 MG TABLET PO SCH (20:21)
[2020-03-12 23:11] VITALS: BP 121/52
[2020-03-13 05:09] VITALS: BP 149/72
--- NOTE | 2020-03-13 06:29 | NUR ---
Pt cooperative with HS meds and cares. Slept through much of the noc, awoke only to toilet. No behaviors noted.
[2020-03-13] MEDS: MEMANTINE 10 MG TABLET. PO SCH ×2 (07:30→21:25)
[2020-03-13] MEDS: MULTIVITAMIN with MINERAL TABLET. PO SCH (07:30)
[2020-03-13] MEDS: SERTRALINE 25 MG TABLET. PO SCH (07:30)
[2020-03-13] MEDS: PANTOPRAZOLE 40 MG TABLET. PO SCH (07:30)
[2020-03-13] MEDS: DOCUSATE SODIUM 100 MG CAPSULE PO SCH (07:30)
[2020-03-13] MEDS: IPRATROPIUM/ALBUTEROL 20/100mcg/INH INHALER. INH SCH ×4 (07:31→16:30)
[2020-03-13] MEDS: ASPIRIN CHEWABLE 81 MG TABLET. PO SCH (07:31)
[2020-03-13] MEDS: ACETAMINOPHEN 325 MG TABLET PO PRN ×2 (07:31→21:25)
[2020-03-13] MEDS: FUROSEMIDE 20 MG TABLET PO SCH (07:31)
[2020-03-13] MEDS: FLUTICASONE 50MCG/NASAL SPRAY 16GM BOTTLE. NS SCH (07:32)
[2020-03-13] MEDS: PROPRANOLOL 10 MG TABLET. PO SCH ×2 (07:35→21:26)
[2020-03-13] MEDS: POLYETHYLENE GLYCOL 3350 17 GM PACKET. PO SCH (07:36)
[2020-03-13 08:23] VITALS: BP 142/55
[2020-03-13] MEDS ORDERED: POLYETHYLENE GLYCOL 3350 17 GM PACKET. PO PRN (10:45)
--- NOTE | 2020-03-13 11:05 | PN ---
DATE: 03/13/2020 SUBJECTIVE: Pleasantly confused. He is able to ambulate without any assistance. He ate some breakfast. No new complaints. No obvious distress. OBJECTIVE FINDINGS: VITAL SIGNS: Blood pressure today is 142/55, pulse 77 and regular, temperature 97.1 degrees Fahrenheit, oxygen saturation 95% on room air. HEENT: Head is without trauma. Pupils are reactive. Sclerae nonicteric. Oropharynx is clear. NECK: Supple, no bruits. LUNGS: Otherwise clear. Good breath sounds. ABDOMEN: Soft. EXTREMITIES: Showed no edema. NEUROLOGIC: Pleasantly confused. No focal deficits. Speech is fluent. SKIN: Warm and dry. ASSESSMENT: 1. An 84-year-old gentleman from the [facility] with COVID positive coronavirus swab. He is asymptomatic. 2. Chronic vascular dementia. 3. Chronic obstructive pulmonary disease. 4. Hypertension. 5. Anemia of chronic disease. 6. Hyperlipidemia. PLAN: 1. Meds reviewed. 2. P.r.n. Ativan for agitation. 3. Re-swab at the appropriate schedule. JANELL HERCULES MD DR: TIERA/ashkan JOB#: [id number] / [id number]
--- NOTE | 2020-03-13 13:31 | NUR ---
PATIENT IS CALM THIS AM UPON ASSESSMENT, COMPLIANT WITH MEDICATIONS AND COOPERATIVE WITH CARE. PATIENT CAN BE FORGETFUL AT TIMES AND TRYING TO WALK OUT FROM HIS ROOM LOOKING FOR THE BATHROOM. PATIENT WAS REDIRECTED BACK TO HIS ROOM, STAFF REMINDED HE HAS A BATHROOM IN HIS ROOM, PATIENT WAS INSTRUCTED TO STAY IN HIS ROOM HE STILL ON ISOLATION AND PUSH THE CALL LIGHT BUTTON FOR ASSIST. PATIENT VERBALIZED UNDERSTANDING.
[2020-03-13] MEDS: LORazepam 1 MG TABLET PO PRN (14:22)
--- NOTE | 2020-03-13 16:20 | NUR ---
PATIENT BECAME MORE CONFUSED AND IRRITABLE AROUND LUNCH TIME AND LATER AFTERNOON, KEEP GETTING OUT OF HIS ROOM, LOOKING FOR HIS "TEAMMATES" , PATIENT WAS ADVISED TO STAY IN HIS ROOM FOR ISOLATION, PATIENT WAS ANXIOUS TO FIND HIS "TEAM". ATIVAN PRN GIVEN ORDERED TO PROMOTE REST AND DECREASE ANXIETY. WILL CONTINUE TO MONITOR.
[2020-03-13 19:59] VITALS: BP 134/70
--- NOTE | 2020-03-13 21:00 | NUR ---
Pt resting in bed at change of shift. Pt c/o pain in joints with ADLs, particularly while toileting. Pt cooperative, pleasant and compliant. Pt swallowed medications whole with ice water. He took some pudding for a snack. Will continue to monitor.
[2020-03-13] MEDS: ATORVASTATIN CALCIUM 10 MG TABLET. PO SCH (21:25)
[2020-03-13] MEDS: hydrOXYzine HCL 25 MG TABLET PO SCH (21:25)
[2020-03-13] MEDS: DIVALPROEX SODIUM 250 MG TABLET.DR. PO SCH (21:25)
[2020-03-13] MEDS: rOPINIRole 1 MG TABLET. PO SCH (21:27)
[2020-03-13] MEDS: MIRTAZAPINE 15 MG TABLET PO SCH (21:29)
[2020-03-14 00:07] VITALS: BP 136/55
[2020-03-14] MEDS: ACETAMINOPHEN 325 MG TABLET PO PRN (03:33)
[2020-03-14] MEDS: LORazepam 1 MG TABLET PO PRN (03:33)
[2020-03-14 05:44] VITALS: BP 134/64
--- NOTE | 2020-03-14 06:17 | NUR ---
Pt continued to c/o pain when up to toilet. Voltaren gel obtained for pt, applied to right shoulder, bilat knees as pt specified. Pt disoriented and sleepy, got up c/o lower back pain about 0600. Pt given extra pillows and repositioned. Pt refused to allow nurse to clean his dentures and kept them in his mouth through the night. Pt's dentures came loose in mouth but noncompliant in allowing nurse to remove them for safety. Continuing to monitor until more alert and cooperative.
[2020-03-14] MEDS: SERTRALINE 25 MG TABLET. PO SCH (08:30)
[2020-03-14] MEDS: PANTOPRAZOLE 40 MG TABLET. PO SCH (08:30)
[2020-03-14] MEDS: FUROSEMIDE 20 MG TABLET PO SCH (08:30)
[2020-03-14] MEDS: DOCUSATE SODIUM 100 MG CAPSULE PO SCH (08:30)
[2020-03-14] MEDS: MEMANTINE 10 MG TABLET. PO SCH ×2 (08:30→21:06)
[2020-03-14] MEDS: MULTIVITAMIN with MINERAL TABLET. PO SCH (08:30)
[2020-03-14] MEDS: ASPIRIN CHEWABLE 81 MG TABLET. PO SCH (08:30)
[2020-03-14] MEDS: PROPRANOLOL 10 MG TABLET. PO SCH ×2 (08:31→22:33)
[2020-03-14] MEDS: IPRATROPIUM/ALBUTEROL 20/100mcg/INH INHALER. INH SCH ×3 (08:37→17:36)
[2020-03-14 09:42] VITALS: BP 118/67
[2020-03-14] MEDS: FLUTICASONE 50MCG/NASAL SPRAY 16GM BOTTLE. NS SCH (09:54)
--- NOTE | 2020-03-14 11:24 | PN ---
DATE: 03/14/2020 ATTENDING PHYSICIANS: Dr. Hercules and Dr. Bell. SUBJECTIVE: The patient remains pleasantly confused. He is quiet. He is not in any obvious distress. OBJECTIVE FINDINGS: VITAL SIGNS: Blood pressure today is 118/67 mmHg, pulse 60 and regular, temperature 97.8 degrees Fahrenheit, and oxygen saturation is 95% on room air. HEENT: Head is without trauma. Pupils are reactive. Sclerae nonicteric. Oropharynx clear. He has dentures. NECK: Supple. LUNGS: Good breath sounds. CARDIOVASCULAR: Showed regular heart tones. No gallops. ABDOMEN: Soft. EXTREMITIES: Without edema or cyanosis. NEUROLOGIC: Pleasantly confused. He is not agitated. SKIN: Warm and dry. ASSESSMENT: 1. An 84-year-old gentleman from the [facility] with COVID-19 positive coronavirus swab. He remains asymptomatic. 2. Chronic vascular dementia. 3. Chronic obstructive pulmonary disease. 4. Hypertension. 5. Anemia of chronic disease. 6. Hyperlipidemia. PLAN: 1. Meds reviewed. 2. P.r.n. Ativan as needed. 3. Recheck swabs when appropriate. 4. He remains a DNR per advanced directives. JANELL HERCULES MD DR: TIERA/ashkan JOB#: [id number] / [id number]
[2020-03-14 12:47] VITALS: BP 101/48
--- NOTE | 2020-03-14 18:50 | NUR ---
when looking at pt's chart it was noted that there has not been labs drawn since 03/09. No new orders in place, will follow up in the morning with Dr. Aguilar.
[2020-03-14 19:42] VITALS: BP 103/41
[2020-03-14] MEDS: hydrOXYzine HCL 25 MG TABLET PO SCH (21:06)
[2020-03-14] MEDS: ATORVASTATIN CALCIUM 10 MG TABLET. PO SCH (21:06)
[2020-03-14] MEDS: ACETAMINOPHEN 500 MG TABLET PO PRN (21:06)
[2020-03-14] MEDS: DIVALPROEX SODIUM 250 MG TABLET.DR. PO SCH (21:06)
[2020-03-14] MEDS: MIRTAZAPINE 15 MG TABLET PO SCH (21:06)
[2020-03-14] MEDS: rOPINIRole 1 MG TABLET. PO SCH (21:09)
[2020-03-14] MEDS: DICLOFENAC SODIUM 1% TOPICAL GEL 100GM TUBE. TP SCH (21:10)
[2020-03-14 21:41] VITALS: BP 115/51
--- NOTE | 2020-03-14 21:42 | NUR ---
Pt resting soundly at change of shift. Pt did not wake to take evening medications, when originally attempted. Will continue to monitor and administer if patient wakes to go to restroom soon.
--- NOTE | 2020-03-14 22:34 | NUR ---
Pt awoke to toilet. He does not use the call light. He calls for help. Pt ambulated to the toilet with minimal assistance to steady him. Pt needed prompting to swallow his medications with water. He declined a snack. Pt resting soundly in bed. Will continue to monitor.
--- NOTE | 2020-03-15 06:27 | NUR ---
Pt slept soundly most of the night. Pt assisted minimally with rolling during bed bath. Tegaderms on skin tears from 02/28 removed with warm wash cloth. Area cleansed and dried. No evidence of infection, no open sores. Skin is thin, fragile, bruising. Foam dressing applied to scab on wrist, wrapped forearm with gauze roll and elastic sleeve.
[2020-03-15 07:50] VITALS: BP 122/56
[2020-03-15] MEDS: IPRATROPIUM/ALBUTEROL 20/100mcg/INH INHALER. INH SCH ×5 (08:00→20:43)
[2020-03-15] MEDS: SERTRALINE 25 MG TABLET. PO SCH (08:10)
[2020-03-15] MEDS: DOCUSATE SODIUM 100 MG CAPSULE PO SCH (08:10)
[2020-03-15] MEDS: PANTOPRAZOLE 40 MG TABLET. PO SCH (08:10)
[2020-03-15] MEDS: ASPIRIN CHEWABLE 81 MG TABLET. PO SCH (08:10)
[2020-03-15] MEDS: MEMANTINE 10 MG TABLET. PO SCH ×2 (08:10→20:44)
[2020-03-15] MEDS: MULTIVITAMIN with MINERAL TABLET. PO SCH (08:10)
[2020-03-15] MEDS: FUROSEMIDE 20 MG TABLET PO SCH (08:11)
[2020-03-15] MEDS: PROPRANOLOL 10 MG TABLET. PO SCH ×2 (08:13→20:54)
[2020-03-15] MEDS: FLUTICASONE 50MCG/NASAL SPRAY 16GM BOTTLE. NS SCH (09:00)
[2020-03-15] MEDS: DICLOFENAC SODIUM 1% TOPICAL GEL 100GM TUBE. TP SCH ×2 (09:48→20:45)
--- NOTE | 2020-03-15 12:01 | PN ---
DATE: 03/15/2020 ATTENDING PHYSICIANS: Dr. Bell and Dr. Hercules. SUBJECTIVE: The patient is very calm and cooperative. He is sitting in a chair. He has no complaints. He is not in any obvious distress. OBJECTIVE FINDINGS: VITAL SIGNS: Blood pressure today is 122/56 mmHg, temperature 98.5 degrees Fahrenheit, pulse 68 and regular, oxygen saturation 97% on room air. HEENT: Head is without trauma. Pupils are reactive. Sclerae nonicteric. Oropharynx clear. NECK: Supple, no bruits. LUNGS: Actually are clear. CARDIOVASCULAR: Showed regular heart tones. No obvious gallops or murmurs. ABDOMEN: Soft, nontender, no guarding. EXTREMITIES: Are without cyanosis or edema. NEUROLOGIC FUNCTION: Pleasantly confused, but he is not agitated. SKIN: Warm and dry. ASSESSMENT: 1. An 84-year-old gentleman from [facility] with COVID-19 positive, coronavirus swabs. He remains asymptomatic. 2. Chronic vascular dementia. 3. Essential hypertension, currently normotensive. 4. Chronic obstructive pulmonary disease. 5. Anemia of chronic disease. 6. Hyperlipidemia. PLAN: 1. Medications reviewed. 2. P.r.n. Ativan, which has helped. 3. Recheck swabs and appropriate. He is a DNR per advanced directives. We are working on placement. JANELL HERCULES MD DR: TIERA/ashkan JOB#: [id number] / [id number]
--- NOTE | 2020-03-15 13:00 | NUR ---
PT IS AWAKE AND ALERT X 2. PT HAS HAD A GOOD DAY, HE SAT UP IN HIS CHAIR AND ATE HIS BREAKFAST AND LUNCH AND HAS BEEN INTERMITTENTLY SLEEPING. PT IS COMFORTABLE AND NO COMPLAINTS OF PAIN AT THIS TIME. THERE HAS NOT BEEN ANY BEHAVIORS TO DOCUMENT FOR THE DAY. WILL CTM.
[2020-03-15 19:15] VITALS: BP 145/60
[2020-03-15] MEDS: hydrOXYzine HCL 25 MG TABLET PO SCH (20:43)
[2020-03-15] MEDS: MIRTAZAPINE 15 MG TABLET PO SCH (20:44)
[2020-03-15] MEDS: DIVALPROEX SODIUM 250 MG TABLET.DR. PO SCH (20:44)
[2020-03-15] MEDS: ATORVASTATIN CALCIUM 10 MG TABLET. PO SCH (20:44)
[2020-03-15] MEDS: rOPINIRole 1 MG TABLET. PO SCH (20:45)
[2020-03-16 06:43] LABS: BASO % 1 % (0-3); EOS # 0.1 x10^3/uL (0.0-0.7); EOS % 2 % (0-3); HEMATOCRIT 38.5 % (39.0-53.0); HEMOGLOBIN 13.1 g/dL (13.0-17.5); LYMPH % 17 % (24-48); MEAN CORPUSCULAR HEMOGLOBIN 33 pg (25-35); MEAN CORPUSCULAR HGB CONC 34 g/dL (31-37); MEAN CORPUSCULAR VOLUME 96 fL (79-100); MONO # 0.9 x10^3/uL (0.0-1.1); MONO % 15 % (0-9); NEUT # 3.8 x10^3uL (1.8-7.7); NEUT % 65 % (31-73); PLATELET COUNT 137 x10^3/uL (140-400); RED CELL DISTRIBUTION WIDTH 14.8 % (11.5-14.5); WHITE BLOOD COUNT 5.8 x10^3/uL (4.0-11.0)
[2020-03-16 06:47] LABS: ALBUMIN 2.9 g/dL (3.4-5.0); ALBUMIN/GLOBULIN RATIO 0.6 (1.0-1.7); CREATININE 1.1 mg/dL (0.7-1.3); GFR 63.6; POTASSIUM 4.7 mmol/L (3.5-5.1); TOTAL PROTEIN 7.6 g/dL (6.4-8.2)
[2020-03-16] MEDS: FUROSEMIDE 20 MG TABLET PO SCH (10:17)
[2020-03-16] MEDS: MEMANTINE 10 MG TABLET. PO SCH ×2 (10:17→20:17)
[2020-03-16] MEDS: PANTOPRAZOLE 40 MG TABLET. PO SCH (10:17)
[2020-03-16] MEDS: DOCUSATE SODIUM 100 MG CAPSULE PO SCH (10:17)
[2020-03-16] MEDS: MULTIVITAMIN with MINERAL TABLET. PO SCH (10:17)
[2020-03-16] MEDS: ASPIRIN CHEWABLE 81 MG TABLET. PO SCH (10:17)
[2020-03-16] MEDS: SERTRALINE 25 MG TABLET. PO SCH (10:17)
[2020-03-16] MEDS: IPRATROPIUM/ALBUTEROL 20/100mcg/INH INHALER. INH SCH ×4 (10:20→20:16)
[2020-03-16] MEDS: FLUTICASONE 50MCG/NASAL SPRAY 16GM BOTTLE. NS SCH (10:20)
[2020-03-16] MEDS: PROPRANOLOL 10 MG TABLET. PO SCH ×2 (10:20→20:19)
[2020-03-16] MEDS: DICLOFENAC SODIUM 1% TOPICAL GEL 100GM TUBE. TP SCH ×4 (10:21→20:18)
--- NOTE | 2020-03-16 10:40 | PN ---
DATE: 03/16/2020 ATTENDING PHYSICIANS: Dr. Bell and Dr. Hercules. SUBJECTIVE: The patient is very calm. He is cooperative. No new complaints. He is not in any obvious distress. OBJECTIVE FINDINGS: VITAL SIGNS: Blood pressure is 145/60 mmHg, temperature 98.2 degrees Fahrenheit, oxygen saturation 97% on room air. HEENT: Head is without trauma. Pupils are reactive. Sclerae are nonicteric. Oropharynx is clear. NECK: Supple, no bruits. LUNGS: Otherwise clear. CARDIOVASCULAR: Showed regular heart tones. No gallops. Peripheral pulses are palpable and full. ABDOMEN: Soft, scaphoid, nontender, no organomegaly. Bowel sounds are normoactive. EXTREMITIES: Without cyanosis or edema. NEUROLOGIC: Pleasantly confused. He is not agitated. He is calm and collected. SKIN: Warm and dry. ASSESSMENT: 1. An 84-year-old gentleman with COVID-19 positive coronavirus swabs. He remains asymptomatic. He is here for quarantine and droplet precautions. 2. Chronic vascular dementia. 3. Essential hypertension, currently normotensive. 4. Chronic obstructive pulmonary disease, by history. 5. Anemia of chronic disease. 6. Hyperlipidemia. PLAN: 1. Medications reviewed. 2. Recheck swab when available. He is a DNR per advanced directive. 3. P.r.n. Ativan, which has helped. JANELL HERCULES MD DR: TIERA/ashkan JOB#: [id number] / [id number]
[2020-03-16 11:39] VITALS: BP 144/72
[2020-03-16 19:40] VITALS: BP 138/67
[2020-03-16] MEDS: ATORVASTATIN CALCIUM 10 MG TABLET. PO SCH (20:16)
[2020-03-16] MEDS: ACETAMINOPHEN 500 MG TABLET PO PRN (20:16)
[2020-03-16] MEDS: hydrOXYzine HCL 25 MG TABLET PO SCH (20:17)
[2020-03-16] MEDS: DIVALPROEX SODIUM 250 MG TABLET.DR. PO SCH (20:17)
[2020-03-16] MEDS: MIRTAZAPINE 15 MG TABLET PO SCH (20:17)
[2020-03-16] MEDS: rOPINIRole 1 MG TABLET. PO SCH (20:19)
[2020-03-17] MEDS: MULTIVITAMIN with MINERAL TABLET. PO SCH (07:26)
[2020-03-17] MEDS: FUROSEMIDE 20 MG TABLET PO SCH (07:26)
[2020-03-17] MEDS: MEMANTINE 10 MG TABLET. PO SCH ×2 (07:26→20:19)
[2020-03-17] MEDS: SERTRALINE 25 MG TABLET. PO SCH (07:26)
[2020-03-17] MEDS: ASPIRIN CHEWABLE 81 MG TABLET. PO SCH (07:26)
[2020-03-17] MEDS: DOCUSATE SODIUM 100 MG CAPSULE PO SCH (07:26)
[2020-03-17] MEDS: PROPRANOLOL 10 MG TABLET. PO SCH ×2 (07:27→20:19)
[2020-03-17] MEDS: PANTOPRAZOLE 40 MG TABLET. PO SCH (07:27)
[2020-03-17] MEDS: IPRATROPIUM/ALBUTEROL 20/100mcg/INH INHALER. INH SCH ×4 (07:28→20:18)
[2020-03-17] MEDS: FLUTICASONE 50MCG/NASAL SPRAY 16GM BOTTLE. NS SCH (07:28)
[2020-03-17 08:11] VITALS: BP 136/70
[2020-03-17] MEDS: DICLOFENAC SODIUM 1% TOPICAL GEL 100GM TUBE. TP SCH ×2 (09:20→20:20)
--- NOTE | 2020-03-17 10:06 | NUR ---
PATIENT WAS ASLEEP THIS AM , AROUSAL TO NAME, A/O X 1, CALM AND COOPERATIVE WITH ASSESSMENT AND ADLS, COMPLIANT WITH MEDICATIONS, ATE BREAKFAST. PATIENT IS CURRENTLY BACK IN A BED AND ASLEEP , BED ALARM IS ON. WILL CONTINUE TO MONITOR.
--- NOTE | 2020-03-17 11:49 | NUR ---
MELL faxed over updates on pt to [facility] at [facility]. SW requested that [facility] update SW on their protocol on Covoid testing to ensure pt return to them. When asked, [facility] was not sure and had to check with administration on their protocol.
--- NOTE | 2020-03-17 11:59 | PN ---
DATE: 03/17/2020 ATTENDING PHYSICIANS: Dr. Hercules and Dr. Bell. SUBJECTIVE: The patient is calm. He is not experiencing any distress. He has no complaints. I explained to him why he needs to be here for quarantine. He seems to understand. OBJECTIVE FINDINGS: VITAL SIGNS: Blood pressure today is 136/70 mmHg, pulse of 61 and regular, temperature 97.4 degrees Fahrenheit, and oxygen saturation 92% on room air. HEENT: Head is without trauma. Pupils are reactive. Sclerae nonicteric. Oropharynx is clear. NECK: Supple, no bruits identified. LUNGS: Good breath sounds, otherwise clear. CARDIOVASCULAR: Showed regular heart tones. No gallops. Peripheral pulses are palpable and full. ABDOMEN: Soft, scaphoid, nontender, no organomegaly. Bowel sounds are hypoactive. EXTREMITIES: Showed no cyanosis or edema. NEUROLOGIC: Pleasantly confused, otherwise intact. LABORATORY DATA: Repeat blood work yesterday done showed a normal creatinine of 1.1 mg/dL, nonfasting blood sugar 110. Electrolytes within normal range. Hemoglobin is 13.1 g/dL with white count of 5800. ASSESSMENT: 1. An 84-year-old gentleman from the [facility]. He tested positive for COVID-19 coronavirus. He remains asymptomatic. 2. He is here for quarantine and droplet precautions. 3. Chronic vascular dementia. 4. Essential hypertension. 5. Chronic obstructive pulmonary disease. 6. Anemia, improved with increased hemoglobin. 7. Hyperlipidemia. PLAN: 1. Medication reviewed. 2. Continue quarantine and droplet precautions. 3. Follow up swabs as indicated. Tentative discharge planning for later this week when he is past the quarantine stage. JANELL HERCULES MD DR: TIERA/ashkan JOB#: [id number] / [id number]
[2020-03-17] MEDS: ACETAMINOPHEN 500 MG TABLET PO PRN (12:34)
--- NOTE | 2020-03-17 14:02 | NUR ---
PATIENT WAS RETESTED FOR COVID , RESULT PENDING. PATIENT TOLERATED PROCEDURE WITHOUT DIFFICULTIES.
[2020-03-17 20:11] VITALS: BP 129/61
[2020-03-17] MEDS: DIVALPROEX SODIUM 250 MG TABLET.DR. PO SCH (20:18)
[2020-03-17] MEDS: hydrOXYzine HCL 25 MG TABLET PO SCH (20:18)
[2020-03-17] MEDS: ATORVASTATIN CALCIUM 10 MG TABLET. PO SCH (20:19)
[2020-03-17] MEDS: MIRTAZAPINE 15 MG TABLET PO SCH (20:19)
[2020-03-17] MEDS: rOPINIRole 1 MG TABLET. PO SCH (20:20)
[2020-03-17 20:28] VITALS: BP 129/61
[2020-03-17] MEDS: LORazepam 1 MG TABLET PO PRN (23:19)
--- NOTE | 2020-03-18 00:48 | NUR ---
PT restless throughout night, confused, oriented to name only. PT given Ativan with no effect on agitation/anxiety.
[2020-03-18 08:00] VITALS: BP 175/95
--- NOTE | 2020-03-18 08:10 | NUR ---
RAJINDER Terry went to bring breakfast and do vital signs on pt, pt was tachypneic, cyanotic at the lips, and O2 sat at 80% on RA. This RN came into the room and pt was sitting up labored breathing. This RN gave pt a puff of inhaler and put pt on 4L NC.
--- NOTE | 2020-03-18 08:40 | NUR ---
CONTACTED DR WALLS TO MAKE AWARE OF THE SITUATION AND ORDERS HAVE BEEN RECEIVED.
[2020-03-18] MEDS ORDERED: ALBUTEROL SULFATE 8GM INHALER. INH PRN (08:45)
[2020-03-18] MEDS ORDERED: methylPREDNISolone SOD SUCC PF 125 MG/2 ML VIAL. IV ONE (09:15)
--- NOTE | 2020-03-18 09:17 | RAD ---
AP chest. HISTORY: Hypoxia AP view was taken of the chest. Comparison is made with a study from March 09. There are worsening infiltrates most prominent in the left upper lobe. There is fluid along the fissure or atelectasis on the right which is new. Heart is upper normal in size. IMPRESSION: 1. Development of left upper lobe infiltrates. 2. Fluid along the fissure or atelectasis along the fissure in the right lung. Electronically signed by: Sam Morgan MD (03/18/2020 9:14 AM) [id number]
[2020-03-18 09:30] VITALS: BP 150/75
[2020-03-18] MEDS: ASPIRIN CHEWABLE 81 MG TABLET. PO SCH (09:44)
[2020-03-18] MEDS: MULTIVITAMIN with MINERAL TABLET. PO SCH (09:44)
[2020-03-18] MEDS: SERTRALINE 25 MG TABLET. PO SCH (09:45)
[2020-03-18] MEDS: DOCUSATE SODIUM 100 MG CAPSULE PO SCH (09:45)
[2020-03-18] MEDS: PROPRANOLOL 10 MG TABLET. PO SCH ×2 (09:45→20:22)
[2020-03-18] MEDS: PANTOPRAZOLE 40 MG TABLET. PO SCH (09:45)
[2020-03-18] MEDS: FUROSEMIDE 20 MG TABLET PO SCH (09:45)
[2020-03-18] MEDS: MEMANTINE 10 MG TABLET. PO SCH ×2 (09:45→20:22)
--- NOTE | 2020-03-18 09:45 | NUR ---
pt moved over to ICU to be monitored more closely. Dr Bell aware.
[2020-03-18] MEDS: IPRATROPIUM/ALBUTEROL 20/100mcg/INH INHALER. INH SCH ×4 (09:46→20:21)
[2020-03-18] MEDS: DICLOFENAC SODIUM 1% TOPICAL GEL 100GM TUBE. TP SCH ×2 (09:46→21:00)
[2020-03-18] MEDS: FLUTICASONE 50MCG/NASAL SPRAY 16GM BOTTLE. NS SCH (09:47)
[2020-03-18 10:23] LABS: BASO % 1 % (0-3); EOS % 0 % (0-3); HEMATOCRIT 34.5 % (39.0-53.0); HEMOGLOBIN 11.7 g/dL (13.0-17.5); LYMPH # 0.4 x10^3/uL (1.0-4.8); LYMPH % 9 % (24-48); MEAN CORPUSCULAR HEMOGLOBIN 32 pg (25-35); MEAN CORPUSCULAR HGB CONC 34 g/dL (31-37); MEAN CORPUSCULAR VOLUME 95 fL (79-100); MONO # 0.6 x10^3/uL (0.0-1.1); MONO % 13 % (0-9); NEUT # 3.3 x10^3uL (1.8-7.7); NEUT % 78 % (31-73); PLATELET COUNT 145 x10^3/uL (140-400); RED BLOOD COUNT 3.64 x10^6/uL (4.30-5.70); RED CELL DISTRIBUTION WIDTH 14.9 % (11.5-14.5); WHITE BLOOD COUNT 4.2 x10^3/uL (4.0-11.0)
[2020-03-18 10:31] LABS: CALCIUM 8.2 mg/dL (8.5-10.1); CREATININE 1.2 mg/dL (0.7-1.3); GFR 57.5; POTASSIUM 4.1 mmol/L (3.5-5.1)
[2020-03-18 10:38] LABS: ALBUMIN 2.4 g/dL (3.4-5.0); ALBUMIN/GLOBULIN RATIO 0.6 (1.0-1.7); C REACTIVE PROTEIN 68.7 mg/L (0-3.3); TOTAL BILIRUBIN 1.4 mg/dL (0.2-1.0); TOTAL PROTEIN 6.5 g/dL (6.4-8.2)
[2020-03-18 11:05] LABS: BGAS PH 7.48 (7.35-7.46)
--- NOTE | 2020-03-18 11:12 | NUR ---
MELL contacted pt dtr to update her on pt move and the reasoning why (decrease in oxygen stats and further concerns). SW and pt dtr is questioning if this continues to be a part of pt Covoid decline. MELL explained that the hospitalist has been notified and SW will contact her once more information has been gathered on the game plan. MELL informed pt dtr that pt was tested yesterday afternoon for Covoid and SW will be able to update her once those results return as well.
--- NOTE | 2020-03-18 11:20 | NUR ---
SW also notified [facility] at [facility] of pt moving over to ICU and will plan to follow up on pt status, as pt is to return to [facility] once stable.
--- NOTE | 2020-03-18 11:31 | NUR ---
THIS NURSE CONTACTED VIRIDIANA GERBER, PTS DAUGHTER, ABOUT STATUS CHANGE OF PT AND MOVING TO ICU FOR CLOSER MONITORING OF PT STATUS. LEONIE ANN
[2020-03-18] MEDS: PIPERACILLIN/TAZOBACTAM 3.375 GM in IV NORMAL SALINE 50ML 50 ML IV SCH ×3 (11:56→22:02)
[2020-03-18] MEDS: ACETAMINOPHEN 500 MG TABLET PO PRN (13:00)
[2020-03-18 13:10] VITALS: BP 112/51
[2020-03-18] MEDS: methylPREDNISolone SOD SUCC PF 40 MG/ML VIAL. IV SCH ×2 (13:17→22:01)
[2020-03-18] MEDS: IV NORMAL SALINE 1,000ML 1,000 ML IV SCH (14:44)
--- NOTE | 2020-03-18 14:59 | PN ---
DATE: 03/18/2020 SUBJECTIVE: The patient is an 84-year-old male patient who was transferred originally from [facility] on 03/10/2020 as he tested positive for COVID-19. At the time, he was mostly asymptomatic. At the time, he was afebrile, normotensive with oxygen saturation 96% on room air. His D-dimer was slightly elevated at 0.9. His C-reactive protein was only 7 and apparently was here for the last 8 days and apparently this morning, he was noted to be febrile, hypotensive, hypoxic. His oxygen saturation was only 80% and therefore we did extensive lab work, which showed that his white cell count was 4200. His blood gases were within acceptable range. His C-reactive protein was high at 68.7 and his D-dimer was up to 3.16. He had had a chest x-ray, which basically showed that he has development of left upper lobe infiltrate, fluid along the fissure ____ along the fissure on the right lung and therefore, the patient was transferred to the ICU with acute hypoxic respiratory failure, questionable aspiration pneumonia on a background of COVID-19 viral infection. PHYSICAL EXAMINATION: GENERAL: When I examined him this afternoon, he was pale, but no jaundice, cyanosis, or thyromegaly. No jugular venous distension. No limb edema. VITAL SIGNS: His heart rate was 71, blood pressure was 150/75, temperature was 102.6, respiratory rate was 30 and oxygen saturation was 93% on 4 liters of oxygen. HEAD, EYES, EARS, NOSE AND THROAT: Showed normocephalic and atraumatic. NECK: Supple. HEART: Showed normal first and second heart sounds with no gallop, rub or murmur. CHEST: Showed central trachea, equal bilateral chest expansion, air entry, vesicular breath sounds. No crepitation or rhonchi. ABDOMEN: Distended, soft, nontender. NEUROLOGIC: He was demented, but without any obvious lateralizing sign. LABORATORY DATA: His lab work this morning showed a white cell count of 4200, hemoglobin 12, hematocrit 34, MCV 95, and platelet count of 145,000. Serum sodium was 135, potassium 4.1, chloride 102, bicarbonate 26, anion gap of 7, BUN 25, creatinine 1.2, estimated GFR was 57 mL per minute, his glucose 144. Lactic acid was 1.8, calcium was 8.2. Total bilirubin is 1.4; AST, ALT, alkaline phosphatase slightly elevated. His C-reactive protein was 68.7. His total protein was 6.5, albumin was 2.4. His D-dimer was up to 3.16. ASSESSMENT: 1. Acute hypoxic respiratory failure. 2. Questionable aspiration pneumonia versus healthcare-associated pneumonia on a background of COVID-19 pneumonia. 3. The patient has multiple other medical problems including hypertension, hyperlipidemia, anemia, coronary artery disease, peripheral vascular disease, chronic obstructive pulmonary disease, myocardial infarction, and history of prostate cancer. The patient was started on oxygen at 3 liters by nasal cannula. He was also started on normal saline at 75 mL per hour, prednisone 40 mg IV q.8 hourly, daptomycin 500 mg IV once a day, and Zosyn 3.375 g IV q.6 hourly to continue with all other medication. We will also have to contact Dr. Reina to get authorization for remdesivir. KRISTYN WALLS MD DR: MELLISA/ashkan JOB#: [id number] / [id number]
[2020-03-18 15:03] LABS: BACTERIA,URINE 0 /HPF (0-FEW); BILIRUBIN,URINE NEG (NEG); CLARITY,URINE CLEAR; COLOR,URINE AMBER; GLUCOSE,URINE NEG (NEG); NITRITE,URINE NEG (NEG); SQUAMOUS EPITHELIAL CELL,UR FEW /LPF; UROBILINOGEN,URINE >=8.0 mg/dL (0.2 mg/dL); WBC,URINE OCC /HPF (0-4)
[2020-03-18 15:37] VITALS: BP 110/48
--- NOTE | 2020-03-18 18:39 | NUR ---
patient has been sleeping all day today. He is arousable for meds, meals, and as needed. VSS throughout the day. Pt still on O2 3L NC. Has not eaten much today, a few bites with lunch. Will continue to monitor
--- NOTE | 2020-03-18 20:02 | NUR ---
Spoke with Tim Barajas, daughter, DPOA, in regards to convalescent plasma transfusion. Telephone consent received for convalescent plasma transfusion, second RN, Torrie Morales witness.
--- NOTE | 2020-03-18 20:04 | NUR ---
Spoke with Juan Daniel Hebert, [employer], [facility] regarding convalescent plasma transfusion. It was agreed that transfusion will be held until tomorrow AM when Juan Daniel is available to facilitate proper procedure with correct consent forms.
[2020-03-18] MEDS: hydrOXYzine HCL 25 MG TABLET PO SCH (20:21)
[2020-03-18] MEDS: ATORVASTATIN CALCIUM 10 MG TABLET. PO SCH (20:21)
[2020-03-18] MEDS: MIRTAZAPINE 15 MG TABLET PO SCH (20:21)
[2020-03-18] MEDS: DIVALPROEX SODIUM 250 MG TABLET.DR. PO SCH (20:21)
[2020-03-18] MEDS: rOPINIRole 1 MG TABLET. PO SCH (20:21)
[2020-03-18 20:30] VITALS: BP 111/55
[2020-03-19] VITALS (8 sets, daily range): BP systolic 109–126; BP diastolic 44–55
[2020-03-19] MEDS: IV NORMAL SALINE 1,000ML 1,000 ML IV SCH ×2 (03:09→17:15)
[2020-03-19] MEDS: PIPERACILLIN/TAZOBACTAM 3.375 GM in IV NORMAL SALINE 50ML 50 ML IV SCH ×4 (04:05→21:09)
[2020-03-19] MEDS: methylPREDNISolone SOD SUCC PF 40 MG/ML VIAL. IV SCH ×3 (05:18→21:07)
[2020-03-19] MEDS: DICLOFENAC SODIUM 1% TOPICAL GEL 100GM TUBE. TP SCH ×2 (09:00→12:24)
--- NOTE | 2020-03-19 09:30 | NUR ---
spoke with pt's daughter/POA Tim Barajas, regarding pt's current condition and how he is doing today. This RN reviewed information regarding CCP with daughter, answered as many questions as I could at the time. Pt is currently doing pretty well this AM, he ate almost 100% of breakfast, has been able to be titrated down on oxygen, pt has been out of bed and walking around room. Pt has been compliant with cares, is alert and oriented. We are awaiting consent forms from Juan Daniel eHbert (director of ) to arrive from [facility]. Will call Tim to review consents and further information once we have obtained the needed paperwork.
[2020-03-19] MEDS: PANTOPRAZOLE 40 MG TABLET. PO SCH (09:35)
[2020-03-19] MEDS: SERTRALINE 25 MG TABLET. PO SCH (09:36)
[2020-03-19] MEDS: ASPIRIN CHEWABLE 81 MG TABLET. PO SCH (09:36)
[2020-03-19] MEDS: FLUTICASONE 50MCG/NASAL SPRAY 16GM BOTTLE. NS SCH (09:36)
[2020-03-19] MEDS: MULTIVITAMIN with MINERAL TABLET. PO SCH (09:36)
[2020-03-19] MEDS: DOCUSATE SODIUM 100 MG CAPSULE PO SCH (09:36)
[2020-03-19] MEDS: IPRATROPIUM/ALBUTEROL 20/100mcg/INH INHALER. INH SCH ×4 (09:36→21:07)
[2020-03-19] MEDS: FUROSEMIDE 20 MG TABLET PO SCH (09:37)
[2020-03-19] MEDS: MEMANTINE 10 MG TABLET. PO SCH ×2 (09:37→21:08)
[2020-03-19] MEDS: PROPRANOLOL 10 MG TABLET. PO SCH ×2 (09:38→21:07)
--- NOTE | 2020-03-19 11:11 | NUR ---
MELL contacted pt dtr Tim, to answer her questions about on how pt is doing physically. She reports talking to nursing staff about doing the plasma and she spent more time wrapping her head around the procedure than she did about how pt was actually doing. SW explained that physically pt is better in that he only had a temperature the day he moved to ICU. As it stands, pt temperature is normal, with his other vital signs being stable. At the time of transfer, pt was on 4L and is now stable on 3L. MELL explained that being a good sign; however, was not naive that pt may need to remain on oxygen for some time. SW also went over pt eating pattern as it was stated in the notes from staff and noted that pt is still taking medications without any trouble, which is a good sign as well. MELL assured pt dtr that nursing will call her after the plasma transfer is completed and in the event that they cannot, MELL will. MELL clarified with Kimmy, ICU nurse, about calling pt and she agreed that she will call with an update to make sure pt dtr knew how everything went.
[2020-03-19 12:57] LABS: HEMATOCRIT 35.6 % (39.0-53.0); HEMOGLOBIN 11.8 g/dL (13.0-17.5); RED BLOOD COUNT 3.67 x10^6/uL (4.30-5.70); RED CELL DISTRIBUTION WIDTH 15.7 % (11.5-14.5); WHITE BLOOD COUNT 7.8 x10^3/uL (4.0-11.0)
[2020-03-19 13:13] LABS: ALBUMIN 1.9 g/dL (3.4-5.0); ALBUMIN/GLOBULIN RATIO 0.5 (1.0-1.7); CALCIUM 8.1 mg/dL (8.5-10.1); CREATININE 1.4 mg/dL (0.7-1.3); GFR 48.2; POTASSIUM 4.1 mmol/L (3.5-5.1); TOTAL BILIRUBIN 0.8 mg/dL (0.2-1.0); TOTAL PROTEIN 5.8 g/dL (6.4-8.2)
--- NOTE | 2020-03-19 17:30 | NUR ---
spoke with pt;'s daughterTim via phone, read consent and information packet in its full prior to obtaining consent. Daughter and pt both agree to proceed. [address] off [address] Dr. Bell present as well. Awaiting for CCP to be ready in [facility].
--- NOTE | 2020-03-19 18:00 | NUR ---
rec'd CCP from [facility], awaiting 2nd RN to verify, to proceed with infusion.
[2020-03-19] MEDS: ENOXAPARIN 40 MG/0.4 ML SYRINGE. SQ SCH (18:29)
--- NOTE | 2020-03-19 19:51 | PN ---
DATE: 03/19/2020 SUBJECTIVE: The patient is resting, slightly propped up in bed, in no apparent distress, awake, alert. Denied any complaint. The nursing staff did not voice any concerns that he has an uneventful night, did have periods of bradycardia when he is asleep; however, he continued to be asymptomatic. He is now maintaining his oxygen saturation at 98%, 1.5 liters of oxygen. PHYSICAL EXAMINATION: GENERAL: When I examined him, he looked well and was clearly in no apparent respiratory distress, slightly pale, but no jaundice, cyanosis, or thyromegaly. No jugular venous distention. No limb edema. VITAL SIGNS: His heart rate was 53, blood pressure was 110/47, temperature 97.6, respiratory rate was 18 and oxygen saturation was 98% on 2 liters of oxygen. HEAD, EYES, EARS, NOSE, AND THROAT: Showed normocephalic, atraumatic. NECK: Supple. CARDIAC: Normal first and second heart sounds. No gallop or murmur. CHEST: Clear to auscultation. No crepitation or rhonchi. ABDOMEN: Distended, soft, nontender. NEUROLOGIC: He was demented, but without any obvious lateralizing sign. His intake over the last 24 hours was 1320, output was 200. LABORATORY DATA: His lab work this morning showed a white cell count of 7800, hemoglobin 11.8, hematocrit 35, MCV 97 and platelet count of 140, serum sodium was 139, potassium 4.1, chloride 106, bicarbonate 25, anion gap of 8, BUN 32, creatinine 1.4, estimated GFR was 48 mL per minute. His glucose 215, calcium was 8.1, lactic acid was only 1.8. Total bilirubin, AST, ALT, alkaline phosphatase were normal. His total protein 5.8 and albumin was 1.9. Urinalysis was essentially unremarkable. ASSESSMENT: 1. Acute hypoxic respiratory failure. 2. Questionable aspiration pneumonia versus healthcare-associated pneumonia on a background of COVID-19 pneumonia. 3. The patient has multiple other medical problems including: A. Hypertension. B. Hyperlipidemia. C. Anemia. D. Coronary artery disease. E. Peripheral vascular disease. F. Chronic obstructive pulmonary disease. G. Myocardial infarction and prostate cancer. PLAN: To continue with oxygen supplementation. I discontinued his Lasix. We will give him a bolus of normal saline as well as increase his normal saline to 500 mL per hour. Continue with Solu-Medrol, daptomycin and Zosyn. Dr. Reina has authorized the convalescent plasma. I will repeat all his labs tomorrow. KRISTYN WALLS MD DR: MELLISA/ashkan JOB#: [id number] / [id number]
[2020-03-19] MEDS: ATORVASTATIN CALCIUM 10 MG TABLET. PO SCH (21:07)
[2020-03-19] MEDS: rOPINIRole 1 MG TABLET. PO SCH (21:07)
[2020-03-19] MEDS: MIRTAZAPINE 15 MG TABLET PO SCH (21:07)
[2020-03-19] MEDS: hydrOXYzine HCL 25 MG TABLET PO SCH (21:07)
[2020-03-19] MEDS: DIVALPROEX SODIUM 250 MG TABLET.DR. PO SCH (21:08)
[2020-03-20] VITALS (7 sets, daily range): BP systolic 122–149; BP diastolic 50–70
[2020-03-20] MEDS: IV NORMAL SALINE 1,000ML 1,000 ML IV SCH (03:59)
[2020-03-20] MEDS: PIPERACILLIN/TAZOBACTAM 3.375 GM in IV NORMAL SALINE 50ML 50 ML IV SCH ×4 (04:00→21:49)
[2020-03-20] MEDS: methylPREDNISolone SOD SUCC PF 40 MG/ML VIAL. IV SCH ×3 (05:19→21:49)
[2020-03-20 06:24] LABS: HEMATOCRIT 38.1 % (39.0-53.0); HEMOGLOBIN 12.5 g/dL (13.0-17.5); RED BLOOD COUNT 3.92 x10^6/uL (4.30-5.70); RED CELL DISTRIBUTION WIDTH 15.7 % (11.5-14.5); WHITE BLOOD COUNT 12.9 x10^3/uL (4.0-11.0)
[2020-03-20 06:42] LABS: ALBUMIN/GLOBULIN RATIO 0.5 (1.0-1.7); CALCIUM 8.3 mg/dL (8.5-10.1); CREATININE 1.2 mg/dL (0.7-1.3); GFR 57.5; TOTAL BILIRUBIN 0.7 mg/dL (0.2-1.0)
[2020-03-20] MEDS: DOCUSATE SODIUM 100 MG CAPSULE PO SCH (07:55)
[2020-03-20] MEDS: SERTRALINE 25 MG TABLET. PO SCH (07:55)
[2020-03-20] MEDS: LACTOBACILLUS RHAMNOSUS GG 1 CAPSULE. PO SCH ×2 (07:55→20:40)
[2020-03-20] MEDS: ASPIRIN CHEWABLE 81 MG TABLET. PO SCH (07:55)
[2020-03-20] MEDS: MULTIVITAMIN with MINERAL TABLET. PO SCH (07:55)
[2020-03-20] MEDS: PANTOPRAZOLE 40 MG TABLET. PO SCH (07:55)
[2020-03-20] MEDS: IPRATROPIUM/ALBUTEROL 20/100mcg/INH INHALER. INH SCH ×4 (07:55→20:00)
[2020-03-20] MEDS: MEMANTINE 10 MG TABLET. PO SCH ×2 (07:58→20:40)
[2020-03-20] MEDS: DICLOFENAC SODIUM 1% TOPICAL GEL 100GM TUBE. TP SCH ×2 (07:58→20:41)
[2020-03-20] MEDS: FLUTICASONE 50MCG/NASAL SPRAY 16GM BOTTLE. NS SCH (07:58)
[2020-03-20] MEDS: PROPRANOLOL 10 MG TABLET. PO SCH ×2 (09:00→20:39)
--- NOTE | 2020-03-20 14:01 | RAD ---
CHEST AP ONLY History: Reason: worsening shortnessof breath / Spl. Instructions: / History: Comparison: March 18, 2020 Findings: Decreased left mid to upper consolidation. Persistent right midlung bandlike opacity. Small right pleural effusion, unchanged. Patchy bibasilar opacities, unchanged. No pneumothorax. Unchanged heart size. Impression: 1. Decreased left mid to upper lung consolidation. 2. Unchanged right midlung bandlike opacity. Electronically signed by: Andrea Solomon DO (03/20/2020 1:57 PM) [id number]
[2020-03-20] MEDS: ENOXAPARIN 40 MG/0.4 ML SYRINGE. SQ SCH (18:00)
--- NOTE | 2020-03-20 20:07 | PN ---
DATE: 03/20/2020 SUBJECTIVE: The patient is resting, slightly propped up in bed, no apparent distress. He is awake, alert, responding appropriately. On questioning him, he denied any complaint. The nursing staff concerned that he seems to be a little congested and he might have become fluid overloaded; although, when I saw him, he looked well and was on 2 liters of oxygen, maintaining his oxygen saturation at 97%. PHYSICAL EXAMINATION: GENERAL: When I examined him, he looked pale, but no jaundice, cyanosis or thyromegaly. No jugular venous distention. No limb edema. VITAL SIGNS: His heart rate was 59, blood pressure was 128/50, his temperature was 98.2, respiratory rate was 21 and oxygen saturation was 97% on 2 liters of oxygen. HEAD, EYES, EARS, NOSE AND THROAT: Showed normocephalic, atraumatic. NECK: Supple. HEART: Showed normal first and second heart sounds. No gallop or murmur. CHEST: Shows central trachea, equal bilateral expansion, air entry, vesicular sounds, very few bibasilar crepitations posteriorly. I could not appreciate any rhonchi. ABDOMEN: Distended, soft, nontender. NEUROLOGIC: He is demented, but neurologically grossly intact. His intake was 500, output was 200. LABORATORY DATA: His lab work this morning showed a white cell count 12,900, hemoglobin 12.5, hematocrit 38, MCV 97, and platelet count of 139,000. His chemistry showed a serum sodium of 141, potassium 4, chloride 108, bicarbonate 23, anion gap of 10, BUN 33, creatinine 1.2, estimated GFR was 57 mL per minute, his glucose was 158, calcium was 8.3. Total bilirubin, AST, ALT, alkaline phosphatase were normal. Total protein 6, albumin 2. So far, all his blood cultures are negative. ASSESSMENT: 1. Acute hypoxic respiratory failure. 2. Questionable aspiration pneumonia versus healthcare-associated pneumonia on a background of COVID-19 pneumonia to treat. The patient as multiple other medical problems including: A. Hypertension. B. Hyperlipidemia. C. Anemia. D. Coronary artery disease. E. Peripheral vascular disease. F. Chronic obstructive pulmonary disease. G. Myocardial infarction and prostate cancer. PLAN: To discontinue IV fluid, continue with IV Solu-Medrol, daptomycin and Zosyn, did receive his convalescent plasma yesterday and apparently is not a candidate for remdesivir. KRISTYN WALLS MD DR: MELLISA/ashkan JOB#: [id number] / [id number]
[2020-03-20] MEDS: rOPINIRole 1 MG TABLET. PO SCH (20:39)
[2020-03-20] MEDS: hydrOXYzine HCL 25 MG TABLET PO SCH (20:40)
[2020-03-20] MEDS: ATORVASTATIN CALCIUM 10 MG TABLET. PO SCH (20:40)
[2020-03-20] MEDS: DIVALPROEX SODIUM 250 MG TABLET.DR. PO SCH (20:40)
--- NOTE | 2020-03-20 21:00 | NUR ---
pt unable to urinate. pt has tried 3 times to urinate in his urinal with no success. pt is in isolation which make bladder scanning difficult. Called Dr for orders. Dr ordered [facility] cath. will continue to monitor pt.
[2020-03-20] MEDS: MIRTAZAPINE 15 MG TABLET PO SCH (21:49)
[2020-03-21] MEDS: PIPERACILLIN/TAZOBACTAM 3.375 GM in IV NORMAL SALINE 50ML 50 ML IV SCH ×4 (05:15→22:02)
[2020-03-21] MEDS: methylPREDNISolone SOD SUCC PF 40 MG/ML VIAL. IV SCH ×3 (05:58→22:02)
[2020-03-21 06:02] VITALS: BP 133/65
[2020-03-21] MEDS: ASPIRIN CHEWABLE 81 MG TABLET. PO SCH (08:33)
[2020-03-21] MEDS: MULTIVITAMIN with MINERAL TABLET. PO SCH (08:33)
[2020-03-21] MEDS: LACTOBACILLUS RHAMNOSUS GG 1 CAPSULE. PO SCH ×2 (08:33→20:31)
[2020-03-21] MEDS: PROPRANOLOL 10 MG TABLET. PO SCH ×2 (08:34→20:31)
[2020-03-21] MEDS: PANTOPRAZOLE 40 MG TABLET. PO SCH (08:34)
[2020-03-21] MEDS: SERTRALINE 25 MG TABLET. PO SCH (08:34)
[2020-03-21] MEDS: DOCUSATE SODIUM 100 MG CAPSULE PO SCH (08:34)
[2020-03-21] MEDS: MEMANTINE 10 MG TABLET. PO SCH ×2 (08:37→20:31)
[2020-03-21] MEDS: DICLOFENAC SODIUM 1% TOPICAL GEL 100GM TUBE. TP SCH ×2 (08:37→20:32)
[2020-03-21] MEDS: IPRATROPIUM/ALBUTEROL 20/100mcg/INH INHALER. INH SCH ×4 (08:40→20:30)
[2020-03-21] MEDS: FLUTICASONE 50MCG/NASAL SPRAY 16GM BOTTLE. NS SCH (08:40)
[2020-03-21] MEDS: ACETAMINOPHEN 500 MG TABLET PO PRN (08:52)
[2020-03-21 09:28] VITALS: BP 134/55
--- NOTE | 2020-03-21 13:44 | PN ---
DATE: 03/21/2020 SUBJECTIVE: The patient is sitting in his chair, eating his lunch comfortably. Apparently, he was weak this morning and he slept on his bed; however, this afternoon, he was able to go back to his usual self. He is able to get out of the bed on his own without assistance, transferred to the chair and walks in his room without difficulty. PHYSICAL EXAMINATION: GENERAL: When I examined him, he looked pale, no jaundice, cyanosis or thyromegaly. No jugular venous distention. No limb edema. VITAL SIGNS: His heart rate was 85, blood pressure 134/55, temperature 98.4, respiratory rate was 18 and oxygen saturation was 98%. The rest of the examination is stable, has not really changed. His intake was 3690, output was 1700. LABORATORY DATA: His most recent lab work showed a white cell count 12,900, hemoglobin 12.5, hematocrit 38, MCV 97, and platelet count of 139,000. Serum sodium 141, potassium 4, chloride 108, bicarbonate 23, anion gap of 10, BUN 33, creatinine 1.2, estimated GFR was 57 mL per minute, his glucose was 158, calcium was 8.3. Total bilirubin, AST, ALT, and alkaline phosphatase are normal. Total protein 6, albumin 2. His urinalysis was essentially unremarkable. His blood cultures so far showed no growth after 3 days. ASSESSMENT: 1. Acute hypoxic respiratory failure. 2. Questionable aspiration pneumonia versus healthcare-associated pneumonia on the background of COVID-19 pneumonia. 3. The patient has multiple other medical problems including: A. Hypertension. B. Hyperlipidemia. C. Anemia. D. Coronary artery disease. E. Peripheral vascular disease. F. Chronic obstructive pulmonary disease. G. Myocardial infarction. H. Prostate cancer. PLAN: My plan is to discontinue daptomycin. Continue with Zosyn. Continue with Solu-Medrol. KRISTYN WALLS MD DR: MELLISA/ashkan JOB#: [id number] / [id number]
[2020-03-21 15:00] VITALS: BP 136/56
[2020-03-21] MEDS: ENOXAPARIN 40 MG/0.4 ML SYRINGE. SQ SCH (18:44)
[2020-03-21 19:20] VITALS: BP 136/56
[2020-03-21] MEDS: ATORVASTATIN CALCIUM 10 MG TABLET. PO SCH (20:31)
[2020-03-21] MEDS: rOPINIRole 1 MG TABLET. PO SCH (20:31)
[2020-03-21] MEDS: hydrOXYzine HCL 25 MG TABLET PO SCH (20:31)
[2020-03-21] MEDS: DIVALPROEX SODIUM 250 MG TABLET.DR. PO SCH (20:31)
[2020-03-21] MEDS: MIRTAZAPINE 15 MG TABLET PO SCH (20:31)
[2020-03-21 22:58] VITALS: BP 130/58
[2020-03-22 05:00] VITALS: BP 142/65
[2020-03-22] MEDS: methylPREDNISolone SOD SUCC PF 40 MG/ML VIAL. IV SCH ×3 (05:01→21:43)
[2020-03-22] MEDS: PIPERACILLIN/TAZOBACTAM 3.375 GM in IV NORMAL SALINE 50ML 50 ML IV SCH ×4 (05:01→21:45)
--- NOTE | 2020-03-22 06:34 | NUR ---
Pt desat to 82% and was found with half of the nasal cannula in his nares. Placed nasal cannula correctly and pt's O2 sats went back to 97%. Call light at bedside. Will continue to monitor.
[2020-03-22] MEDS: MULTIVITAMIN with MINERAL TABLET. PO SCH (08:18)
[2020-03-22] MEDS: PANTOPRAZOLE 40 MG TABLET. PO SCH (08:18)
[2020-03-22] MEDS: ASPIRIN CHEWABLE 81 MG TABLET. PO SCH (08:18)
[2020-03-22] MEDS: LACTOBACILLUS RHAMNOSUS GG 1 CAPSULE. PO SCH ×2 (08:18→21:44)
[2020-03-22] MEDS: DOCUSATE SODIUM 100 MG CAPSULE PO SCH (08:18)
[2020-03-22] MEDS: PROPRANOLOL 10 MG TABLET. PO SCH ×2 (08:19→21:44)
[2020-03-22] MEDS: SERTRALINE 25 MG TABLET. PO SCH (08:19)
[2020-03-22] MEDS: MEMANTINE 10 MG TABLET. PO SCH ×2 (08:22→21:44)
[2020-03-22] MEDS: DICLOFENAC SODIUM 1% TOPICAL GEL 100GM TUBE. TP SCH ×2 (08:24→21:00)
[2020-03-22] MEDS: IPRATROPIUM/ALBUTEROL 20/100mcg/INH INHALER. INH SCH ×4 (08:24→20:00)
[2020-03-22] MEDS: FLUTICASONE 50MCG/NASAL SPRAY 16GM BOTTLE. NS SCH (08:24)
[2020-03-22 10:46] LABS: HEMOGLOBIN 12.5 g/dL (13.0-17.5); RED BLOOD COUNT 3.95 x10^6/uL (4.30-5.70); RED CELL DISTRIBUTION WIDTH 15.3 % (11.5-14.5); WHITE BLOOD COUNT 8.5 x10^3/uL (4.0-11.0)
[2020-03-22 10:55] LABS: ALBUMIN 2.1 g/dL (3.4-5.0); ALBUMIN/GLOBULIN RATIO 0.5 (1.0-1.7); CALCIUM 8.5 mg/dL (8.5-10.1); CREATININE 1.2 mg/dL (0.7-1.3); GFR 57.5; POTASSIUM 4.2 mmol/L (3.5-5.1); TOTAL BILIRUBIN 0.8 mg/dL (0.2-1.0); TOTAL PROTEIN 6.3 g/dL (6.4-8.2)
[2020-03-22 12:00] VITALS: BP 129/53
[2020-03-22 16:00] VITALS: BP 129/53
[2020-03-22] MEDS: ENOXAPARIN 40 MG/0.4 ML SYRINGE. SQ SCH (17:03)
[2020-03-22 19:00] VITALS: BP 160/67
--- NOTE | 2020-03-22 20:47 | PN ---
DATE: 03/22/2020 SUBJECTIVE: The patient is resting, slightly propped up, sleeping comfortably, in no apparent distress. He is very sleepy today according to nursing staff, but otherwise he denied any complaint. PHYSICAL EXAMINATION: GENERAL: When I examined him, he looked pale, but no jaundice, cyanosis or thyromegaly. No jugular venous distention. No lower limb edema. VITAL SIGNS: His heart rate was 64, blood pressure 129/53, temperature was 97.8, respiratory rate 22 and oxygen saturation was 95%. HEAD, EYES, EARS, NOSE AND THROAT: Showed normocephalic, atraumatic. NECK: Supple. HEART: Normal first and second heart sounds. No gallop or murmur. CHEST: Clear to auscultation. No crepitation or rhonchi. ABDOMEN: Distended, soft, nontender. NEUROLOGIC: The patient is demented, but without any obvious lateralizing sign. He ambulates with assist. His intake was 1950, output was 625. LABORATORY DATA: As of this morning, his serum sodium was 143, potassium 4.2, chloride 107, bicarbonate 29, anion gap of 7, BUN 31, creatinine 1.2, estimated GFR was 57 mL per minute, his glucose 220, calcium was 8.5. Total bilirubin and alkaline phosphatase were normal. AST, ALT are elevated. Total protein 6.3, albumin 2.1. White cell count was 8500, hemoglobin 12.5, hematocrit 38, MCV 96 and platelet count of 145,000. ASSESSMENT: 1. Acute hypoxic respiratory failure. 2. Questionable aspiration pneumonia versus healthcare-associated pneumonia in a background of COVID-19 pneumonia. 3. The patient has multiple other medical problems including: A. Hypertension. B. Hyperlipidemia. C. Anemia. D. Coronary artery disease. E. Peripheral vascular disease. F. Chronic obstructive pulmonary disease. G. Myocardial infarction. H. Prostate cancer. I. Severe protein-calorie malnutrition. PLAN: To continue with Zosyn, continue with Solu-Medrol. The patient is status post convalescent plasma treatment. Continue with physical and occupational therapy. Continue with Lovenox for DVT prophylaxis. KRISTYN WALLS MD DR: MELLISA/ashkan JOB#: [id number] / [id number]
[2020-03-22] MEDS: ATORVASTATIN CALCIUM 10 MG TABLET. PO SCH (21:44)
[2020-03-22] MEDS: DIVALPROEX SODIUM 250 MG TABLET.DR. PO SCH (21:44)
[2020-03-22] MEDS: rOPINIRole 1 MG TABLET. PO SCH (21:44)
[2020-03-22] MEDS: hydrOXYzine HCL 25 MG TABLET PO SCH (21:44)
[2020-03-22] MEDS: MIRTAZAPINE 15 MG TABLET PO SCH (21:45)
[2020-03-22 23:00] VITALS: BP 137/65
[2020-03-23] MEDS: PIPERACILLIN/TAZOBACTAM 3.375 GM in IV NORMAL SALINE 50ML 50 ML IV SCH ×2 (04:30→10:28)
[2020-03-23] MEDS: methylPREDNISolone SOD SUCC PF 40 MG/ML VIAL. IV SCH ×2 (05:52→17:20)
[2020-03-23 06:11] VITALS: BP 159/70
[2020-03-23] MEDS: PANTOPRAZOLE 40 MG TABLET. PO SCH (08:56)
[2020-03-23] MEDS: ACETAMINOPHEN 500 MG TABLET PO PRN (08:56)
[2020-03-23] MEDS: MULTIVITAMIN with MINERAL TABLET. PO SCH (08:56)
[2020-03-23] MEDS: ASPIRIN CHEWABLE 81 MG TABLET. PO SCH (08:56)
[2020-03-23] MEDS: DOCUSATE SODIUM 100 MG CAPSULE PO SCH (08:56)
[2020-03-23] MEDS: LACTOBACILLUS RHAMNOSUS GG 1 CAPSULE. PO SCH ×2 (08:56→20:26)
[2020-03-23] MEDS: MEMANTINE 10 MG TABLET. PO SCH ×2 (08:56→20:26)
[2020-03-23] MEDS: IPRATROPIUM/ALBUTEROL 20/100mcg/INH INHALER. INH SCH ×4 (08:57→20:00)
[2020-03-23] MEDS: FLUTICASONE 50MCG/NASAL SPRAY 16GM BOTTLE. NS SCH (08:57)
[2020-03-23] MEDS: PROPRANOLOL 10 MG TABLET. PO SCH ×2 (08:57→20:59)
[2020-03-23] MEDS: SERTRALINE 25 MG TABLET. PO SCH (08:57)
[2020-03-23] MEDS: DICLOFENAC SODIUM 1% TOPICAL GEL 100GM TUBE. TP SCH ×2 (08:58→20:27)
[2020-03-23 10:08] VITALS: BP 142/55
[2020-03-23] MEDS ORDERED: methylPREDNISolone SOD SUCC PF 40 MG/ML VIAL. IV SCH (14:00)
--- NOTE | 2020-03-23 14:08 | NUR ---
NSG NOTE; MORE CONFUSION TODAY. 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
[2020-03-23] MEDS: ENOXAPARIN 40 MG/0.4 ML SYRINGE. SQ SCH (16:02)
--- NOTE | 2020-03-23 16:33 | NUR ---
NSG NOTE; CONFUSION AND AGITATION PT HAS REPEATEDLY GOTTEN OOB STATING HE HAS TO GO GET HIS WHO HE LEFT ON A BENCH HERE AT [facility] YESTERDAY. HE IS BECOMING MORE AGITATED AND REFUSES TO BE REORIENTED TO HIS CURRENT SITUATION. KAYY RIVAS
[2020-03-23] MEDS: ZIPRASIDONE IM 20 MG VIAL. IM PRN (18:00)
[2020-03-23 19:00] VITALS: BP 135/69
--- NOTE | 2020-03-23 19:32 | PN ---
DATE: 03/23/2020 SUBJECTIVE: The patient is an 84-year-old male patient who is sitting slightly propped up in bed, in no apparent distress. The nursing staff stated he was a bit more confused today, but otherwise did not voice any concern. In particular, the patient continued to be afebrile, hemodynamically stable. OBJECTIVE: GENERAL: When I examined him this afternoon, he was pale, but no jaundice, cyanosis or thyromegaly. No jugular venous distention. No limb edema. VITAL SIGNS: Her heart rate was 59, blood pressure was 142/55, temperature was 97.7, respiratory rate was 24, and oxygen saturation was 91% on 3 liters of oxygen. HEAD, EYES, EARS, NOSE, AND THROAT: Showed normocephalic, atraumatic. NECK: Supple. HEART: Showed normal first and second heart sounds. No gallop or murmur. CHEST: Clear to auscultation. No crepitation or rhonchi. ABDOMEN: Distended, soft, nontender. NEUROLOGIC: He was demented but without any obvious lateralizing sign. His intake over the last 24 hours was ____. LABORATORY DATA: As of yesterday, his white cell count was 8500, hemoglobin 12.5, hematocrit 38, MCV 96, and platelet count of 145,000. His chemistry showed a BUN of 31, creatinine 1.2. ASSESSMENT: 1. Acute hypoxic respiratory failure. 2. Questionable aspiration pneumonia versus healthcare-associated pneumonia on a background of COVID-19 pneumonia. 3. The patient has multiple other medical problems including: A. Hypertension. B. Hyperlipidemia. C. Anemia. D. Coronary artery disease, ____, status post myocardial infarction. E. Peripheral vascular disease. F. Chronic obstructive pulmonary disease. G. Prostate cancer. H. Severe protein-calorie malnutrition. PLAN: To continue with IV as the patient is afebrile, hemodynamically stable. His blood cultures have been negative after 5 days. I would discontinue his Zosyn and switch him to Augmentin. I will also cut down his methylprednisolone to 40 mg IV q. 8 hours to every 12 hours. KRISTYN WALLS MD DR: MELLISA/ashkan JOB#: [id number] / [id number]
[2020-03-23] MEDS: hydrOXYzine HCL 25 MG TABLET PO SCH (20:25)
[2020-03-23] MEDS: AMOXICILLIN/K CLAV 500/125MG TABLET. PO SCH (20:25)
[2020-03-23] MEDS: rOPINIRole 1 MG TABLET. PO SCH (20:26)
[2020-03-23] MEDS: ATORVASTATIN CALCIUM 10 MG TABLET. PO SCH (20:26)
[2020-03-23] MEDS: DIVALPROEX SODIUM 250 MG TABLET.DR. PO SCH (20:26)
[2020-03-23] MEDS: MIRTAZAPINE 15 MG TABLET PO SCH (20:26)
[2020-03-23 23:14] VITALS: BP 146/75
[2020-03-24] MEDS: methylPREDNISolone SOD SUCC PF 40 MG/ML VIAL. IV SCH ×2 (05:21→17:52)
[2020-03-24 05:52] VITALS: BP 162/77
[2020-03-24] MEDS: PROPRANOLOL 10 MG TABLET. PO SCH ×2 (07:58→21:48)
[2020-03-24] MEDS: SERTRALINE 25 MG TABLET. PO SCH (07:58)
[2020-03-24] MEDS: ACETAMINOPHEN 500 MG TABLET PO PRN (07:58)
[2020-03-24] MEDS: AMOXICILLIN/K CLAV 500/125MG TABLET. PO SCH ×2 (07:58→21:48)
[2020-03-24] MEDS: ASPIRIN CHEWABLE 81 MG TABLET. PO SCH (07:58)
[2020-03-24] MEDS: MULTIVITAMIN with MINERAL TABLET. PO SCH (07:58)
[2020-03-24] MEDS: PANTOPRAZOLE 40 MG TABLET. PO SCH (07:58)
[2020-03-24] MEDS: FLUTICASONE 50MCG/NASAL SPRAY 16GM BOTTLE. NS SCH (07:59)
[2020-03-24] MEDS: LACTOBACILLUS RHAMNOSUS GG 1 CAPSULE. PO SCH ×2 (07:59→21:48)
[2020-03-24] MEDS: IPRATROPIUM/ALBUTEROL 20/100mcg/INH INHALER. INH SCH ×4 (07:59→21:47)
[2020-03-24] MEDS: DICLOFENAC SODIUM 1% TOPICAL GEL 100GM TUBE. TP SCH ×2 (07:59→21:00)
[2020-03-24] MEDS: DOCUSATE SODIUM 100 MG CAPSULE PO SCH (07:59)
[2020-03-24] MEDS: MEMANTINE 10 MG TABLET. PO SCH ×2 (07:59→21:49)
[2020-03-24 08:56] VITALS: BP 178/66
--- NOTE | 2020-03-24 09:29 | NUR ---
N SG NOTE; DESAT EPISODE PT UP TO BR WITH O2 1.5 L NC AND BECAME SOA, DIZZY AND WITH CYANOTIC LIPS. PT BACK TO BED. 02 SAT 65%. DEPUTY OF COUNTER INTELLIGENCE CALLED ME INTO THE ROOM. WE APPLIED O2 AT 6 L SIMPLE MASK. BREATHING LABORED WITH ACC MUSCLE USE. LUNGS COARSE THROUGHOUT. PT ENC TO COUGH AND IT WAS DRY. PT SLOWLY RECOVERED TO O2 SAT 96% OVER 5-8 MINUTES. RESTING MORE QUIETLY AT THIS TIME
[2020-03-24 09:38] LABS: HEMATOCRIT 41.6 % (39.0-53.0); HEMOGLOBIN 13.6 g/dL (13.0-17.5); RED BLOOD COUNT 4.3 x10^6/uL (4.30-5.70); RED CELL DISTRIBUTION WIDTH 15.5 % (11.5-14.5); WHITE BLOOD COUNT 11.2 x10^3/uL (4.0-11.0)
[2020-03-24 09:52] LABS: ALBUMIN 2.3 g/dL (3.4-5.0); ALBUMIN/GLOBULIN RATIO 0.6 (1.0-1.7); CALCIUM 8.5 mg/dL (8.5-10.1); CREATININE 1.1 mg/dL (0.7-1.3); GFR 63.6; POTASSIUM 4.5 mmol/L (3.5-5.1); TOTAL BILIRUBIN 0.7 mg/dL (0.2-1.0); TOTAL PROTEIN 6.4 g/dL (6.4-8.2)
[2020-03-24 11:57] VITALS: BP 158/74
--- NOTE | 2020-03-24 13:52 | PN ---
DATE: 03/24/2020 SUBJECTIVE: The patient is resting, slightly propped up in bed, no apparent distress. On questioning him, he denied any complaint; however, the nursing staff stated that he went to the bathroom and became extremely short of breath, dizzy and his saturation dropped down to 65%. It took him a long time to recover. However, by the time I saw him his oxygen saturation was already 96% on 3 liters of oxygen. PHYSICAL EXAMINATION: GENERAL: When I examined him, he looked pale, no jaundice, cyanosis or thyromegaly. No jugular venous distention. No lower limb edema. VITAL SIGNS: His heart rate was 68, blood pressure was 158/74, temperature was 97.6, respiratory rate was 22 and oxygen saturation was 99% on 3 liters of oxygen by nasal cannula. HEAD, EYES, EARS, NOSE AND THROAT: Showed normocephalic, atraumatic. NECK: Supple. HEART: Showed normal first and second heart sounds. No gallop, rub or murmur. CHEST: Clear to auscultation. No crepitation or rhonchi. ABDOMEN: Distended, soft, nontender. No guarding or rigidity. No organomegaly. All hernial orifice intact. Bowel sounds normal. NEUROLOGIC: He is demented, but without any obvious lateralizing sign. His intake was 800, output was 1075. LABORATORY DATA: As of this morning, his white cell count was 11,200, hemoglobin 13.6, hematocrit 41, MCV 97 and platelet count of 197,000. His chemistry showed a serum sodium 140, potassium 4.5, chloride 104, bicarbonate 29, anion gap of 7, BUN 37, creatinine 1.1, estimated GFR was 64 mL per minute. His glucose was 165, calcium was 8.5. Total bilirubin and alkaline phosphatase were normal. AST, ALT slightly elevated. Total protein was 6.4, albumin was 2.3. ASSESSMENT: 1. Acute hypoxic respiratory failure. 2. Questionable aspiration pneumonia versus healthcare-associated pneumonia on a background of COVID-19 pneumonia. 3. The patient has multiple other medical problems including: A. Hypertension. B. Hyperlipidemia. C. Anemia. D. Coronary artery disease, status post myocardial infarction. F. Peripheral vascular disease. G. Chronic obstructive pulmonary disease. H. Prostate cancer. I. Severe protein-calorie malnutrition. PLAN: To continue with IV antibiotic in the form of Augmentin twice a day. Continue with Solu-Medrol. Continue with Lovenox for DVT prophylaxis. Continue with all his psychotropic medications. KRISTYN WALLS MD DR: MELLISA/ashkan JOB#: [id number] / [id number]
[2020-03-24 14:20] VITALS: BP 148/70
--- NOTE | 2020-03-24 15:46 | NUR ---
SW updated BURTON Lloyd, at [place] about pt behaviors and medical progression. SW will continue to inform pt facility of pt progression and all covoid test results. Pt will need 2 negatives within 24 hours of one another. SW to follow up later this week.
--- NOTE | 2020-03-24 15:50 | NUR ---
MELL contacted Tim, pt dtr, to go over pt progression and discussed that pt greatest barrier at the moment is pt continually desating. MELL has not been notified further as to what to look for with the plasma transfusion and will plan to speak with the hospitalist on what to expect. Pt dtr questioned how often pt would be tested for covoid. MELL explained on the medical floor at this time, more than likely once a week. According to pt facility he will need 2 negative tests prior to his return. Once MELL is able to speak with the hospitalist on the plasma infusion, MELL will call Tim back with that information.
[2020-03-24] MEDS: ENOXAPARIN 40 MG/0.4 ML SYRINGE. SQ SCH (17:52)
[2020-03-24 20:08] VITALS: BP 146/68
[2020-03-24] MEDS: hydrOXYzine HCL 25 MG TABLET PO SCH (21:48)
[2020-03-24] MEDS: DIVALPROEX SODIUM 250 MG TABLET.DR. PO SCH (21:48)
[2020-03-24] MEDS: ATORVASTATIN CALCIUM 10 MG TABLET. PO SCH (21:49)
[2020-03-24] MEDS: MIRTAZAPINE 15 MG TABLET PO SCH (21:49)
[2020-03-24] MEDS: rOPINIRole 1 MG TABLET. PO SCH (21:49)
[2020-03-24 21:55] VITALS: BP 137/66
[2020-03-25 05:31] VITALS: BP 159/81
[2020-03-25] MEDS: methylPREDNISolone SOD SUCC PF 40 MG/ML VIAL. IV SCH ×2 (05:42→17:46)
--- NOTE | 2020-03-25 06:48 | NUR ---
PT COVID swabbed 03/25 at 0545.
[2020-03-25] MEDS: SERTRALINE 25 MG TABLET. PO SCH (08:49)
[2020-03-25] MEDS: ASPIRIN CHEWABLE 81 MG TABLET. PO SCH (08:49)
[2020-03-25] MEDS: DOCUSATE SODIUM 100 MG CAPSULE PO SCH (08:49)
[2020-03-25] MEDS: MEMANTINE 10 MG TABLET. PO SCH ×2 (08:49→20:43)
[2020-03-25] MEDS: LACTOBACILLUS RHAMNOSUS GG 1 CAPSULE. PO SCH ×2 (08:49→20:36)
[2020-03-25] MEDS: MULTIVITAMIN with MINERAL TABLET. PO SCH (08:50)
[2020-03-25] MEDS: IPRATROPIUM/ALBUTEROL 20/100mcg/INH INHALER. INH SCH ×4 (08:50→20:00)
[2020-03-25] MEDS: FLUTICASONE 50MCG/NASAL SPRAY 16GM BOTTLE. NS SCH (08:50)
[2020-03-25] MEDS: PANTOPRAZOLE 40 MG TABLET. PO SCH (08:50)
[2020-03-25] MEDS: DICLOFENAC SODIUM 1% TOPICAL GEL 100GM TUBE. TP SCH ×2 (09:00→20:38)
[2020-03-25] MEDS: AMOXICILLIN/K CLAV 500/125MG TABLET. PO SCH ×2 (09:09→20:36)
[2020-03-25] MEDS: PROPRANOLOL 10 MG TABLET. PO SCH ×2 (09:09→21:00)
[2020-03-25 10:44] VITALS: BP 152/59
[2020-03-25 10:50] VITALS: BP 152/68
--- NOTE | 2020-03-25 12:24 | PN ---
DATE: 03/25/2020 SUBJECTIVE: The patient is very confused, agitated. They change rooms on him. He wanted to speak to his mom and dad who have long since . He was a bit agitated yesterday. We tried to calm him down. OBJECTIVE FINDINGS: VITAL SIGNS: Blood pressure is 159/81, temperature 97.5 degrees Fahrenheit, oxygen saturation 96% on 3 liters nasal cannula if he he keeps it on. He is again afebrile. HEENT: Head is without trauma. Pupils are reactive. Sclerae nonicteric. Oropharynx clear. NECK: Supple. LUNGS: Minimal wheezing in the upper airways. Fairly good air movement. CARDIOVASCULAR: Showed regular heart tones. No obvious gallops. Peripheral pulses are palpable and full. ABDOMEN: Soft, scaphoid, nontender, no organomegaly. Bowel sounds are hypoactive. EXTREMITIES: Showed no cyanosis or edema. NEUROLOGIC: Focally intact. He remains quite confused. ASSESSMENT: 1. An 84-year-old gentleman with acute on chronic respiratory failure. He is on supplemental oxygen. 2. Questionable aspiration pneumonia in the background of COVID-19 pneumonia. 3. Chronic obstructive pulmonary disease. 4. Hypertension. 5. Profound dementia. 6. Coronary artery disease. 7. Peripheral vascular disease. 8. History of prostate cancer. PLAN: We will continue with Solu-Medrol and Augmentin, Lovenox for DVT prophylaxis. His last swab still remained positive, placement when he has consecutive negative COVID-19 coronavirus swabs. He is a DNR per advanced directives. JANELL HERCULES MD DR: TIERA/ashkan JOB#: [id number] / [id number]
--- NOTE | 2020-03-25 13:52 | NUR ---
ADDRESSED PATIENTS INCREASING OXYGEN REQUIREMENTS, AND CRACKLE LUNG SOUNDS WITH DR HERCULES. DR. HERCULES STATED "HE HAS COPD, IM NOT CONCERNED ABOUT IT." WILL CONTINUE TO MONITOR.
[2020-03-25 15:16] VITALS: BP 150/67
[2020-03-25] MEDS: ENOXAPARIN 40 MG/0.4 ML SYRINGE. SQ SCH (17:46)
[2020-03-25 18:34] VITALS: BP 150/78
[2020-03-25] MEDS: hydrOXYzine HCL 25 MG TABLET PO SCH (20:36)
[2020-03-25] MEDS: DIVALPROEX SODIUM 250 MG TABLET.DR. PO SCH (20:37)
[2020-03-25] MEDS: ATORVASTATIN CALCIUM 10 MG TABLET. PO SCH (20:37)
[2020-03-25] MEDS: MIRTAZAPINE 15 MG TABLET PO SCH (20:37)
[2020-03-25] MEDS: rOPINIRole 1 MG TABLET. PO SCH (20:37)
[2020-03-25 23:24] VITALS: BP 150/77
[2020-03-26 05:56] VITALS: BP 165/78
[2020-03-26] MEDS: methylPREDNISolone SOD SUCC PF 40 MG/ML VIAL. IV SCH ×2 (06:00→17:10)
[2020-03-26] MEDS: DICLOFENAC SODIUM 1% TOPICAL GEL 100GM TUBE. TP SCH ×2 (09:00→21:00)
--- NOTE | 2020-03-26 11:10 | PN ---
DATE: 03/26/2020 ATTENDING PHYSICIAN: Dr. Bell. SUBJECTIVE: The patient remains confused, but he is calm. He does not complain of any significant dyspnea. Oxygen saturations are adequate. OBJECTIVE FINDINGS: VITAL SIGNS: Blood pressure today is 150/77, pulse is 60 and regular, temperature 97.3 degrees Fahrenheit, oxygen saturation 95% on 3 liters of nasal cannula. HEENT: Head is without trauma. Pupils are reactive. Sclerae nonicteric. Oropharynx clear. NECK: Supple, no bruits. LUNGS: Shallow respirations, but otherwise clear. CARDIOVASCULAR: Showed regular heart tones. No gallops. ABDOMEN: Soft, scaphoid, nontender. EXTREMITIES: Show no cyanosis or edema. NEUROLOGIC: Focally intact. He remains confused and bedridden. ASSESSMENT: 1. An 84-year-old gentleman with acute on chronic respiratory failure. He is on supplemental oxygen. 2. Questionable aspiration pneumonia in the background of COVID-19 pneumonia. 3. Chronic obstructive pulmonary disease, advanced. 4. Hypertension. 5. Profound dementia. 6. Coronary artery disease. 7. Peripheral vascular disease. 8. History of prostate cancer. PLAN: 1. We will continue Solu-Medrol and Augmentin. 2. Lovenox for DVT prophylaxis. 3. Follow up swabs. 4. He remains a DNR per advanced directives. PROGNOSIS: Guarded. JANELL HERCULES MD DR: TIERA/ashkan JOB#: [id number] / [id number]
[2020-03-26] MEDS: LACTOBACILLUS RHAMNOSUS GG 1 CAPSULE. PO SCH ×2 (11:42→20:57)
[2020-03-26] MEDS: FLUTICASONE 50MCG/NASAL SPRAY 16GM BOTTLE. NS SCH (11:42)
[2020-03-26] MEDS: SERTRALINE 25 MG TABLET. PO SCH (11:42)
[2020-03-26] MEDS: MEMANTINE 10 MG TABLET. PO SCH ×2 (11:42→21:00)
[2020-03-26] MEDS: ASPIRIN CHEWABLE 81 MG TABLET. PO SCH (11:42)
[2020-03-26] MEDS: DOCUSATE SODIUM 100 MG CAPSULE PO SCH (11:42)
[2020-03-26] MEDS: MULTIVITAMIN with MINERAL TABLET. PO SCH (11:42)
[2020-03-26] MEDS: PANTOPRAZOLE 40 MG TABLET. PO SCH (11:42)
[2020-03-26] MEDS: IPRATROPIUM/ALBUTEROL 20/100mcg/INH INHALER. INH SCH ×4 (11:43→20:00)
[2020-03-26] MEDS: AMOXICILLIN/K CLAV 500/125MG TABLET. PO SCH ×2 (11:44→20:57)
[2020-03-26] MEDS: PROPRANOLOL 10 MG TABLET. PO SCH ×2 (11:44→20:58)
[2020-03-26 13:17] VITALS: BP 117/60
[2020-03-26] MEDS: ENOXAPARIN 40 MG/0.4 ML SYRINGE. SQ SCH (17:08)
[2020-03-26 19:49] VITALS: BP 122/55
[2020-03-26] MEDS: rOPINIRole 1 MG TABLET. PO SCH (20:57)
[2020-03-26] MEDS: MIRTAZAPINE 15 MG TABLET PO SCH (20:57)
[2020-03-26] MEDS: ATORVASTATIN CALCIUM 10 MG TABLET. PO SCH (20:57)
[2020-03-26] MEDS: DIVALPROEX SODIUM 250 MG TABLET.DR. PO SCH (20:57)
[2020-03-26] MEDS: hydrOXYzine HCL 25 MG TABLET PO SCH (20:57)
[2020-03-27 01:09] VITALS: BP 136/63
[2020-03-27] MEDS: methylPREDNISolone SOD SUCC PF 40 MG/ML VIAL. IV SCH ×2 (05:42→16:40)
[2020-03-27 05:58] VITALS: BP 155/75
[2020-03-27] MEDS: IPRATROPIUM/ALBUTEROL 20/100mcg/INH INHALER. INH SCH ×4 (08:15→20:09)
[2020-03-27] MEDS: PANTOPRAZOLE 40 MG TABLET. PO SCH (08:16)
[2020-03-27] MEDS: SERTRALINE 25 MG TABLET. PO SCH (08:16)
[2020-03-27] MEDS: ACETAMINOPHEN 500 MG TABLET PO PRN (08:16)
[2020-03-27] MEDS: LACTOBACILLUS RHAMNOSUS GG 1 CAPSULE. PO SCH ×2 (08:16→20:09)
[2020-03-27] MEDS: DOCUSATE SODIUM 100 MG CAPSULE PO SCH (08:16)
[2020-03-27] MEDS: AMOXICILLIN/K CLAV 500/125MG TABLET. PO SCH ×2 (08:17→20:09)
[2020-03-27] MEDS: MULTIVITAMIN with MINERAL TABLET. PO SCH (08:17)
[2020-03-27] MEDS: MEMANTINE 10 MG TABLET. PO SCH ×2 (08:17→20:09)
[2020-03-27] MEDS: ASPIRIN CHEWABLE 81 MG TABLET. PO SCH (08:17)
[2020-03-27] MEDS: FLUTICASONE 50MCG/NASAL SPRAY 16GM BOTTLE. NS SCH (08:17)
[2020-03-27] MEDS: PROPRANOLOL 10 MG TABLET. PO SCH ×2 (08:18→20:10)
[2020-03-27] MEDS: DICLOFENAC SODIUM 1% TOPICAL GEL 100GM TUBE. TP SCH ×2 (08:19→20:13)
--- NOTE | 2020-03-27 10:03 | PN ---
DATE: 03/27/2020 ATTENDING PHYSICIAN: Dr. Hercules. SUBJECTIVE: The patient is sleepy, but arousable. He is in no obvious respiratory distress. OBJECTIVE FINDINGS: VITAL SIGNS: Blood pressure today is 155/75, pulse 57 and regular, temperature 97.6 degrees Fahrenheit, oxygen saturation 94% on 3 liters nasal cannula. HEENT: Head is without trauma. Pupils are reactive. Sclerae nonicteric. NECK: Supple. No stridor. Oropharynx clear. He is edentulous. LUNGS: Shallow respirations, otherwise clear. CARDIOVASCULAR: Showed regular heart tones. No gallops. Peripheral pulses are palpable and full. ABDOMEN: Soft, scaphoid, nontender, no guarding or rebound tenderness. EXTREMITIES: Showed trace edema. NEUROLOGIC: Pleasantly confused. He is a little bit sleepy today. ASSESSMENT: 1. This 84-year-old gentleman has acute on chronic respiratory failure. He is on supplemental oxygen. 2. Questionable aspiration pneumonia in the background of COVID-19 pneumonia. 3. Chronic obstructive pulmonary disease, advanced, oxygen dependent. 4. Essential hypertension. 5. Profound dementia. 6. Known coronary artery disease. 7. Peripheral vascular disease. 8. History of prostate cancer. PLAN: 1. We will continue Solu-Medrol and Augmentin as ordered. 2. Lovenox for DVT prophylaxis in light of possible COVID infection. 3. Follow up swabs. 4. He remains a DNR, comfort measures. JANELL HERCULES MD DR: TIERA/ashkan JOB#: [id number] / [id number]
[2020-03-27 11:28] VITALS: BP 156/64
[2020-03-27] MEDS: ENOXAPARIN 40 MG/0.4 ML SYRINGE. SQ SCH (16:39)
[2020-03-27 19:19] VITALS: BP 108/58
[2020-03-27] MEDS: hydrOXYzine HCL 25 MG TABLET PO SCH (20:09)
[2020-03-27] MEDS: MIRTAZAPINE 15 MG TABLET PO SCH (20:09)
[2020-03-27] MEDS: ATORVASTATIN CALCIUM 10 MG TABLET. PO SCH (20:10)
[2020-03-27] MEDS: DIVALPROEX SODIUM 250 MG TABLET.DR. PO SCH (20:10)
[2020-03-27] MEDS: rOPINIRole 1 MG TABLET. PO SCH (20:13)
[2020-03-28 00:51] VITALS: BP 129/66
[2020-03-28 05:00] VITALS: BP 160/81
[2020-03-28] MEDS: methylPREDNISolone SOD SUCC PF 40 MG/ML VIAL. IV SCH (05:10)
[2020-03-28 08:00] VITALS: BP 163/79
[2020-03-28] MEDS: AMOXICILLIN/K CLAV 500/125MG TABLET. PO SCH ×2 (08:11→19:55)
[2020-03-28] MEDS: LACTOBACILLUS RHAMNOSUS GG 1 CAPSULE. PO SCH ×2 (08:11→19:55)
[2020-03-28] MEDS: SERTRALINE 25 MG TABLET. PO SCH (08:11)
[2020-03-28] MEDS: ASPIRIN CHEWABLE 81 MG TABLET. PO SCH (08:11)
[2020-03-28] MEDS: MULTIVITAMIN with MINERAL TABLET. PO SCH (08:11)
[2020-03-28] MEDS: DOCUSATE SODIUM 100 MG CAPSULE PO SCH (08:12)
[2020-03-28] MEDS: IPRATROPIUM/ALBUTEROL 20/100mcg/INH INHALER. INH SCH ×4 (08:12→19:54)
[2020-03-28] MEDS: DICLOFENAC SODIUM 1% TOPICAL GEL 100GM TUBE. TP SCH ×2 (08:12→19:58)
[2020-03-28] MEDS: PANTOPRAZOLE 40 MG TABLET. PO SCH (08:12)
[2020-03-28] MEDS: MEMANTINE 10 MG TABLET. PO SCH ×2 (08:12→19:55)
[2020-03-28] MEDS: FLUTICASONE 50MCG/NASAL SPRAY 16GM BOTTLE. NS SCH (08:35)
[2020-03-28] MEDS: PROPRANOLOL 10 MG TABLET. PO SCH ×2 (08:35→19:55)
--- NOTE | 2020-03-28 10:51 | PN ---
DATE: 03/28/2020 ATTENDING PHYSICIAN: Dr. Hercules. SUBJECTIVE: The patient is little more awake today. He is pleasant. He is cooperative. There is no obvious distress. He remains confused. OBJECTIVE FINDINGS: VITAL SIGNS: Blood pressure today is 160/81, pulse 58 and regular, temperature 97.3 degrees Fahrenheit, oxygen saturation 94% on 3 liters by nasal cannula. HEENT: Head is without trauma. Pupils are reactive. Sclerae nonicteric. Oropharynx is clear. NECK: Supple, no bruits identified. LUNGS: Otherwise clear, very minimal wheezing noted. CARDIOVASCULAR: Showed distant heart tones. ABDOMEN: Soft, nontender, no guarding. EXTREMITIES: Showed trace edema. NEUROLOGIC: Pleasantly confused. No focal deficits. ASSESSMENT: 1. An 84-year-old gentleman with acute on chronic respiratory failure. He is improved. He is back to his regular supplemental oxygen dosage. 2. Questionable aspiration pneumonia in the background of COVID-19 pneumonia. 3. Chronic obstructive pulmonary disease, oxygen dependent. 4. Essential hypertension. 5. Profound dementia. 6. Known coronary artery disease. 7. Peripheral vascular disease. 8. History of prostate cancer. PLAN: 1. Continue current Solu-Medrol and Augmentin. I will taper his dose of it. 2. Lovenox for DVT prophylaxis. 3. Followup of coronavirus swab. 4. He remains a DNR per advanced directive. JANELL HERCULES MD DR: TIERA/ashkan JOB#: [id number] / [id number]
[2020-03-28] MEDS: ENOXAPARIN 40 MG/0.4 ML SYRINGE. SQ SCH (16:05)
[2020-03-28] MEDS: ZIPRASIDONE IM 20 MG VIAL. IM PRN (16:59)
[2020-03-28 19:36] VITALS: BP 131/63
[2020-03-28] MEDS: hydrOXYzine HCL 25 MG TABLET PO SCH (19:54)
[2020-03-28] MEDS: MIRTAZAPINE 15 MG TABLET PO SCH (19:55)
[2020-03-28] MEDS: ACETAMINOPHEN 500 MG TABLET PO PRN (19:55)
[2020-03-28] MEDS: rOPINIRole 1 MG TABLET. PO SCH (19:56)
[2020-03-28] MEDS: ATORVASTATIN CALCIUM 10 MG TABLET. PO SCH (19:56)
[2020-03-28] MEDS: DIVALPROEX SODIUM 250 MG TABLET.DR. PO SCH (19:58)
--- NOTE | 2020-03-28 20:51 | NUR ---
Pt more alert this evening, talkative and wandering in room. Pt assisted back to bed and alarm set for safety. Pt c/o BLE joint pain, rates 8:10. Scheduled voltaren gel applied to both knees. PRN Tylenol 1000mg PO also given for pain. Pt now resting comfortably in bed with knees elevated.
[2020-03-29] MEDS: IPRATROPIUM/ALBUTEROL 20/100mcg/INH INHALER. INH SCH ×4 (07:56→19:45)
[2020-03-29] MEDS: ASPIRIN CHEWABLE 81 MG TABLET. PO SCH (07:56)
[2020-03-29] MEDS: MULTIVITAMIN with MINERAL TABLET. PO SCH (07:56)
[2020-03-29] MEDS: PANTOPRAZOLE 40 MG TABLET. PO SCH (07:56)
[2020-03-29] MEDS: FLUTICASONE 50MCG/NASAL SPRAY 16GM BOTTLE. NS SCH (07:56)
[2020-03-29] MEDS: LACTOBACILLUS RHAMNOSUS GG 1 CAPSULE. PO SCH ×2 (07:56→19:47)
[2020-03-29] MEDS: SERTRALINE 25 MG TABLET. PO SCH (07:56)
[2020-03-29] MEDS: DOCUSATE SODIUM 100 MG CAPSULE PO SCH (07:56)
[2020-03-29] MEDS: AMOXICILLIN/K CLAV 500/125MG TABLET. PO SCH ×2 (07:56→19:48)
[2020-03-29] MEDS: MEMANTINE 10 MG TABLET. PO SCH ×2 (07:57→19:49)
[2020-03-29] MEDS: DICLOFENAC SODIUM 1% TOPICAL GEL 100GM TUBE. TP SCH ×2 (07:57→19:50)
[2020-03-29] MEDS: methylPREDNISolone SOD SUCC PF 40 MG/ML VIAL. IV SCH (07:57)
[2020-03-29 08:07] VITALS: BP 116/69
[2020-03-29] MEDS: PROPRANOLOL 10 MG TABLET. PO SCH ×2 (09:00→19:47)
--- NOTE | 2020-03-29 10:29 | PN ---
DATE: 03/29/2020 ATTENDING PHYSICIAN: Dr. Hercules. SUBJECTIVE: The patient is calm. He is pleasant. He is in no acute distress. OBJECTIVE FINDINGS: VITAL SIGNS: Temperature is 98.4 degrees Fahrenheit, pulse is 66 and regular, blood pressure 116/69 mmHg, oxygen saturation 97% on 3 liters of nasal cannula. HEENT: Head is without trauma. Pupils are reactive. Sclerae nonicteric. Oropharynx is clear. NECK: Supple, no bruits identified. LUNGS: Good breath sounds. No wheezing or rales. CARDIOVASCULAR: Showed regular heart tones. No gallops. ABDOMEN: Soft, no guarding. Normal bowel sounds. EXTREMITIES: Show trace edema. NEUROLOGIC: Pleasantly confused. No focal deficits. ASSESSMENT: 1. An 84-year-old gentleman with acute on chronic respiratory failure. He is improved. 2. Questionable aspiration pneumonia in the background with COVID-19 pneumonia. 3. Chronic obstructive pulmonary disease, oxygen dependent. 4. Essential hypertension. 5. Profound dementia. 6. Known coronary artery disease, stable. 7. Peripheral vascular disease. 8. History of prostate cancer. PLAN: 1. Continue Augmentin. 2. Tapering steroids. 3. Lovenox for DVT prophylaxis. 4. Follow up coronavirus swab. JANELL HERCULES MD DR: TIERA/ashkan JOB#: [id number] / [id number]
[2020-03-29] MEDS: ENOXAPARIN 40 MG/0.4 ML SYRINGE. SQ SCH (16:56)
[2020-03-29] MEDS: hydrOXYzine HCL 25 MG TABLET PO SCH (19:45)
[2020-03-29] MEDS: ATORVASTATIN CALCIUM 10 MG TABLET. PO SCH (19:46)
[2020-03-29] MEDS: rOPINIRole 1 MG TABLET. PO SCH (19:47)
[2020-03-29] MEDS: MIRTAZAPINE 15 MG TABLET PO SCH (19:48)
[2020-03-29] MEDS: DIVALPROEX SODIUM 250 MG TABLET.DR. PO SCH (19:48)
[2020-03-29 20:00] VITALS: BP 123/64
[2020-03-30] MEDS: IPRATROPIUM/ALBUTEROL 20/100mcg/INH INHALER. INH SCH ×4 (08:00→21:12)
[2020-03-30] MEDS: MULTIVITAMIN with MINERAL TABLET. PO SCH (08:14)
[2020-03-30] MEDS: PANTOPRAZOLE 40 MG TABLET. PO SCH (08:14)
[2020-03-30] MEDS: methylPREDNISolone SOD SUCC PF 40 MG/ML VIAL. IV SCH (08:15)
[2020-03-30] MEDS: AMOXICILLIN/K CLAV 500/125MG TABLET. PO SCH ×2 (08:15→21:13)
[2020-03-30] MEDS: DOCUSATE SODIUM 100 MG CAPSULE PO SCH (08:16)
[2020-03-30] MEDS: MEMANTINE 10 MG TABLET. PO SCH ×2 (08:16→21:12)
[2020-03-30] MEDS: SERTRALINE 25 MG TABLET. PO SCH (08:16)
[2020-03-30] MEDS: ASPIRIN CHEWABLE 81 MG TABLET. PO SCH (08:16)
[2020-03-30] MEDS: LACTOBACILLUS RHAMNOSUS GG 1 CAPSULE. PO SCH ×2 (08:16→21:13)
[2020-03-30] MEDS: FLUTICASONE 50MCG/NASAL SPRAY 16GM BOTTLE. NS SCH (08:17)
[2020-03-30] MEDS: PROPRANOLOL 10 MG TABLET. PO SCH ×2 (08:17→21:13)
[2020-03-30] MEDS: DICLOFENAC SODIUM 1% TOPICAL GEL 100GM TUBE. TP SCH ×2 (08:17→21:00)
[2020-03-30 08:19] VITALS: BP 130/70
--- NOTE | 2020-03-30 12:14 | PN ---
DATE: 03/30/2020 ATTENDING PHYSICIAN: Dr. Hercules. SUBJECTIVE: The patient is calm and cooperative. He has no new complaints. He is in no acute distress. OBJECTIVE FINDINGS: VITAL SIGNS: Blood pressure today is 130/70 mmHg, pulse 61 and regular, temperature 97.2 degrees Fahrenheit, oxygen saturation 96% on his baseline 3 liters of nasal cannula. HEENT: Head is without trauma. Pupils are reactive. Sclerae are nonicteric. The oropharynx is clear. NECK: Supple. There are no bruits identified. LUNGS: Good breath sounds. CARDIOVASCULAR: Showed regular heart tones. No gallops. ABDOMEN: Soft, no guarding or rebound tenderness. Normal bowel sounds. EXTREMITIES: Showed no cyanosis or edema. NEUROLOGIC: Focally intact. He is pleasantly confused. ASSESSMENT: 1. An 84-year-old gentleman with acute on chronic respiratory failure, improved. 2. Questionable aspiration pneumonia superimposed on COVID-19 pneumonia. 3. Chronic obstructive pulmonary disease, oxygen dependent. 4. Essential hypertension. 5. Peripheral vascular disease. 6. Known coronary artery disease. 7. History of prostate cancer. 8. Profound dementia. PLAN: 1. Continue the Augmentin as ordered. 2. Tapering steroids. 3. Lovenox for DVT prophylaxis. 4. Repeat coronavirus swab. JANELL HERCULES MD DR: TIERA/ashkan JOB#: [id number] / [id number]
[2020-03-30] MEDS: ENOXAPARIN 40 MG/0.4 ML SYRINGE. SQ SCH (16:04)
[2020-03-30 20:04] VITALS: BP 129/57
[2020-03-30] MEDS: hydrOXYzine HCL 25 MG TABLET PO SCH (21:12)
[2020-03-30] MEDS: rOPINIRole 1 MG TABLET. PO SCH (21:13)
[2020-03-30] MEDS: DIVALPROEX SODIUM 250 MG TABLET.DR. PO SCH (21:13)
[2020-03-30] MEDS: ATORVASTATIN CALCIUM 10 MG TABLET. PO SCH (21:13)
[2020-03-30] MEDS: MIRTAZAPINE 15 MG TABLET PO SCH (21:13)
[2020-03-31] MEDS: IPRATROPIUM/ALBUTEROL 20/100mcg/INH INHALER. INH SCH ×4 (08:00→20:13)
[2020-03-31] MEDS: SERTRALINE 25 MG TABLET. PO SCH (08:17)
[2020-03-31] MEDS: ASPIRIN CHEWABLE 81 MG TABLET. PO SCH (08:17)
[2020-03-31] MEDS: MULTIVITAMIN with MINERAL TABLET. PO SCH (08:17)
[2020-03-31] MEDS: DOCUSATE SODIUM 100 MG CAPSULE PO SCH (08:17)
[2020-03-31] MEDS: LACTOBACILLUS RHAMNOSUS GG 1 CAPSULE. PO SCH ×2 (08:17→20:15)
[2020-03-31] MEDS: AMOXICILLIN/K CLAV 500/125MG TABLET. PO SCH ×2 (08:17→20:15)
[2020-03-31] MEDS: MEMANTINE 10 MG TABLET. PO SCH ×2 (08:17→20:15)
[2020-03-31] MEDS: hydrOXYzine HCL 25 MG TABLET PO SCH ×2 (08:18→20:14)
[2020-03-31] MEDS: PROPRANOLOL 10 MG TABLET. PO SCH ×2 (08:18→20:16)
[2020-03-31] MEDS: PANTOPRAZOLE 40 MG TABLET. PO SCH (08:18)
[2020-03-31] MEDS: methylPREDNISolone SOD SUCC PF 40 MG/ML VIAL. IV SCH (08:19)
[2020-03-31] MEDS: FLUTICASONE 50MCG/NASAL SPRAY 16GM BOTTLE. NS SCH (08:20)
[2020-03-31] MEDS: DICLOFENAC SODIUM 1% TOPICAL GEL 100GM TUBE. TP SCH ×2 (09:00→20:17)
[2020-03-31 11:14] VITALS: BP 128/57
--- NOTE | 2020-03-31 13:49 | PN ---
DATE: 03/31/2020 ATTENDING PHYSICIAN: Dr. Hercules. SUBJECTIVE: The patient is up in a chair. He is alert. He is not agitated. He is in no acute distress. OBJECTIVE FINDINGS: VITAL SIGNS: Blood pressure today is 128/57 mmHg, pulse 70 and regular, temperature 97.4 degrees Fahrenheit, oxygen saturation now 92%, wean down to 2 liters by nasal cannula. HEENT: Head is without trauma. Pupils are reactive. Sclerae nonicteric. Oropharynx clear. NECK: Supple, no bruits identified. LUNGS: Otherwise clear with good breath sounds. CARDIOVASCULAR: Showed regular heart tones. No gallops, no murmurs. Peripheral pulses are palpable and full. ABDOMEN: Soft. EXTREMITIES: Without edema. NEUROLOGIC: Focally intact. No deficits. Speech is fluent. SKIN: Warm and dry. ASSESSMENT: 1. This 84-year-old gentleman has COVID positive swabs with questionable aspiration pneumonia superimposed on COVID-19 pneumonia. 2. Acute on chronic respiratory failure, improved. 3. Oxygen-dependent chronic obstructive pulmonary disease. 4. Hypertension. 5. Peripheral vascular disease. 6. History of prostate cancer. 7. Profound dementia. PLAN: 1. Continue Augmentin for a few more days. 2. I shall substitute p.o. prednisone in lieu of the Solu-Medrol. 3. Other home meds were reviewed. 4. His last coronavirus swab on 03/25/2020 was positive. We will follow up with repeat swab by this week. 5. Continue Lovenox for DVT prophylaxis. JANELL HERCULES MD DR: TIERA/ashkan JOB#: [id number] / [id number]
[2020-03-31] MEDS: ENOXAPARIN 40 MG/0.4 ML SYRINGE. SQ SCH (16:00)
[2020-03-31 19:32] VITALS: BP 143/70
[2020-03-31] MEDS: rOPINIRole 1 MG TABLET. PO SCH (20:15)
[2020-03-31] MEDS: ATORVASTATIN CALCIUM 10 MG TABLET. PO SCH (20:16)
[2020-03-31] MEDS: MIRTAZAPINE 15 MG TABLET PO SCH (20:16)
[2020-03-31] MEDS: DIVALPROEX SODIUM 250 MG TABLET.DR. PO SCH (20:16)
[2020-04-01 05:13] VITALS: BP 157/70
[2020-04-01] MEDS: IPRATROPIUM/ALBUTEROL 20/100mcg/INH INHALER. INH SCH ×4 (08:00→20:00)
[2020-04-01 08:23] VITALS: BP 120/50
[2020-04-01] MEDS: DOCUSATE SODIUM 100 MG CAPSULE PO SCH (08:58)
[2020-04-01] MEDS: AMOXICILLIN/K CLAV 500/125MG TABLET. PO SCH ×2 (08:58→21:09)
[2020-04-01] MEDS: FLUTICASONE 50MCG/NASAL SPRAY 16GM BOTTLE. NS SCH (08:58)
[2020-04-01] MEDS: MULTIVITAMIN with MINERAL TABLET. PO SCH (08:59)
[2020-04-01] MEDS: SERTRALINE 25 MG TABLET. PO SCH (08:59)
[2020-04-01] MEDS: LACTOBACILLUS RHAMNOSUS GG 1 CAPSULE. PO SCH ×2 (08:59→21:09)
[2020-04-01] MEDS: PANTOPRAZOLE 40 MG TABLET. PO SCH (08:59)
[2020-04-01] MEDS: predniSONE 20 MG TABLET PO SCH (08:59)
[2020-04-01] MEDS: MEMANTINE 10 MG TABLET. PO SCH ×2 (08:59→21:09)
[2020-04-01] MEDS: PROPRANOLOL 10 MG TABLET. PO SCH ×2 (08:59→21:10)
[2020-04-01] MEDS: ASPIRIN CHEWABLE 81 MG TABLET. PO SCH (08:59)
[2020-04-01] MEDS: DICLOFENAC SODIUM 1% TOPICAL GEL 100GM TUBE. TP SCH ×2 (09:00→21:00)
[2020-04-01] MEDS: ACETAMINOPHEN 500 MG TABLET PO PRN (09:01)
[2020-04-01] MEDS: ENOXAPARIN 40 MG/0.4 ML SYRINGE. SQ SCH (15:25)
[2020-04-01 19:52] VITALS: BP 124/55
[2020-04-01] MEDS: DIVALPROEX SODIUM 250 MG TABLET.DR. PO SCH (21:10)
[2020-04-01] MEDS: MIRTAZAPINE 15 MG TABLET PO SCH (21:10)
[2020-04-01] MEDS: rOPINIRole 1 MG TABLET. PO SCH (21:10)
[2020-04-01] MEDS: ATORVASTATIN CALCIUM 10 MG TABLET. PO SCH (21:10)
[2020-04-01] MEDS: hydrOXYzine HCL 25 MG TABLET PO SCH (21:10)
--- NOTE | 2020-04-01 21:50 | PN ---
DATE: SUBJECTIVE: The patient is sitting on the edge of the bed comfortably, in no apparent distress. He continued to require oxygen; however, his mobility has improved. He apparently pulled his [place] catheter, but apparently he is able to urinate and empty his bladder. PHYSICAL EXAMINATION: GENERAL: On examining him, he looked pale. No jaundice, cyanosis or thyromegaly. No jugular venous distention. No limb edema. VITAL SIGNS: Her heart rate was 68, blood pressure was 120/50, temperature 97.3, respiratory rate was 18 and oxygen saturation was 92% on 2 liters of oxygen. HEAD, EYES, EARS, NOSE AND THROAT: Showed normocephalic, atraumatic. NECK: Supple. HEART: Normal first and second heart sounds. No gallop, rub or murmur. CHEST: Clear to auscultation. No crepitation or rhonchi. ABDOMEN: Distended, soft, nontender. NEUROLOGIC: Neurologically, he is demented, but without any lateralizing sign. EXTREMITIES: His extremities showed no clubbing, cyanosis or edema. ASSESSMENT: This is an 84-year-old gentleman with, 1. COVID positive swabs with questionable aspiration pneumonia superimposed on COVID-19 pneumonia. 2. Acute on chronic respiratory failure, improved. 3. Oxygen-dependent chronic obstructive pulmonary disease. 4. Hypertension. 5. Peripheral vascular disease. 6. History of prostate cancer. 7. Profound dementia. PLAN: To continue with Augmentin. Continue with tapering course of steroids. Continue with DVT prophylaxis. Continue with all his psychotropic medication. His last swab was done on 03/25/2020 and was still positive. Swabbed yesterday, the result of which is still pending at the time of this dictation. KRISTYN WALLS MD DR: MELLISA/ashkan JOB#: [id number] / [id number]
[2020-04-02 05:13] VITALS: BP 134/72
[2020-04-02] MEDS: IPRATROPIUM/ALBUTEROL 20/100mcg/INH INHALER. INH SCH ×4 (07:34→20:00)
[2020-04-02] MEDS: SERTRALINE 25 MG TABLET. PO SCH (07:34)
[2020-04-02] MEDS: PANTOPRAZOLE 40 MG TABLET. PO SCH (07:34)
[2020-04-02] MEDS: DOCUSATE SODIUM 100 MG CAPSULE PO SCH (07:34)
[2020-04-02] MEDS: MULTIVITAMIN with MINERAL TABLET. PO SCH (07:34)
[2020-04-02] MEDS: PROPRANOLOL 10 MG TABLET. PO SCH ×2 (07:35→20:35)
[2020-04-02] MEDS: MEMANTINE 10 MG TABLET. PO SCH ×2 (07:35→20:36)
[2020-04-02] MEDS: LACTOBACILLUS RHAMNOSUS GG 1 CAPSULE. PO SCH ×2 (07:35→20:35)
[2020-04-02] MEDS: predniSONE 20 MG TABLET PO SCH (07:35)
[2020-04-02] MEDS: ASPIRIN CHEWABLE 81 MG TABLET. PO SCH (07:35)
[2020-04-02] MEDS: AMOXICILLIN/K CLAV 500/125MG TABLET. PO SCH ×2 (07:36→20:35)
[2020-04-02] MEDS: FLUTICASONE 50MCG/NASAL SPRAY 16GM BOTTLE. NS SCH (07:36)
[2020-04-02 08:50] VITALS: BP 128/73
[2020-04-02] MEDS ORDERED: DICLOFENAC SODIUM 1% TOPICAL GEL 100GM TUBE. TP PRN (11:15)
[2020-04-02] MEDS: ENOXAPARIN 40 MG/0.4 ML SYRINGE. SQ SCH (17:28)
--- NOTE | 2020-04-02 18:22 | RAD ---
AP chest x-ray HISTORY: Worsening shortness of breath and hypoxia, Covid 19 infection. COMPARISON: Chest x-ray March 20, 2020. FINDINGS: Heart size borderline enlarged, stable. Aortic arch calcified plaque. No pneumothorax. No pleural effusions. Bilateral heterogeneous opacities again demonstrated with increased opacities diffusely in both the upper and lower lung zones. The segmental atelectasis or localized infiltrate right perihilar lung is grossly stable, underlying mass is not excluded. IMPRESSION: Worsening pulmonary infiltrates likely worsening pneumonia. Electronically signed by: Trevor Aguirre MD (04/02/2020 6:19 PM) [facility]
--- NOTE | 2020-04-02 18:30 | PN ---
DATE: 04/02/2020 SUBJECTIVE: The patient is resting, slightly propped up in bed, in no apparent distress. On questioning him, he denied any complaint. Nursing staff stated he continued to be confused, at times attempts to get out of the room. He also gets short of breath on exertion, especially when he goes to the bathroom, but otherwise he remained mostly asymptomatic. He is afebrile, hemodynamically stable. PHYSICAL EXAMINATION: GENERAL: When I examined him this afternoon, he was somewhat pale, but no jaundice, cyanosis or thyromegaly. No jugular venous distention. No limb edema. VITAL SIGNS: His heart rate was 58, blood pressure was 128/73, temperature was 97.5, respiratory rate was 20 and oxygen saturation was 98% on 2 liters of oxygen. HEAD, EYES, EARS, NOSE AND THROAT: Showed normocephalic, atraumatic. NECK: Supple. HEART: Showed normal first and second heart sounds. No gallop or murmur. CHEST: Clear to auscultation. No crepitation or rhonchi. ABDOMEN: Distended, soft, nontender. NEUROLOGIC: He is profoundly demented, but without any obvious lateralizing sign. All his cranial nerves are intact. He moves extremities without difficulty. In fact, he manages to ambulate without assistance or assistive devices. His intake over the last 24 hours was 1440, no output was recorded. LABORATORY DATA: His most recent lab work showed hemoglobin of 11, hematocrit 13.6, hematocrit 42, MCV 97 and platelet count of 197,000. Serum sodium 140, potassium 4.5, chloride 104, bicarbonate 29, anion gap of 7, BUN 37, creatinine 1.1, estimated GFR was 63 mL per minute, glucose 165, calcium was 8.5. AST, ALT slightly elevated. Alkaline phosphatase is normal. Total protein 6.4, albumin 2.3. ASSESSMENT: This is an 84-year-old gentleman with: 1. COVID positive swabs with questionable aspiration pneumonia superimposed on COVID-19 pneumonia. 2. Acute on chronic respiratory failure, improved. 3. Oxygen-dependent chronic obstructive pulmonary disease. 4. Hypertension. 5. Peripheral vascular disease. 6. History of prostate cancer. 7. Profound dementia. PLAN: To continue tapering course of steroids. Continue with Augmentin. Continue with DVT prophylaxis. Continue with all his psychotropic medication. Apparently, his swab on 03/31 showed that he continued to be positive for coronavirus. I will repeat all his labs and also repeat his chest x-ray and decide on further management accordingly. KRISTYN WALLS MD DR: MELLISA/ashkan JOB#: [id number] / [id number]
[2020-04-02 19:58] VITALS: BP 134/64
[2020-04-02] MEDS: DIVALPROEX SODIUM 250 MG TABLET.DR. PO SCH (20:35)
[2020-04-02] MEDS: rOPINIRole 1 MG TABLET. PO SCH (20:35)
[2020-04-02] MEDS: hydrOXYzine HCL 25 MG TABLET PO SCH (20:35)
[2020-04-02] MEDS: ACETAMINOPHEN 500 MG TABLET PO PRN (20:36)
[2020-04-02] MEDS: ATORVASTATIN CALCIUM 10 MG TABLET. PO SCH (20:36)
[2020-04-02] MEDS: MIRTAZAPINE 15 MG TABLET PO SCH (20:36)
[2020-04-03 07:01] LABS: HEMATOCRIT 34.3 % (39.0-53.0); RED BLOOD COUNT 3.47 x10^6/uL (4.30-5.70); RED CELL DISTRIBUTION WIDTH 17.1 % (11.5-14.5); WHITE BLOOD COUNT 10.2 x10^3/uL (4.0-11.0)
[2020-04-03 07:11] LABS: ALBUMIN 2.4 g/dL (3.4-5.0); ALBUMIN/GLOBULIN RATIO 0.7 (1.0-1.7); CALCIUM 8.5 mg/dL (8.5-10.1); CREATININE 0.9 mg/dL (0.7-1.3); GFR 80.2; POTASSIUM 4.2 mmol/L (3.5-5.1); TOTAL BILIRUBIN 0.8 mg/dL (0.2-1.0); TOTAL PROTEIN 5.7 g/dL (6.4-8.2)
[2020-04-03 07:47] VITALS: BP 142/72
[2020-04-03] MEDS: IPRATROPIUM/ALBUTEROL 20/100mcg/INH INHALER. INH SCH ×4 (08:00→20:00)
[2020-04-03] MEDS: FLUTICASONE 50MCG/NASAL SPRAY 16GM BOTTLE. NS SCH (09:00)
[2020-04-03] MEDS: ASPIRIN CHEWABLE 81 MG TABLET. PO SCH (09:30)
[2020-04-03] MEDS: PROPRANOLOL 10 MG TABLET. PO SCH ×2 (09:30→21:00)
[2020-04-03] MEDS: predniSONE 20 MG TABLET PO SCH (09:31)
[2020-04-03] MEDS: PANTOPRAZOLE 40 MG TABLET. PO SCH (09:31)
[2020-04-03] MEDS: DOCUSATE SODIUM 100 MG CAPSULE PO SCH (09:31)
[2020-04-03] MEDS: SERTRALINE 25 MG TABLET. PO SCH (09:31)
[2020-04-03] MEDS: AMOXICILLIN/K CLAV 500/125MG TABLET. PO SCH ×2 (09:31→22:07)
[2020-04-03] MEDS: MEMANTINE 10 MG TABLET. PO SCH ×2 (09:31→22:07)
[2020-04-03] MEDS: MULTIVITAMIN with MINERAL TABLET. PO SCH (09:31)
[2020-04-03] MEDS: LACTOBACILLUS RHAMNOSUS GG 1 CAPSULE. PO SCH ×2 (09:31→22:06)
--- NOTE | 2020-04-03 13:55 | PN ---
DATE: 04/03/2020 SUBJECTIVE: The patient is resting comfortably in his bed, in no apparent distress. The nursing staff did not voice any concern and stated that he has an uneventful night. He remained asymptomatic, afebrile. PHYSICAL EXAMINATION: GENERAL: When I examined him, he looked pale, but no jaundice, cyanosis or thyromegaly. No jugular venous distention. No limb edema. VITAL SIGNS: Her heart rate was 61, blood pressure was 142/72, temperature 97.8, respiratory rate was 22 and oxygen saturation was 92% on 2 liters of oxygen. HEENT: Normocephalic, atraumatic. NECK: Supple. HEART: Showed normal first and second heart sounds. No gallop, rub or murmur. CHEST: Clear to auscultation. No crepitation or rhonchi. ABDOMEN: Distended, soft, nontender. No guarding or rigidity. No organomegaly. All hernial orifices intact. Bowel sounds normal. NEUROLOGICALLY: He was demented, but without any obvious lateralizing sign. He is able to ambulate with minimal assistance, although he does get very short of breath with exertion. His intake was 1300. No output was recorded. As of this morning, his white cell count was 10,000, hemoglobin 11, hematocrit 34, MCV 99 and platelet count 253,000. His chemistry showed a serum sodium 140, potassium 4.2, chloride 105, bicarbonate 29, anion gap of 6, BUN 30, creatinine 0.9, estimated GFR was 80 mL per minute, his glucose 103, calcium was 8.5. Total bilirubin, AST, ALT, alkaline phosphatase were normal. His total protein was 5.7, albumin was 2.4. He unfortunately continued to be positive for coronavirus by PCR. ASSESSMENT: This is an 84-year-old gentleman with: 1. COVID positive swabs with questionable aspiration pneumonia superimposed on COVID-19 pneumonia. 2. Acute on chronic respiratory failure, improving. 3. Oxygen dependent chronic obstructive pulmonary disease. 4. Hypertension. 5. Peripheral vascular disease. 6. History of prostate cancer. 7. Profound dementia. Plan is to continue tapering course of steroids. Continue with Augmentin. Continue with DVT prophylaxis. Continue with all his psychotropic medication. His chest x-ray as of yesterday showed the heart size is borderline enlarged, the aortic arch calcified plaque, no pneumothorax, no pleural effusion, has bilateral heterogenous opacities, again demonstrated increased opacity diffusely in both the upper and lower lung zones, segmental atelectasis, localized infiltrate in the right perihilar lung is grossly stable, underlying mass is not excluded. KRISTYN WALLS MD DR: MELLISA/ashkan JOB#: [id number] / [id number]
[2020-04-03] MEDS: ENOXAPARIN 40 MG/0.4 ML SYRINGE. SQ SCH (17:39)
[2020-04-03 20:42] VITALS: BP 112/62
[2020-04-03] MEDS: hydrOXYzine HCL 25 MG TABLET PO SCH ×3 (21:00→22:08)
[2020-04-03] MEDS: MIRTAZAPINE 15 MG TABLET PO SCH ×3 (21:00→22:08)
[2020-04-03] MEDS: ATORVASTATIN CALCIUM 10 MG TABLET. PO SCH (22:07)
[2020-04-03] MEDS: DIVALPROEX SODIUM 250 MG TABLET.DR. PO SCH (22:07)
[2020-04-03] MEDS: rOPINIRole 1 MG TABLET. PO SCH (22:09)
[2020-04-04] MEDS: IPRATROPIUM/ALBUTEROL 20/100mcg/INH INHALER. INH SCH ×4 (08:00→20:00)
[2020-04-04] MEDS: DOCUSATE SODIUM 100 MG CAPSULE PO SCH (08:35)
[2020-04-04] MEDS: predniSONE 20 MG TABLET PO SCH (08:35)
[2020-04-04] MEDS: AMOXICILLIN/K CLAV 500/125MG TABLET. PO SCH (08:36)
[2020-04-04] MEDS: PROPRANOLOL 10 MG TABLET. PO SCH ×2 (08:36→22:44)
[2020-04-04] MEDS: PANTOPRAZOLE 40 MG TABLET. PO SCH (08:36)
[2020-04-04] MEDS: SERTRALINE 25 MG TABLET. PO SCH (08:36)
[2020-04-04] MEDS: ASPIRIN CHEWABLE 81 MG TABLET. PO SCH (08:36)
[2020-04-04] MEDS: MULTIVITAMIN with MINERAL TABLET. PO SCH (08:36)
[2020-04-04] MEDS: FLUTICASONE 50MCG/NASAL SPRAY 16GM BOTTLE. NS SCH (08:36)
[2020-04-04] MEDS: LACTOBACILLUS RHAMNOSUS GG 1 CAPSULE. PO SCH ×2 (08:37→22:42)
[2020-04-04] MEDS: MEMANTINE 10 MG TABLET. PO SCH ×2 (08:38→22:42)
[2020-04-04 10:23] VITALS: BP 131/65
--- NOTE | 2020-04-04 14:28 | PN ---
DATE: 04/04/2020 SUBJECTIVE: The patient is resting, slightly propped up in bed, no apparent distress. He denied any complaint. The nursing staff did not voice any concern. He continued to be fairly asymptomatic. His oxygen requirement is still the same at 2 liters per minute. He is afebrile. His white cell count is normal and his kidney function and liver enzymes remained stable; however, his chest x-ray did show some worsening pulmonary infiltrate, likely progressing pneumonia. The patient has been treated with broad-spectrum antibiotic for community-acquired pneumonia that included vancomycin and Zosyn. PHYSICAL EXAMINATION: GENERAL: When I examined him, he looked well and was clearly in no apparent respiratory distress. He was pale, but no jaundice, cyanosis or thyromegaly. No jugular venous distention. No limb edema. VITAL SIGNS: His heart rate was 68, blood pressure was 131/65, temperature 97.3, respiratory rate was 20, and oxygen saturation was 94% on 2 liters of oxygen. HEAD, EYES, EARS, NOSE AND THROAT: Showed normocephalic, atraumatic. NECK: Supple. HEART: Showed normal first and second heart sounds. No gallop or murmur. CHEST: Clear to auscultation. No crepitation or rhonchi. ABDOMEN: Distended, soft, nontender. NEUROLOGIC: He is profoundly demented without any obvious lateralizing sign. All his cranial nerves are intact. He moves extremities without difficulty. His intake was 940, no output was recorded. LABORATORY DATA: As of yesterday, his white cell count was 10,000, hemoglobin 11, hematocrit 34, MCV 99 and platelet count of 153,000. Serum sodium was 140, potassium 4.2, chloride 105, bicarbonate 29, anion gap of 6, BUN 13, creatinine 0.9, estimated GFR was 80 mL per minute. His glucose 103, calcium was 8.5. Total bilirubin, AST, ALT, alkaline phosphatase were normal. Total protein 5.7 and albumin was 2.4. ASSESSMENT: This is an 84-year-old gentleman with: 1. COVID positive swabs with questionable aspiration pneumonia superimposed on COVID-19 pneumonia. He was treated with IV antibiotic and steroids and remained generally asymptomatic. His oxygen requirements are still the same, although his chest x-ray showed worsening pulmonary infiltrate. 2. Acute on chronic respiratory failure, improving. 3. Oxygen-dependent chronic obstructive pulmonary disease, stable. 4. Hypertension. 5. Peripheral vascular disease. 6. History of prostate cancer. 7. Profound dementia. PLAN: To continue with tapering course of steroids. Continue with DVT prophylaxis. Continue with all psychotropic medication. The patient seemed to be stable and I am not sure whether further treatment with remdesivir at this point in time and/or convalescent plasma will be effective given that he is stable. KRISTYN WALLS MD DR: MELLISA/ashkan JOB#: [id number] / [id number]
[2020-04-04] MEDS: ENOXAPARIN 40 MG/0.4 ML SYRINGE. SQ SCH (16:13)
[2020-04-04 20:01] VITALS: BP 145/73
[2020-04-04] MEDS: rOPINIRole 1 MG TABLET. PO SCH (22:42)
[2020-04-04] MEDS: DIVALPROEX SODIUM 250 MG TABLET.DR. PO SCH (22:42)
[2020-04-04] MEDS: hydrOXYzine HCL 25 MG TABLET PO SCH (22:43)
[2020-04-04] MEDS: ATORVASTATIN CALCIUM 10 MG TABLET. PO SCH (22:43)
[2020-04-04] MEDS: ACETAMINOPHEN 500 MG TABLET PO PRN (22:43)
[2020-04-04] MEDS: MIRTAZAPINE 15 MG TABLET PO SCH (22:43)
[2020-04-05] MEDS: IPRATROPIUM/ALBUTEROL 20/100mcg/INH INHALER. INH SCH ×4 (08:00→20:00)
[2020-04-05] MEDS: ASPIRIN CHEWABLE 81 MG TABLET. PO SCH (08:22)
[2020-04-05] MEDS: LACTOBACILLUS RHAMNOSUS GG 1 CAPSULE. PO SCH ×2 (08:22→21:57)
[2020-04-05] MEDS: MULTIVITAMIN with MINERAL TABLET. PO SCH (08:22)
[2020-04-05] MEDS: PANTOPRAZOLE 40 MG TABLET. PO SCH (08:22)
[2020-04-05] MEDS: MEMANTINE 10 MG TABLET. PO SCH ×2 (08:22→21:56)
[2020-04-05] MEDS: DOCUSATE SODIUM 100 MG CAPSULE PO SCH (08:22)
[2020-04-05] MEDS: PROPRANOLOL 10 MG TABLET. PO SCH ×2 (08:22→21:57)
[2020-04-05] MEDS: FLUTICASONE 50MCG/NASAL SPRAY 16GM BOTTLE. NS SCH (08:22)
[2020-04-05] MEDS: SERTRALINE 25 MG TABLET. PO SCH (08:22)
[2020-04-05] MEDS: predniSONE 20 MG TABLET PO SCH (08:25)
[2020-04-05 08:41] VITALS: BP 138/64
[2020-04-05] MEDS: ENOXAPARIN 40 MG/0.4 ML SYRINGE. SQ SCH (17:38)
--- NOTE | 2020-04-05 17:49 | PN ---
DATE: 04/05/2020 SUBJECTIVE: The patient is resting, slightly propped up in bed, in no apparent distress. Nursing staff did not voice any concerns. He seemed to be calmer and quieter. He is not as restless or agitated. He continued to maintain his oxygen saturation at 93% on 2 liters of oxygen, afebrile and otherwise hemodynamically stable. PHYSICAL EXAMINATION: GENERAL: When I examined him, he was pale, but no jaundice, cyanosis, or thyromegaly. No jugular venous distension. No lower limb edema. VITAL SIGNS: His heart rate was 67, blood pressure was 138/64, temperature 97.6, respiratory rate was 20, and oxygen saturation was 93% on 2 liters of oxygen. HEAD, EYES, EARS, NOSE, AND THROAT: Showed normocephalic, atraumatic. NECK: Supple. HEART: Normal first and second heart sounds. No gallop or murmur. CHEST: Clear to auscultation. No crepitation or rhonchi. ABDOMEN: Distended, soft, nontender. NEUROLOGIC: He is profoundly demented, but without any obvious lateralizing sign. His intake was 1116, no output was recorded. LABORATORY DATA: His most recent lab work showed a white cell count of 10,000, hemoglobin 11, hematocrit 34, MCV was 99 and platelet count of 153,000. His chemistry showed a serum sodium of 140, potassium 4.2, chloride 105, bicarbonate 29, anion gap of 6, BUN 30, creatinine 0.9, estimated GFR was 80. Glucose 103, calcium was 8.5. Total bilirubin, AST, ALT, alkaline phosphatase were normal. Total protein 5.7, albumin 2.4. ASSESSMENT: This is an 84-year-old gentleman with: 1. COVID positive swabs with questionable aspiration pneumonia, superimposed on COVID-19 pneumonia. He was treated with IV antibiotic and steroids and remained generally asymptomatic. His oxygen requirements are still the same, although his chest x-ray showed worsening pulmonary infiltrate. 2. Acute on chronic respiratory failure, improving. 3. Oxygen-dependent chronic obstructive pulmonary disease, stable. 4. Hypertension. 5. Peripheral vascular disease. 6. History of prostate cancer. 7. Profound dementia. PLAN: To continue tapering course of steroids. Continue with DVT prophylaxis. Continue with all psychotropic medication. The patient seems to be stable. We will continue to monitor him closely and if he started clinically worsening, we might have to consider remdesivir and convalescent plasma. KRISTYN WALLS MD DR: MELLISA/ashkan JOB#: [id number] / [id number]
[2020-04-05 19:35] VITALS: BP 125/64
[2020-04-05] MEDS: DIVALPROEX SODIUM 250 MG TABLET.DR. PO SCH (21:56)
[2020-04-05] MEDS: rOPINIRole 1 MG TABLET. PO SCH (21:57)
[2020-04-05] MEDS: MIRTAZAPINE 15 MG TABLET PO SCH (21:57)
[2020-04-05] MEDS: hydrOXYzine HCL 25 MG TABLET PO SCH (21:57)
[2020-04-05] MEDS: ATORVASTATIN CALCIUM 10 MG TABLET. PO SCH (21:57)
[2020-04-06 07:02] VITALS: BP 163/82
[2020-04-06] MEDS: SERTRALINE 25 MG TABLET. PO SCH (08:34)
[2020-04-06] MEDS: PANTOPRAZOLE 40 MG TABLET. PO SCH (08:34)
[2020-04-06] MEDS: ASPIRIN CHEWABLE 81 MG TABLET. PO SCH (08:34)
[2020-04-06] MEDS: MEMANTINE 10 MG TABLET. PO SCH ×2 (08:35→21:03)
[2020-04-06] MEDS: DOCUSATE SODIUM 100 MG CAPSULE PO SCH (08:39)
[2020-04-06] MEDS: LACTOBACILLUS RHAMNOSUS GG 1 CAPSULE. PO SCH ×2 (08:39→21:04)
[2020-04-06] MEDS: IPRATROPIUM/ALBUTEROL 20/100mcg/INH INHALER. INH SCH ×4 (08:39→20:00)
[2020-04-06] MEDS: MULTIVITAMIN with MINERAL TABLET. PO SCH (08:39)
[2020-04-06] MEDS: PROPRANOLOL 10 MG TABLET. PO SCH ×2 (08:39→21:03)
[2020-04-06] MEDS: predniSONE 20 MG TABLET PO SCH (08:39)
[2020-04-06] MEDS: FLUTICASONE 50MCG/NASAL SPRAY 16GM BOTTLE. NS SCH (08:40)
[2020-04-06] MEDS: ENOXAPARIN 40 MG/0.4 ML SYRINGE. SQ SCH (16:00)
--- NOTE | 2020-04-06 18:38 | NUR ---
Nursing note: Assessment performed while rounding with Dr. Bell. Pt's O2 was 79% while on 3.5L O2. Dr. Bell increased O2 to 5L which brought his level up to 92%. Upon reassessment pt was then at 94%. Further orders received.
--- NOTE | 2020-04-06 19:12 | PN ---
DATE: 04/06/2020 SUBJECTIVE: The patient is resting, slightly propped up in bed, clearly very short of breath, cyanosed. His oxygen saturation was only 88% on 3.5 liters of oxygen. When we increased the oxygen to about 5 liters, he managed to make it to 90-91%. He himself denied any chest pain. He apparently has been walking around in his room. PHYSICAL EXAMINATION: GENERAL: When I examined him, he was pale, cyanosed, but no jaundiced, no lymphadenopathy, no thyromegaly. No jugular venous distention. No limb edema. VITAL SIGNS: Her heart rate was 77, blood pressure was 163/82, temperature was 97.9, respiratory rate was 20, and oxygen saturation was 90-91% on 5 liters of oxygen. HEAD, EYES, EARS, NOSE AND THROAT: Normocephalic, atraumatic. NECK: Supple. HEART: Showed normal first and second sounds. No gallop or murmur. CHEST: Clear to auscultation. No crepitation or rhonchi. ABDOMEN: Distended, soft, nontender. NEUROLOGIC: He is demented, but without any obvious lateralizing sign. All his cranial nerves are intact. He moves extremities without difficulty. His intake over the last 24 hours was 1400, no output was recorded. LABORATORY DATA: His white cell count was 10,000, hemoglobin 11, hematocrit 34, MCV 99 and platelet count of 153,000. His chemistry showed a serum sodium of 140, potassium 4.2, chloride 105, bicarbonate 29, anion gap of 6, BUN 30, creatinine 0.9. Estimated GFR was 80 mL per minute. ASSESSMENT: This is an 84-year-old gentleman with: 1. COVID positive swabs with questionable aspiration pneumonia superimposed with COVID-19 pneumonia. He was treated with IV antibiotic and steroids and remained generally asymptomatic; however, today his oxygen requirement has dramatically increased and his chest x-ray has worsened. 2. Acute on chronic respiratory failure. 3. Oxygen-dependent chronic obstructive pulmonary disease. 4. Hypertension. 5. Peripheral vascular disease. 6. History of prostate cancer. 7. Profound dementia. PLAN: To continue tapering course of steroids. Continue with DVT prophylaxis. Continue with all psychotropic medication. I feel the patient is really worsening and we should perhaps consult to see if remdesivir or convalescent plasma can be authorized to see if we can use that for him. KRISTYN WALLS MD DR: MELLISA/ashkan JOB#: [id number] / [id number]
[2020-04-06 20:02] VITALS: BP 144/84
[2020-04-06 20:26] LABS: HEMATOCRIT 32.5 % (39.0-53.0); HEMOGLOBIN 10.5 g/dL (13.0-17.5); RED BLOOD COUNT 3.23 x10^6/uL (4.30-5.70); RED CELL DISTRIBUTION WIDTH 17.8 % (11.5-14.5); WHITE BLOOD COUNT 10.9 x10^3/uL (4.0-11.0)
[2020-04-06 20:35] LABS: ALBUMIN 2.6 g/dL (3.4-5.0); ALBUMIN/GLOBULIN RATIO 0.7 (1.0-1.7); CALCIUM 8.6 mg/dL (8.5-10.1); CREATININE 1.3 mg/dL (0.7-1.3); GFR 52.5; POTASSIUM 4.8 mmol/L (3.5-5.1); TOTAL BILIRUBIN 1.1 mg/dL (0.2-1.0); TOTAL PROTEIN 6.4 g/dL (6.4-8.2)
[2020-04-06] MEDS: MIRTAZAPINE 15 MG TABLET PO SCH (21:03)
[2020-04-06] MEDS: ATORVASTATIN CALCIUM 10 MG TABLET. PO SCH (21:03)
[2020-04-06] MEDS: hydrOXYzine HCL 25 MG TABLET PO SCH (21:03)
[2020-04-06] MEDS: rOPINIRole 1 MG TABLET. PO SCH (21:04)
[2020-04-06] MEDS: DIVALPROEX SODIUM 250 MG TABLET.DR. PO SCH (21:04)
[2020-04-07] VITALS (8 sets, daily range): BP systolic 101–156; BP diastolic 60–86
[2020-04-07] MEDS: IPRATROPIUM/ALBUTEROL 20/100mcg/INH INHALER. INH SCH ×4 (08:00→20:00)
[2020-04-07] MEDS: MEMANTINE 10 MG TABLET. PO SCH ×2 (08:29→21:13)
[2020-04-07] MEDS: SERTRALINE 25 MG TABLET. PO SCH (08:29)
[2020-04-07] MEDS: PROPRANOLOL 10 MG TABLET. PO SCH ×2 (08:29→21:13)
[2020-04-07] MEDS: PANTOPRAZOLE 40 MG TABLET. PO SCH (08:29)
[2020-04-07] MEDS: DOCUSATE SODIUM 100 MG CAPSULE PO SCH (08:29)
[2020-04-07] MEDS: MULTIVITAMIN with MINERAL TABLET. PO SCH (08:29)
[2020-04-07] MEDS: predniSONE 20 MG TABLET PO SCH (08:29)
[2020-04-07] MEDS: FLUTICASONE 50MCG/NASAL SPRAY 16GM BOTTLE. NS SCH (08:30)
[2020-04-07] MEDS: ASPIRIN CHEWABLE 81 MG TABLET. PO SCH (08:30)
[2020-04-07] MEDS: LACTOBACILLUS RHAMNOSUS GG 1 CAPSULE. PO SCH ×2 (08:30→21:12)
--- NOTE | 2020-04-07 15:14 | NUR ---
PATIENT HAS ORDER FOR CONVALESCENT PLASMA TRANSFUSION, CONSENT OBTAINED VIA PHONE FROM POA. BLOOD TRANSFUSION STARTED AT 1504. TUBING PRIMED WITH NS FIRST AND PRIMED THEN WITH PLASMA. TRANSFUSION STARTED AT 60ML/HR RATE. PATIENT MONITORED CLOSELY X15 MIN. NO REACTION NOTED. TRANSFUSION INCREASED TO 125 ML/HR. PATIENT CURRENTLY IN A BED RESTING COMFORTABLY. WILL CONTINUE TO MONITOR.
[2020-04-07] MEDS: ENOXAPARIN 40 MG/0.4 ML SYRINGE. SQ SCH (17:04)
--- NOTE | 2020-04-07 17:09 | NUR ---
PLASMA TRANSFUSION COMPLETE, FLUSHED WITH NS 10 ML, VS OBTAINED AND STABLE. PATIENT IS CURRENTLY UP IN A CHAIR EATING MEAL. PATIENT COOPERATED DURING AND AFTER TRANSFUSION WITHOUT BEHAVIORAL DISTURBANCES.
--- NOTE | 2020-04-07 17:11 | NUR ---
PATIENT SWABBED FOR COVID TEST, RESULT PENDING. PATIENT TOLERATED PROCEDURE WITHOUT DIFFICULTIES.
[2020-04-07] MEDS: MIRTAZAPINE 15 MG TABLET PO SCH (21:13)
[2020-04-07] MEDS: DIVALPROEX SODIUM 250 MG TABLET.DR. PO SCH (21:13)
[2020-04-07] MEDS: ATORVASTATIN CALCIUM 10 MG TABLET. PO SCH (21:13)
[2020-04-07] MEDS: rOPINIRole 1 MG TABLET. PO SCH (21:13)
[2020-04-07] MEDS: hydrOXYzine HCL 25 MG TABLET PO SCH (21:13)
--- NOTE | 2020-04-07 22:19 | PN ---
DATE: 04/07/2020 SUBJECTIVE: The patient is resting, slightly propped up in bed, in no apparent distress. He was pale. No jaundice, cyanosis, lymphadenopathy or thyromegaly. His oxygen requirement continued to be high. He is actually on 5 liters by face mask as he desaturates and his oxygen requirement has increased. His chest x-ray actually worsened, although he has no fever and his white cell count, liver enzymes and kidney functions are all within normal limit. In fact, even his C-reactive protein has dropped down from 68 mg per liter on 03/18/2020 down to 35.7 on 04/06/2020 and therefore we did actually treat him with convalescent plasma. OBJECTIVE: HEAD, EYES, EARS, NOSE AND TROAT: Normocephalic, atraumatic. NECK: Supple. HEART: Showed normal first and second heart sounds. No gallop or murmur. CHEST: Clear to auscultation. No crepitation or rhonchi. ABDOMEN: Distended, soft, nontender. NEUROLOGIC: He is demented, but without any obvious lateralizing sign. His intake over the last 24 hours was 820, no output was recorded. LABORATORY DATA: As of yesterday, his serum sodium was 137, potassium 4.8, chloride 103, bicarbonate 23, anion gap 11, BUN 26, creatinine 1.3, estimated GFR was 52 mL per minute. His glucose was 108, calcium was 8.6. His AST, ALT and bilirubin are all elevated; although, his alkaline phosphatase is normal. His total protein was 6.4, albumin was 2.6. His D-dimer was elevated before. As of 03/31/2020, his coronavirus PCR continued to be detectable. ASSESSMENT: This is an 84-year-old gentleman with: 1. COVID positive swabs with questionable aspiration pneumonia superimposed on COVID-19 pneumonia. He was treated with IV antibiotic and steroids and remained generally asymptomatic; however, his most recent chest x-ray showed worsening. His oxygen requirement also has dramatically risen from 2 liters to 5 liters. His AST and ALT are also elevated and his creatinine is slightly up, so we did treat him with convalescent plasma. 2. Skxkx-rl-bqguxom respiratory failure. 3. Oxygen-dependent chronic obstructive pulmonary disease. 4. Hypertension. 5. Peripheral vascular disease. 6. History of prostate cancer. 7. Profound dementia. PLAN: To continue with DVT prophylaxis. Continue with tapering course of steroids. Continue with all psychotropic medication. I discussed the option of remdesivir and convalescent plasma and apparently it is too late for remdesivir, but he was authorized for convalescent plasma and he is receiving it today. KRISTYN WALLS MD DR: MELLISA/ashkan JOB#: [id number] / [id number]
--- NOTE | 2020-04-08 01:50 | NUR ---
At beginning of shift pt walked out of RM w/o mask and walked up to nurses station. Pt appeared to be confused and very SOA. Pt was then was redirected back to room where he was instructed to sit down and put simple mask back on. Simple mask had 5L of O2 running. Pts O2 sats where taken were pt was at 52%. Simple mask was then increased to 10L of O2. Pts O2 increased to 75%. Non-rebreather mask was then applied w/ 15L of O2. Pts O2 sat increased to 89%. was then notified. POC is to be continued. Pt is now resting comfortably in bed w/ non-rebreather. Will continue to monitor.
[2020-04-08] MEDS: ACETAMINOPHEN 500 MG TABLET PO PRN ×2 (03:00→07:41)
[2020-04-08 06:13] VITALS: BP 109/60
[2020-04-08] MEDS: PROPRANOLOL 10 MG TABLET. PO SCH ×2 (07:40→20:48)
[2020-04-08] MEDS: PANTOPRAZOLE 40 MG TABLET. PO SCH (07:40)
[2020-04-08] MEDS: LACTOBACILLUS RHAMNOSUS GG 1 CAPSULE. PO SCH ×2 (07:40→20:49)
[2020-04-08] MEDS: DOCUSATE SODIUM 100 MG CAPSULE PO SCH (07:40)
[2020-04-08] MEDS: ASPIRIN CHEWABLE 81 MG TABLET. PO SCH (07:40)
[2020-04-08] MEDS: MULTIVITAMIN with MINERAL TABLET. PO SCH (07:41)
[2020-04-08] MEDS: MEMANTINE 10 MG TABLET. PO SCH ×2 (07:41→20:49)
[2020-04-08] MEDS: SERTRALINE 25 MG TABLET. PO SCH (07:41)
[2020-04-08] MEDS: predniSONE 20 MG TABLET PO SCH (07:41)
[2020-04-08 11:34] VITALS: BP 134/70
--- NOTE | 2020-04-08 11:37 | NUR ---
PATIENT IS ASLEEP THIS AM UPON ASSESSMENT. PATIENT HAS SIMPLE MASK ON WITH O2 AT 10L. VS OBTAINED AND STABLE , PT IS AFEBRILE, O2 SAT IS 99%. O2 TITRATED DOWN TO 5L, O2 SAT RECHECKED AND 96%. WILL CONTINUE TO MONITOR.
--- NOTE | 2020-04-08 13:25 | PN ---
DATE: 04/08/2020 ATTENDING PHYSICIAN: Dr. Hercules. SUBJECTIVE: Obtunded. Clearly, he has declined for when I saw him last week. He is on high-dose supplemental oxygen to maintain adequate saturations. OBJECTIVE FINDINGS: VITAL SIGNS: Blood pressure today is 109/60, pulse is 73 and regular, temperature is 99.1 degrees Fahrenheit, oxygen saturation 88% on 15 liters of nonrebreather mask. HEENT: Head is without trauma. Pupils are reactive. Orbits are sunken. NECK: No stridor. LUNGS: Shallow respirations. CARDIOVASCULAR: Showed distant heart tones. No gallops. ABDOMEN: Soft, no guarding. EXTREMITIES: Without edema. NEUROLOGIC: Obtunded, nonverbal, and nonambulatory. LABORATORY DATA: Reviewed. Chest x-ray reviewed. He did get convalescent plasma over the weekend. ASSESSMENT: 1. An 84-year-old gentleman with COVID-19 positive swabs, superimposed on aspiration pneumonia. 2. Arund-tb-marzuuk respiratory failure. 3. Oxygen-dependent chronic obstructive pulmonary disease. 4. Essential hypertension. 5. History of peripheral vascular disease. 6. Profound dementia. 7. History of prostate cancer. PLAN: 1. Continue medications as ordered. 2. Tapering course of steroid. 3. Continue psychotropic meds. 4. It is too late now for remdesivir. He did receive convalescent plasma yesterday. His prognosis remains poor. He is a DNR per advanced directives. JANELL HERCULES MD DR: TIERA/ashkan JOB#: [id number] / [id number]
[2020-04-08] MEDS: ENOXAPARIN 40 MG/0.4 ML SYRINGE. SQ SCH (14:20)
[2020-04-08] MEDS: IPRATROPIUM/ALBUTEROL 20/100mcg/INH INHALER. INH SCH ×4 (14:20→20:00)
[2020-04-08] MEDS: FLUTICASONE 50MCG/NASAL SPRAY 16GM BOTTLE. NS SCH (14:20)
[2020-04-08 17:21] VITALS: BP 121/68
[2020-04-08 19:30] VITALS: BP 119/62
[2020-04-08] MEDS: rOPINIRole 1 MG TABLET. PO SCH (20:48)
[2020-04-08] MEDS: MIRTAZAPINE 15 MG TABLET PO SCH (20:48)
[2020-04-08] MEDS: DIVALPROEX SODIUM 250 MG TABLET.DR. PO SCH (20:48)
[2020-04-08] MEDS: ATORVASTATIN CALCIUM 10 MG TABLET. PO SCH (20:49)
[2020-04-08] MEDS: hydrOXYzine HCL 25 MG TABLET PO SCH (20:49)
[2020-04-08 22:50] VITALS: BP 132/77
[2020-04-09 05:00] VITALS: BP 129/78
[2020-04-09 10:37] VITALS: BP 137/69
[2020-04-09] MEDS: predniSONE 20 MG TABLET PO SCH (10:38)
[2020-04-09] MEDS: MULTIVITAMIN with MINERAL TABLET. PO SCH (10:39)
[2020-04-09] MEDS: ASPIRIN CHEWABLE 81 MG TABLET. PO SCH (10:39)
[2020-04-09] MEDS: PANTOPRAZOLE 40 MG TABLET. PO SCH (10:39)
[2020-04-09] MEDS: PROPRANOLOL 10 MG TABLET. PO SCH ×2 (10:39→20:43)
[2020-04-09] MEDS: SERTRALINE 25 MG TABLET. PO SCH (10:39)
[2020-04-09] MEDS: DOCUSATE SODIUM 100 MG CAPSULE PO SCH (10:39)
[2020-04-09] MEDS: LACTOBACILLUS RHAMNOSUS GG 1 CAPSULE. PO SCH ×2 (10:39→20:38)
[2020-04-09] MEDS: FLUTICASONE 50MCG/NASAL SPRAY 16GM BOTTLE. NS SCH (10:40)
[2020-04-09] MEDS: IPRATROPIUM/ALBUTEROL 20/100mcg/INH INHALER. INH SCH ×4 (10:40→20:00)
[2020-04-09] MEDS: MEMANTINE 10 MG TABLET. PO SCH ×2 (10:41→20:38)
--- NOTE | 2020-04-09 15:20 | NUR ---
NSG NOTE; DESATs W/ EXERTION PT UP TO BR X 2 TODAY WITH STANDBY ASSIST. PT WAS WEARING HIS O2 NC AT 4L AND GETS SOA AND HYPOXIC DURING THE TRANSFER. UPON ARRIVAL BACK TO BED, PT BREATHS EASIER BUT IT TAKES 4-5 MINUTES FOR HIS O2 SAT TO RECOVER TO THE 90s.
[2020-04-09] MEDS: ENOXAPARIN 40 MG/0.4 ML SYRINGE. SQ SCH (17:11)
[2020-04-09 19:39] VITALS: BP 142/77
[2020-04-09] MEDS: hydrOXYzine HCL 25 MG TABLET PO SCH (20:38)
[2020-04-09] MEDS: DIVALPROEX SODIUM 250 MG TABLET.DR. PO SCH (20:38)
[2020-04-09] MEDS: MIRTAZAPINE 15 MG TABLET PO SCH (20:39)
[2020-04-09] MEDS: ATORVASTATIN CALCIUM 10 MG TABLET. PO SCH (20:39)
[2020-04-09] MEDS: rOPINIRole 1 MG TABLET. PO SCH (21:13)
--- NOTE | 2020-04-09 23:01 | PN ---
DATE: 04/09/2020 ATTENDING PHYSICIAN: Dr. Hercules. SUBJECTIVE: Whereas he was doing poorly previous 48 hours, he is awake. He responded to questions appropriately. He says he is comfortable. He denies any dyspnea. OBJECTIVE FINDINGS: VITAL SIGNS: Blood pressure today is 129/78 mmHg, pulse 60 and regular, temperature 97.1 degrees Fahrenheit, oxygen saturation adequate at 5 liters by nasal cannula. HEENT: Head is without trauma. Pupils are reactive. Oropharynx dry, orbits a bit sunken. NECK: Supple. No stridor. LUNGS: Shallow respirations. CARDIOVASCULAR: Showed distant heart tones. No gallops. ABDOMEN: Soft. EXTREMITIES: Without edema. NEUROLOGIC: Pleasantly confused. SKIN: A bit cool. ASSESSMENT: 1. An 84-year-old gentleman with COVID-19 positive swabs, superimposed on aspiration pneumonia. 2. Acute on chronic respiratory failure. 3. Oxygen-dependent chronic obstructive pulmonary disease. 4. Essential hypertension, currently normotensive. 5. History of peripheral vascular disease. 6. Profound dementia. 7. History of prostate cancer. PLAN: 1. I reviewed his meds ____ today. We will continue them as ordered. 2. Continue steroids as ordered. 3. Diet as tolerated. 4. He looked like he was actively dying, but he has turned the corner. So, we will continue our supportive care for now. He is a DNR per advanced directives. JANELL HERCULES MD DR: TIERA/ashkan JOB#: [id number] / [id number]
[2020-04-10 05:44] VITALS: BP 158/64
[2020-04-10] MEDS: FLUTICASONE 50MCG/NASAL SPRAY 16GM BOTTLE. NS SCH (07:57)
[2020-04-10] MEDS: IPRATROPIUM/ALBUTEROL 20/100mcg/INH INHALER. INH SCH ×4 (07:57→20:00)
[2020-04-10] MEDS: MULTIVITAMIN with MINERAL TABLET. PO SCH (07:58)
[2020-04-10] MEDS: PROPRANOLOL 10 MG TABLET. PO SCH ×2 (07:58→20:42)
[2020-04-10] MEDS: DOCUSATE SODIUM 100 MG CAPSULE PO SCH (07:58)
[2020-04-10] MEDS: SERTRALINE 25 MG TABLET. PO SCH (07:58)
[2020-04-10] MEDS: LACTOBACILLUS RHAMNOSUS GG 1 CAPSULE. PO SCH ×2 (07:59→20:41)
[2020-04-10] MEDS: MEMANTINE 10 MG TABLET. PO SCH ×2 (07:59→20:42)
[2020-04-10] MEDS: PANTOPRAZOLE 40 MG TABLET. PO SCH (07:59)
[2020-04-10] MEDS: ASPIRIN CHEWABLE 81 MG TABLET. PO SCH (07:59)
[2020-04-10] MEDS: predniSONE 20 MG TABLET PO SCH (07:59)
[2020-04-10 10:03] VITALS: BP 163/75
--- NOTE | 2020-04-10 13:06 | PN ---
DATE: 04/10/2020 ATTENDING PHYSICIAN: Dr. Hercules. SUBJECTIVE: The patient is fairly alert. He is comfortable, he is not dyspneic. He is on minimal oxygen to maintain saturations. He is eating a little bit better. OBJECTIVE FINDINGS: VITAL SIGNS: Blood pressure today is 163/75, pulse 65 and regular. He is afebrile, oxygen saturation 96% on 5 liters nasal cannula. HEENT: Head is without trauma. Pupils are reactive. Sclerae are nonicteric. Oropharynx is clear. NECK: Supple, no bruits. LUNGS: Shallow respirations. Minimal rhonchi at bases. CARDIOVASCULAR: Showed regular heart tones. ABDOMEN: Soft, no guarding. EXTREMITIES: Without edema. NEUROLOGIC: Pleasantly confused. SKIN: Warm and dry. ASSESSMENT: 1. An 84-year-old gentleman with COVID-19 pneumonia superimposed on aspiration pneumonia. 2. Acute on chronic respiratory failure, stable. 3. Oxygen-dependent chronic obstructive pulmonary disease. 4. Essential hypertension, currently normotensive. 5. Peripheral vascular disease. 6. History of prostate cancer. 7. Profound dementia. PLAN: 1. I simplified his meds a bit today. 2. Continue low dose prednisone 20 mg daily. 3. Diet as tolerated. He is a DNR per advanced directive. We will continue supportive care. I will order repeat x-ray this weekend for followup. JANELL HERCULES MD DR: TIERA/ashkan JOB#: [id number] / [id number]
[2020-04-10] MEDS: ACETAMINOPHEN 500 MG TABLET PO PRN (13:36)
[2020-04-10] MEDS: ENOXAPARIN 40 MG/0.4 ML SYRINGE. SQ SCH (13:37)
--- NOTE | 2020-04-10 14:47 | NUR ---
PATIENT IS CALM AND COOPERATIVE THIS SHIFT, TALKATIVE AND IN A GOOD SPIRIT, REQUESTED TO GO TO THE BATHROOM, THIS RN OFFERED URINAL TO PREVENT SOB WITH EXERTION, PT AGREED TO USE URINAL BY THE BEDSIDE. PATIENT WAS INSTRUCTED TO KEEP NC WITH O2 AT 5L IN PLACE, PATIENT VERBALIZED UNDERSTANDING. WILL CTM.
[2020-04-10 20:00] VITALS: BP 153/73
[2020-04-10] MEDS: DIVALPROEX SODIUM 250 MG TABLET.DR. PO SCH (20:41)
[2020-04-10] MEDS: rOPINIRole 1 MG TABLET. PO SCH (20:42)
[2020-04-10] MEDS: MIRTAZAPINE 15 MG TABLET PO SCH (20:42)
[2020-04-10] MEDS: ATORVASTATIN CALCIUM 10 MG TABLET. PO SCH (20:42)
--- NOTE | 2020-04-11 06:07 | NUR ---
pt was cooperative and pleasant this evening, pt doing much better compared to when I had him last. pt is cracking jokes and in good spirits. pt remembered to use call light multiple times this evening in order to get up to the toilet. pt is still on 5L oxygen with NC. will continue to monitor.
[2020-04-11] MEDS: IPRATROPIUM/ALBUTEROL 20/100mcg/INH INHALER. INH SCH ×4 (08:00→20:00)
[2020-04-11] MEDS: predniSONE 20 MG TABLET PO SCH (08:27)
[2020-04-11] MEDS: LACTOBACILLUS RHAMNOSUS GG 1 CAPSULE. PO SCH ×2 (08:27→22:04)
[2020-04-11] MEDS: MEMANTINE 10 MG TABLET. PO SCH ×2 (08:27→22:05)
[2020-04-11] MEDS: ASPIRIN CHEWABLE 81 MG TABLET. PO SCH (08:27)
[2020-04-11] MEDS: SERTRALINE 25 MG TABLET. PO SCH (08:28)
[2020-04-11] MEDS: MULTIVITAMIN with MINERAL TABLET. PO SCH (08:28)
[2020-04-11] MEDS: PANTOPRAZOLE 40 MG TABLET. PO SCH (08:28)
[2020-04-11] MEDS: ACETAMINOPHEN 500 MG TABLET PO PRN (08:28)
[2020-04-11] MEDS: DOCUSATE SODIUM 100 MG CAPSULE PO SCH (08:28)
[2020-04-11] MEDS: FLUTICASONE 50MCG/NASAL SPRAY 16GM BOTTLE. NS SCH (08:29)
[2020-04-11 08:37] VITALS: BP 159/71
[2020-04-11] MEDS: PROPRANOLOL 10 MG TABLET. PO SCH ×2 (08:38→22:04)
--- NOTE | 2020-04-11 10:16 | NUR ---
Patient noted to be coughing up scant amount of bright red blood. Dr. Aguilar notified, order received for portable chest x-ray stat.
--- NOTE | 2020-04-11 11:48 | PN ---
DATE: 04/11/2020 ATTENDING PHYSICIAN: Dr. Hercules. SUBJECTIVE: The patient is alert. He is not in any acute distress. He had an episode of coughing with some blood-tinged sputum. OBJECTIVE FINDINGS: VITAL SIGNS: His blood pressure today is 159/71, pulse is 68 and regular, temperature I 97.6 degrees Fahrenheit, oxygen saturation 97% on 5 liters nasal cannula. HEENT: Head is without trauma. Pupils are reactive. Sclerae nonicteric. Oropharynx is clear. NECK: Supple. LUNGS: Coarse rhonchi bilaterally. CARDIOVASCULAR: Showed distant heart tones. No gallops. ABDOMEN: Soft. EXTREMITIES: Without edema. NEUROLOGIC: Pleasantly confused. SKIN: Warm and dry. LABORATORY DATA: Portable chest x-ray this morning still showed bibasilar and bilateral infiltrates involving 5 lobes. There is alveolar interstitial infiltrates bilaterally. ASSESSMENT: 1. An 84-year-old gentleman with COVID-19 pneumonia superimposed on aspiration pneumonia. 2. Acute on chronic respiratory failure. 3. Acute respiratory distress syndrome component. 4. Oxygen-dependent chronic obstructive pulmonary disease. 5. Essential hypertension. 6. History of prostate cancer. 7. Peripheral vascular disease. 8. Underlying dementia. PLAN: 1. Continue current care. 2. Prednisone 20 mg daily. 3. Diet as tolerated. 4. Clinically, he is doing better. His x-ray is lagging the clinical response. JANELL HERCULES MD DR: TIERA/ashkan JOB#: [id number] / [id number]
--- NOTE | 2020-04-11 12:46 | RAD ---
PORTABLE CHEST 1V History: Reason: COUGHING UP BLOOD / Spl. Instructions: / History: Comparison: April 02, 2020 Findings: Diffuse interstitial and alveolar opacities. No pleural effusion. No pneumothorax. Normal heart size. Postop changes right humeral head Impression: 1. Diffuse interstitial and alveolar opacities, slightly increased within the right midlung. Electronically signed by: Andrea Solomon DO (04/11/2020 12:43 PM) [id number]
[2020-04-11] MEDS: ENOXAPARIN 40 MG/0.4 ML SYRINGE. SQ SCH (16:59)
[2020-04-11 20:37] VITALS: BP 135/54
[2020-04-11] MEDS: DIVALPROEX SODIUM 250 MG TABLET.DR. PO SCH (22:04)
[2020-04-11] MEDS: rOPINIRole 1 MG TABLET. PO SCH (22:04)
[2020-04-11] MEDS: ATORVASTATIN CALCIUM 10 MG TABLET. PO SCH (22:04)
[2020-04-11] MEDS: MIRTAZAPINE 15 MG TABLET PO SCH (22:05)
[2020-04-12 07:33] VITALS: BP 158/76
[2020-04-12] MEDS: IPRATROPIUM/ALBUTEROL 20/100mcg/INH INHALER. INH SCH ×4 (08:00→20:00)
[2020-04-12] MEDS: PANTOPRAZOLE 40 MG TABLET. PO SCH (09:15)
[2020-04-12] MEDS: PROPRANOLOL 10 MG TABLET. PO SCH ×2 (09:15→21:26)
[2020-04-12] MEDS: DOCUSATE SODIUM 100 MG CAPSULE PO SCH (09:15)
[2020-04-12] MEDS: SERTRALINE 25 MG TABLET. PO SCH (09:15)
[2020-04-12] MEDS: ASPIRIN CHEWABLE 81 MG TABLET. PO SCH (09:15)
[2020-04-12] MEDS: ACETAMINOPHEN 500 MG TABLET PO PRN (09:16)
[2020-04-12] MEDS: predniSONE 20 MG TABLET PO SCH (09:16)
[2020-04-12] MEDS: MULTIVITAMIN with MINERAL TABLET. PO SCH (09:16)
[2020-04-12] MEDS: MEMANTINE 10 MG TABLET. PO SCH ×2 (09:16→21:25)
[2020-04-12] MEDS: LACTOBACILLUS RHAMNOSUS GG 1 CAPSULE. PO SCH ×2 (09:16→21:25)
[2020-04-12] MEDS: FLUTICASONE 50MCG/NASAL SPRAY 16GM BOTTLE. NS SCH (09:17)
[2020-04-12] MEDS: ENOXAPARIN 40 MG/0.4 ML SYRINGE. SQ SCH (17:16)
--- NOTE | 2020-04-12 20:10 | PN ---
DATE: 04/12/2020 SUBJECTIVE: The patient is actually doing better. He requested ____. He is wandering outside his room and we had to place a bed alarm that suggests that he is getting more active. He had an episode of coughing, no further hemoptysis. OBJECTIVE FINDINGS: VITAL SIGNS: Blood pressure today is 158/76 mmHg, temperature 97.7, oxygen saturation 92% on 5 liters nasal cannula. HEENT: Head is without trauma. Pupils are reactive. NECK: Supple. Oropharynx is clear. LUNGS: Coarse rhonchi bilaterally. CARDIOVASCULAR: Showed distant heart tones. No obvious gallops. Peripheral pulses are palpable and full. ABDOMEN: Soft, no guarding. Bowel sounds were hypoactive. EXTREMITIES: Without edema. NEUROLOGIC: Pleasantly confused. Speech was adequate. SKIN: Warm and dry. LABORATORY DATA: Chest x-ray showed bibasilar infiltrates involving all 5 lobes. ASSESSMENT: 1. An 84-year-old gentleman with COVID-19 pneumonia superimposed on aspiration pneumonia. 2. Acute on chronic respiratory failure. 3. Component of acute respiratory distress syndrome. 4. Oxygen-dependent chronic obstructive pulmonary disease. 5. Essential hypertension. 6. Peripheral vascular disease. 7. Underlying dementia. PLAN: 1. Continue current care and antibiotics. 2. Prednisone as ordered. 3. Diet as tolerated. 4. Follow up swabs. He will be here for at least several more days as senior living would not be able to take care of him. JANELL HERCULES MD DR: TIERA/ashkan JOB#: [id number] / [id number]
[2020-04-12 20:39] VITALS: BP 136/66
[2020-04-12] MEDS: DIVALPROEX SODIUM 250 MG TABLET.DR. PO SCH (21:25)
[2020-04-12] MEDS: MIRTAZAPINE 15 MG TABLET PO SCH (21:25)
[2020-04-12] MEDS: rOPINIRole 1 MG TABLET. PO SCH (21:26)
[2020-04-12] MEDS: ATORVASTATIN CALCIUM 10 MG TABLET. PO SCH (21:26)
--- NOTE | 2020-04-13 05:56 | NUR ---
PT FELL AT THE BEGINNING OF SHIFT. PT STATED HE WAS SITTING ON THE BEDSIDE, GOT LIGHT HEADED AND FELL ON TO THE FLOOR. PT COMPLAINED OF NO PAIN AND HAD BASELINE ORIENTATION. BED ALARM IS ON, CALL LIGHT WITH IN REACH. NOTIFIED PT BECAME MORE CONFUSED THE NIGHT WENT. PT BELIEVED HE NEEDED TO RUN TO [employer] AND COAL WEIGHER SOME PJ'S. NURSE RE ORIENTED PT. PT IS USING A URINAL AND BEDSIDE COMMODE DUE TO HIS SOA WHEN AMBULATING. WILL CONTINUE TO MONITOR.
--- NOTE | 2020-04-13 06:00 | NUR ---
PT WAS CALM AND COOPERATIVE WITH CARE. PT ABLE TO EXPRESS ANY CONCERNS OF QUESTIONS ABOUT HIS CARE. PT HAD TROUBLE SLEEPING THE PAST FEW NIGHT I HAVE HAD HIM. PT ONLY GETS A FEW HRS OF SLEEP AT NIGHT. PT HAS ORDERS FOR PICC PLACEMENT DUE TO [employer].
[2020-04-13 08:00] VITALS: BP 145/78
[2020-04-13] MEDS: DOCUSATE SODIUM 100 MG CAPSULE PO SCH (08:20)
[2020-04-13] MEDS: ASPIRIN CHEWABLE 81 MG TABLET. PO SCH (08:20)
[2020-04-13] MEDS: FLUTICASONE 50MCG/NASAL SPRAY 16GM BOTTLE. NS SCH (08:21)
[2020-04-13] MEDS: IPRATROPIUM/ALBUTEROL 20/100mcg/INH INHALER. INH SCH ×4 (08:21→20:00)
[2020-04-13] MEDS: MEMANTINE 10 MG TABLET. PO SCH ×2 (08:24→20:35)
[2020-04-13] MEDS: predniSONE 20 MG TABLET PO SCH (08:24)
[2020-04-13] MEDS: MAG HYDROX/AL HYDROX/SIMETH 30 ML ORAL.SUSP PO PRN (08:25)
[2020-04-13] MEDS: SERTRALINE 25 MG TABLET. PO SCH (08:25)
[2020-04-13] MEDS: PANTOPRAZOLE 40 MG TABLET. PO SCH (08:25)
[2020-04-13] MEDS: PROPRANOLOL 10 MG TABLET. PO SCH ×2 (08:25→20:35)
[2020-04-13] MEDS: MULTIVITAMIN with MINERAL TABLET. PO SCH (08:25)
[2020-04-13] MEDS: LACTOBACILLUS RHAMNOSUS GG 1 CAPSULE. PO SCH ×2 (09:00→20:35)
--- NOTE | 2020-04-13 14:47 | NUR ---
NURSING NOTE: PT IN BED UPON MEDICATION ADMINISTRATION AND ASSESSMENT. PT CALM AND COOPERATIVE DURING ASSESSMENT. PT COMPLIANT WITH MEDICATIONS. PT HAD SEVERAL EPISODES OF GETTING OUT OF BED AND TAKING OFF HIS OXYGEN. PT ORIENTED TO ROOM AND EDUCATED ON OXYGEN. PT WEARING SIMPLE MASK WHILE SLEEPING AND NC WHILE EATING. PT HAD NO COMPLAINTS OF PAIN. WILL CONTINUE TO MONITOR. SETH DENNIS
--- NOTE | 2020-04-13 15:35 | PN ---
DATE: 04/13/2020 ATTENDING PHYSICIAN: Dr. Hercules. SUBJECTIVE: The patient is calm this morning. He is less agitated. Yesterday, he was getting out of his room, he actually fell, but no apparent injuries identified. He had an episode of hemoptysis on Monday. No further problems identified. OBJECTIVE FINDINGS: VITAL SIGNS: Blood pressure today is 145/78 mmHg, temperature 97.4 degrees Fahrenheit, oxygen saturation 98% on 5 liters by nasal cannula. HEENT: Head is without trauma. Pupils are reactive. Sclerae are nonicteric. The oropharynx is clear. NECK: Supple. LUNGS: Shallow respirations, but fairly good air movement. EXTREMITIES: Showed trace edema. NEUROLOGIC: Pleasantly confused. He is not aware of person or time. LABORATORY STUDIES: Coronavirus swab was positive on 03/17, 03/25, 03/31 and 04/07 respectively. He is scheduled for another one this week. Last chemistry panel was unremarkable with creatinine of 1.3. Hemoglobin maintained at 10.5 g/dL. ASSESSMENT: 1. This 84-year-old gentleman has COVID-19 pneumonia superimposed on aspiration pneumonia. 2. Acute on chronic respiratory failure. 3. Component of acute respiratory distress syndrome, improved. 4. Oxygen dependent chronic obstructive pulmonary disease. 5. Labile hypertension. 6. Peripheral vascular disease. 7. Profound dementia with behavioral issues. PLAN: 1. Continue current care and antibiotics. 2. Meds reviewed. 3. Diet as tolerated. 4. He will have a repeat swab weekly. 5. We are still working on placement. JANELL HERCULES MD DR: TIERA/ashkan JOB#: [id number] / [id number]
[2020-04-13] MEDS: ENOXAPARIN 40 MG/0.4 ML SYRINGE. SQ SCH (16:46)
[2020-04-13 19:55] VITALS: BP 116/64
[2020-04-13] MEDS: MIRTAZAPINE 15 MG TABLET PO SCH (20:35)
[2020-04-13] MEDS: DIVALPROEX SODIUM 250 MG TABLET.DR. PO SCH (20:35)
[2020-04-13] MEDS: rOPINIRole 1 MG TABLET. PO SCH (20:35)
[2020-04-13] MEDS: ATORVASTATIN CALCIUM 10 MG TABLET. PO SCH (20:35)
[2020-04-14 07:34] VITALS: BP 138/74
[2020-04-14] MEDS: IPRATROPIUM/ALBUTEROL 20/100mcg/INH INHALER. INH SCH ×4 (09:21→20:36)
[2020-04-14] MEDS: FLUTICASONE 50MCG/NASAL SPRAY 16GM BOTTLE. NS SCH (09:21)
[2020-04-14] MEDS: MAG HYDROX/AL HYDROX/SIMETH 30 ML ORAL.SUSP PO PRN (09:22)
[2020-04-14] MEDS: LACTOBACILLUS RHAMNOSUS GG 1 CAPSULE. PO SCH ×2 (09:22→20:36)
[2020-04-14] MEDS: SERTRALINE 25 MG TABLET. PO SCH (09:22)
[2020-04-14] MEDS: PANTOPRAZOLE 40 MG TABLET. PO SCH (09:22)
[2020-04-14] MEDS: MEMANTINE 10 MG TABLET. PO SCH ×2 (09:22→20:36)
[2020-04-14] MEDS: DOCUSATE SODIUM 100 MG CAPSULE PO SCH (09:22)
[2020-04-14] MEDS: predniSONE 20 MG TABLET PO SCH (09:22)
[2020-04-14] MEDS: ASPIRIN CHEWABLE 81 MG TABLET. PO SCH (09:23)
[2020-04-14] MEDS: PROPRANOLOL 10 MG TABLET. PO SCH ×2 (09:23→20:37)
[2020-04-14] MEDS: MULTIVITAMIN with MINERAL TABLET. PO SCH (09:23)
--- NOTE | 2020-04-14 11:59 | PN ---
DATE: 04/14/2020 ATTENDING PHYSICIAN: Dr. Hercules. SUBJECTIVE: The patient is alert. He has no new complaints. 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 OBJECTIVE FINDINGS: VITAL SIGNS: Temperature today is 97.2 degrees Fahrenheit, oxygen saturation 99% on 4 liters, blood pressure 138/74, pulse is 60 and regular. HEENT: Head is without trauma. Pupils are reactive. Sclerae nonicteric. The oropharynx is clear. NECK: Supple, no bruits identified. LUNGS: Actually improved breath sounds bilaterally. Minimal rhonchi persist at the bases. CARDIOVASCULAR: Showed regular heart tones. ABDOMEN: Soft. EXTREMITIES: Without edema. NEUROLOGIC: Pleasantly confused. He is not agitated. ASSESSMENT: 1. An 84-year-old gentleman with COVID-19 pneumonia, superimposed on aspiration pneumonia, actually clinically better. 2. Acute on chronic respiratory failure. 3. Oxygen-dependent chronic obstructive pulmonary disease. 4. Labile hypertension. 5. Peripheral vascular disease. 6. Profound dementia with behavioral issues. PLAN: 1. Continue current antibiotics. 2. Taper steroids. 3. Diet as tolerated. 4. Repeat swabs. Unfortunately, he has had positive swabs for the last 4 weeks. We are still working on placement. JANELL HERCULES MD DR: TIERA/ashkan JOB#: [id number] / [id number]
[2020-04-14] MEDS: ENOXAPARIN 40 MG/0.4 ML SYRINGE. SQ SCH (16:26)
--- NOTE | 2020-04-14 16:42 | NUR ---
NURSING NOTE: PT IN BED UPON MEDIATION ADMINISTRATION AND ASSESSMENT. PT CALM AND COOPERATIVE. PT COMPLIANT WITH MEDICATION. PT TO SELF, LOCATION, AND SITUATION. PT AMBULATING TO BATHROOM TODAY. WILL CONTINUE TO MONITOR. SETH DENNIS
[2020-04-14 19:00] VITALS: BP 157/69
[2020-04-14] MEDS: ACETAMINOPHEN 500 MG TABLET PO PRN (20:36)
[2020-04-14] MEDS: DIVALPROEX SODIUM 250 MG TABLET.DR. PO SCH (20:36)
[2020-04-14] MEDS: rOPINIRole 1 MG TABLET. PO SCH (20:36)
[2020-04-14] MEDS: MIRTAZAPINE 15 MG TABLET PO SCH (20:36)
[2020-04-14] MEDS: ATORVASTATIN CALCIUM 10 MG TABLET. PO SCH (20:37)
--- NOTE | 2020-04-15 00:10 | NUR ---
Pt up to bathroom several times this shift. Pt more alert and interactive. However, pt attempting to exit room repeatedly and irritable with redirection. Pt restless, unable to sleep soundly. PRN zyprexa given. Food and drink offered. Pt now sitting up on bedside eating cheerios. Bed alarmed for safety.
[2020-04-15] MEDS: IPRATROPIUM/ALBUTEROL 20/100mcg/INH INHALER. INH SCH ×4 (07:24→20:00)
[2020-04-15] MEDS: SERTRALINE 25 MG TABLET. PO SCH (07:25)
[2020-04-15] MEDS: DOCUSATE SODIUM 100 MG CAPSULE PO SCH (07:25)
[2020-04-15] MEDS: MEMANTINE 10 MG TABLET. PO SCH ×2 (07:25→20:54)
[2020-04-15] MEDS: predniSONE 20 MG TABLET PO SCH (07:25)
[2020-04-15] MEDS: ASPIRIN CHEWABLE 81 MG TABLET. PO SCH (07:25)
[2020-04-15] MEDS: FLUTICASONE 50MCG/NASAL SPRAY 16GM BOTTLE. NS SCH (07:25)
[2020-04-15] MEDS: PANTOPRAZOLE 40 MG TABLET. PO SCH (07:25)
[2020-04-15] MEDS: MULTIVITAMIN with MINERAL TABLET. PO SCH (07:25)
[2020-04-15] MEDS: LACTOBACILLUS RHAMNOSUS GG 1 CAPSULE. PO SCH ×2 (07:25→20:53)
[2020-04-15] MEDS: PROPRANOLOL 10 MG TABLET. PO SCH ×2 (07:26→20:54)
[2020-04-15 07:31] VITALS: BP 152/80
--- NOTE | 2020-04-15 10:26 | NUR ---
MELL contacted pt dtr to discuss with her an update on pt and that pt should be swabbed today if not completed yesterday as pt is due for his weekly test. In the event that pt is positive he will stay another week and if negative another swab will be completed. The facility will need 2 negative swabs before accepting pt back. If that happens, pt can look at discharge back to [facility] either Monday or Monday. MELL also discussed with pt dtr that pt will be in his co-pay days as he is out of medicare days. Pt dtr understands and stated "there's not much that can be done about that considering he's positive and can't go back to the facility until he's negative". MELL will continue to follow up with Tim on pt progress and will send over updates to [facility] on pt progression.
--- NOTE | 2020-04-15 11:19 | NUR ---
PATIENT IS UP AND AWAKE IN A BED UPON ASSESSMENT , REQUESTED TO USE A BATHROOM, PATIENT IS ASSISTED WITH URINAL. PT IS CALM AND COMPLIANT WITH MEDICATIONS, REQUESTED TO GO BACK IN A BED WITH HOB ELEVATED. PATIENT IS CURRENTLY ASLEEP .[facility]
[2020-04-15] MEDS: ENOXAPARIN 40 MG/0.4 ML SYRINGE. SQ SCH (14:45)
[2020-04-15] MEDS: ACETAMINOPHEN 500 MG TABLET PO PRN (14:45)
[2020-04-15 19:30] VITALS: BP 105/59
[2020-04-15] MEDS: rOPINIRole 1 MG TABLET. PO SCH (20:53)
[2020-04-15] MEDS: MIRTAZAPINE 15 MG TABLET PO SCH (20:54)
[2020-04-15] MEDS: ATORVASTATIN CALCIUM 10 MG TABLET. PO SCH (20:54)
[2020-04-15] MEDS: DIVALPROEX SODIUM 250 MG TABLET.DR. PO SCH (20:54)
--- NOTE | 2020-04-16 02:14 | PN ---
DATE: 04/15/2020 SUBJECTIVE: The patient is an 84-year-old male patient who was sitting slightly propped up in bed, in no apparent distress, eating his dinner. On questioning him, he continued to complain of shortness of breath, particularly on exertion. The nursing staff stated that his oxygen dropped without oxygen supplementation; however, on 5 liters of oxygen, he is maintaining oxygen saturation of 97%. Denied any chest pain, chills, rigors or fever. PHYSICAL EXAMINATION: GENERAL: When I examined him this afternoon, he looked well and was clearly in no apparent respiratory distress, slightly pale, but no jaundice, cyanosis or thyromegaly. No jugular venous distention or limb edema. VITAL SIGNS: His heart rate was 63, blood pressure 152/80, temperature was 97.2, respiratory rate was 20, and oxygen saturation was 97% on 5 liters of oxygen. HEAD, EYES, EARS, NOSE AND THROAT: Showed normocephalic, atraumatic. NECK: Supple. HEART: Showed normal first and second heart sounds. No gallop or murmur. CHEST: Clear to auscultation. No crepitation or rhonchi. ABDOMEN: Distended, soft, nontender. No guarding or rigidity. No organomegaly. All hernial orifice intact. Bowel sounds normal. NEUROLOGIC: He was profoundly demented without any obvious lateralizing sign. He moves all extremities without difficulty. He ambulates without assistance or assistive devices. His intake was 1000, output was 600. LABORATORY DATA: His most recent lab work showed a white cell count 19,900, hemoglobin 10.5, hematocrit 33, MCV 101, and platelet count of 169,000. Serum sodium 137, potassium 4.8, chloride 103, bicarbonate 23, anion gap of 11, BUN 26, creatinine was 1.3, estimated GFR was 52 mL per minute. His glucose was 208, calcium was 8.6. Total bilirubin, AST and ALT were elevated. Alkaline phosphatase was normal. His total protein 6.4, albumin 2.6. ASSESSMENT: 1. This is an 84-year-old gentleman with COVID-19 pneumonia superimposed on aspiration pneumonia, actually clinically better. 2. Acute on chronic respiratory failure. 3. Oxygen-dependent chronic obstructive pulmonary disease. 4. Labile hypertension. 5. Peripheral vascular disease. 6. Dementia with behavioral disturbances. PLAN: To continue with his current medication. Continue with a tapering course of steroids. Continue with DVT prophylaxis. Continue with psychotropic medication. We will swab him again, as the last time he was swabbed was about 9 days ago. KRISTYN WALLS MD DR: MELLISA/ashkan JOB#: [id number] / [id number]
[2020-04-16 07:14] LABS: ALBUMIN 2.6 g/dL (3.4-5.0); ALBUMIN/GLOBULIN RATIO 0.7 (1.0-1.7); POTASSIUM 4.5 mmol/L (3.5-5.1); TOTAL BILIRUBIN 1.1 mg/dL (0.2-1.0); TOTAL PROTEIN 6.3 g/dL (6.4-8.2)
[2020-04-16 08:00] VITALS: BP 136/72
[2020-04-16] MEDS: IPRATROPIUM/ALBUTEROL 20/100mcg/INH INHALER. INH SCH ×4 (08:00→20:00)
[2020-04-16] MEDS: PANTOPRAZOLE 40 MG TABLET. PO SCH (08:01)
[2020-04-16] MEDS: MULTIVITAMIN with MINERAL TABLET. PO SCH (08:01)
[2020-04-16] MEDS: DOCUSATE SODIUM 100 MG CAPSULE PO SCH (08:01)
[2020-04-16] MEDS: SERTRALINE 25 MG TABLET. PO SCH (08:01)
[2020-04-16] MEDS: FLUTICASONE 50MCG/NASAL SPRAY 16GM BOTTLE. NS SCH (08:01)
[2020-04-16] MEDS: ASPIRIN CHEWABLE 81 MG TABLET. PO SCH (08:01)
[2020-04-16] MEDS: LACTOBACILLUS RHAMNOSUS GG 1 CAPSULE. PO SCH ×2 (08:01→21:50)
[2020-04-16] MEDS: predniSONE 20 MG TABLET PO SCH (08:02)
[2020-04-16] MEDS: PROPRANOLOL 10 MG TABLET. PO SCH ×2 (08:02→21:51)
[2020-04-16] MEDS: MEMANTINE 10 MG TABLET. PO SCH ×2 (08:02→21:50)
[2020-04-16 08:20] LABS: HEMATOCRIT 34.1 % (39.0-53.0); HEMOGLOBIN 10.8 g/dL (13.0-17.5); RED BLOOD COUNT 3.43 x10^6/uL (4.30-5.70); WHITE BLOOD COUNT 9.4 x10^3/uL (4.0-11.0)
[2020-04-16 10:49] VITALS: BP 115/66
--- NOTE | 2020-04-16 12:02 | NUR ---
MELL contacted Prema at [facility] to let her know that pt Covid test came back negative. Pt will have a 2nd Covid completed tomorrow with hopes to discharge pt on Monday. Prema asked to have the tests faxed over and [facility] will do that JEFF.
[2020-04-16] MEDS: ENOXAPARIN 40 MG/0.4 ML SYRINGE. SQ SCH (16:00)
--- NOTE | 2020-04-16 19:44 | NUR ---
NURSING NOTE: PT RESTING IN BED UPON ASSESSMENT AND MEDICATION ADMINISTRATION. PT CALM AND COOPERATIVE. PT WAS CONTINENT TODAY. PT TOLERATED DIET WELL. PT READY TO GO HOME. WILL CONTINUE TO MONITOR. SETH DENNIS
[2020-04-16 19:53] VITALS: BP 108/49
[2020-04-16] MEDS: DIVALPROEX SODIUM 250 MG TABLET.DR. PO SCH (21:50)
[2020-04-16] MEDS: ACETAMINOPHEN 500 MG TABLET PO PRN (21:50)
[2020-04-16] MEDS: rOPINIRole 1 MG TABLET. PO SCH (21:50)
[2020-04-16] MEDS: MIRTAZAPINE 15 MG TABLET PO SCH (21:51)
[2020-04-16] MEDS: ATORVASTATIN CALCIUM 10 MG TABLET. PO SCH (21:51)
--- NOTE | 2020-04-16 22:28 | PN ---
DATE: 04/16/2020 SUBJECTIVE: The patient is resting, slightly propped up in bed, sleeping comfortably, in no apparent distress. He continued to require 5 liters of oxygen, maintaining his oxygen saturation at 97%. He desaturates quickly with exertion. PHYSICAL EXAMINATION: GENERAL: When I examined him, he was pale. No jaundice, cyanosis or thyromegaly. No jugular venous distention. No limb edema. VITAL SIGNS: His heart rate was 56, blood pressure 115/66, temperature was 97.2, respiratory rate was 24 and oxygen saturation was 97% on 5 liters of oxygen. HEAD, EYES, EARS, NOSE AND THROAT: Showed normocephalic, atraumatic. NECK: Supple. HEART: Showed normal first and second heart sounds with no gallop or murmur. CHEST: Clear to auscultation. Chest shows central trachea, equal bilateral expansion, air entry expands with crepitation, mostly posteriorly bilaterally. I could not appreciate any rhonchi. ABDOMEN: Distended, soft, nontender. NEUROLOGIC: He was profoundly demented without any obvious lateralizing sign. All his cranial nerves are intact. He moves extremities without difficulty, ambulates without assistance or assistive devices. His intake was 1290, output was 700. LABORATORY DATA: His lab work as of this morning showed a white cell count 9400, hemoglobin 11, hematocrit 34, MCV 100 and platelet count of 171,000. Serum sodium 140, potassium 4.5, chloride 103, bicarbonate 29, anion gap of 8, BUN 24, creatinine 1, estimated GFR was 71 mL per minute. His glucose was 107, calcium was 9. Total bilirubin and ALT are elevated. AST and alkaline phosphatase were normal. His total protein 6.3, albumin 2.6. His coronavirus-2 PCR is not detected. ASSESSMENT: 1. This is an 84-year-old gentleman with COVID-19 pneumonia superimposed on aspiration pneumonia, seems to be clinically improved. 2. Acute on chronic respiratory failure. 3. Oxygen-dependent chronic obstructive pulmonary disease. 4. Labile hypertension. 5. Peripheral vascular disease. 6. Dementia with behavioral disturbances. 7. COVID-19 by PCR was negative or not detected at this time. PLAN: To continue with tapering course of steroids. Continue with DVT prophylaxis. Continue with all psychotropic medication. He will be swabbed again and if it is negative x 2, he can be transferred to a [facility] facility. KRISTYN WALLS MD DR: MELLISA/ashkan JOB#: [id number] / [id number]
[2020-04-16 22:41] VITALS: BP 122/71
[2020-04-17 04:56] VITALS: BP 143/65
[2020-04-17 08:34] VITALS: BP 143/64
[2020-04-17] MEDS: IPRATROPIUM/ALBUTEROL 20/100mcg/INH INHALER. INH SCH ×4 (10:42→20:00)
[2020-04-17] MEDS: ASPIRIN CHEWABLE 81 MG TABLET. PO SCH (10:42)
[2020-04-17] MEDS: ENOXAPARIN 40 MG/0.4 ML SYRINGE. SQ SCH (10:42)
[2020-04-17] MEDS: FLUTICASONE 50MCG/NASAL SPRAY 16GM BOTTLE. NS SCH (10:42)
[2020-04-17] MEDS: ACETAMINOPHEN 500 MG TABLET PO PRN (10:42)
[2020-04-17] MEDS: LACTOBACILLUS RHAMNOSUS GG 1 CAPSULE. PO SCH ×2 (10:42→21:51)
[2020-04-17] MEDS: DOCUSATE SODIUM 100 MG CAPSULE PO SCH (10:43)
[2020-04-17] MEDS: predniSONE 20 MG TABLET PO SCH (10:47)
[2020-04-17] MEDS: PROPRANOLOL 10 MG TABLET. PO SCH ×2 (10:47→21:51)
[2020-04-17] MEDS: SERTRALINE 25 MG TABLET. PO SCH (10:47)
[2020-04-17] MEDS: PANTOPRAZOLE 40 MG TABLET. PO SCH (10:48)
[2020-04-17] MEDS: MEMANTINE 10 MG TABLET. PO SCH ×2 (10:48→21:52)
[2020-04-17] MEDS: MULTIVITAMIN with MINERAL TABLET. PO SCH (10:48)
--- NOTE | 2020-04-17 18:54 | PN ---
DATE: 04/17/2020 SUBJECTIVE: The patient is resting, slightly propped up in bed, no apparent distress, sleeping comfortably. He continues to be on 5 liters of oxygen, maintaining his oxygen saturation at 92%. Nursing staff did not voice any concerns and he had generally uneventful night. PHYSICAL EXAMINATION: GENERAL: When I examined him this afternoon, he looked pale, but no jaundice, cyanosis or thyromegaly. No jugular venous distention or limb edema. VITAL SIGNS: Her heart rate was 70, blood pressure was 143/54, temperature was 97.1, respiratory rate was 24, and oxygen saturation was 92% on 5 liters of oxygen. HEAD, EYES, EARS, NOSE AND THROAT: Showed normocephalic, atraumatic. NECK: Supple. HEART: Showed normal first and second heart sounds with no gallop, rub or murmur. CHEST: Clear to auscultation. No crepitation or rhonchi. ABDOMEN: Distended, soft, nontender. NEUROLOGIC: He was profoundly demented, but without any obvious lateralizing sign. He moves extremities without difficulty. He ambulates with standby assist. His intake was 1316. No output was recorded. LABORATORY DATA: His most recent coronavirus by PCR was not detected on 04/14/2020. He was swabbed again and results of that test still pending at the time of this dictation. ASSESSMENT: 1. This is an 84-year-old gentleman with COVID-19 pneumonia superimposed aspiration pneumonia seems to be clinically improving. 2. Acute on chronic respiratory failure. 3. Oxygen-dependent chronic obstructive pulmonary disease. 4. Labile hypertension. 5. Peripheral vascular disease. 6. Dementia with behavioral disturbances. 7. COVID-19 by PCR was negative, undetected on 04/14/2020. Yesterday's labs are still pending at the time of this dictation. PLAN: To continue with all his psychotropic medication. Continue DVT prophylaxis. If the second swab was negative, he can be discharged to a [facility] facility. KRISTYN WALLS MD DR: MELLISA/ashkan JOB#: [id number] / [id number]
[2020-04-17 21:28] VITALS: BP 137/70
[2020-04-17] MEDS: MIRTAZAPINE 15 MG TABLET PO SCH (21:51)
[2020-04-17] MEDS: rOPINIRole 1 MG TABLET. PO SCH (21:52)
[2020-04-17] MEDS: ATORVASTATIN CALCIUM 10 MG TABLET. PO SCH (21:52)
[2020-04-17] MEDS: DIVALPROEX SODIUM 250 MG TABLET.DR. PO SCH (21:52)
--- NOTE | 2020-04-18 03:47 | NUR ---
PT RESTING IN BED UPON ASSESSMENT AND MEDICATION ADMINISTRATION. PT HAS BEEN COOPERATIVE AND PLEASANT THIS EVENING. PT HAD NO QUESTIONS OR COMPLAINTS UPON ASSESSMENT.
[2020-04-18 07:35] VITALS: BP 128/68
[2020-04-18] MEDS: MEMANTINE 10 MG TABLET. PO SCH ×2 (09:45→22:12)
[2020-04-18] MEDS: DOCUSATE SODIUM 100 MG CAPSULE PO SCH (09:45)
[2020-04-18] MEDS: LACTOBACILLUS RHAMNOSUS GG 1 CAPSULE. PO SCH ×2 (09:47→22:11)
[2020-04-18] MEDS: ASPIRIN CHEWABLE 81 MG TABLET. PO SCH (09:47)
[2020-04-18] MEDS: PANTOPRAZOLE 40 MG TABLET. PO SCH (09:47)
[2020-04-18] MEDS: MULTIVITAMIN with MINERAL TABLET. PO SCH (09:47)
[2020-04-18] MEDS: predniSONE 20 MG TABLET PO SCH (09:47)
[2020-04-18] MEDS: PROPRANOLOL 10 MG TABLET. PO SCH ×2 (09:47→22:13)
[2020-04-18] MEDS: SERTRALINE 25 MG TABLET. PO SCH (09:47)
[2020-04-18] MEDS: IPRATROPIUM/ALBUTEROL 20/100mcg/INH INHALER. INH SCH ×3 (09:48→20:00)
[2020-04-18] MEDS: FLUTICASONE 50MCG/NASAL SPRAY 16GM BOTTLE. NS SCH (09:48)
[2020-04-18] MEDS: ENOXAPARIN 40 MG/0.4 ML SYRINGE. SQ SCH (09:48)
--- NOTE | 2020-04-18 13:53 | PN ---
DATE: 04/18/2020 SUBJECTIVE: The patient is resting, slightly propped up in bed, in no apparent distress. He is actually much improved. He is now on only 2 liters of oxygen by nasal cannula, maintaining his oxygen saturation at 94%. On questioning him, he denied any complaint. The nursing staff did not voice any concern. PHYSICAL EXAMINATION: GENERAL: When I examined him, he looked pale, but no jaundice, cyanosis or thyromegaly. No jugular venous distention or limb edema. VITAL SIGNS: Her heart rate was 59, blood pressure was 128/68, temperature was 97.3, his respiratory rate was 22, and his oxygen saturation was 94%. HEAD, EYES, EARS, NOSE, AND THROAT: Normocephalic, atraumatic. NECK: Supple. HEART: Showed normal first and second heart sounds. No gallop, rub or murmur. CHEST: Clear to auscultation. No crepitation or rhonchi. ABDOMEN: Distended, soft, nontender. NEUROLOGIC: He was profoundly demented, but without any obvious lateralizing sign. He moves extremities without difficulty, ambulates with standby assist. His intake over the last 24 hours was 940, output was 200. LABORATORY DATA: His most recent white cell count was 9400, hemoglobin 11, hematocrit 34, MCV 100, and platelet count 271,000. His BUN is 24, creatinine 1. His D-dimer is down to 0.39 from 3.16. His most recent COVID test by PCR showed that it was not detectable on 04/14/2020. His second test still pending at the time of this dictation. ASSESSMENT: 1. This is an 84-year-old gentleman with COVID-19 pneumonia, superimposed aspiration pneumonia, seems to be clinically improving. 2. Acute on chronic respiratory failure. 3. Oxygen-dependent chronic obstructive pulmonary disease. 4. Labile hypertension. 5. Peripheral vascular disease. 6. Dementia with behavioral disturbances. 7. COVID-19 by PCR was negative on 04/14/2020. Second test is still pending at the time of this dictation. PLAN: Plan is to continue with psychotropic medication. Continue DVT prophylaxis. Second swab was negative. The patient can be discharged to a [facility] facility. KRISTYN WALLS MD DR: MELLISA/ashkan JOB#: [id number] / [id number]
[2020-04-18 19:58] VITALS: BP 119/64
[2020-04-18] MEDS: DIVALPROEX SODIUM 250 MG TABLET.DR. PO SCH (22:11)
[2020-04-18] MEDS: ACETAMINOPHEN 500 MG TABLET PO PRN (22:11)
[2020-04-18] MEDS: ATORVASTATIN CALCIUM 10 MG TABLET. PO SCH (22:12)
[2020-04-18] MEDS: rOPINIRole 1 MG TABLET. PO SCH (22:12)
[2020-04-18] MEDS: MIRTAZAPINE 15 MG TABLET PO SCH (22:13)
[2020-04-19 07:50] VITALS: BP 150/70
[2020-04-19] MEDS: IPRATROPIUM/ALBUTEROL 20/100mcg/INH INHALER. INH SCH ×4 (08:00→20:00)
[2020-04-19] MEDS: FLUTICASONE 50MCG/NASAL SPRAY 16GM BOTTLE. NS SCH (09:00)
[2020-04-19] MEDS: ASPIRIN CHEWABLE 81 MG TABLET. PO SCH (09:54)
[2020-04-19] MEDS: LACTOBACILLUS RHAMNOSUS GG 1 CAPSULE. PO SCH ×2 (09:54→20:34)
[2020-04-19] MEDS: DOCUSATE SODIUM 100 MG CAPSULE PO SCH (09:54)
[2020-04-19] MEDS: SERTRALINE 25 MG TABLET. PO SCH (09:54)
[2020-04-19] MEDS: PANTOPRAZOLE 40 MG TABLET. PO SCH (09:54)
[2020-04-19] MEDS: MEMANTINE 10 MG TABLET. PO SCH ×2 (09:54→20:34)
[2020-04-19] MEDS: predniSONE 20 MG TABLET PO SCH (09:55)
[2020-04-19] MEDS: PROPRANOLOL 10 MG TABLET. PO SCH ×2 (09:55→20:34)
[2020-04-19] MEDS: MULTIVITAMIN with MINERAL TABLET. PO SCH (09:55)
[2020-04-19] MEDS: ENOXAPARIN 40 MG/0.4 ML SYRINGE. SQ SCH (09:58)
[2020-04-19 19:30] VITALS: BP 118/62
--- NOTE | 2020-04-19 19:30 | PN ---
DATE: 04/19/2020 SUBJECTIVE: The patient is resting, slightly propped up in bed, in no apparent distress, awake, alert, somewhat confused. On questioning him, he denied any complaint. The nursing staff stated he is doing well today. He has not been restless or agitated. He is maintaining his oxygen saturation at 98% on 2 liters of oxygen. PHYSICAL EXAMINATION: GENERAL: When I examined him, he looked pale. No jaundice, cyanosis or thyromegaly. No jugular venous distention or limb edema. VITAL SIGNS: His heart rate was 61, blood pressure is 150/70, temperature 97.6, respiratory rate was 18 and oxygen saturation was 98% on 2 liters of oxygen. HEAD, EYES, EARS, NOSE AND THROAT: Showed normocephalic, atraumatic. NECK: Supple. HEART: Showed normal first and second heart sounds. No gallop or murmur. CHEST: Clear to auscultation. No crepitation or rhonchi. ABDOMEN: Scaphoid, soft, nontender. NEUROLOGIC: He was confused and profoundly demented, but without any obvious lateralizing sign. His intake was 916, output was recorded. His coronavirus-2 PCR was not detected on 04/14. The second swab is still pending at the time of this dictation. LABORATORY DATA: Remained stable. His C-reactive protein is down from 68.7-35.7 and his D-dimer was down from 3.16-0.39. His oxygen requirement is down from 5-2 liters. We are hoping that his second swab will be negative and he can be discharged to a [facility] facility. ASSESSMENT: 1. This is an 84-year-old male patient with COVID-19 pneumonia superimposed on aspiration pneumonia, seems to be clinically improving. 2. Rerrl-tf-rtchydv respiratory failure. 3. Oxygen-dependent chronic obstructive pulmonary disease. 4. Labile hypertension. 5. Peripheral vascular disease. 6. Dementia with behavioral disturbances. 7. COVID-19 by PCR was negative on 04/14. The second test was still pending at the time of this dictation. PLAN: To continue with all his psychotropic medication. Continue with DVT prophylaxis. If the second swab is negative, the patient will be discharged to a jail facility. KRISTYN WALLS MD DR: Titus JOB#: [id number] / [id number]
[2020-04-19] MEDS: ATORVASTATIN CALCIUM 10 MG TABLET. PO SCH (20:34)
[2020-04-19] MEDS: rOPINIRole 1 MG TABLET. PO SCH (20:34)
[2020-04-19] MEDS: DIVALPROEX SODIUM 250 MG TABLET.DR. PO SCH (20:34)
[2020-04-19] MEDS: MIRTAZAPINE 15 MG TABLET PO SCH (20:35)
[2020-04-20 05:20] VITALS: BP 148/81
[2020-04-20] MEDS: ASPIRIN CHEWABLE 81 MG TABLET. PO SCH (07:50)
[2020-04-20] MEDS: DOCUSATE SODIUM 100 MG CAPSULE PO SCH (07:50)
[2020-04-20] MEDS: MEMANTINE 10 MG TABLET. PO SCH ×2 (07:51→19:49)
[2020-04-20] MEDS: predniSONE 20 MG TABLET PO SCH (07:51)
[2020-04-20] MEDS: LACTOBACILLUS RHAMNOSUS GG 1 CAPSULE. PO SCH ×2 (07:51→19:50)
[2020-04-20] MEDS: MULTIVITAMIN with MINERAL TABLET. PO SCH (07:51)
[2020-04-20] MEDS: PANTOPRAZOLE 40 MG TABLET. PO SCH (07:51)
[2020-04-20] MEDS: IPRATROPIUM/ALBUTEROL 20/100mcg/INH INHALER. INH SCH ×4 (07:51→19:50)
[2020-04-20] MEDS: SERTRALINE 25 MG TABLET. PO SCH (07:51)
[2020-04-20] MEDS: PROPRANOLOL 10 MG TABLET. PO SCH ×2 (07:51→19:49)
[2020-04-20] MEDS: FLUTICASONE 50MCG/NASAL SPRAY 16GM BOTTLE. NS SCH (07:52)
[2020-04-20] MEDS: ENOXAPARIN 40 MG/0.4 ML SYRINGE. SQ SCH (07:55)
[2020-04-20 16:22] VITALS: BP 134/62
--- NOTE | 2020-04-20 18:02 | PN ---
DATE: 04/20/2020 SUBJECTIVE: The patient is resting, slightly propped up in bed, in no apparent respiratory distress. He is awake, alert. He is maintaining his oxygen saturation at 93%. Unfortunately, his coronavirus by PCR tests still pending at the time of this dictation. PHYSICAL EXAMINATION: GENERAL: When I examined him, he was pale, but no jaundice, cyanosis or thyromegaly. No jugular venous distention or limb edema. VITAL SIGNS: His heart rate was 84, blood pressure was 134/62, temperature was 97.1, respiratory rate was 22 and oxygen saturation was 93% on 2 liters of oxygen. HEAD, EYES, EARS, NOSE AND THROAT: Showed normocephalic, atraumatic. NECK: Supple. HEART: Showed normal first and second heart sounds. No gallop, rub or murmur. CHEST: Clear to auscultation. No crepitation or rhonchi. ABDOMEN: Distended, soft, nontender. No guarding or rigidity. No organomegaly. All hernial orifices intact. Bowel sounds normal. NEUROLOGIC: He was profoundly demented, but without any obvious lateralizing sign. His intake was 1200. No output was recorded. LABORATORY DATA: Most recent lab work showed a white cell count of 9400, hemoglobin 11, hematocrit 34, MCV 100, platelets 171,000. His most recent chemistry showed a BUN of 24, creatinine 1. ASSESSMENT: 1. This is an 84-year-old male patient with COVID-19 pneumonia superimposed on aspiration pneumonia, seems to be clinically improving. 2. Acute on chronic respiratory failure. 3. Oxygen-dependent chronic obstructive pulmonary disease. 4. Labile hypertension. 5. Peripheral vascular disease. 6. Dementia with behavioral disturbances. 7. COVID-19 by PCR was negative on 04/14/2020. Second test is still pending at the time of this dictation. PLAN: To continue with all psychotropic medications. Continue with DVT prophylaxis. Continue with nutritional support. If the second swab is negative, the patient will be discharged to a residential facility. KRISTYN WALLS MD DR: MELLISA/ashkan JOB#: [id number] / [id number]
[2020-04-20 19:49] VITALS: BP 153/64
[2020-04-20] MEDS: rOPINIRole 1 MG TABLET. PO SCH (19:49)
[2020-04-20] MEDS: ATORVASTATIN CALCIUM 10 MG TABLET. PO SCH (19:50)
[2020-04-20] MEDS: MIRTAZAPINE 15 MG TABLET PO SCH (19:50)
[2020-04-20] MEDS: DIVALPROEX SODIUM 250 MG TABLET.DR. PO SCH (19:50)
[2020-04-21] MEDS: LACTOBACILLUS RHAMNOSUS GG 1 CAPSULE. PO SCH ×2 (07:42→20:03)
[2020-04-21] MEDS: IPRATROPIUM/ALBUTEROL 20/100mcg/INH INHALER. INH SCH ×4 (07:42→20:00)
[2020-04-21] MEDS: SERTRALINE 25 MG TABLET. PO SCH (07:45)
[2020-04-21] MEDS: MEMANTINE 10 MG TABLET. PO SCH ×2 (07:45→20:02)
[2020-04-21] MEDS: ASPIRIN CHEWABLE 81 MG TABLET. PO SCH (07:45)
[2020-04-21] MEDS: PANTOPRAZOLE 40 MG TABLET. PO SCH (07:45)
[2020-04-21] MEDS: PROPRANOLOL 10 MG TABLET. PO SCH ×2 (07:45→20:03)
[2020-04-21] MEDS: MULTIVITAMIN with MINERAL TABLET. PO SCH (07:45)
[2020-04-21] MEDS: predniSONE 20 MG TABLET PO SCH (07:45)
[2020-04-21] MEDS: DOCUSATE SODIUM 100 MG CAPSULE PO SCH (07:46)
[2020-04-21] MEDS: FLUTICASONE 50MCG/NASAL SPRAY 16GM BOTTLE. NS SCH (07:46)
[2020-04-21] MEDS: ENOXAPARIN 40 MG/0.4 ML SYRINGE. SQ SCH (07:46)
[2020-04-21 08:45] VITALS: BP 138/74
--- NOTE | 2020-04-21 14:21 | PN ---
DATE: 04/21/2020 SUBJECTIVE: The patient is resting, slightly propped up in his bed, in no apparent distress. He is awake, alert, though confused. Questioning him, he denied any complaint. PHYSICAL EXAMINATION: GENERAL: When I examined him, he looked pale, no jaundice, no cyanosis, no thyromegaly. No jugular venous distention or limb edema. VITAL SIGNS: Her heart rate was 70, blood pressure was 138/74, temperature was 98, respiratory rate was 18 and oxygen saturation was 97% on 2 liters of oxygen. HEENT: Showed normocephalic, atraumatic. NECK: Supple. HEART: Showed normal first and second heart sounds with no gallop or murmur. CHEST: Clear to auscultation. No crepitation or rhonchi. ABDOMEN: Distended, soft, nontender. No guarding or rigidity. No organomegaly. All hernial orifice intact. Bowel sounds normal. NEUROLOGIC: He is demented, but without any obvious lateralizing sign. His coronavirus by PCR was not detected for the second time on 04/17. LABORATORY DATA: Showed a white cell count 9400, hemoglobin 11, hematocrit 34, MCV 100, platelet count 271,000. Most recent chemistry also showed a serum sodium 140, potassium 4.5, chloride 103, bicarbonate 29, anion gap of 8, BUN 24, creatinine 1, estimated GFR was 71 mL per minute. His glucose 107 and calcium was 9. Total bilirubin, AST, ALT, alkaline phosphatase slightly elevated. Total protein 6.3, albumin was 2.6. ASSESSMENT: 1. This is an 84-year-old male patient with COVID-19 pneumonia superimposed on aspiration pneumonia and seems to be clinically improving. 2. Acute on chronic respiratory failure. 3. Oxygen-dependent chronic obstructive pulmonary disease. 4. Labile hypertension. 5. Peripheral vascular disease. 6. Dementia with behavioral disturbances. 7. COVID-19 by PCR was negative for the second time. The patient is scheduled to be discharged to a custodial facility tomorrow. KRISTYN WALLS MD DR: MELLISA/ashkan JOB#: [id number] / [id number]
[2020-04-21] MEDS: ACETAMINOPHEN 500 MG TABLET PO PRN ×2 (14:50→20:03)
[2020-04-21 15:29] VITALS: BP 142/79
[2020-04-21 19:14] VITALS: BP 165/74
[2020-04-21] MEDS: DIVALPROEX SODIUM 250 MG TABLET.DR. PO SCH (20:02)
[2020-04-21] MEDS: rOPINIRole 1 MG TABLET. PO SCH (20:02)
[2020-04-21] MEDS: ATORVASTATIN CALCIUM 10 MG TABLET. PO SCH (20:02)
[2020-04-21] MEDS: MIRTAZAPINE 15 MG TABLET PO SCH (20:03)
[2020-04-22] MEDS: DOCUSATE SODIUM 100 MG CAPSULE PO SCH (07:31)
[2020-04-22] MEDS: ASPIRIN CHEWABLE 81 MG TABLET. PO SCH (07:31)
[2020-04-22] MEDS: PANTOPRAZOLE 40 MG TABLET. PO SCH (07:31)
[2020-04-22] MEDS: LACTOBACILLUS RHAMNOSUS GG 1 CAPSULE. PO SCH (07:31)
[2020-04-22] MEDS: SERTRALINE 25 MG TABLET. PO SCH (07:31)
[2020-04-22] MEDS: MEMANTINE 10 MG TABLET. PO SCH (07:32)
[2020-04-22] MEDS: ENOXAPARIN 40 MG/0.4 ML SYRINGE. SQ SCH (07:32)
[2020-04-22] MEDS: PROPRANOLOL 10 MG TABLET. PO SCH (07:32)
[2020-04-22] MEDS: predniSONE 20 MG TABLET PO SCH (07:32)
[2020-04-22] MEDS: IPRATROPIUM/ALBUTEROL 20/100mcg/INH INHALER. INH SCH (07:33)
[2020-04-22] MEDS: MULTIVITAMIN with MINERAL TABLET. PO SCH (07:33)
[2020-04-22] MEDS: FLUTICASONE 50MCG/NASAL SPRAY 16GM BOTTLE. NS SCH (07:33)
[2020-04-22 08:24] VITALS: BP 122/73
--- NOTE | 2020-04-22 10:38 | NUR ---
MELL contacted pt dtr, Tim, to let her know that pt was going to discharge today. Pt is doing well physically but did inform Tim that he may need to remain on oxygen for the time being. MELL would recommend that [facility] complete PT with the pt to see if they can wean him off oxygen or determine if this will be his new norm. Tim was very excited to have pt return and MELL encouraged her to call if she had any further questions once pt returned to [facility].
--- NOTE | 2020-04-22 11:09 | DS ---
DATE OF DISCHARGE: 04/22/2020 ATTENDING PHYSICIANS: Dr. Bell and Dr. Hercules. FINAL DISCHARGE DIAGNOSES: 1. COVID-19 pneumonia. 2. Aspiration pneumonia. 3. Acute respiratory failure, acute on chronic. 4. Oxygen-dependent chronic obstructive pulmonary disease. 5. Labile hypertension. 6. Peripheral vascular disease. 7. Dementia with behavioral disturbances. 8. Generalized debilitation. HISTORY AND PHYSICAL: The patient is an 84-year-old gentleman who was at [facility] issues. He tested positive for COVID-19 coronavirus. He also developed aspiration pneumonia and also COVID-19 pneumonia and acute respiratory failure. PHYSICAL EXAMINATION: Please see the dictated note. PERTINENT LABORATORY AND X-RAY STUDIES: Numerous. Prior to discharge, his hemoglobin was stable at 10.8 g/dL with white count of 9400. Chemistry panel showed stable electrolytes. Creatinine 1.0 mg percent. Multiple swabs were done during his prolonged hospitalization, the last 2 swabs were determined to be negative on 04/14/2020 and 04/17/2020. Numerous imaging studies were obtained and please refer to the extensive database. COURSE IN THE HOSPITAL: The patient was admitted. He received antibiotics, long-term prednisone with tapering dose as well as convalescent antibodies and remdesivir during the course of the hospitalization. He was very critically ill. He had been a DNR. For a while there he was expected for him not to live, but miraculously he rebounded and got better. Oxygen was weaned down and on the day of discharge, he had specific vital signs, which showed 94% saturation without oxygen. Blood pressure is stable 122/73. He had been afebrile. Therefore, on the 46th hospital day, the patient was discharged to [facility] for continued daily care. He will continue his Tylenol, aspirin, Lipitor, Depakote, docusate, fluticasone, Lasix, hydroxyzine, ipratropium, magnesium hydroxide, Remeron, Protonix, MiraLax, Seroquel, propranolol, Exelon, Requip and Zoloft, doses unchanged. He is a DNR per advanced directives. He is actually doing fairly well and active. The patient was then discharged from our hospital in stable condition with explicit instructions and followup care. JANELL HERCULES MD DR: ITERA/ashkan JOB#: [id number] / [id number] KRISTYN Barker MD
--- NOTE | 2020-04-22 11:15 | NUR ---
NURSING NOTE: DISCHARGE PT DISCHARGED TO [facility] VIA WC. FACILITY TRANSPORT PICKED UP PT WITH WC AND OXYGEN. DISCHARGE PACKET SENT WITH PT TO THE FACILITY WITH THE STOVE MECHANIC. REPORT WAS CALLED TO YUSRA AT [facility]. NO QUESTIONS. SETH DENNIS
== END 2020-04-22 11:18 | DRG 177 ==
LOC: 1 SOUTH 18:15 → LND 03-10 18:17 → ICU 03-18 09:42 → 1 SOUTH 03-22 18:37
PROVIDERS: ADMIT Internal Medicine; ATTEND Hospitalist
PROC: XW13325 Transfusion of Convalescent Plasma (Nonautologous) into Peripheral Vein, Percutaneous Approach, New Technology Group 5 (ICD-10-PCS; principal; 2020-03-19)
DX: U07.1 COVID-19 (principal); E43 Unspecified severe protein-calorie malnutrition; J96.21 Acute and chronic respiratory failure with hypoxia; J12.89 Other viral pneumonia; J69.0 Pneumonitis due to inhalation of food and vomit; F01.51 Vascular dementia, unspecified severity, with behavioral disturbance; J44.0 Chronic obstructive pulmonary disease with (acute) lower respiratory infection; D63.8 Anemia in other chronic diseases classified elsewhere; E78.5 Hyperlipidemia, unspecified; F32.9 Major depressive disorder, single episode, unspecified; F41.9 Anxiety disorder, unspecified; I73.9 Peripheral vascular disease, unspecified; Z66 Do not resuscitate; I10 Essential (primary) hypertension; I25.10 Atherosclerotic heart disease of native coronary artery without angina pectoris; I25.2 Old myocardial infarction; Z79.2 Long term (current) use of antibiotics; Z79.52 Long term (current) use of systemic steroids; Z85.46 Personal history of malignant neoplasm of prostate; Z99.81 Dependence on supplemental oxygen; Z68.28 Body mass index [BMI] 28.0-28.9, adult; Z88.8 Allergy status to other drugs, medicaments and biological substances
CPT/HCPCS: 36415; 36600; 71045; 80053; 81001; 82803; 82947; 83605; 85025; 85027; 85379; 86140; 86850; 86900; 86901; 86927; 87040; J0878; J1650; J2543; J2920; J2930; J3486; J7512; J7613; J7030; P9017; U0003-CS